=== PATIENT | male | born 1965 | race American Indian/Alaskan Native ===

== ENCOUNTER 2017-02-01 08:22 | Observation (INO) | payer MEDICARE, MEDICAID ==
[2017-02-01 08:46] VITALS: BP 140/75; PULSE 88; RESP 21; TEMP 97.8; O2SAT 100
[2017-02-01] MEDS ORDERED: Sodium Chloride 0.9% 1,000 ML IV STA (09:46)
--- NOTE | 2017-02-01 10:25 | ED PDOC ---
HPI: Abdomen Time Seen by Provider: 02/01/17 09:13 Chief Complaint (Nursing): Back Pain Chief Complaint (Provider): Abdominal Pain History Per: Patient History/Exam Limitations: no limitations Current Symptoms Are (Timing): Still Present Additional Complaint(s): 51 y/o presents to the emergency department with a complaint of chronic back pain and abdominal pain. Denies nausea , vomiting , diarrhea and fever. States his pain medications are not working Past Medical History Reviewed: Historical Data, Nursing Documentation, Vital Signs Vital Signs: Last Vital Signs Temp 97.8 F 02/01/17 08:41 Pulse 88 02/01/17 08:41 Resp 21 02/01/17 08:41 BP 140/75 02/01/17 08:41 Pulse Ox 100 02/01/17 16:57 - Medical History PMH: Gastritis, HTN - Surgical History Surgical History: No Surg Hx - Family History Family History: States: Unknown Family Hx - Home Medications Home Medications: Ambulatory Orders Medication Instructions Recorded Famotidine [Pepcid] 20 mg PO BID #20 tab 02/01/17 - Allergies Allergies/Adverse Reactions: Allergies Allergy/AdvReac Type Severity Reaction Status Date / Time shellfish derived Allergy ITCHING Verified 02/01/17 08:54 Review of Systems ROS Statement: Except As Marked, All Systems Reviewed And Found Negative Constitutional: Negative for: Fever Gastrointestinal: Positive for: Abdominal Pain. Negative for: Nausea, Vomiting , Diarrhea Physical Exam - Reviewed Nursing Documentation Reviewed: Yes Vital Signs Reviewed: Yes - Physical Exam Appears: Positive for: Non-toxic, No Acute Distress (Sleeping comfortably) Head Exam: Positive for: ATRAUMATIC, NORMOCEPHALIC Skin: Positive for: Normal Color, Warm, Dry Cardiovascular/Chest: Positive for: Regular Rate, Rhythm Respiratory: Positive for: Normal Breath Sounds Gastrointestinal/Abdominal: Positive for: Bowel Sounds (Normal), Soft, Tenderness (Mild epigastric) Neurologic/Psych: Positive for: Alert, Oriented - Laboratory Results Result Diagrams: 02/01/17 10:00 02/01/17 10:00 - ECG Interpretation Of ECG: NSR @ 84, nonspecific T wave abnormality. O2 Sat by Pulse Oximetry: 100 (RA) Pulse Ox Interpretation: Normal - CT Scan/US RUQ ultrasound Other Rad Studies (CT/US): Radiology Report Reviewed (Unremarkable right upper quadrant ultrasound.) Medical Decision Making Medical Decision Making: Time: 9:13 Initial impression: Abdominal Pain Initial plan: --Electrocardiogram Stat --COMP Metabolic Panel --Lipase Stat --ED Urine Dipstick (POC) --EKG-ED (ENDURTX) --CBC w/ differential --Pepcid 20 mg IVP --Sodium Chloride 1,000 ml IV 100 mls/hr --Zofran INJ 4mg IV --Urinalysis Stat --Revaluation Scribe Attestation: Documented by Elen Quijano, acting as a scribe for Chanelle Contreras MD. Provider Scribe Attestation: All medical record entries made by the Scribe were at my direction and personally dictated by me. I have reviewed the chart and agree that the record accurately reflects my personal performance of the history, physical exam, medical decision making, and the department course for this patient. I have also personally directed ED OBSERVATION Time of observation admission: 11:00 Disposition - Clinical Impression Clinical Impression: Chronic back pain, Gastritis - Disposition Disposition: Routine/Home Disposition Time: 13:40 Condition: IMPROVED
[2017-02-01 10:28] LABS: BASO % 0.5 % (0.0-2.0); EOS # 0.1 K/uL (0.0-0.7); EOS % 1.5 % (0.0-4.0); HEMATOCRIT 37.6 % (35.0-51.0); LYMPH # 2.3 K/uL (1.0-4.3); MEAN CELL VOLUME 92.6 fl (80.0-94.0); MEAN CORPUSCULAR HEMOGLOBIN 31.7 pg (27.0-31.0); MEAN CORPUSCULAR HGB CONC 34.2 g/dL (33.0-37.0); MEAN PLATELET VOLUME 8.8 fl (7.2-11.7); MONO # 0.7 K/uL (0.0-0.8); MONO % 9.9 % (0.0-10.0); NEUT # 4.3 K/uL (1.8-7.0); NEUT % 57.1 % (50.0-75.0); NRBC % 0.1 % (0.0-0.0); RED CELL DISTRIBUTION WIDTH 15.3 % (11.5-14.5); WHITE BLOOD COUNT 7.5 K/uL (4.8-10.8)
[2017-02-01 10:40] LABS: ALB/GLOB RATIO 1.2 (1.0-2.1); ALKALINE PHOSPHATASE 83 U/L (38-126); ALT/SGPT 99 U/L (21-72); AST/SGOT 54 U/L (17-59); BILIRUBIN,TOTAL 0.3 mg/dl (0.2-1.3); BLOOD UREA NITROGEN 15 mg/dl (9-20); CALCIUM 9.1 mg/dL (8.4-10.2); CARBON DIOXIDE 27 mmol/L (22-30); CHLORIDE 105 mmol/L (98-107); GFR AFRICAN-AMERICAN > 60; GLUCOSE,RANDOM 103 mg/dL (75-110); LIPASE 229 U/L (23-300); POTASSIUM 3.8 MMOL/L (3.6-5.0); SODIUM 141 mmol/l (132-148); TOTAL PROTEIN 6.5 G/DL (6.3-8.2)
[2017-02-01 13:29] LABS: RBC URINE 1 /hpf (0-3); URINE BACTERIA RARE (<OCC); URINE BILIRUBIN NEGATIVE (NEGATIVE); URINE BLOOD NEGATIVE (NEGATIVE); URINE COLOR YELLOW (YELLOW); URINE GLUCOSE (UA) NEG (Normal); URINE KETONE NEGATIVE (NEGATIVE); URINE LEUKOCYTE ESTERASE NEG Leu/uL (Negative); URINE PROTEIN NEGATIVE (NEGATIVE); URINE UROBILINOGEN 0.2-1.0 mg/dL (0.2-1.0); WBC URINE 3 /hpf (0-5)
--- NOTE | 2017-02-01 14:12 | US ---
HISTORY: Epigastric pain COMPARISON: None. TECHNIQUE: Sonographic evaluation of the right upper quadrant of the abdomen. FINDINGS: LIVER: Measures cm in length. Normal echogenicity of the liver parenchyma. No mass. No intrahepatic bile duct dilatation. GALLBLADDER: Unremarkable. No gallstones. COMMON BILE DUCT: Measures mm. No stones. No dilatation. PANCREAS: Unremarkable as visualized. No mass. No ductal dilatation. RIGHT KIDNEY: Measures cm in length. Normal echogenicity. No calculus, mass, or hydronephrosis. AORTA: No aneurysmal dilatation. IVC: Unremarkable. OTHER FINDINGS: None . IMPRESSION: Unremarkable right upper quadrant ultrasound
--- NOTE | 2017-02-02 10:25 | CARD ---
APPROVED REPORT EKG Measurement Heart [id number] <Conclusion> Normal sinus rhythm Minimal voltage criteria for LVH, may be normal variant Nonspecific T wave abnormality Abnormal ECG
== END 2017-02-01 16:46 | disposition home or self-care (01) ==
LOC: H.ER 08:22 → H.EROBSV 11:00
PROVIDERS: ADMIT Emergency Medicine; ATTEND Emergency Medicine
DX: G89.29 Other chronic pain (principal); K29.70 Gastritis, unspecified, without bleeding; I10 Essential (primary) hypertension; Z91.013 Allergy to seafood
CPT/HCPCS: 76705; 80053; 81003; 83690; 85025; 93005; 96374; 96375; 99282; G0378; J2405; J7040

== ENCOUNTER 2017-02-17 09:14 | Inpatient (IN) | payer MEDICARE, MEDICAID ==
--- NOTE | 2017-02-17 09:50 | ED PDOC ---
HPI: General Adult Time Seen by Provider: 02/17/17 09:41 Chief Complaint (Nursing): Back Pain Chief Complaint (Provider): back pain History Per: Patient History/Exam Limitations: no limitations Additional Complaint(s): 51yo male complaining of worsening back pain. Patient states he was supposed to see a surgeon today for evaluation of back pain (reports hx of herniated discs that needs surgery) however while he was in the shower this morning he slipped and fell, causing his chronic pain pain to become more severe. He reports that he slipped on the water and fell backwards onto his back. He denies head trauma or LOC. Denies extremity pain. He reports that he was told by Dr. Richardson' s office that if he had any worsening of his back pain before surgery he needed to present to ED. Reports that he ambulates at baseline with wheelchair. Denies new weakness, numbness or tingling. Denies bladder or bowel incontinence. PMD: [place] Past Medical History Reviewed: Historical Data, Nursing Documentation, Vital Signs Vital Signs: Last Vital Signs Temp 98.3 F 02/17/17 09:24 Pulse 118 H 02/17/17 09:24 Resp 18 02/17/17 09:24 BP 138/89 02/17/17 09:24 Pulse Ox 96 02/17/17 10:18 - Medical History PMH: Gastritis, HTN - Surgical History Surgical History: No Surg Hx - Family History Family History: States: Unknown Family Hx - Home Medications Home Medications: Ambulatory Orders Medication Instructions Recorded Famotidine [Pepcid] 20 mg PO BID #20 tab 02/01/17 - Allergies Allergies/Adverse Reactions: Allergies Allergy/AdvReac Type Severity Reaction Status Date / Time shellfish derived Allergy ITCHING Verified 02/17/17 09:24 Review of Systems ROS Statement: Except As Marked, All Systems Reviewed And Found Negative Constitutional: Negative for: Fever, Chills, Weakness, Malaise, Weight loss Eyes: Negative for: Pain ENT: Negative for: Ear Pain Cardiovascular: Negative for: Chest Pain, Palpitations, Paroxysmal Noc. Dyspnea , Edema, Light Headedness Respiratory: Negative for: Cough, Shortness of Breath, SOB with Exertion, Wheezing Gastrointestinal: Negative for: Nausea, Vomiting, Abdominal Pain, Diarrhea, Constipation Genitourinary Male: Negative for: Dysuria, Incontinence, Hematuria Musculoskeletal: Positive for: Back Pain. Negative for: Neck Pain, Shoulder Pain, Hand Pain, Leg Pain, Foot Pain Neurological: Negative for: Weakness, Numbness, Incoordination, Change in Speech , Headache Physical Exam - Reviewed Nursing Documentation Reviewed: Yes Vital Signs Reviewed: Yes - Physical Exam Appears: Positive for: Non-toxic, No Acute Distress Head Exam: Positive for: ATRAUMATIC, NORMAL INSPECTION, NORMOCEPHALIC Skin: Positive for: Warm, Dry Eye Exam: Positive for: EOMI, PERRL Neck: Positive for: Painless ROM (no midline tenderness), Supple Cardiovascular/Chest: Positive for: Regular Rate, Rhythm Respiratory: Positive for: Normal Breath Sounds. Negative for: Rales, Rhonchi, Wheezing Gastrointestinal/Abdominal: Positive for: Soft. Negative for: Tenderness, Mass , Distended Back: Positive for: Other (lumbar spine: +paraspinal tenderness. no step off) Extremity: Positive for: Normal ROM (5/5 Strength), Other (lower extremity venous statis changes. non pitting edema. ) Neurologic/Psych: Positive for: Alert - ECG O2 Sat by Pulse Oximetry: 96 (RA) Pulse Ox Interpretation: Normal Medical Decision Making Medical Decision Makin Labs, Morphine ordered. Patient neurologically at baseline. Case discussed with Dr. Donato who accepts patient for uncontrolled pain from his recent trauma and hx herniated discs. Neurosurgery consult ordered. Disposition - Clinical Impression Clinical Impression: Back pain - Disposition Disposition Time: 10:33 Condition: FAIR - Pt Status Changed To: Hospital Disposition Of: Inpatient - Admit Certification Admit to Inpatient:: After my assessment, the patient will require hospitalization for at least two midnights. This is because of the severity of symptoms shown, intensity of services needed, and/or the medical risk in this patient being treated as an outpatient. Additional Comments - Additional Comments Additional Comments: Scribe Attestation Documented by Reza Kearns acting as a scribe for Tuyet Calixto MD. Provider Attestation: All medical record entries made by the Scribe were at my direction and personally dictated by me. I have reviewed the chart and agree that the record accurately reflects my personal performance of the history, physical exam, medical decision making, and the department course for this patient. I have also personally directed, reviewed, and agree with the discharge instructions and disposition.
[2017-02-17 10:44] LABS: BASO # 0.1 K/uL (0.0-0.2); EOS # 0.1 K/uL (0.0-0.7); EOS % 1.4 % (0.0-4.0); HEMATOCRIT 40.1 % (35.0-51.0); LYMPH # 2.8 K/uL (1.0-4.3); LYMPH % 30.1 % (20.0-40.0); MEAN CELL VOLUME 92.8 fl (80.0-94.0); MEAN CORPUSCULAR HEMOGLOBIN 31.8 pg (27.0-31.0); MEAN CORPUSCULAR HGB CONC 34.2 g/dL (33.0-37.0); MEAN PLATELET VOLUME 9.5 fl (7.2-11.7); MONO # 0.7 K/uL (0.0-0.8); MONO % 7.6 % (0.0-10.0); NEUT # 5.5 K/uL (1.8-7.0); NEUT % 59.9 % (50.0-75.0); NRBC % 0.2 % (0.0-0.0); WHITE BLOOD COUNT 9.2 K/uL (4.8-10.8)
[2017-02-17 11:10] LABS: ALB/GLOB RATIO 1.5 (1.0-2.1); ALKALINE PHOSPHATASE 89 U/L (38-126); ALT/SGPT 57 U/L (21-72); AST/SGOT 35 U/L (17-59); BILIRUBIN,TOTAL 0.4 mg/dl (0.2-1.3); BLOOD UREA NITROGEN 19 mg/dl (9-20); CALCIUM 9.4 mg/dL (8.4-10.2); CARBON DIOXIDE 28 mmol/L (22-30); CHLORIDE 99 mmol/L (98-107); GFR AFRICAN-AMERICAN > 60; GLUCOSE,RANDOM 120 mg/dL (75-110); POTASSIUM 3.5 MMOL/L (3.6-5.0); SODIUM 139 mmol/l (132-148); TOTAL PROTEIN 7.3 G/DL (6.3-8.2)
[2017-02-17] MEDS: Pantoprazole 40 mg EC Tab PO SCH (16:03)
--- NOTE | 2017-02-17 16:09 | CP.PCM.CON ---
History of Present Illness - History of Present Illness History of Present Illness: 51 year old male seen at bedside with concerning elongated toenails with pedal mal-odor. PMH of chronic back pain due to herniated discs. Pt was resting in armchair upon arrival. Pt denies pain to his feet. Pt has no other pedal complaints at this time. Pt denies recent f.c.cp.sob.n.v. Past Patient History - Infectious Disease Hx of Infectious Diseases: None - Past Social History Smoking Status: Never Smoked - CARDIAC Hx Cardiac Disorders: Yes (htn) - PULMONARY Hx Respiratory Disorders: No - NEUROLOGICAL Hx Neurological Disorder: No - HEENT Hx HEENT Problems: No - RENAL Hx Chronic Kidney Disease: No - ENDOCRINE/METABOLIC Hx Endocrine Disorders: No - HEMATOLOGICAL/ONCOLOGICAL Hx Blood Disorders: No - INTEGUMENTARY Hx Dermatological Problems: No - MUSCULOSKELETAL/RHEUMATOLOGICAL Hx Musculoskeletal Disorders: Yes (back pain) - GASTROINTESTINAL Hx Gastritis: Yes - GENITOURINARY/GYNECOLOGICAL Hx Genitourinary Disorders: No - PSYCHIATRIC Hx Psychophysiologic Disorder: No - ANESTHESIA Hx Anesthesia: No Meds Allergies/Adverse Reactions: Allergies Allergy/AdvReac Type Severity Reaction Status Date / Time shellfish derived Allergy ITCHING Verified 02/17/17 09:24 - Medications Medications: Current Medications Hydrochlorothiazide (Microzide) 12.5 mg PO DAILY [facility] Last Admin: 02/17/17 16:03 Dose: Not Given Oxycodone/Acetaminophen (Percocet 5/325 Mg Tab) 1 tab PO Q6 PRN PRN Reason: Pain, moderate (4-7) Stop: 02/20/17 13:29 Pantoprazole Sodium (Protonix Ec Tab) 40 mg PO DAILY [facility] Last Admin: 02/17/17 16:03 Dose: Not Given Physical Exam - Constitutional Appears: Well, Non-toxic, In Acute Distress - Extremities Exam Additional comments: Lower extremity focused. VASC: DP and PT pulses are weakly palpable bilaterally secondary to edema. Significant +2 pitting edema noted to feet and lower legs bilaterally. Temperature runs warm to cool, within normal limits. Negative calf tenderness upon compression bilaterally. DERM: Elongated, dark-yellowed, toenails noted with sub-ungual debris to all 10 digits. Inter-digital macerations noted to lateral 3 inter-spaces bilaterally. Annular acral lesion with plantar hyperkeratosis bilaterally. Left keg anterior dermato-sclerosis noted. Neuro: Protective sensation grossly intact. MUSCK: Pedal muscle strength is graded 4/5 in all 4 major pedal muscle groups. No loss of muscle tone bilaterally. Knee and hip flexors and extensors are functional, with noted limitation end ROM upon extension. - Neurological Exam Neurological exam: Alert, Oriented x3 - Psychiatric Exam Psychiatric exam: Normal Affect, Normal Mood Results - Vital Signs Recent Vital Signs: Last Vital Signs Temp 98.8 F 02/17/17 13:50 Pulse 93 H 02/17/17 13:50 Resp 18 02/17/17 13:50 BP 158/92 H 02/17/17 13:50 Pulse Ox 96 02/17/17 13:50 - Labs Result Diagrams: 02/17/17 10:20 02/17/17 10:20 Labs: Laboratory Results - last 24 hr 02/17/17 02/17/17 02/17/17 10:20 10:20 10:20 WBC 9.2 RBC 4.32 L Hgb 13.7 Hct 40.1 MCV 92.8 MCH 31.8 H MCHC 34.2 RDW 15.0 H Plt Count 207 MPV 9.5 Neut % (Auto) 59.9 Lymph % (Auto) 30.1 [place] % (Auto) 7.6 Eos % (Auto) 1.4 Baso % (Auto) 1.0 Neut # 5.5 Lymph # 2.8 [place] # 0.7 Eos # 0.1 Baso # 0.1 PT 10.8 INR 1.04 APTT 25.0 Sodium 139 Potassium 3.5 L Chloride 99 Carbon Dioxide 28 Anion Gap 16 BUN 19 Creatinine 0.9 Est GFR ( Amer) > 60 Est GFR (Non-Af Amer) > 60 Random Glucose 120 H Calcium 9.4 Total Bilirubin 0.4 AST 35 ALT 57 Alkaline Phosphatase 89 Total Protein 7.3 Albumin 4.4 Globulin 3.0 Albumin/Globulin Ratio 1.5 Blood Type Blood Type Confirm Antibody Screen BBK History Checked 02/17/17 02/17/17 10:20 11:15 WBC RBC Hgb Hct MCV MCH MCHC RDW Plt Count MPV Neut % (Auto) Lymph % (Auto) [place] % (Auto) Eos % (Auto) Baso % (Auto) Neut # Lymph # [place] # Eos # Baso # PT INR APTT Sodium Potassium Chloride Carbon Dioxide Anion Gap BUN Creatinine Est GFR ( Amer) Est GFR (Non-Af Amer) Random Glucose Calcium Total Bilirubin AST ALT Alkaline Phosphatase Total Protein Albumin Globulin Albumin/Globulin Ratio Blood Type B POSITIVE Blood Type Confirm B POSITIVE Antibody Screen Negative BBK History Checked No verified bt Assessment & Plan - Assessment and Plan (Free Text) Assessment: 51 year old male w/ onychomycosis, tinea pedis, and venous insufficiency. Plan: Pt evaluated and treated. Discussed with attending Dr. Smith. Chart, labs, and vitals reviewed. Prescribed Clotrimazole 1% cream for use BID to feet and lower legs bilaterally. Aseptic nail debridement performed, without incident, using nail nipper down to hygienic nail length to all 10 nail plates. Pt stable from podiatric standpoint. Pt to follow-up with Dr. Smith on outpatient basis for routine foot care and outpatient treatment of onychomycosis and Tinea pedis. Podiatry signing off. Re-consult as needed. Thank you for allowing podiatry service to partake in the care of this patient. - Date & Time Date: 02/17/17 Time: 16:00
[2017-02-17] MEDS ORDERED: Povidone Iodine Topical 10% Sol ONE (16:28)
[2017-02-17] MEDS: Oxycodone/Acetaminophen 5/325 mg Tab PO PRN (19:22)
[2017-02-17] MEDS ORDERED: Enoxaparin 80 mg Syringe SC STA (21:27)
--- NOTE | 2017-02-17 21:56 | US ---
EXAM: US Duplex Bilateral Lower Extremity Veins CLINICAL HISTORY: 51 years old, male; Pain; Leg, upper; Bilateral; Additional info: R/O dvt TECHNIQUE: Real-time ultrasound scan of the veins of the bilateral lower extremities with color Doppler flow, spectral waveform analysis and compression. EXAM DATE/TIME: 02/17/2017 2:03 PM COMPARISON: There are no prior studies for comparison. FINDINGS: Right deep veins: Common femoral, superficial femoral and popliteal veins were evaluated There is occlusive thrombus in the distal right superficial femoral vein. There is noncompressibility. Is a focal area of thrombus in the midportion of the right superficial femoral with noncompressibility. Common femoral and popliteal veins are patent and compressible Left deep veins: Common femoral, superficial femoral and popliteal veins were evaluated. There is only partial compressibility of the proximal left superficial femoral vein. There is nonocclusive thrombus. There is only partial compressibility of the midportion of the left superficial femoral vein. There is flow on Doppler imaging. Distal left superficial vein and popliteal vein are compressible with expected flow. Left common femoral vein is patent and compressible. IMPRESSION: Bilateral lower extremity deep venous thrombosis, thrombus in mid to distal right superficial femoral vein, thrombus in proximal and mid left superficial femoral vein
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
[2017-02-18] MEDS ORDERED: Benzocaine/Menthol (Cepacol) Lozenge PO PRN (09:46)
[2017-02-18] MEDS: Pantoprazole 40 mg EC Tab PO SCH ×2 (09:49→09:53)
[2017-02-18] MEDS: Enoxaparin 80 mg Syringe SC SCH ×2 (09:49→21:22)
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
--- NOTE | 2017-02-18 12:23 | US ---
PROCEDURE: Duplex ultrasound of the bilateral lower extremity arteries. Working on project identifiable radiologist. Working on the mechanism review 14 ultrasound measurements 18 radiation dose image 80 automatically bounded by the blackwood in the report of the HISTORY: pvd COMPARISON: None available. TECHNIQUE: Grayscale and duplex Doppler evaluation of the bilateral common femoral, superficial femoral, popliteal, posterior tibial and dorsalis pedis arteries was performed.. FINDINGS: RIGHT LOWER EXTREMITY: RIGHT COMMON FEMORAL ARTERY: Widely patent. Maximal flow velocity of 155 cm/s. RIGHT SUPERFICIAL FEMORAL ARTERY: Widely patent. Maximal flow velocity of 121 cm/s. RIGHT POPLITEAL ARTERY:Widely patent. Maximal flow velocity of 90 cm/s. RIGHT POSTERIOR TIBIAL ARTERY: Obscured by overlying bandage. RIGHT DORSALIS PEDIS ARTERY: Obscured by overlying bandage. LEFT LOWER EXTREMITY: LEFT COMMON FEMORAL ARTERY: Widely patent. Maximal flow velocity of 111 cm/s. LEFT SUPERFICIAL FEMORAL ARTERY: Widely patent. Maximal flow velocity of 118 cm/s. LEFT POPLITEAL ARTERY:Widely patent. Maximal flow velocity of 80 cm/s. LEFT POSTERIOR TIBIAL ARTERY: Obscured by overlying bandages. LEFT DORSALIS PEDIS ARTERY: Obscured by overlying bandages. OTHER FINDINGS: None. IMPRESSION: Patent proximal arteries bilaterally. No evidence of focal stenoses or proximal occlusion. Nondiagnostic assessment of calf and foot arteries related to overlying bandages.
[2017-02-18] MEDS ORDERED: Iodixanol 320 MG/ML 100 ML BOTTLE IV ONE (12:31)
[2017-02-18] MEDS ORDERED: Lidocaine 1% Inj (20ml) ONE (12:31)
--- NOTE | 2017-02-18 12:53 | PCM.SURG1 ---
Surgeon's Initial Post Op Note - Surgeon's Notes Surgeon: Rick Hunter MD Regular Senior Care Provider: NONE Type of Anesthesia: Local Pre-Operative Diagnosis: DVT Operative Findings: Inferior venacavagram showed no thrombus. Post-Operative Diagnosis: DVT Operation Performed: Placement of a retrievable filter within the infrarenal IVC. Specimen/Specimens Removed: NONE Estimated Blood Loss: EBL {In ML}: 2 Blood Products Given: N/A Drains Used: No Drains Post-Op Condition: Fair Date of Surgery/Procedure: 02/18/17 Time of Surgery/Procedure: 12:50
[2017-02-18] MEDS: Oxycodone/Acetaminophen 5/325 mg Tab PO PRN (22:23)
[2017-02-19 06:57] LABS: HEMATOCRIT 35.3 % (35.0-51.0); MEAN CELL VOLUME 92.3 fl (80.0-94.0); MEAN CORPUSCULAR HEMOGLOBIN 31.6 pg (27.0-31.0); MEAN CORPUSCULAR HGB CONC 34.2 g/dL (33.0-37.0); RED CELL DISTRIBUTION WIDTH 14.7 % (11.5-14.5); WHITE BLOOD COUNT 7.1 K/uL (4.8-10.8)
--- NOTE | 2017-02-19 06:59 | CP.PCM.PN ---
<Shannan Kolb - Last Filed: 02/19/17 12:30> Subjective - Date & Time of Evaluation Date of Evaluation: 02/19/17 Time of Evaluation: 06:59 - Subjective Subjective: evaluated with attending. s/p laminectomy. no c/o at this time. tolerated procedure. transfer to ICU per NS Objective - Vital Signs/Intake and Output Vital Signs (last 24 hours): Temp Pulse Resp BP Pulse Ox 98.6 F 82 16 126/79 95 02/19/17 05:00 02/19/17 05:00 02/19/17 05:00 02/19/17 05:00 02/19/17 05:00 - Medications Medications: Current Medications Benzocaine/Menthol (Cepacol Sore Throat) 1 karena PO Q3 PRN PRN Reason: Sore Throat Clotrimazole (Lotrimin 1% Cream) 1 applic TOP BID [facility] Last Admin: 02/18/17 17:47 Dose: Not Given Enoxaparin Sodium (Lovenox) 80 mg SC Q12 [facility] PRN Reason: Protocol Last Admin: 02/18/17 21:22 Dose: 80 mg Hydrochlorothiazide (Microzide) 12.5 mg PO DAILY [facility] Last Admin: 02/18/17 09:53 Dose: Not Given Hydromorphone HCl (Dilaudid) 1 mg IVP Q4 PRN PRN Reason: Pain, severe (8-10) Ondansetron HCl (Zofran Inj) 4 mg IVP Q6 PRN PRN Reason: Nausea/Vomiting Last Admin: 02/18/17 15:27 Dose: 4 mg Oxycodone/Acetaminophen (Percocet 5/325 Mg Tab) 1 tab PO Q6 PRN PRN Reason: Pain, moderate (4-7) Stop: 02/20/17 13:29 Last Admin: 02/18/17 22:23 Dose: 1 tab Pantoprazole Sodium (Protonix Ec Tab) 40 mg PO DAILY [facility] Last Admin: 02/18/17 09:53 Dose: Not Given - Labs Labs: 02/17/17 10:20 02/17/17 10:20 PT 10.8 SECONDS (9.6-11.2) 02/17/17 10:20 INR 1.04 (0.92-1.08) 02/17/17 10:20 APTT 25.0 SECONDS (23.3-32.5) 02/17/17 10:20 - Constitutional Appears: Non-toxic, No Acute Distress - Head Exam Head Exam: ATRAUMATIC, NORMAL INSPECTION - Eye Exam Eye Exam: Normal appearance - ENT Exam ENT Exam: Mucous Membranes Moist - Neck Exam Neck Exam: Normal Inspection - Respiratory Exam Respiratory Exam: Clear to Ausculation Bilateral - Cardiovascular Exam Cardiovascular Exam: REGULAR RHYTHM - GI/Abdominal Exam GI & Abdominal Exam: Soft - Extremities Exam Extremities Exam: Normal Inspection - Back Exam Additional comments: ARISA drain sanguinous x1 - Neurological Exam Neurological Exam: Alert - Skin Skin Exam: Dry Additional comments: [place]ana bailey in place Assessment and Plan - Assessment and Plan (Free Text) Assessment: s/p laminectomy C2-C5 POD#0 -NS on board, appreciate input -decadron, will taper -ancef 1g BID -pain management on board, appreciate input -transfer to ICU per NS, boat motor mechanic on board, appreciate input EtOH withdrawal -CIWA -librium, ativan -neuro/seizure/fall precautions -thiamine, folic acid supplements b/l DVT -removable IVC filter placed with IR yesterday -hold lovenox. restart tomorrow per NS -H/O on board -anticoag work up HTN -c/w home med hypothermia -[place] bailey <Chriss Donato - Last Filed: 02/21/17 08:30> Objective - Vital Signs/Intake and Output Vital Signs (last 24 hours): Temp Pulse Resp BP Pulse Ox 98.5 F 65 11 L 149/96 H 98 02/21/17 08:00 02/21/17 08:00 02/21/17 08:00 02/21/17 08:00 02/21/17 08:00 Intake and Output: 02/21/17 02/21/17 06:59 18:59 Intake Total 1090 Output Total 215 5 Balance 875 -5 - Medications Medications: Current Medications Benzocaine/Menthol (Cepacol Sore Throat) 1 karena PO Q3 PRN PRN Reason: Sore Throat Chlordiazepoxide (Librium) 25 mg PO Q4H PRN PRN Reason: Withdrawl Clotrimazole (Lotrimin 1% Cream) 1 applic TOP BID [facility] Last Admin: 02/18/17 17:47 Dose: Not Given Folic Acid (Folic Acid) 1 mg PO DAILY [facility] Hydrochlorothiazide (Microzide) 12.5 mg PO DAILY [facility] Last Admin: 02/18/17 09:53 Dose: Not Given Hydromorphone HCl (Dilaudid 0.2 Mg/Ml Kitchen Mechanic) 0 mg IV PRN PRN; Protocol PRN Reason: Pain, severe (8-10) Lactated Ringer's (Lactated Ringer's) 1,000 mls @ 50 mls/hr IV .Q20H [facility] Last Admin: 02/21/17 00:38 Dose: 50 mls/hr Cefazolin Sodium 1 gm/ Sodium (Chloride) 100 mls @ 100 mls/hr IVPB Q12 [facility] Last Admin: 02/20/17 20:40 Dose: 100 mls/hr Dexamethasone 4 mg/ Sodium (Chloride) 51 mls @ 102 mls/hr IVPB Q6 [facility] Last Admin: 02/21/17 03:01 Dose: 102 mls/hr Lorazepam (Ativan) 1 mg IVP Q4H PRN PRN Reason: Symptoms of alcohol withdrawl Ondansetron HCl (Zofran Inj) 4 mg IVP Q6 PRN PRN Reason: Nausea/Vomiting Last Admin: 02/18/17 15:27 Dose: 4 mg Pantoprazole Sodium (Protonix Ec Tab) 40 mg PO DAILY [facility] Last Admin: 02/18/17 09:53 Dose: Not Given Thiamine HCl (Vitamin B1 Tab) 100 mg PO DAILY [facility] - Labs Labs: 02/20/17 04:00 02/20/17 04:00 PT 10.8 SECONDS (9.6-11.2) 02/17/17 10:20 INR 1.04 (0.92-1.08) 02/17/17 10:20 APTT 25.0 SECONDS (23.3-32.5) 02/17/17 10:20 Assessment and Plan (1) Intractable low back pain Status: Acute (2) Bilateral leg cramps Status: Acute (3) Gastritis Status: Acute (4) Deep vein thrombosis (DVT) Status: Acute (5) Ileus, postoperative Status: Acute (6) Cervical disc disease with myelopathy Status: Acute - Assessment and Plan (Free Text) Plan: I was present during evaluation and discussed with Dr Shannan tolliver plans of care,
[2017-02-19] MEDS ORDERED: Lidocaine 2% w Epi 1:100,000 Inj IJ ONE (07:06)
[2017-02-19] MEDS ORDERED: Bupivacaine HCl 0.25% PF (30 ml) Inj ONE (07:06)
[2017-02-19] MEDS ORDERED: Absorbable Gelatin Sponge Size 12-7 ONE (07:06)
[2017-02-19] MEDS ORDERED: Thrombin Topical 5,000 IU Spray Kit ONE (07:06)
[2017-02-19 07:08] LABS: ALB/GLOB RATIO 1.4 (1.0-2.1); ALKALINE PHOSPHATASE 77 U/L (38-126); ALT/SGPT 40 U/L (21-72); AST/SGOT 26 U/L (17-59); BILIRUBIN,TOTAL 0.5 mg/dl (0.2-1.3); BLOOD UREA NITROGEN 9 mg/dl (9-20); CALCIUM 8.8 mg/dL (8.4-10.2); CARBON DIOXIDE 29 mmol/L (22-30); CHLORIDE 101 mmol/L (98-107); GFR AFRICAN-AMERICAN > 60; GLUCOSE,RANDOM 89 mg/dL (75-110); POTASSIUM 3.5 MMOL/L (3.6-5.0); SODIUM 138 mmol/l (132-148); TOTAL PROTEIN 5.9 G/DL (6.3-8.2)
[2017-02-19] MEDS ORDERED: Midazolam 2 MG/2 ML VIAL ONE (07:16)
[2017-02-19] MEDS ORDERED: Rocuronium 10 mg/ml (5 ml) ONE (07:16)
[2017-02-19] MEDS ORDERED: Succinylcholine 200 mg/10 ml Inj IV ONE (07:16)
[2017-02-19] MEDS ORDERED: Propofol 10 mg/ml Inj (20 ML) ONE (07:16)
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
[2017-02-19] MEDS ORDERED: Bacitracin Ointment 30 GM TUBE ONE (07:37)
[2017-02-19] MEDS ORDERED: Lactated Ringer's 1,000 ML IV ONE ×2 (07:45→08:00)
[2017-02-19] MEDS ORDERED: Dexamethasone 4 mg/1 ml ONE (08:29)
[2017-02-19] MEDS ORDERED: HEMOSTATIC MATRIX 10 ML DIS.NEEDLE TOP ONE (08:34)
[2017-02-19] MEDS ORDERED: HYDROmorphone 0.5 mg/0.5 ml ISec IVP PRN (08:42)
[2017-02-19] MEDS ORDERED: Neostigmine Methylsulfate 3mg/3ml Syringe IV ONE (08:54)
[2017-02-19] MEDS ORDERED: Neostigmine Methylsulfate 2 MG/2 ML ML IV ONE (08:54)
[2017-02-19] MEDS ORDERED: HYDROmorphone 0.5 mg/0.5 ml ISec IVP ONE ×2 (10:10→10:50)
--- NOTE | 2017-02-19 13:31 | VASCULAR ---
PROCEDURE: Date of procedure: 02/18/2017 Procedure: Inferior vena cava filter insertion, CPT 63766 Medications: 8cc 1% lidocaine HISTORY: Bilateral DVT TECHNIQUE: Following informed consent and procedure time-out, the patient is placed supine on the interventional table. Patient right groin was prepped and draped in the usual sterile fashion. Ultrasound showed a compressible and patent right common femoral vein. After skin was anesthetized with 1% lidocaine, the femoral vein was accessed with micropuncture technique. The introducer sheath of an IVC filter was advanced over wire and positioned within the inferior vena cava and an inferior vena cavagram was performed. The inferior vena cava is normal without evidence of thrombus. The inflow of the right and left renal veins were noted. There is no venous anomalies. A retrievable filter was then placed within the infrarenal IVC. Following IVC filter placement, the sheath was removed and pressure was applied to Pt's right groin until hemostasis was achieved. A dressing was applied. IMPRESSION: Placement of retrievable filter within the infrarenal IVC.
--- NOTE | 2017-02-19 14:41 | RAD ---
PROCEDURE: Fluoroscopy up to 1 hr. HISTORY: CERVICAL LAMINECTOMY COMPARISON: None TECHNIQUE: Standard protocol for this study/examination. FINDINGS: Submitted images from the current procedure: 1.0 IMPRESSION: . Total fluoroscopic time (continuous mode) utilized during the procedure: 4.7 seconds.
[2017-02-19] MEDS: Dexamethasone 4 MG in Sodium Chloride 0.9% 50 ML IVPB SCH ×2 (16:05→21:26)
--- NOTE | 2017-02-19 18:59 | OP ---
PROCEDURE DATE: 02/19/2017 PREOPERATIVE DIAGNOSIS: Cervical spondylosis with myelopathy. POSTOPERATIVE DIAGNOSIS: Cervical spondylosis with myelopathy. PROCEDURE: C2-C5 cervical laminectomy, medial facetectomy, decompression. underwriting internship has been used for the procedure. C2-C5 posterolateral fusion SURGEON: Dr. Richardson SCREENER PERFUMER: Daniella Araujo. Daniella Araujo is a certified surgical PA. She helped me perform the surgery from the beginning to the end. DESCRIPTION OF PROCEDURE: The patient was brought to the operating room, administered general endotracheal anesthesia. Head was placed in a 3-pin [place] nailhead setter. The patient was in a prone position. underwriting internship has been clamped to the bed. Care was taken to protect all pressure points. Back of the cervical area thoroughly prepped and draped in standard sterile manner after marking the skin incision for cervical laminectomy. After prepping and draping the area, skin has been incised. Bleeding skins have been controlled with bipolar cafeteria monitor. After using a Bovie cafeteria monitor, paraspinal muscles have been detached from attachment of spinous process from C2-C5. Deep retractors have been applied. Identification of levels has been done with the help of fluoroscopy. By using high-speed drill, the spinous process and lamina of C2-C5 have been drilled to actual thickness. By using a fine Kerrison punch , thinned out segment of lamina, medial part of the facets, ligamentum flavum has been removed decompressing this area completely. After that, the spinous processes that have been removed have been crushed to small pieces. They have been placed on the decorticated areas of C2-C5 performing a posterolateral fusion. Hemostasis best achieved. Paul drain placed in the wound, brought out through separate stab next to skin incision. Muscles and fascia closed with 1-0 Vicryl, subcutaneous with 3-0 Vicryl, skin has been closed with intradermal 3-0 Vicryl stitches. The patient tolerated procedure. After procedure, mobilized to the recovery room in stable and awake condition. Magan Richardson MD cc: [phone] TT: 02/19/2017 18:59:10 sn MTDD
[2017-02-19] MEDS: ceFAZolin 1 GM in Sodium Chloride 0.9% 100 ML IVPB SCH (21:25)
[2017-02-20 05:11] LABS: ALB/GLOB RATIO 1.3 (1.0-2.1); ALKALINE PHOSPHATASE 75 U/L (38-126); ALT/SGPT 41 U/L (21-72); AST/SGOT 30 U/L (17-59); BILIRUBIN,TOTAL 0.3 mg/dl (0.2-1.3); BLOOD UREA NITROGEN 13 mg/dl (9-20); CALCIUM 8.7 mg/dL (8.4-10.2); CARBON DIOXIDE 28 mmol/L (22-30); CHLORIDE 100 mmol/L (98-107); GFR AFRICAN-AMERICAN > 60; GLUCOSE,RANDOM 148 mg/dL (75-110); SODIUM 135 mmol/l (132-148); TOTAL PROTEIN 6.1 G/DL (6.3-8.2)
[2017-02-20 19:46] LABS: HEMATOCRIT 36.4 % (35.0-51.0); MEAN CELL VOLUME 93.4 fl (80.0-94.0); MEAN CORPUSCULAR HEMOGLOBIN 30.8 pg (27.0-31.0); MEAN CORPUSCULAR HGB CONC 32.9 g/dL (33.0-37.0); RED CELL DISTRIBUTION WIDTH 14.6 % (11.5-14.5); WHITE BLOOD COUNT 11.5 K/uL (4.8-10.8)
[2017-02-20] MEDS: ceFAZolin 1 GM in Sodium Chloride 0.9% 100 ML IVPB SCH (20:40)
[2017-02-20] MEDS: Dexamethasone 4 MG in Sodium Chloride 0.9% 50 ML IVPB SCH (22:19)
[2017-02-21] MEDS: Lactated Ringer's 1,000 ML IV SCH ×2 (00:38→21:35)
[2017-02-21] MEDS: Dexamethasone 4 MG in Sodium Chloride 0.9% 50 ML IVPB SCH ×4 (03:01→21:29)
[2017-02-21 08:17] LABS: CARDIOLIPIN AB (IGA) <11 APL (<=11)
--- NOTE | 2017-02-21 08:28 | CP.PCM.PN ---
Subjective - Date & Time of Evaluation Date of Evaluation: 02/20/17 Time of Evaluation: 09:00 - Subjective Subjective: Patient still has a lot of drain Noted to have distended abdomen. Has no fever. Objective - Vital Signs/Intake and Output Vital Signs (last 24 hours): Temp Pulse Resp BP Pulse Ox 98.5 F 65 11 L 149/96 H 98 02/21/17 08:00 02/21/17 08:00 02/21/17 08:00 02/21/17 08:00 02/21/17 08:00 Intake and Output: 02/21/17 02/21/17 06:59 18:59 Intake Total 1090 Output Total 215 5 Balance 875 -5 - Medications Medications: Current Medications Benzocaine/Menthol (Cepacol Sore Throat) 1 karena PO Q3 PRN PRN Reason: Sore Throat Chlordiazepoxide (Librium) 25 mg PO Q4H PRN PRN Reason: Withdrawl Clotrimazole (Lotrimin 1% Cream) 1 applic TOP BID [facility] Last Admin: 02/18/17 17:47 Dose: Not Given Folic Acid (Folic Acid) 1 mg PO DAILY [facility] Hydrochlorothiazide (Microzide) 12.5 mg PO DAILY [facility] Last Admin: 02/18/17 09:53 Dose: Not Given Hydromorphone HCl (Dilaudid 0.2 Mg/Ml Six Pack Packer) 0 mg IV PRN PRN; Protocol PRN Reason: Pain, severe (8-10) Lactated Ringer's (Lactated Ringer's) 1,000 mls @ 50 mls/hr IV .Q20H [facility] Last Admin: 02/21/17 00:38 Dose: 50 mls/hr Cefazolin Sodium 1 gm/ Sodium (Chloride) 100 mls @ 100 mls/hr IVPB Q12 [facility] Last Admin: 02/20/17 20:40 Dose: 100 mls/hr Dexamethasone 4 mg/ Sodium (Chloride) 51 mls @ 102 mls/hr IVPB Q6 [facility] Last Admin: 02/21/17 03:01 Dose: 102 mls/hr Lorazepam (Ativan) 1 mg IVP Q4H PRN PRN Reason: Symptoms of alcohol withdrawl Ondansetron HCl (Zofran Inj) 4 mg IVP Q6 PRN PRN Reason: Nausea/Vomiting Last Admin: 02/18/17 15:27 Dose: 4 mg Pantoprazole Sodium (Protonix Ec Tab) 40 mg PO DAILY [facility] Last Admin: 02/18/17 09:53 Dose: Not Given Thiamine HCl (Vitamin B1 Tab) 100 mg PO DAILY [facility] - Labs Labs: 02/20/17 04:00 02/20/17 04:00 PT 10.8 SECONDS (9.6-11.2) 02/17/17 10:20 INR 1.04 (0.92-1.08) 02/17/17 10:20 APTT 25.0 SECONDS (23.3-32.5) 02/17/17 10:20 - Head Exam Head Exam: NORMAL INSPECTION - Eye Exam Eye Exam: Normal appearance - ENT Exam ENT Exam: Mucous Membranes Moist - Respiratory Exam Respiratory Exam: Clear to Ausculation Bilateral - Cardiovascular Exam Cardiovascular Exam: REGULAR RHYTHM - GI/Abdominal Exam GI & Abdominal Exam: Distended, Hyperactive Bowel Sounds Assessment and Plan (1) Intractable low back pain Status: Acute (2) Bilateral leg cramps Status: Acute (3) Gastritis Status: Acute (4) Deep vein thrombosis (DVT) Status: Acute (5) Ileus, postoperative Status: Acute (6) Cervical disc disease with myelopathy Status: Acute - Assessment and Plan (Free Text) Plan: contmeds enema lactulose flat plate NPO pain meds raul start xarelto in am.
--- NOTE | 2017-02-21 08:33 | CP.PCM.PN ---
Subjective - Date & Time of Evaluation Date of Evaluation: 02/21/17 Time of Evaluation: 08:30 - Subjective Subjective: Patient feels a lot better. He was noted to have ileus yesterday and responded well with enema and lactulose. Feels a lot better. Objective - Vital Signs/Intake and Output Vital Signs (last 24 hours): Temp Pulse Resp BP Pulse Ox 98.5 F 65 11 L 149/96 H 98 02/21/17 08:00 02/21/17 08:00 02/21/17 08:00 02/21/17 08:00 02/21/17 08:00 Intake and Output: 02/21/17 02/21/17 06:59 18:59 Intake Total 1090 Output Total 215 5 Balance 875 -5 - Medications Medications: Current Medications Benzocaine/Menthol (Cepacol Sore Throat) 1 karena PO Q3 PRN PRN Reason: Sore Throat Chlordiazepoxide (Librium) 25 mg PO Q4H PRN PRN Reason: Withdrawl Clotrimazole (Lotrimin 1% Cream) 1 applic TOP BID [facility] Last Admin: 02/18/17 17:47 Dose: Not Given Folic Acid (Folic Acid) 1 mg PO DAILY [facility] Hydrochlorothiazide (Microzide) 12.5 mg PO DAILY [facility] Last Admin: 02/18/17 09:53 Dose: Not Given Hydromorphone HCl (Dilaudid 0.2 Mg/Ml Spanish Lecturer) 0 mg IV PRN PRN; Protocol PRN Reason: Pain, severe (8-10) Lactated Ringer's (Lactated Ringer's) 1,000 mls @ 50 mls/hr IV .Q20H [facility] Last Admin: 02/21/17 00:38 Dose: 50 mls/hr Cefazolin Sodium 1 gm/ Sodium (Chloride) 100 mls @ 100 mls/hr IVPB Q12 [facility] Last Admin: 02/20/17 20:40 Dose: 100 mls/hr Dexamethasone 4 mg/ Sodium (Chloride) 51 mls @ 102 mls/hr IVPB Q6 [facility] Last Admin: 02/21/17 03:01 Dose: 102 mls/hr Lorazepam (Ativan) 1 mg IVP Q4H PRN PRN Reason: Symptoms of alcohol withdrawl Ondansetron HCl (Zofran Inj) 4 mg IVP Q6 PRN PRN Reason: Nausea/Vomiting Last Admin: 02/18/17 15:27 Dose: 4 mg Pantoprazole Sodium (Protonix Ec Tab) 40 mg PO DAILY [facility] Last Admin: 02/18/17 09:53 Dose: Not Given Thiamine HCl (Vitamin B1 Tab) 100 mg PO DAILY [facility] - Labs Labs: 02/20/17 04:00 02/20/17 04:00 PT 10.8 SECONDS (9.6-11.2) 02/17/17 10:20 INR 1.04 (0.92-1.08) 02/17/17 10:20 APTT 25.0 SECONDS (23.3-32.5) 02/17/17 10:20 - Head Exam Head Exam: NORMAL INSPECTION - Eye Exam Eye Exam: Normal appearance - ENT Exam ENT Exam: Mucous Membranes Moist - Respiratory Exam Respiratory Exam: Clear to Ausculation Bilateral - Cardiovascular Exam Cardiovascular Exam: REGULAR RHYTHM - GI/Abdominal Exam GI & Abdominal Exam: Normal Bowel Sounds - Neurological Exam Neurological Exam: Awake, Oriented x3 - Psychiatric Exam Psychiatric exam: Normal Affect Assessment and Plan (1) Intractable low back pain Status: Acute (2) Bilateral leg cramps Status: Acute (3) Gastritis Status: Resolved (4) Deep vein thrombosis (DVT) Status: Acute (5) Ileus, postoperative Status: Acute (6) Cervical disc disease with myelopathy Status: Acute (7) S/P laminectomy Status: Acute - Assessment and Plan (Free Text) Plan: cont meds cont tx may go to reg floor start xarelto 15 mg bid discussed with Dr Vernon start Percocet 10 mg q 6 start PT
--- NOTE | 2017-02-21 08:50 | RAD ---
HISTORY: Rule out obstruction COMPARISON: No prior. FINDINGS: BOWEL: There is a focally dilated loop of bowel in the left lower quadrant of the abdomen, of uncertain significance. This is most likely a small bowel loop. No evidence of generalized small bowel obstruction. No masses or abnormal calcifications. Inferior vena caval filter noted. BONES: Normal. OTHER FINDINGS: None. IMPRESSION: No evidence generalized small bowel obstruction. Focally dilated loop of probable small bowel in the left lower quadrant of the abdomen. Nonspecific finding. This may represent focal adynamic ileus.
[2017-02-21] MEDS: ceFAZolin 1 GM in Sodium Chloride 0.9% 100 ML IVPB SCH ×2 (09:10→21:30)
[2017-02-21] MEDS: Pantoprazole 40 mg EC Tab PO SCH (09:12)
[2017-02-21] MEDS: Oxycodone/Acetaminophen 5/325 mg Tab PO PRN (09:47)
[2017-02-21 12:23] LABS: PARTIAL THROMBOPLASTIN TIME 27.1 SECONDS (23.3-32.5)
[2017-02-22] MEDS: Dexamethasone 4 MG in Sodium Chloride 0.9% 50 ML IVPB SCH ×5 (04:35→21:53)
[2017-02-22] MEDS: Oxycodone/Acetaminophen 5/325 mg Tab PO PRN (05:20)
--- NOTE | 2017-02-22 09:15 | CP.PCM.DIS ---
Provider - Provider Date of Admission: 02/17/17 09:58 Attending physician: Chriss Donato MD Time Spent in preparation of Discharge (in minutes): 30 Diagnosis - Discharge Diagnosis (1) Intractable low back pain Status: Acute (2) Bilateral leg cramps Status: Acute (3) Deep vein thrombosis (DVT) Status: Acute (4) Ileus, postoperative Status: Acute (5) Cervical disc disease with myelopathy Status: Acute (6) S/P laminectomy Status: Acute Hospital Course - Lab Results Lab Results: Micro Results 02/19/17 Unknown Naris MRSA Culture (Admit) - Final MRSA NOT DETECTED Most Recent Lab Values WBC 11.5 K/uL (4.8-10.8) H D 02/20/17 04:00 RBC 3.89 Mil/uL (4.40-5.90) L 02/20/17 04:00 Hgb 12.0 g/dL (12.0-18.0) 02/20/17 04:00 Hct 36.4 % (35.0-51.0) 02/20/17 04:00 MCV 93.4 fl (80.0-94.0) 02/20/17 04:00 MCH 30.8 pg (27.0-31.0) 02/20/17 04:00 MCHC 32.9 g/dL (33.0-37.0) L 02/20/17 04:00 RDW 14.6 % (11.5-14.5) H 02/20/17 04:00 Plt Count 202 K/uL (130-400) 02/20/17 04:00 MPV 9.5 fl (7.2-11.7) 02/17/17 10:20 Neut % (Auto) 59.9 % (50.0-75.0) 02/17/17 10:20 Lymph % (Auto) 30.1 % (20.0-40.0) 02/17/17 10:20 [place] % (Auto) 7.6 % (0.0-10.0) 02/17/17 10:20 Eos % (Auto) 1.4 % (0.0-4.0) 02/17/17 10:20 Baso % (Auto) 1.0 % (0.0-2.0) 02/17/17 10:20 Neut # 5.5 K/uL (1.8-7.0) 02/17/17 10:20 Lymph # 2.8 K/uL (1.0-4.3) 02/17/17 10:20 [place] # 0.7 K/uL (0.0-0.8) 02/17/17 10:20 Eos # 0.1 K/uL (0.0-0.7) 02/17/17 10:20 Baso # 0.1 K/uL (0.0-0.2) 02/17/17 10:20 PT 10.8 SECONDS (9.6-11.2) 02/20/17 04:00 INR 1.04 (0.92-1.08) 02/20/17 04:00 APTT 27.1 SECONDS (23.3-32.5) 02/20/17 04:00 Lupus Anticoagulant see note 02/19/17 12:00 LA PTT Screen 43 sec (<=40) H 02/19/17 12:00 dRVVT Mixing Study 30 sec (<=45) 02/19/17 12:00 dRVVT Mix Interpret Not indicated 02/19/17 12:00 Hexagonal Phase Confirm Negative (Negative) 02/19/17 12:00 Sodium 135 mmol/l (132-148) 02/20/17 04:00 Potassium 4.0 MMOL/L (3.6-5.0) 02/20/17 04:00 Chloride 100 mmol/L (98-107) 02/20/17 04:00 Carbon Dioxide 28 mmol/L (22-30) 02/20/17 04:00 Anion Gap 11 (10-20) 02/20/17 04:00 BUN 13 mg/dl (9-20) 02/20/17 04:00 Creatinine 0.9 mg/dL (0.8-1.5) 02/20/17 04:00 Est GFR ( Amer) > 60 02/20/17 04:00 Est GFR (Non-Af Amer) > 60 02/20/17 04:00 Random Glucose 148 mg/dL (75-110) H 02/20/17 04:00 Calcium 8.7 mg/dL (8.4-10.2) 02/20/17 04:00 Total Bilirubin 0.3 mg/dl (0.2-1.3) 02/20/17 04:00 AST 30 U/L (17-59) 02/20/17 04:00 ALT 41 U/L (21-72) 02/20/17 04:00 Alkaline Phosphatase 75 U/L (38-126) 02/20/17 04:00 Total Protein 6.1 G/DL (6.3-8.2) L 02/20/17 04:00 Albumin 3.5 g/dL (3.5-5.0) 02/20/17 04:00 Globulin 2.6 gm/dL (2.2-3.9) 02/20/17 04:00 Albumin/Globulin Ratio 1.3 (1.0-2.1) 02/20/17 04:00 Anti-Cardiolipin IgG Ab <14 GPL (<=14) 02/19/17 12:00 Anti-Cardiolipin IgA Ab <11 APL (<=11) 02/19/17 12:00 Anti-Cardiolipin IgM Ab 37 MPL (<=12) H 02/19/17 12:00 Blood Type B POSITIVE 02/17/17 10:20 Blood Type Confirm B POSITIVE 02/17/17 11:15 Antibody Screen Negative 02/17/17 10:20 BBK History Checked No verified bt 02/17/17 10:20 - Hospital Course Hospital Course: This is a 51 y/o male with chronic pain had a laminectomy and was transferred to TCU for further subacute rehab. He did well with PT except for perisistent pain in the LS area and chronic constipation. he has a hx of HTN. Discharge Exam - Head Exam Head Exam: NORMAL INSPECTION - Eye Exam Eye Exam: Normal appearance - Respiratory Exam Respiratory Exam: NORMAL BREATHING PATTERN - Cardiovascular Exam Cardiovascular Exam: REGULAR RHYTHM - GI/Abdominal Exam GI & Abdominal Exam: Normal Bowel Sounds - Neurological Exam Neurological exam: CN II-XII Intact, Oriented x3 - Psychiatric Exam Psychiatric exam: Normal Mood Discharge Plan - Follow Up Plan Condition: FAIR Disposition: HOME/ ROUTINE Additional Instructions: advised follow up with PMD and pain mgt. PT home
[2017-02-22] MEDS: ceFAZolin 1 GM in Sodium Chloride 0.9% 100 ML IVPB SCH ×2 (10:15→20:44)
[2017-02-22] MEDS: Pantoprazole 40 mg EC Tab PO SCH (10:21)
--- NOTE | 2017-02-22 11:34 | CP.PCM.PN ---
Subjective - Date & Time of Evaluation Date of Evaluation: 02/22/17 Time of Evaluation: 11:33 - Subjective Subjective: Pt was started on xarelto yesterday and has had no tatum bleeding from the drain. will continue with the same dose Objective - Vital Signs/Intake and Output Vital Signs (last 24 hours): Temp Pulse Resp BP Pulse Ox 98.1 F 88 22 117/69 97 02/22/17 08:35 02/22/17 08:35 02/22/17 08:35 02/22/17 08:35 02/22/17 08:35 Intake and Output: 02/22/17 02/22/17 06:59 18:59 Intake Total 1080 Output Total 805 Balance 275 - Medications Medications: Current Medications Amlodipine Besylate (Norvasc) 5 mg PO DAILY [facility] Last Admin: 02/22/17 10:20 Dose: Not Given Benzocaine/Menthol (Cepacol Sore Throat) 1 karena PO Q3 PRN PRN Reason: Sore Throat Chlordiazepoxide (Librium) 25 mg PO Q4H PRN PRN Reason: Withdrawl Clotrimazole (Lotrimin 1% Cream) 1 applic TOP BID [facility] Last Admin: 02/22/17 10:19 Dose: 1 applic Folic Acid (Folic Acid) 1 mg PO DAILY [facility] Last Admin: 02/22/17 10:18 Dose: 1 mg Hydrochlorothiazide (Microzide) 12.5 mg PO DAILY [facility] Last Admin: 02/22/17 10:19 Dose: Not Given Lactated Ringer's (Lactated Ringer's) 1,000 mls @ 50 mls/hr IV .Q20H [facility] Last Admin: 02/21/17 21:35 Dose: 50 mls/hr Cefazolin Sodium 1 gm/ Sodium (Chloride) 100 mls @ 100 mls/hr IVPB Q12 [facility] Last Admin: 02/22/17 10:15 Dose: 100 mls/hr Dexamethasone 4 mg/ Sodium (Chloride) 51 mls @ 102 mls/hr IVPB Q6 [facility] Last Admin: 02/22/17 10:16 Dose: 102 mls/hr Lactulose (Enulose) 20 gm PO TID [facility] Last Admin: 02/22/17 10:17 Dose: 20 gm Lorazepam (Ativan) 1 mg IVP Q4H PRN PRN Reason: Symptoms of alcohol withdrawl Ondansetron HCl (Zofran Inj) 4 mg IVP Q6 PRN PRN Reason: Nausea/Vomiting Last Admin: 02/21/17 15:17 Dose: 4 mg Oxycodone/Acetaminophen (Percocet 5/325 Mg Tab) 1 tab PO Q4 PRN PRN Reason: Pain, moderate (4-7) Stop: 02/24/17 08:35 Last Admin: 02/22/17 05:20 Dose: 1 tab Pantoprazole Sodium (Protonix Ec Tab) 40 mg PO DAILY [facility] Last Admin: 02/22/17 10:21 Dose: 40 mg Rivaroxaban (Xarelto) 15 mg PO BIDWM [facility] PRN Reason: Protocol Last Admin: 02/22/17 10:21 Dose: 15 mg Thiamine HCl (Vitamin B1 Tab) 100 mg PO DAILY [facility] Last Admin: 02/22/17 10:21 Dose: 100 mg Valsartan (Diovan) 160 mg PO DAILY [facility] Last Admin: 02/22/17 10:17 Dose: Not Given - Labs Labs: 02/20/17 04:00 02/20/17 04:00 PT 10.8 SECONDS (9.6-11.2) 02/20/17 04:00 INR 1.04 (0.92-1.08) 02/20/17 04:00 APTT 27.1 SECONDS (23.3-32.5) 02/20/17 04:00
[2017-02-23] MEDS: Dexamethasone 4 MG in Sodium Chloride 0.9% 50 ML IVPB SCH ×4 (04:40→22:11)
[2017-02-23] MEDS: ceFAZolin 1 GM in Sodium Chloride 0.9% 100 ML IVPB SCH ×3 (08:56→21:02)
--- NOTE | 2017-02-23 09:02 | CP.PCM.PN ---
Subjective - Date & Time of Evaluation Date of Evaluation: 02/22/17 Time of Evaluation: 10:00 - Subjective Subjective: Patient feels a lot better Has minimal pain on the C spine No leg pain start Xarelto today. Objective - Vital Signs/Intake and Output Vital Signs (last 24 hours): Temp Pulse Resp BP Pulse Ox 98.4 F 63 20 135/84 95 02/23/17 08:11 02/23/17 08:11 02/23/17 08:11 02/23/17 08:11 02/23/17 08:11 Intake and Output: 02/23/17 02/23/17 06:59 18:59 Output Total 2 Balance -2 - Medications Medications: Current Medications Amlodipine Besylate (Norvasc) 5 mg PO DAILY [facility] Last Admin: 02/22/17 10:20 Dose: Not Given Benzocaine/Menthol (Cepacol Sore Throat) 1 karena PO Q3 PRN PRN Reason: Sore Throat Chlordiazepoxide (Librium) 25 mg PO Q4H PRN PRN Reason: Withdrawl Clotrimazole (Lotrimin 1% Cream) 1 applic TOP BID [facility] Last Admin: 02/22/17 17:40 Dose: 1 applic Folic Acid (Folic Acid) 1 mg PO DAILY [facility] Last Admin: 02/22/17 10:18 Dose: 1 mg Hydrochlorothiazide (Microzide) 12.5 mg PO DAILY [facility] Last Admin: 02/22/17 10:19 Dose: Not Given Cefazolin Sodium 1 gm/ Sodium (Chloride) 100 mls @ 100 mls/hr IVPB Q12 [facility] Last Admin: 02/23/17 08:57 Dose: 100 mls/hr Dexamethasone 4 mg/ Sodium (Chloride) 51 mls @ 102 mls/hr IVPB Q6 [facility] Last Admin: 02/23/17 04:40 Dose: 102 mls/hr Lactulose (Enulose) 20 gm PO TID [facility] Last Admin: 02/22/17 17:41 Dose: Not Given Lorazepam (Ativan) 1 mg IVP Q4H PRN PRN Reason: Symptoms of alcohol withdrawl Ondansetron HCl (Zofran Inj) 4 mg IVP Q6 PRN PRN Reason: Nausea/Vomiting Last Admin: 02/22/17 20:48 Dose: 4 mg Oxycodone/Acetaminophen (Percocet 5/325 Mg Tab) 1 tab PO Q4 PRN PRN Reason: Pain, moderate (4-7) Stop: 02/24/17 08:35 Last Admin: 02/22/17 05:20 Dose: 1 tab Pantoprazole Sodium (Protonix Ec Tab) 40 mg PO DAILY [facility] Last Admin: 02/22/17 10:21 Dose: 40 mg Rivaroxaban (Xarelto) 15 mg PO BIDWM [facility] PRN Reason: Protocol Last Admin: 02/22/17 17:45 Dose: 15 mg Thiamine HCl (Vitamin B1 Tab) 100 mg PO DAILY [facility] Last Admin: 02/22/17 10:21 Dose: 100 mg Valsartan (Diovan) 160 mg PO DAILY [facility] Last Admin: 02/22/17 10:17 Dose: Not Given - Labs Labs: 02/20/17 04:00 02/20/17 04:00 PT 10.8 SECONDS (9.6-11.2) 02/20/17 04:00 INR 1.04 (0.92-1.08) 02/20/17 04:00 APTT 27.1 SECONDS (23.3-32.5) 02/20/17 04:00 - Head Exam Head Exam: NORMAL INSPECTION - Eye Exam Eye Exam: Normal appearance - ENT Exam ENT Exam: Mucous Membranes Moist - Respiratory Exam Respiratory Exam: Clear to Ausculation Bilateral - Cardiovascular Exam Cardiovascular Exam: REGULAR RHYTHM - GI/Abdominal Exam GI & Abdominal Exam: Normal Bowel Sounds - Neurological Exam Neurological Exam: CN II-XII Intact, Oriented x3 - Psychiatric Exam Psychiatric exam: Normal Mood Assessment and Plan (1) Intractable low back pain Status: Acute (2) Bilateral leg cramps Status: Acute (3) Deep vein thrombosis (DVT) Status: Acute (4) Ileus, postoperative Status: Acute (5) Cervical disc disease with myelopathy Status: Acute (6) S/P laminectomy Status: Acute - Assessment and Plan (Free Text) Plan: Cont meds Keep drain for now.Cont pain meds Xarelto
[2017-02-23] MEDS: Pantoprazole 40 mg EC Tab PO SCH (09:04)
[2017-02-24 00:56] LABS: PLASMINOGEN ACTIV INHIB-1 51 ng/mL (4-43)
[2017-02-24] MEDS: Dexamethasone 4 MG in Sodium Chloride 0.9% 50 ML IVPB SCH (03:57)
--- NOTE | 2017-02-24 08:22 | CP.PCM.PN ---
Subjective - Date & Time of Evaluation Date of Evaluation: 02/23/17 Time of Evaluation: 10:00 - Subjective Subjective: Patient has less pain in the op site Has no chest pain or SOB Afebrile Tolerating xarelto Noted significant decrease in drainage. Objective - Vital Signs/Intake and Output Vital Signs (last 24 hours): Temp Pulse Resp BP Pulse Ox 98 F 61 16 145/93 H 98 02/24/17 08:00 02/24/17 08:00 02/24/17 08:00 02/24/17 08:00 02/24/17 08:00 Intake and Output: 02/24/17 02/24/17 06:59 18:59 Output Total 7 Balance -7 - Medications Medications: Current Medications Amlodipine Besylate (Norvasc) 5 mg PO DAILY [facility] Last Admin: 02/23/17 09:05 Dose: 5 mg Benzocaine/Menthol (Cepacol Sore Throat) 1 karena PO Q3 PRN PRN Reason: Sore Throat Chlordiazepoxide (Librium) 25 mg PO Q4H PRN PRN Reason: Withdrawl Clotrimazole (Lotrimin 1% Cream) 1 applic TOP BID [facility] Last Admin: 02/23/17 16:43 Dose: 1 applic Folic Acid (Folic Acid) 1 mg PO DAILY [facility] Last Admin: 02/23/17 09:03 Dose: 1 mg Hydrochlorothiazide (Microzide) 12.5 mg PO DAILY [facility] Last Admin: 02/23/17 09:07 Dose: 12.5 mg Cefazolin Sodium 1 gm/ Sodium (Chloride) 100 mls @ 100 mls/hr IVPB Q12 [facility] Last Admin: 02/23/17 21:02 Dose: 100 mls/hr Dexamethasone 4 mg/ Sodium (Chloride) 51 mls @ 102 mls/hr IVPB Q6 [facility] Last Admin: 02/24/17 03:57 Dose: 102 mls/hr Lactulose (Enulose) 20 gm PO TID [facility] Last Admin: 02/23/17 16:42 Dose: 20 gm Lorazepam (Ativan) 1 mg IVP Q4H PRN PRN Reason: Symptoms of alcohol withdrawl Ondansetron HCl (Zofran Inj) 4 mg IVP Q6 PRN PRN Reason: Nausea/Vomiting Last Admin: 02/23/17 16:50 Dose: 4 mg Oxycodone/Acetaminophen (Percocet 5/325 Mg Tab) 1 tab PO Q4 PRN PRN Reason: Pain, moderate (4-7) Stop: 02/24/17 08:35 Last Admin: 02/22/17 05:20 Dose: 1 tab Pantoprazole Sodium (Protonix Ec Tab) 40 mg PO DAILY [facility] Last Admin: 02/23/17 09:04 Dose: 40 mg Rivaroxaban (Xarelto) 15 mg PO BIDWM [facility] PRN Reason: Protocol Last Admin: 02/23/17 16:43 Dose: 15 mg Thiamine HCl (Vitamin B1 Tab) 100 mg PO DAILY [facility] Last Admin: 02/23/17 09:04 Dose: 100 mg Valsartan (Diovan) 160 mg PO DAILY [facility] Last Admin: 02/23/17 09:02 Dose: 160 mg - Labs Labs: 02/20/17 04:00 02/20/17 04:00 PT 10.8 SECONDS (9.6-11.2) 02/20/17 04:00 INR 1.04 (0.92-1.08) 02/20/17 04:00 APTT 27.1 SECONDS (23.3-32.5) 02/20/17 04:00 - Head Exam Head Exam: NORMAL INSPECTION - Eye Exam Eye Exam: Normal appearance - ENT Exam ENT Exam: Mucous Membranes Moist - Respiratory Exam Respiratory Exam: Clear to Ausculation Bilateral - Cardiovascular Exam Cardiovascular Exam: REGULAR RHYTHM - GI/Abdominal Exam GI & Abdominal Exam: Normal Bowel Sounds - Neurological Exam Neurological Exam: Awake, Oriented x3 Assessment and Plan (1) Intractable low back pain Status: Acute (2) Bilateral leg cramps Status: Acute (3) Deep vein thrombosis (DVT) Status: Acute (4) Ileus, postoperative Status: Acute (5) Cervical disc disease with myelopathy Status: Acute (6) S/P laminectomy Status: Acute - Assessment and Plan (Free Text) Plan: Cont meds remove drain tomorrow cont xarelto cont tx
--- NOTE | 2017-02-24 08:28 | CP.PCM.DIS ---
Provider - Provider Date of Admission: 02/17/17 09:58 Attending physician: Chriss Donato MD Time Spent in preparation of Discharge (in minutes): 45 Diagnosis - Discharge Diagnosis (1) Intractable low back pain Status: Acute (2) Bilateral leg cramps Status: Acute (3) Deep vein thrombosis (DVT) Status: Acute (4) Ileus, postoperative Status: Acute (5) Cervical disc disease with myelopathy Status: Acute (6) S/P laminectomy Status: Acute Hospital Course - Lab Results Lab Results: Micro Results 02/19/17 Unknown Naris MRSA Culture (Admit) - Final MRSA NOT DETECTED Most Recent Lab Values WBC 11.5 K/uL (4.8-10.8) H D 02/20/17 04:00 RBC 3.89 Mil/uL (4.40-5.90) L 02/20/17 04:00 Hgb 12.0 g/dL (12.0-18.0) 02/20/17 04:00 Hct 36.4 % (35.0-51.0) 02/20/17 04:00 MCV 93.4 fl (80.0-94.0) 02/20/17 04:00 MCH 30.8 pg (27.0-31.0) 02/20/17 04:00 MCHC 32.9 g/dL (33.0-37.0) L 02/20/17 04:00 RDW 14.6 % (11.5-14.5) H 02/20/17 04:00 Plt Count 202 K/uL (130-400) 02/20/17 04:00 MPV 9.5 fl (7.2-11.7) 02/17/17 10:20 Neut % (Auto) 59.9 % (50.0-75.0) 02/17/17 10:20 Lymph % (Auto) 30.1 % (20.0-40.0) 02/17/17 10:20 [place] % (Auto) 7.6 % (0.0-10.0) 02/17/17 10:20 Eos % (Auto) 1.4 % (0.0-4.0) 02/17/17 10:20 Baso % (Auto) 1.0 % (0.0-2.0) 02/17/17 10:20 Neut # 5.5 K/uL (1.8-7.0) 02/17/17 10:20 Lymph # 2.8 K/uL (1.0-4.3) 02/17/17 10:20 [place] # 0.7 K/uL (0.0-0.8) 02/17/17 10:20 Eos # 0.1 K/uL (0.0-0.7) 02/17/17 10:20 Baso # 0.1 K/uL (0.0-0.2) 02/17/17 10:20 PT 10.8 SECONDS (9.6-11.2) 02/20/17 04:00 INR 1.04 (0.92-1.08) 02/20/17 04:00 APTT 27.1 SECONDS (23.3-32.5) 02/20/17 04:00 Plasminogen Inhib-1 Act 51 ng/mL (4-43) H 02/19/17 12:00 Lupus Anticoagulant see note 02/19/17 12:00 LA PTT Screen 43 sec (<=40) H 02/19/17 12:00 dRVVT Mixing Study 30 sec (<=45) 02/19/17 12:00 dRVVT Mix Interpret Not indicated 02/19/17 12:00 Hexagonal Phase Confirm Negative (Negative) 02/19/17 12:00 Sodium 135 mmol/l (132-148) 02/20/17 04:00 Potassium 4.0 MMOL/L (3.6-5.0) 02/20/17 04:00 Chloride 100 mmol/L (98-107) 02/20/17 04:00 Carbon Dioxide 28 mmol/L (22-30) 02/20/17 04:00 Anion Gap 11 (10-20) 02/20/17 04:00 BUN 13 mg/dl (9-20) 02/20/17 04:00 Creatinine 0.9 mg/dL (0.8-1.5) 02/20/17 04:00 Est GFR ( Amer) > 60 02/20/17 04:00 Est GFR (Non-Af Amer) > 60 02/20/17 04:00 Random Glucose 148 mg/dL (75-110) H 02/20/17 04:00 Calcium 8.7 mg/dL (8.4-10.2) 02/20/17 04:00 Total Bilirubin 0.3 mg/dl (0.2-1.3) 02/20/17 04:00 AST 30 U/L (17-59) 02/20/17 04:00 ALT 41 U/L (21-72) 02/20/17 04:00 Alkaline Phosphatase 75 U/L (38-126) 02/20/17 04:00 Total Protein 6.1 G/DL (6.3-8.2) L 02/20/17 04:00 Albumin 3.5 g/dL (3.5-5.0) 02/20/17 04:00 Globulin 2.6 gm/dL (2.2-3.9) 02/20/17 04:00 Albumin/Globulin Ratio 1.3 (1.0-2.1) 02/20/17 04:00 Anti-Cardiolipin IgG Ab <14 GPL (<=14) 02/19/17 12:00 Anti-Cardiolipin IgA Ab <11 APL (<=11) 02/19/17 12:00 Anti-Cardiolipin IgM Ab 37 MPL (<=12) H 02/19/17 12:00 Blood Type B POSITIVE 02/17/17 10:20 Blood Type Confirm B POSITIVE 02/17/17 11:15 Antibody Screen Negative 02/17/17 10:20 BBK History Checked No verified bt 02/17/17 10:20 - Hospital Course Hospital Course: This is a 51 y/o male who was admitted for intractable lower back and C spine. Upon admission to medical floor, he was noted to have a DVT bilateral. Hence a filter was placed before the procedure. He had a C spine laminectomy and post op period was unremarkable except for significant drainage. As soon as the drainage had decreased, he was started on Xarelto. He did very well. He was given pain meds prn. Drain was removed and was sent home in stable condition. Discharge Exam - Head Exam Head Exam: NORMAL INSPECTION - Eye Exam Eye Exam: Normal appearance Pupil Exam: NORMAL ACCOMODATION - Respiratory Exam Respiratory Exam: NORMAL BREATHING PATTERN - Cardiovascular Exam Cardiovascular Exam: REGULAR RHYTHM - GI/Abdominal Exam GI & Abdominal Exam: Normal Bowel Sounds - Neurological Exam Neurological exam: CN II-XII Intact, Oriented x3 - Psychiatric Exam Psychiatric exam: Normal Mood Discharge Plan - Follow Up Plan Condition: FAIR Disposition: HOME/ ROUTINE Additional Instructions: advised follow up with PMD and pain mgt. PT home
[2017-02-24] MEDS: ceFAZolin 1 GM in Sodium Chloride 0.9% 100 ML IVPB SCH ×2 (09:44→10:57)
[2017-02-24] MEDS: Pantoprazole 40 mg EC Tab PO SCH (09:46)
[2017-02-24] MEDS ORDERED: Simethicone 80 mg Chewtab PO PRN (10:20)
--- NOTE | 2017-02-24 11:09 | CP.PCM.PN ---
Subjective - Date & Time of Evaluation Date of Evaluation: 02/24/17 Time of Evaluation: 11:04 - Subjective Subjective: Pt seems to be doing better, in no acute distress. 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 He will need to be on anticoagulants for at least 6 months and all his life if he is going to be immobile. Objective - Vital Signs/Intake and Output Vital Signs (last 24 hours): Temp Pulse Resp BP Pulse Ox 98 F 61 16 143/95 H 98 02/24/17 08:00 02/24/17 08:00 02/24/17 08:00 02/24/17 09:45 02/24/17 08:00 Intake and Output: 02/24/17 02/24/17 06:59 18:59 Output Total 7 Balance -7 - Medications Medications: Current Medications Amlodipine Besylate (Norvasc) 5 mg PO DAILY [facility] Last Admin: 02/24/17 09:45 Dose: 5 mg Benzocaine/Menthol (Cepacol Sore Throat) 1 karena PO Q3 PRN PRN Reason: Sore Throat Chlordiazepoxide (Librium) 25 mg PO Q4H PRN PRN Reason: Withdrawl Clotrimazole (Lotrimin 1% Cream) 1 applic TOP BID [facility] Last Admin: 02/24/17 09:45 Dose: 1 applic Dexamethasone (Decadron) 4 mg PO Q12 [facility] Last Admin: 02/24/17 10:51 Dose: 4 mg Folic Acid (Folic Acid) 1 mg PO DAILY [facility] Last Admin: 02/24/17 09:45 Dose: 1 mg Hydrochlorothiazide (Microzide) 12.5 mg PO DAILY [facility] Last Admin: 02/24/17 09:45 Dose: 12.5 mg Cefazolin Sodium 1 gm/ Sodium (Chloride) 100 mls @ 100 mls/hr IVPB Q12 [facility] Last Admin: 02/24/17 10:57 Dose: Not Given Lactulose (Enulose) 20 gm PO TID [facility] Last Admin: 02/24/17 09:45 Dose: 20 gm Lorazepam (Ativan) 1 mg IVP Q4H PRN PRN Reason: Symptoms of alcohol withdrawl Ondansetron HCl (Zofran Inj) 4 mg IVP Q6 PRN PRN Reason: Nausea/Vomiting Last Admin: 02/23/17 16:50 Dose: 4 mg Pantoprazole Sodium (Protonix Ec Tab) 40 mg PO DAILY [facility] Last Admin: 02/24/17 09:46 Dose: 40 mg Rivaroxaban (Xarelto) 15 mg PO BIDWM [facility] PRN Reason: Protocol Last Admin: 02/24/17 09:44 Dose: 15 mg Simethicone (Mylicon Chew Tab) 80 mg PO TID PRN PRN Reason: Flatulence Thiamine HCl (Vitamin B1 Tab) 100 mg PO DAILY [facility] Last Admin: 02/24/17 09:45 Dose: 100 mg Valsartan (Diovan) 160 mg PO DAILY [facility] Last Admin: 02/24/17 09:45 Dose: 160 mg - Labs Labs: 02/20/17 04:00 02/20/17 04:00 PT 10.8 SECONDS (9.6-11.2) 02/20/17 04:00 INR 1.04 (0.92-1.08) 02/20/17 04:00 APTT 27.1 SECONDS (23.3-32.5) 02/20/17 04:00
[2017-02-24 16:08] VITALS: BP 136/90; PULSE 63; RESP 20; TEMP 99.1; O2SAT 97
== END 2017-02-24 18:31 | DRG 472 ==
LOC: H.ER 09:14 → H.ERHOLD 09:58 → H.MEDSURG1 12:40 → H.TEL 23:21 → H.ICU/CCU 02-19 11:35 → H.MEDSURG1 02-21 18:08
PROVIDERS: ADMIT Family Medicine; ATTEND Family Medicine
PROC: 06H03DZ Insertion of Intraluminal Device into Inferior Vena Cava, Percutaneous Approach (ICD-10-PCS; 2017-02-18)
PROC: 0RG20Z1 (ICD-10-PCS; principal; 2017-02-19 07:45)
DX: M50.00 Cervical disc disorder with myelopathy, unspecified cervical region (principal); M47.12 Other spondylosis with myelopathy, cervical region; I82.413 Acute embolism and thrombosis of femoral vein, bilateral; I10 Essential (primary) hypertension; B35.1 Tinea unguium; M54.5 Low back pain; K91.3 Postprocedural intestinal obstruction; B35.3 Tinea pedis; Y83.8 Other surgical procedures as the cause of abnormal reaction of the patient, or of later complication, without mention of misadventure at the time of the procedure; Z91.013 Allergy to seafood; G89.29 Other chronic pain; K29.70 Gastritis, unspecified, without bleeding; I87.2 Venous insufficiency (chronic) (peripheral); R25.2 Cramp and spasm

== ENCOUNTER 2017-02-24 13:14 | Inpatient (IN) | payer MEDICARE, MEDICAID ==
[2017-02-24] MEDS ORDERED: Benzocaine/Menthol (Cepacol) Lozenge MM PRN (18:10)
[2017-02-24 18:14] VITALS: BMI 31.0
[2017-02-24] MEDS ORDERED: Oxycodone/Acetaminophen 5/325 mg Tab PO PRN (18:15)
[2017-02-25] MEDS: Pantoprazole 40 mg EC Tab PO SCH (06:30)
[2017-02-25] MEDS: Simethicone 80 mg Chewtab PO PRN (08:43)
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
--- NOTE | 2017-02-25 13:26 | PN ---
DATE: 02/25/2017 OVERALL PLAN OF CARE ESTIMATED LENGTH OF STAY: 2-3 weeks. REHABILITATION IMPAIRMENT: Decreased strength, mobility, ambulation, gait training. ETIOLOGICAL DIAGNOSES: Cervical spondylosis with myelopathy, ICD code of 04.23. Rehabilitation prog nosis fair. INTERVENTIONS: Physical therapy, occupational therapy, recreational therapy. GOALS: The patient to be independent in bed mobility, independence of supervision functional positio nal changes, independence of supervision for simple transfers, supervision and contact guard for comp stew transfers, independence of supervision for ambulation with assistive devices, supervision and con tact guard for elevation. Functional outcome is good. No acute barriers noted for discharge. DISCHARGE DISPOSITION: To be discharged home with supportive services. Thank you for allowing me to participate in the care of this patient's overall plan of care. Rakesh Ta MD cc: [phone] TT: 02/25/2017 13:25:31 Confirmation # [id number] Dictation # [id number]
[2017-02-26] MEDS: Pantoprazole 40 mg EC Tab PO SCH (06:33)
[2017-02-26 07:49] LABS: HEMATOCRIT 38.2 % (35.0-51.0); MEAN CELL VOLUME 94.6 fl (80.0-94.0); MEAN CORPUSCULAR HGB CONC 32.7 g/dL (33.0-37.0); RED CELL DISTRIBUTION WIDTH 15.3 % (11.5-14.5); WHITE BLOOD COUNT 16.5 K/uL (4.8-10.8)
[2017-02-26] MEDS: Simethicone 80 mg Chewtab PO PRN (10:09)
[2017-02-26] MEDS: Dextrose 5%/0.45% NS 1,000 ML IV SCH ×2 (10:51→23:13)
--- NOTE | 2017-02-26 12:09 | RAD ---
HISTORY: vomiting, constipation COMPARISON: Comparison made with abdominal radiograph 02/20/2017 FINDINGS: BOWEL: Moderate amount of stool is seen within the colon consistent with constipation. No evidence of acute mechanical bowel obstruction at this time. . Previously noted focally dilated loop of bowel in the left lower quadrant of the abdomen has since resolved BONES: Normal. OTHER FINDINGS: None. IMPRESSION: Findings consistent with constipation. No evidence acute mechanical bowel obstruction. Previously noted focally dilated loop of bowel in the left lower quadrant of the abdomen has since resolved
--- NOTE | 2017-02-26 12:15 | PSY.TMCNF ---
Nursing - Vital Signs Vital Signs (Last 8 hours): Vital Signs 02/26/17 02/26/17 02/26/17 08:27 09:54 10:43 Temperature 98.1 F Pulse Rate 89 57 L Respiratory 18 Rate Blood Pressure 158/94 H 158/94 H 156/106 H O2 Sat by Pulse 98 Oximetry 02/26/17 11:10 Temperature Pulse Rate 70 Respiratory 18 Rate Blood Pressure 135/91 H O2 Sat by Pulse 97 Oximetry Pain: 0 - Medications/Other Issues Comment: To follow as per nutrition protocol - Skin Incision Site: Posterior neck and old drain site Dressing Status: Clean, Dry, Intact Incision: Draining, No Odor Incision Line Treatment: - Posterior neck i/l dry and clean with dermabond along i/l. - old drain site with min ss drainage. Covered with Telfa and Combine Daily. - Bladder Management Bladder Pattern: Normal Voiding Method: Urinal - Bowel Management Bowel Pattern: Constipated - Goals/Time Frame Comments: Pt was seen awake and alert sitting in his wheelchair in his room. Pt agreeable to participate and receive visit. Pt was able to identify his leisure interests such as playing computer games, searching online, playing [employer], watching movies, watching sports, going out in the community, playing [employer], as well as other leisure tasks. Pt participated in [employer] task and was independent with task after setup. Pt's mood was stable-positive during visit. Physical Therapy - Transfers Sit to Stand: Moderate Assistance - Ambulation Level of Assistance: Moderate Assistance Distance (ft.): 15 Assistive Devices: Rolling Walker - Stair Negotiation Stairs: Level of Assistance: Not Tested - Pain Management Techniques: Medication - Insight/Carryover Insight/Carryover: Fair - Patient/Family Education Comment: Discussed plan of care and general safety, requires further education on safety and increasing independence to return home - Assessment/Plan Assessment: Pt presents to IRF with a decrease in independence with ADLs and ADL transfers s/p cervical laminectomy, displaying impaired dynamic sitting balance, impaired standing balance, decreased UE strength, impaired BUE coordination, and decrease endurance - Goals Timeframe: 2 weeks Goals: LTG. pt will complete grooming at MOD I level in sitting. pt will complete feeding at MOD I level. pt will complete UE Dressing at S. pt will complete LE Dressing at MOD A. pt will complete toileting at MOD A with AE. pt will complete ADL transfers at MIN A with DME. pt will complete bathing at MOD A with AE - Provider License Number: [id number] Occupational Therapy - Arousal/Attention/Orientation Level of Consciousness: Awake, Alert Patient Orientation: Person, Place, Time, Appropriate to Age, Appropriate to Situation - ADL/IADL Self Feeding: Verbal Cues, Set-up Help, Minimal Assistance Grooming: Verbal Cues, Set-up Help, Minimal Assistance Bathing-Upper Extremity: Moderate Assistance Bathing-Lower Extremity: Dependent Dressing-Upper Extremity: Maximum Assistance Dressing-Lower Extremity: Dependent Homemaking: Dependent - Sitting Balance Static Sitting: Contact Guard Assist Dynamic Sitting: Minimal Assistance - Transfers Wheelchair to Bed Transfers: Moderate Assistance - Wheelchair Management Level of Assistance: Dependent - Upper Extremity Status Right Upper Extremity Comment: R hand dominant. Impaired digit opposition from 1st digit to 3rd-5th, pt with impaired CMP flexion in all digits and impaired extension of 4th digit at DIP, PIP and CMP Left Upper Extremity Comment: ROM WFL, Impaired digit opposition, gross grasp WFL, impaired 3 jaw check, decreased dexterity b/l hands - Pain Alleviating Techniques: Medication - Insight/Carryover Insight/Carryover: Fair - Patient/Family Education Comment: Discussed plan of care and general safety, requires further education on safety and increasing independence to return home - Assessment/Plan Assessment: Pt presents to IRF with a decrease in independence with ADLs and ADL transfers s/p cervical laminectomy, displaying impaired dynamic sitting balance, impaired standing balance, decreased UE strength, impaired BUE coordination, and decrease endurance - Goals Timeframe: 2 weeks Goals: LTG. pt will complete grooming at MOD I level in sitting. pt will complete feeding at MOD I level. pt will complete UE Dressing at S. pt will complete LE Dressing at MOD A. pt will complete toileting at MOD A with AE. pt will complete ADL transfers at MIN A with DME. pt will complete bathing at MOD A with AE - Provider Therapist: Jacqueline Herr License Number: [id number] Speech Therapy - Plan Assessment: Pt presents to IRF with a decrease in independence with ADLs and ADL transfers s/p cervical laminectomy, displaying impaired dynamic sitting balance, impaired standing balance, decreased UE strength, impaired BUE coordination, and decrease endurance Recreational Therapy - Participation Participation: Participates in Individual and/or Group Sessions - Attendance Attendance: 3-5 times per week - Activities Leisure Activities: Cards and Games - Socialization Level of Socialization: Initiates/interacts freely with care givers and peer - Diversional Time Diversional Time: television, dominoes, games - Assessment Assessment/Plan: Pt presents to IRF with a decrease in independence with ADLs and ADL transfers s/p cervical laminectomy, displaying impaired dynamic sitting balance, impaired standing balance, decreased UE strength, impaired BUE coordination, and decrease endurance - Provider Therapist: Sulema Littlejohn, [employer] #[id number] Nutrition - Current Diet Current Diet/ Supplement/ Feedings: Regular diet - Appetite Percent Meal Consumed: 50-74% - Assessment/Goals/Time Frame Assessment/Goals/Time Frame: To follow as per nutrition protocol - Provider Provider: Margarita Calderon RD Case Management - Discharge Plan Discharge Plan: Home with significant other/family Rehabilitation Plan - Treatment Plan Treatment Plan: Physical Therapy, Occupational Therapy, Dietary, Patient/Family Education - Recommendation Recommendation: Physical Therapy, Occupational Therapy, Dietary, Patient/Family Education - Discharge Plan Discharge to: Home
--- NOTE | 2017-02-26 12:54 | CP.PCM.PN ---
Subjective - Date & Time of Evaluation Date of Evaluation: 02/26/17 Time of Evaluation: 12:00 - Subjective Subjective: patient status post episode of vomiting Objective - Vital Signs/Intake and Output Vital Signs (last 24 hours): Temp Pulse Resp BP Pulse Ox 98.1 F 70 18 135/91 H 97 02/26/17 09:54 02/26/17 11:10 02/26/17 11:10 02/26/17 11:10 02/26/17 11:10 Intake and Output: 02/26/17 02/26/17 06:59 18:59 Intake Total 240 Output Total 600 Balance -360 - Medications Medications: Current Medications Amlodipine Besylate (Norvasc) 5 mg PO DAILY [facility] Last Admin: 02/26/17 08:27 Dose: 5 mg Benzocaine/Menthol (Cepacol Sore Throat) 1 karena MM Q3 PRN PRN Reason: Sore Throat Chlordiazepoxide (Librium) 25 mg PO Q4 PRN PRN Reason: Withdrawal Clotrimazole (Lotrimin 1% Cream) 1 applic TOP BID [facility] Last Admin: 02/26/17 08:26 Dose: 1 applic Dexamethasone (Decadron) 2 mg PO DAILY [facility] Stop: 02/28/17 09:01 Dexamethasone (Decadron) 1 mg PO DAILY [facility] Stop: 03/03/17 09:01 Folic Acid (Folic Acid) 1 mg PO DAILY [facility] Last Admin: 02/26/17 08:26 Dose: 1 mg Hydrochlorothiazide (Microzide) 12.5 mg PO DAILY [facility] Last Admin: 02/26/17 08:27 Dose: 12.5 mg Dextrose/Sodium Chloride (Dextrose 5%/0.45% Ns 1000 Ml) 1,000 mls @ 80 mls/hr IV .[id number] [facility] Stop: 02/27/17 10:39 Last Admin: 02/26/17 10:51 Dose: 80 mls/hr Lactulose (Enulose) 20 gm PO TID [facility] Last Admin: 02/26/17 08:26 Dose: 20 gm Lorazepam (Ativan) 1 mg PO DAILY PRN PRN Reason: WITHDRAWAL SYMPTOMS Ondansetron HCl (Zofran Inj) 4 mg IVP Q4 PRN PRN Reason: Nausea/Vomiting Oxycodone/Acetaminophen (Percocet 5/325 Mg Tab) 1 tab PO BID PRN PRN Reason: PAIN 4-10 Stop: 02/27/17 18:16 Pantoprazole Sodium (Protonix Ec Tab) 40 mg PO ACB [facility] Last Admin: 02/26/17 06:33 Dose: 40 mg Rivaroxaban (Xarelto) 15 mg PO BIDWM [facility] PRN Reason: Protocol Last Admin: 02/26/17 08:28 Dose: 15 mg Senna/Docusate Sodium (Senokot S 50 Mg-8.6 Mg) 2 tab PO HS [facility] Simethicone (Mylicon Chew Tab) 80 mg PO TID PRN PRN Reason: Flatulence Last Admin: 02/26/17 10:09 Dose: 80 mg Thiamine HCl (Vitamin B1 Tab) 100 mg PO DAILY [facility] Last Admin: 02/26/17 08:28 Dose: 100 mg Tramadol HCl (Ultram) 50 mg PO TID PRN PRN Reason: Pain, Mild (1-3) Valsartan (Diovan) 160 mg PO DAILY [facility] Last Admin: 02/26/17 08:25 Dose: 160 mg - Labs Labs: 02/26/17 06:45 - Eye Exam Eye Exam: EOMI Pupil Exam: NORMAL ACCOMODATION - ENT Exam ENT Exam: Mucous Membranes Moist, Normal Exam - Neck Exam Neck Exam: Normal Inspection - Respiratory Exam Respiratory Exam: NORMAL BREATHING PATTERN - Cardiovascular Exam Cardiovascular Exam: REGULAR RHYTHM - GI/Abdominal Exam GI & Abdominal Exam: Soft, Hyperactive Bowel Sounds - Exam External exam: NORMAL EXTERNAL EXAM - Extremities Exam Extremities Exam: Normal Capillary Refill - Back Exam Back Exam: NORMAL INSPECTION - Neurological Exam Neurological Exam: Alert, Awake Neuro motor strength exam: Left Upper Extremity: 3, Right Upper Extremity: 3, Left Lower Extremity: 3, Right Lower Extremity: 3 - Psychiatric Exam Psychiatric exam: Normal Affect, Normal Mood - Skin Skin Exam: Dry, Intact Assessment and Plan (1) Back pain Status: Acute (2) Bilateral leg cramps Status: Acute (3) Cervical disc disease with myelopathy Assessment & Plan: plan for Pt , Ot and rec status post vomiting Xray pending Status: Acute (4) Chronic back pain Status: Acute (5) Deep vein thrombosis (DVT) Status: Acute (6) Ileus, postoperative Status: Acute (7) Intractable low back pain Status: Acute (8) S/P laminectomy Status: Acute
[2017-02-26] MEDS: Docusate-Senna 50 mg-8.6 mg Tab PO SCH (21:13)
[2017-02-27] MEDS: Pantoprazole 40 mg EC Tab PO SCH (06:46)
[2017-02-27] MEDS: PREVACID 30 MG PO SCH (08:15)
[2017-02-27] MEDS: Docusate-Senna 50 mg-8.6 mg Tab PO SCH (21:25)
[2017-02-28] MEDS: PREVACID 30 MG PO SCH (09:00)
--- NOTE | 2017-02-28 11:41 | CP.PCM.PN ---
Subjective - Date & Time of Evaluation Date of Evaluation: 02/28/17 Time of Evaluation: 10:00 - Subjective Subjective: patient is doing well, no acute complaints of neck pain Objective - Vital Signs/Intake and Output Vital Signs (last 24 hours): Temp Pulse Resp BP Pulse Ox 98.2 F 82 20 120/79 98 02/27/17 22:00 02/28/17 09:00 02/27/17 22:00 02/28/17 09:00 02/27/17 22:00 Intake and Output: 02/28/17 02/28/17 06:59 18:59 Intake Total 400 Output Total 600 Balance -200 - Medications Medications: Current Medications Amlodipine Besylate (Norvasc) 5 mg PO DAILY [facility] Last Admin: 02/28/17 09:00 Dose: 5 mg Benzocaine/Menthol (Cepacol Sore Throat) 1 karena MM Q3 PRN PRN Reason: Sore Throat Clotrimazole (Lotrimin 1% Cream) 1 applic TOP BID [facility] Last Admin: 02/28/17 08:59 Dose: 1 applic Dexamethasone (Decadron) 1 mg PO DAILY [facility] Stop: 03/03/17 09:01 Folic Acid (Folic Acid) 1 mg PO DAILY [facility] Last Admin: 02/28/17 08:59 Dose: 1 mg Home Med (Patient's Own Medication) 1 unit PO DAILY [facility] Last Admin: 02/28/17 09:00 Dose: 1 unit Hydrochlorothiazide (Microzide) 12.5 mg PO DAILY [facility] Last Admin: 02/28/17 09:00 Dose: 12.5 mg Lactulose (Enulose) 20 gm PO TID [facility] Last Admin: 02/28/17 08:59 Dose: 20 gm Lorazepam (Ativan) 1 mg PO DAILY PRN PRN Reason: WITHDRAWAL SYMPTOMS Ondansetron HCl (Zofran Inj) 4 mg IVP Q4 PRN PRN Reason: Nausea/Vomiting Rivaroxaban (Xarelto) 15 mg PO BIDWM [facility] PRN Reason: Protocol Last Admin: 02/28/17 09:01 Dose: 15 mg Senna/Docusate Sodium (Senokot S 50 Mg-8.6 Mg) 2 tab PO HS [facility] Last Admin: 02/27/17 21:25 Dose: 2 tab Simethicone (Mylicon Chew Tab) 80 mg PO TID PRN PRN Reason: Flatulence Last Admin: 02/26/17 10:09 Dose: 80 mg Thiamine HCl (Vitamin B1 Tab) 100 mg PO DAILY [facility] Last Admin: 02/28/17 08:58 Dose: 100 mg Tramadol HCl (Ultram) 50 mg PO Q6 PRN PRN Reason: Pain, moderate (4-7) Valsartan (Diovan) 160 mg PO DAILY [facility] Last Admin: 02/28/17 08:59 Dose: 160 mg - Labs Labs: 02/26/17 06:45 - Head Exam Head Exam: ATRAUMATIC, NORMAL INSPECTION, NORMOCEPHALIC - Eye Exam Eye Exam: EOMI, Normal appearance, PERRL Pupil Exam: NORMAL ACCOMODATION - ENT Exam ENT Exam: Mucous Membranes Moist, Normal Exam - Respiratory Exam Respiratory Exam: NORMAL BREATHING PATTERN - Cardiovascular Exam Cardiovascular Exam: REGULAR RHYTHM - GI/Abdominal Exam GI & Abdominal Exam: Normal Bowel Sounds - Rectal Exam Rectal Exam: NORMAL INSPECTION - Exam External exam: NORMAL EXTERNAL EXAM - Extremities Exam Extremities Exam: Normal Capillary Refill - Back Exam Back Exam: NORMAL INSPECTION - Neurological Exam Neurological Exam: Alert, Awake Neuro motor strength exam: Left Upper Extremity: 3, Right Upper Extremity: 3, Left Lower Extremity: 3, Right Lower Extremity: 3 - Psychiatric Exam Psychiatric exam: Normal Affect, Normal Mood - Skin Skin Exam: Dry, Intact Assessment and Plan (1) Back pain Status: Acute (2) Bilateral leg cramps Status: Acute (3) Cervical disc disease with myelopathy Assessment & Plan: neck incisional area healing at present, consider different treatment for the neck area, plan to continue with physical and occupational therapy program Status: Acute (4) Chronic back pain Status: Acute (5) Deep vein thrombosis (DVT) Status: Acute (6) Ileus, postoperative Status: Acute (7) Intractable low back pain Status: Acute (8) S/P laminectomy Status: Acute
[2017-02-28] MEDS: Docusate-Senna 50 mg-8.6 mg Tab PO SCH (21:03)
[2017-03-01] MEDS: PREVACID 30 MG PO SCH (08:11)
--- NOTE | 2017-03-01 11:58 | CP.PCM.PN ---
Subjective - Date & Time of Evaluation Date of Evaluation: 02/26/17 Time of Evaluation: 09:30 - Subjective Subjective: Patient has some nausea and vomiting. Has no fever Had an episode of ileus while he was at the ICU. Objective - Vital Signs/Intake and Output Vital Signs (last 24 hours): Temp Pulse Resp BP Pulse Ox 98.1 F 59 L 18 137/98 H 96 03/01/17 08:09 03/01/17 08:12 03/01/17 08:09 03/01/17 08:12 03/01/17 08:09 - Medications Medications: Current Medications Amlodipine Besylate (Norvasc) 5 mg PO DAILY [facility] Last Admin: 03/01/17 08:12 Dose: 5 mg Benzocaine/Menthol (Cepacol Sore Throat) 1 karena MM Q3 PRN PRN Reason: Sore Throat Clotrimazole (Lotrimin 1% Cream) 1 applic TOP BID [facility] Last Admin: 03/01/17 08:11 Dose: 1 applic Dexamethasone (Decadron) 1 mg PO DAILY [facility] Stop: 03/03/17 09:01 Last Admin: 03/01/17 08:11 Dose: 1 mg Folic Acid (Folic Acid) 1 mg PO DAILY [facility] Last Admin: 03/01/17 08:12 Dose: 1 mg Home Med (Patient's Own Medication) 1 unit PO DAILY [facility] Last Admin: 03/01/17 08:11 Dose: 1 unit Hydrochlorothiazide (Microzide) 12.5 mg PO DAILY [facility] Last Admin: 03/01/17 08:11 Dose: 12.5 mg Lactulose (Enulose) 20 gm PO TID [facility] Last Admin: 03/01/17 08:10 Dose: 20 gm Lorazepam (Ativan) 1 mg PO DAILY PRN PRN Reason: WITHDRAWAL SYMPTOMS Ondansetron HCl (Zofran Inj) 4 mg IVP Q4 PRN PRN Reason: Nausea/Vomiting Rivaroxaban (Xarelto) 15 mg PO BIDWM [facility] PRN Reason: Protocol Last Admin: 03/01/17 08:10 Dose: 15 mg Senna/Docusate Sodium (Senokot S 50 Mg-8.6 Mg) 2 tab PO HS [facility] Last Admin: 02/28/17 21:03 Dose: 2 tab Simethicone (Mylicon Chew Tab) 80 mg PO TID PRN PRN Reason: Flatulence Last Admin: 02/26/17 10:09 Dose: 80 mg Thiamine HCl (Vitamin B1 Tab) 100 mg PO DAILY [facility] Last Admin: 03/01/17 08:11 Dose: 100 mg Tramadol HCl (Ultram) 50 mg PO Q6 PRN PRN Reason: Pain, moderate (4-7) Valsartan (Diovan) 160 mg PO DAILY [facility] Last Admin: 03/01/17 08:10 Dose: 160 mg - Labs Labs: 02/26/17 06:45 - Head Exam Head Exam: NORMAL INSPECTION - Eye Exam Eye Exam: Normal appearance - ENT Exam ENT Exam: Mucous Membranes Moist - Respiratory Exam Respiratory Exam: Clear to Ausculation Bilateral - Cardiovascular Exam Cardiovascular Exam: REGULAR RHYTHM - GI/Abdominal Exam GI & Abdominal Exam: Distended, Normal Bowel Sounds - Neurological Exam Neurological Exam: CN II-XII Intact, Oriented x3 Assessment and Plan (1) Ileus Status: Acute (2) Back pain Status: Acute (3) Cervical disc disease with myelopathy Status: Acute (4) Deep vein thrombosis (DVT) Status: Acute (5) Intractable low back pain Status: Acute (6) S/P laminectomy Status: Acute - Assessment and Plan (Free Text) Plan: Cont meds lactulose Phys therapy cont meds.
--- NOTE | 2017-03-01 11:59 | CP.PCM.PN ---
Subjective - Date & Time of Evaluation Date of Evaluation: 02/27/17 Time of Evaluation: 09:35 - Subjective Subjective: Patient continues to do well. Has no chest pain or SOB. Has no fever Has no chest pain Has good bm with lactulose Objective - Vital Signs/Intake and Output Vital Signs (last 24 hours): Temp Pulse Resp BP Pulse Ox 98.1 F 59 L 18 137/98 H 96 03/01/17 08:09 03/01/17 08:12 03/01/17 08:09 03/01/17 08:12 03/01/17 08:09 - Medications Medications: Current Medications Amlodipine Besylate (Norvasc) 5 mg PO DAILY [facility] Last Admin: 03/01/17 08:12 Dose: 5 mg Benzocaine/Menthol (Cepacol Sore Throat) 1 karena MM Q3 PRN PRN Reason: Sore Throat Clotrimazole (Lotrimin 1% Cream) 1 applic TOP BID [facility] [place] Last Admin: 03/01/17 08:11 Dose: 1 applic Dexamethasone (Decadron) 1 mg PO DAILY [facility] [place] Stop: 03/03/17 09:01 Last Admin: 03/01/17 08:11 Dose: 1 mg Folic Acid (Folic Acid) 1 mg PO DAILY [facility] [place] Last Admin: 03/01/17 08:12 Dose: 1 mg Home Med (Patient's Own Medication) 1 unit PO DAILY [facility] [place] Last Admin: 03/01/17 08:11 Dose: 1 unit Hydrochlorothiazide (Microzide) 12.5 mg PO DAILY [facility] [place] Last Admin: 03/01/17 08:11 Dose: 12.5 mg Lactulose (Enulose) 20 gm PO TID [facility] [place] Last Admin: 03/01/17 08:10 Dose: 20 gm Lorazepam (Ativan) 1 mg PO DAILY PRN PRN Reason: WITHDRAWAL SYMPTOMS Ondansetron HCl (Zofran Inj) 4 mg IVP Q4 PRN PRN Reason: Nausea/Vomiting Rivaroxaban (Xarelto) 15 mg PO BIDWM [facility] [place] PRN Reason: Protocol Last Admin: 03/01/17 08:10 Dose: 15 mg Senna/Docusate Sodium (Senokot S 50 Mg-8.6 Mg) 2 tab PO HS [facility] [place] Last Admin: 02/28/17 21:03 Dose: 2 tab Simethicone (Mylicon Chew Tab) 80 mg PO TID PRN PRN Reason: Flatulence Last Admin: 02/26/17 10:09 Dose: 80 mg Thiamine HCl (Vitamin B1 Tab) 100 mg PO DAILY [facility] [place] Last Admin: 03/01/17 08:11 Dose: 100 mg Tramadol HCl (Ultram) 50 mg PO Q6 PRN PRN Reason: Pain, moderate (4-7) Valsartan (Diovan) 160 mg PO DAILY [facility] [place] Last Admin: 03/01/17 08:10 Dose: 160 mg - Labs Labs: 02/26/17 06:45 - Head Exam Head Exam: NORMAL INSPECTION - Eye Exam Eye Exam: Normal appearance - ENT Exam ENT Exam: Mucous Membranes Moist - Respiratory Exam Respiratory Exam: Clear to Ausculation Bilateral - Cardiovascular Exam Cardiovascular Exam: REGULAR RHYTHM - GI/Abdominal Exam GI & Abdominal Exam: Distended, Normal Bowel Sounds - Neurological Exam Neurological Exam: Awake, Oriented x3 Assessment and Plan - Assessment and Plan (Free Text) Plan: Con tmeds cont tx cont PT Laculose and fleet enema prn
--- NOTE | 2017-03-01 12:00 | CP.PCM.PN ---
Subjective - Date & Time of Evaluation Date of Evaluation: 02/28/17 Time of Evaluation: 10:00 - Subjective Subjective: Patient responded well to Lactulose and feels a lot better now. Able to do a lot of PT. BP is better Has no abd pain Has no chest pain or SOB. Objective - Vital Signs/Intake and Output Vital Signs (last 24 hours): Temp Pulse Resp BP Pulse Ox 98.1 F 59 L 18 137/98 H 96 03/01/17 08:09 03/01/17 08:12 03/01/17 08:09 03/01/17 08:12 03/01/17 08:09 - Medications Medications: Current Medications Amlodipine Besylate (Norvasc) 5 mg PO DAILY [facility] Last Admin: 03/01/17 08:12 Dose: 5 mg Benzocaine/Menthol (Cepacol Sore Throat) 1 karena MM Q3 PRN PRN Reason: Sore Throat Clotrimazole (Lotrimin 1% Cream) 1 applic TOP BID [facility] Last Admin: 03/01/17 08:11 Dose: 1 applic Dexamethasone (Decadron) 1 mg PO DAILY [facility] Stop: 03/03/17 09:01 Last Admin: 03/01/17 08:11 Dose: 1 mg Folic Acid (Folic Acid) 1 mg PO DAILY [facility] Last Admin: 03/01/17 08:12 Dose: 1 mg Home Med (Patient's Own Medication) 1 unit PO DAILY [facility] Last Admin: 03/01/17 08:11 Dose: 1 unit Hydrochlorothiazide (Microzide) 12.5 mg PO DAILY [facility] Last Admin: 03/01/17 08:11 Dose: 12.5 mg Lactulose (Enulose) 20 gm PO TID [facility] Last Admin: 03/01/17 08:10 Dose: 20 gm Lorazepam (Ativan) 1 mg PO DAILY PRN PRN Reason: WITHDRAWAL SYMPTOMS Ondansetron HCl (Zofran Inj) 4 mg IVP Q4 PRN PRN Reason: Nausea/Vomiting Rivaroxaban (Xarelto) 15 mg PO BIDWM [facility] PRN Reason: Protocol Last Admin: 03/01/17 08:10 Dose: 15 mg Senna/Docusate Sodium (Senokot S 50 Mg-8.6 Mg) 2 tab PO HS [facility] Last Admin: 02/28/17 21:03 Dose: 2 tab Simethicone (Mylicon Chew Tab) 80 mg PO TID PRN PRN Reason: Flatulence Last Admin: 02/26/17 10:09 Dose: 80 mg Thiamine HCl (Vitamin B1 Tab) 100 mg PO DAILY [facility] Last Admin: 03/01/17 08:11 Dose: 100 mg Tramadol HCl (Ultram) 50 mg PO Q6 PRN PRN Reason: Pain, moderate (4-7) Valsartan (Diovan) 160 mg PO DAILY [facility] Last Admin: 03/01/17 08:10 Dose: 160 mg - Labs Labs: 02/26/17 06:45 - Head Exam Head Exam: NORMAL INSPECTION - Eye Exam Eye Exam: Normal appearance - ENT Exam ENT Exam: Mucous Membranes Moist - Respiratory Exam Respiratory Exam: Clear to Ausculation Bilateral - Cardiovascular Exam Cardiovascular Exam: REGULAR RHYTHM - GI/Abdominal Exam GI & Abdominal Exam: Normal Bowel Sounds - Neurological Exam Neurological Exam: Awake, Oriented x3 - Psychiatric Exam Psychiatric exam: Normal Mood Assessment and Plan (1) Cervical disc disease with myelopathy Status: Acute (2) Deep vein thrombosis (DVT) Status: Acute (3) Ileus, postoperative Status: Acute (4) S/P laminectomy Status: Acute - Assessment and Plan (Free Text) Plan: cont meds con ttx lactuose prn cont PT
--- NOTE | 2017-03-01 12:01 | CP.PCM.PN ---
Subjective - Date & Time of Evaluation Date of Evaluation: 03/01/17 Time of Evaluation: 12:01 - Subjective Subjective: Patient continues to do well. Has no constipation Doing well with regular lactulose. Objective - Vital Signs/Intake and Output Vital Signs (last 24 hours): Temp Pulse Resp BP Pulse Ox 98.1 F 59 L 18 137/98 H 96 03/01/17 08:09 03/01/17 08:12 03/01/17 08:09 03/01/17 08:12 03/01/17 08:09 - Medications Medications: Current Medications Amlodipine Besylate (Norvasc) 5 mg PO DAILY [facility] Last Admin: 03/01/17 08:12 Dose: 5 mg Benzocaine/Menthol (Cepacol Sore Throat) 1 karena MM Q3 PRN PRN Reason: Sore Throat Clotrimazole (Lotrimin 1% Cream) 1 applic TOP BID [facility] Last Admin: 03/01/17 08:11 Dose: 1 applic Dexamethasone (Decadron) 1 mg PO DAILY [facility] Stop: 03/03/17 09:01 Last Admin: 03/01/17 08:11 Dose: 1 mg Folic Acid (Folic Acid) 1 mg PO DAILY [facility] Last Admin: 03/01/17 08:12 Dose: 1 mg Home Med (Patient's Own Medication) 1 unit PO DAILY [facility] Last Admin: 03/01/17 08:11 Dose: 1 unit Hydrochlorothiazide (Microzide) 12.5 mg PO DAILY [facility] Last Admin: 03/01/17 08:11 Dose: 12.5 mg Lactulose (Enulose) 20 gm PO TID [facility] Last Admin: 03/01/17 08:10 Dose: 20 gm Lorazepam (Ativan) 1 mg PO DAILY PRN PRN Reason: WITHDRAWAL SYMPTOMS Ondansetron HCl (Zofran Inj) 4 mg IVP Q4 PRN PRN Reason: Nausea/Vomiting Rivaroxaban (Xarelto) 15 mg PO BIDWM [facility] PRN Reason: Protocol Last Admin: 03/01/17 08:10 Dose: 15 mg Senna/Docusate Sodium (Senokot S 50 Mg-8.6 Mg) 2 tab PO HS [facility] Last Admin: 02/28/17 21:03 Dose: 2 tab Simethicone (Mylicon Chew Tab) 80 mg PO TID PRN PRN Reason: Flatulence Last Admin: 02/26/17 10:09 Dose: 80 mg Thiamine HCl (Vitamin B1 Tab) 100 mg PO DAILY [facility] Last Admin: 03/01/17 08:11 Dose: 100 mg Tramadol HCl (Ultram) 50 mg PO Q6 PRN PRN Reason: Pain, moderate (4-7) Valsartan (Diovan) 160 mg PO DAILY [facility] Last Admin: 03/01/17 08:10 Dose: 160 mg - Labs Labs: 02/26/17 06:45 - Head Exam Head Exam: NORMAL INSPECTION - Eye Exam Eye Exam: Normal appearance - ENT Exam ENT Exam: Mucous Membranes Moist - Respiratory Exam Respiratory Exam: Clear to Ausculation Bilateral - Cardiovascular Exam Cardiovascular Exam: REGULAR RHYTHM - GI/Abdominal Exam GI & Abdominal Exam: Normal Bowel Sounds - Neurological Exam Neurological Exam: Awake, CN II-XII Intact Assessment and Plan (1) Back pain Status: Acute (2) Cervical disc disease with myelopathy Status: Acute (3) Deep vein thrombosis (DVT) Status: Acute (4) Ileus, postoperative Status: Acute (5) Intractable low back pain Status: Acute - Assessment and Plan (Free Text) Plan: cont meds cont tx cont meds Pain meds lactulose
[2017-03-01] MEDS: Docusate-Senna 50 mg-8.6 mg Tab PO SCH (21:01)
[2017-03-02] MEDS: PREVACID 30 MG PO SCH (08:00)
[2017-03-02] MEDS: Docusate-Senna 50 mg-8.6 mg Tab PO SCH (21:09)
[2017-03-03] MEDS: PREVACID 30 MG PO SCH (08:18)
--- NOTE | 2017-03-03 14:46 | CP.PCM.PN ---
Subjective - Date & Time of Evaluation Date of Evaluation: 03/02/17 Time of Evaluation: 09:30 - Subjective Subjective: Patient remains stable Has no chest pain or SOB Doing wll with regular lactulose and bm has been regular Has no chest pain or SOB. Objective - Vital Signs/Intake and Output Vital Signs (last 24 hours): Temp Pulse Resp BP Pulse Ox 98.2 F 61 20 125/92 H 100 03/03/17 09:07 03/03/17 09:07 03/03/17 09:07 03/03/17 09:07 03/03/17 09:07 - Medications Medications: Current Medications Amlodipine Besylate (Norvasc) 5 mg PO DAILY [facility] Last Admin: 03/03/17 08:17 Dose: 5 mg Benzocaine/Menthol (Cepacol Sore Throat) 1 karena MM Q3 PRN PRN Reason: Sore Throat Clotrimazole (Lotrimin 1% Cream) 1 applic TOP BID [facility] Last Admin: 03/03/17 08:16 Dose: 1 applic Folic Acid (Folic Acid) 1 mg PO DAILY [facility] Last Admin: 03/03/17 08:17 Dose: 1 mg Home Med (Patient's Own Medication) 1 unit PO DAILY [facility] Last Admin: 03/03/17 08:18 Dose: 1 unit Hydrochlorothiazide (Microzide) 12.5 mg PO DAILY [facility] Last Admin: 03/03/17 08:17 Dose: 12.5 mg Lactulose (Enulose) 20 gm PO TID [facility] Last Admin: 03/03/17 13:18 Dose: 20 gm Lorazepam (Ativan) 1 mg PO DAILY PRN PRN Reason: WITHDRAWAL SYMPTOMS Ondansetron HCl (Zofran Inj) 4 mg IVP Q4 PRN PRN Reason: Nausea/Vomiting Rivaroxaban (Xarelto) 15 mg PO BIDWM [facility] PRN Reason: Protocol Last Admin: 03/03/17 08:16 Dose: 15 mg Senna/Docusate Sodium (Senokot S 50 Mg-8.6 Mg) 2 tab PO HS [facility] Last Admin: 03/02/17 21:09 Dose: 2 tab Simethicone (Mylicon Chew Tab) 80 mg PO TID PRN PRN Reason: Flatulence Last Admin: 02/26/17 10:09 Dose: 80 mg Thiamine HCl (Vitamin B1 Tab) 100 mg PO DAILY [facility] Last Admin: 03/03/17 08:17 Dose: 100 mg Tramadol HCl (Ultram) 50 mg PO Q6 PRN PRN Reason: Pain, moderate (4-7) Valsartan (Diovan) 160 mg PO DAILY [facility] Last Admin: 03/03/17 08:17 Dose: 160 mg - Labs Labs: 02/26/17 06:45 - Head Exam Head Exam: NORMAL INSPECTION - Eye Exam Eye Exam: Normal appearance - Respiratory Exam Respiratory Exam: Clear to Ausculation Bilateral - Cardiovascular Exam Cardiovascular Exam: REGULAR RHYTHM - GI/Abdominal Exam GI & Abdominal Exam: Normal Bowel Sounds - Neurological Exam Neurological Exam: Awake, CN II-XII Intact - Psychiatric Exam Psychiatric exam: Normal Mood Assessment and Plan (1) Back pain Status: Acute (2) Cervical disc disease with myelopathy Status: Acute (3) Deep vein thrombosis (DVT) Status: Acute (4) Ileus, postoperative Status: Acute (5) Intractable low back pain Status: Acute - Assessment and Plan (Free Text) Plan: Con tmeds cont tx Cont PT pain meds.
--- NOTE | 2017-03-03 14:48 | CP.PCM.PN ---
Subjective - Date & Time of Evaluation Date of Evaluation: 03/03/17 Time of Evaluation: 14:46 - Subjective Subjective: Patient was seen at the rehab room and has been doing well Has no constipation and moves bm regularly no Has minimal pain on the op site wound is clean. Objective - Vital Signs/Intake and Output Vital Signs (last 24 hours): Temp Pulse Resp BP Pulse Ox 98.2 F 61 20 125/92 H 100 03/03/17 09:07 03/03/17 09:07 03/03/17 09:07 03/03/17 09:07 03/03/17 09:07 - Medications Medications: Current Medications Amlodipine Besylate (Norvasc) 5 mg PO DAILY [facility] Last Admin: 03/03/17 08:17 Dose: 5 mg Benzocaine/Menthol (Cepacol Sore Throat) 1 karena MM Q3 PRN PRN Reason: Sore Throat Clotrimazole (Lotrimin 1% Cream) 1 applic TOP BID [facility] Last Admin: 03/03/17 08:16 Dose: 1 applic Folic Acid (Folic Acid) 1 mg PO DAILY [facility] Last Admin: 03/03/17 08:17 Dose: 1 mg Home Med (Patient's Own Medication) 1 unit PO DAILY [facility] Last Admin: 03/03/17 08:18 Dose: 1 unit Hydrochlorothiazide (Microzide) 12.5 mg PO DAILY [facility] Last Admin: 03/03/17 08:17 Dose: 12.5 mg Lactulose (Enulose) 20 gm PO TID [facility] Last Admin: 03/03/17 13:18 Dose: 20 gm Lorazepam (Ativan) 1 mg PO DAILY PRN PRN Reason: WITHDRAWAL SYMPTOMS Ondansetron HCl (Zofran Inj) 4 mg IVP Q4 PRN PRN Reason: Nausea/Vomiting Rivaroxaban (Xarelto) 15 mg PO BIDWM [facility] PRN Reason: Protocol Last Admin: 03/03/17 08:16 Dose: 15 mg Senna/Docusate Sodium (Senokot S 50 Mg-8.6 Mg) 2 tab PO HS [facility] Last Admin: 03/02/17 21:09 Dose: 2 tab Simethicone (Mylicon Chew Tab) 80 mg PO TID PRN PRN Reason: Flatulence Last Admin: 02/26/17 10:09 Dose: 80 mg Thiamine HCl (Vitamin B1 Tab) 100 mg PO DAILY [facility] Last Admin: 03/03/17 08:17 Dose: 100 mg Tramadol HCl (Ultram) 50 mg PO Q6 PRN PRN Reason: Pain, moderate (4-7) Valsartan (Diovan) 160 mg PO DAILY [facility] Last Admin: 03/03/17 08:17 Dose: 160 mg - Labs Labs: 02/26/17 06:45 - Head Exam Head Exam: NORMAL INSPECTION - Eye Exam Eye Exam: Normal appearance - ENT Exam ENT Exam: Mucous Membranes Moist - Respiratory Exam Respiratory Exam: Clear to Ausculation Bilateral - Cardiovascular Exam Cardiovascular Exam: REGULAR RHYTHM - Neurological Exam Neurological Exam: CN II-XII Intact, Oriented x3 Assessment and Plan (1) Back pain Status: Acute (2) Cervical disc disease with myelopathy Status: Acute (3) Deep vein thrombosis (DVT) Status: Acute (4) Ileus, postoperative Status: Acute (5) Intractable low back pain Status: Acute - Assessment and Plan (Free Text) Plan: cont meds cont tx cont PT pain meds prn
[2017-03-03] MEDS: Docusate-Senna 50 mg-8.6 mg Tab PO SCH (21:15)
[2017-03-04] MEDS: PREVACID 30 MG PO SCH (08:22)
--- NOTE | 2017-03-04 13:57 | CP.PCM.PN ---
Subjective - Date & Time of Evaluation Date of Evaluation: 03/01/17 Time of Evaluation: 13:00 - Subjective Subjective: no acute complaints of neck pain Objective - Vital Signs/Intake and Output Vital Signs (last 24 hours): Temp Pulse Resp BP Pulse Ox 97.5 F L 60 20 132/90 100 03/04/17 08:00 03/04/17 08:23 03/04/17 08:00 03/04/17 08:23 03/04/17 08:00 - Medications Medications: Current Medications Amlodipine Besylate (Norvasc) 5 mg PO DAILY [facility] Last Admin: 03/04/17 08:23 Dose: 5 mg Benzocaine/Menthol (Cepacol Sore Throat) 1 karena MM Q3 PRN PRN Reason: Sore Throat Clotrimazole (Lotrimin 1% Cream) 1 applic TOP BID [facility] Last Admin: 03/04/17 08:24 Dose: 1 applic Folic Acid (Folic Acid) 1 mg PO DAILY [facility] Last Admin: 03/04/17 08:22 Dose: 1 mg Home Med (Patient's Own Medication) 1 unit PO DAILY [facility] Last Admin: 03/04/17 08:22 Dose: 1 unit Hydrochlorothiazide (Microzide) 12.5 mg PO DAILY [facility] Last Admin: 03/04/17 08:22 Dose: 12.5 mg Lactulose (Enulose) 20 gm PO TID [facility] Last Admin: 03/04/17 12:51 Dose: 20 gm Lorazepam (Ativan) 1 mg PO DAILY PRN PRN Reason: WITHDRAWAL SYMPTOMS Mupirocin (Bactroban Ointment) 1 applic TOP 0630,1700 [facility] Ondansetron HCl (Zofran Inj) 4 mg IVP Q4 PRN PRN Reason: Nausea/Vomiting Rivaroxaban (Xarelto) 15 mg PO BIDWM [facility] PRN Reason: Protocol Senna/Docusate Sodium (Senokot S 50 Mg-8.6 Mg) 2 tab PO HS [facility] Last Admin: 03/03/17 21:15 Dose: 2 tab Simethicone (Mylicon Chew Tab) 80 mg PO TID PRN PRN Reason: Flatulence Last Admin: 02/26/17 10:09 Dose: 80 mg Thiamine HCl (Vitamin B1 Tab) 100 mg PO DAILY [facility] Last Admin: 05/30/17 08:24 Dose: 100 mg Tramadol HCl (Ultram) 50 mg PO Q6 PRN PRN Reason: Pain, moderate (4-7) Valsartan (Diovan) 160 mg PO DAILY [facility] Last Admin: 03/04/17 08:22 Dose: 160 mg - Labs Labs: 02/26/17 06:45 - Head Exam Head Exam: ATRAUMATIC, NORMAL INSPECTION, NORMOCEPHALIC - Eye Exam Eye Exam: EOMI, Normal appearance, PERRL Pupil Exam: NORMAL ACCOMODATION - ENT Exam ENT Exam: Mucous Membranes Moist, Normal Exam - Respiratory Exam Respiratory Exam: NORMAL BREATHING PATTERN - Cardiovascular Exam Cardiovascular Exam: REGULAR RHYTHM - GI/Abdominal Exam GI & Abdominal Exam: Normal Bowel Sounds - Rectal Exam Rectal Exam: NORMAL INSPECTION - Exam External exam: NORMAL EXTERNAL EXAM - Extremities Exam Extremities Exam: Normal Capillary Refill - Back Exam Back Exam: NORMAL INSPECTION - Neurological Exam Neurological Exam: Alert, Awake Neuro motor strength exam: Left Upper Extremity: 3, Right Upper Extremity: 3, Left Lower Extremity: 3, Right Lower Extremity: 3 - Psychiatric Exam Psychiatric exam: Normal Affect, Normal Mood Assessment and Plan (1) Back pain Status: Acute (2) Bilateral leg cramps Status: Acute (3) Cervical disc disease with myelopathy Assessment & Plan: monitor, and change dressing and skin, plan for physical and occupational therapy program Status: Acute (4) Chronic back pain Status: Acute (5) Deep vein thrombosis (DVT) Status: Acute (6) Ileus, postoperative Status: Acute (7) Intractable low back pain Status: Acute (8) S/P laminectomy Status: Acute
--- NOTE | 2017-03-04 13:59 | CP.PCM.PN ---
Subjective - Date & Time of Evaluation Date of Evaluation: 03/04/17 Time of Evaluation: 10:00 - Subjective Subjective: no acute complaints of any pain, alert freindly following commands Objective - Vital Signs/Intake and Output Vital Signs (last 24 hours): Temp Pulse Resp BP Pulse Ox 97.5 F L 60 20 132/90 100 03/04/17 08:00 03/04/17 08:23 03/04/17 08:00 03/04/17 08:23 03/04/17 08:00 - Medications Medications: Current Medications Amlodipine Besylate (Norvasc) 5 mg PO DAILY [facility] Last Admin: 03/04/17 08:23 Dose: 5 mg Benzocaine/Menthol (Cepacol Sore Throat) 1 karena MM Q3 PRN PRN Reason: Sore Throat Clotrimazole (Lotrimin 1% Cream) 1 applic TOP BID [facility] Last Admin: 03/04/17 08:24 Dose: 1 applic Folic Acid (Folic Acid) 1 mg PO DAILY [facility] Last Admin: 03/04/17 08:22 Dose: 1 mg Home Med (Patient's Own Medication) 1 unit PO DAILY [facility] Last Admin: 03/04/17 08:22 Dose: 1 unit Hydrochlorothiazide (Microzide) 12.5 mg PO DAILY [facility] Last Admin: 03/04/17 08:22 Dose: 12.5 mg Lactulose (Enulose) 20 gm PO TID [facility] Last Admin: 03/04/17 12:51 Dose: 20 gm Lorazepam (Ativan) 1 mg PO DAILY PRN PRN Reason: WITHDRAWAL SYMPTOMS Mupirocin (Bactroban Ointment) 1 applic TOP 0630,1700 [facility] Ondansetron HCl (Zofran Inj) 4 mg IVP Q4 PRN PRN Reason: Nausea/Vomiting Rivaroxaban (Xarelto) 15 mg PO BIDWM [facility] PRN Reason: Protocol Senna/Docusate Sodium (Senokot S 50 Mg-8.6 Mg) 2 tab PO HS [facility] Last Admin: 03/03/17 21:15 Dose: 2 tab Simethicone (Mylicon Chew Tab) 80 mg PO TID PRN PRN Reason: Flatulence Last Admin: 02/26/17 10:09 Dose: 80 mg Thiamine HCl (Vitamin B1 Tab) 100 mg PO DAILY [facility] Last Admin: 03/04/17 08:24 Dose: 100 mg Tramadol HCl (Ultram) 50 mg PO Q6 PRN PRN Reason: Pain, moderate (4-7) Valsartan (Diovan) 160 mg PO DAILY [facility] Last Admin: 03/04/17 08:22 Dose: 160 mg - Labs Labs: 02/26/17 06:45 - Head Exam Head Exam: ATRAUMATIC, NORMAL INSPECTION, NORMOCEPHALIC - Eye Exam Eye Exam: EOMI, Normal appearance, PERRL Pupil Exam: NORMAL ACCOMODATION - ENT Exam ENT Exam: Mucous Membranes Moist, Normal Exam - Respiratory Exam Respiratory Exam: NORMAL BREATHING PATTERN - Cardiovascular Exam Cardiovascular Exam: REGULAR RHYTHM - GI/Abdominal Exam GI & Abdominal Exam: Normal Bowel Sounds - Rectal Exam Rectal Exam: NORMAL INSPECTION - Exam External exam: NORMAL EXTERNAL EXAM - Extremities Exam Extremities Exam: Normal Capillary Refill - Back Exam Back Exam: NORMAL INSPECTION - Neurological Exam Neurological Exam: Alert, Awake Neuro motor strength exam: Left Upper Extremity: 3, Right Upper Extremity: 3, Left Lower Extremity: 3, Right Lower Extremity: 3 - Psychiatric Exam Psychiatric exam: Normal Affect, Normal Mood - Skin Skin Exam: Intact Assessment and Plan (1) Back pain Status: Acute (2) Bilateral leg cramps Status: Acute (3) Cervical disc disease with myelopathy Assessment & Plan: monitor incsional area of back of neck, range of motion, strenghthening, transfers and gait training for team conference Status: Acute (4) Chronic back pain Status: Acute (5) Deep vein thrombosis (DVT) Status: Acute (6) Ileus, postoperative Status: Acute (7) Intractable low back pain Status: Acute (8) S/P laminectomy Status: Acute
[2017-03-04] MEDS: Docusate-Senna 50 mg-8.6 mg Tab PO SCH (21:13)
[2017-03-05] MEDS: PREVACID 30 MG PO SCH (08:43)
--- NOTE | 2017-03-05 09:34 | CP.PCM.PN ---
Subjective - Date & Time of Evaluation Date of Evaluation: 03/04/17 Time of Evaluation: 10:00 - Subjective Subjective: patient remains stable Noted some clear discharge on the op site Has no fever Has no pain Doing well with PT. Objective - Vital Signs/Intake and Output Vital Signs (last 24 hours): Temp Pulse Resp BP Pulse Ox 98.1 F 59 L 20 121/71 99 03/05/17 08:26 03/05/17 08:50 03/05/17 08:26 03/05/17 08:50 03/05/17 07:14 - Medications Medications: Current Medications Amlodipine Besylate (Norvasc) 5 mg PO DAILY [facility] Last Admin: 03/05/17 08:50 Dose: 5 mg Benzocaine/Menthol (Cepacol Sore Throat) 1 karena MM Q3 PRN PRN Reason: Sore Throat Clotrimazole (Lotrimin 1% Cream) 1 applic TOP BID [facility] Last Admin: 03/05/17 08:44 Dose: 1 applic Folic Acid (Folic Acid) 1 mg PO DAILY [facility] Last Admin: 03/05/17 08:44 Dose: 1 mg Home Med (Patient's Own Medication) 1 unit PO DAILY [facility] Last Admin: 03/05/17 08:43 Dose: 1 unit Hydrochlorothiazide (Microzide) 12.5 mg PO DAILY [facility] Last Admin: 03/05/17 08:44 Dose: 12.5 mg Lactulose (Enulose) 20 gm PO TID [facility] Last Admin: 03/05/17 08:44 Dose: 20 gm Lorazepam (Ativan) 1 mg PO DAILY PRN PRN Reason: WITHDRAWAL SYMPTOMS Mupirocin (Bactroban Ointment) 1 applic TOP 0630,1700 [facility] Last Admin: 03/05/17 06:40 Dose: 1 applic Ondansetron HCl (Zofran Inj) 4 mg IVP Q4 PRN PRN Reason: Nausea/Vomiting Rivaroxaban (Xarelto) 15 mg PO BIDWM [facility] PRN Reason: Protocol Last Admin: 03/05/17 08:45 Dose: 15 mg Senna/Docusate Sodium (Senokot S 50 Mg-8.6 Mg) 2 tab PO HS [facility] Last Admin: 03/04/17 21:13 Dose: 2 tab Simethicone (Mylicon Chew Tab) 80 mg PO TID PRN PRN Reason: Flatulence Last Admin: 02/26/17 10:09 Dose: 80 mg Thiamine HCl (Vitamin B1 Tab) 100 mg PO DAILY [facility] Last Admin: 03/05/17 08:45 Dose: 100 mg Tramadol HCl (Ultram) 50 mg PO Q6 PRN PRN Reason: Pain, moderate (4-7) Valsartan (Diovan) 160 mg PO DAILY [facility] Last Admin: 03/05/17 08:44 Dose: 160 mg - Labs Labs: 02/26/17 06:45 - Head Exam Head Exam: NORMAL INSPECTION - Eye Exam Eye Exam: Normal appearance - Respiratory Exam Respiratory Exam: Clear to Ausculation Bilateral - Cardiovascular Exam Cardiovascular Exam: REGULAR RHYTHM - GI/Abdominal Exam GI & Abdominal Exam: Normal Bowel Sounds - Neurological Exam Neurological Exam: Awake, CN II-XII Intact - Psychiatric Exam Psychiatric exam: Normal Mood - Skin Additional comments: slight discharge clear on the op site and some abrasion on the right alar area. Assessment and Plan (1) Back pain Status: Acute (2) Cervical disc disease with myelopathy Status: Acute (3) Deep vein thrombosis (DVT) Status: Acute (4) Ileus, postoperative Status: Acute (5) Intractable low back pain Status: Acute - Assessment and Plan (Free Text) Plan: cont meds C and S of wound cont tx PT
--- NOTE | 2017-03-05 12:13 | PSY.TMCNF ---
Nursing - Vital Signs Vital Signs (Last 8 hours): Vital Signs 03/05/17 03/05/17 03/05/17 07:14 08:26 08:50 Temperature 98.1 F 98.1 F Pulse Rate 59 L 59 L 59 L Respiratory 20 20 Rate Blood Pressure 121/71 121/71 121/71 O2 Sat by Pulse 99 Oximetry Pain: 0 - Precautions: Precautions: Fall Prevention - Medications/Other Issues Comment: I/L on posterior neck with min drainage, C/S done, result pending - Consults Comment: Dr. Ta - Skin Incision Site: Posterior neck I/L Dressing Status: Changed Incision: Steri-Strips Intact, No Odor Incision Line Treatment: - Posterior neck I/L (with slight serosanguinous drainage) with dermabond: bactroban then dressing. - Toileting Toileting: Minimal Assistance - Bladder Management Bladder Pattern: Normal Voiding Method: Urinal Bladder Management: Supervision Frequency of Accidents: 0 - Bowel Management Bowel Pattern: Constipated Bowel Management: Modified Independent Frequency of Accidents: 0 - Transfers Transfers: Moderate Assistance - ADL's ADL's: Moderate Assistance - Patient/Family Teaching Comments: Care post Laminectomy, safety and spinal precautions - Goals/Time Frame Comments: Per multidisciplinary care plan and goals Physical Therapy - Bed Mobility Bed Mobility: Verbal Cues, Contact Guard - Transfers Sit to Stand: Verbal Cues, Contact Guard - Ambulation Level of Assistance: Verbal Cues, Contact Guard Distance (ft.): 50 Assistive Devices: Rolling Walker - Stair Negotiation Stairs: Level of Assistance: Not Tested - Standing Balance Static Stand: Contact Guard Assist Dynamic Stand: Minimal Assistance - Pain Pain (assessed during therapy session): 0 Management Techniques: Medication, Position Change, Distraction Comment: previously at neck, no complaints of pain during todays session - Insight/Carryover Insight/Carryover: Fair - Patient/Family Education Comment: -safety, therapy schedule, therapy goals, spinal precautions, use of call sr, positioning, transfers, ADL compensatory strategies, adaptive equipment training, pressure relief - Assessment/Plan Assessment: Pt continues to be agreeable to participate in recreation therapy sessions. Pt is oriented to leisure tasks related to improve gross motor function and dexterity with pt's dominant hand, R hand. Pt requires contact guard assist at times and depending on task requires min verbal cues for direction following. Pt is independent with dominoes task. Pt receives daily word finds and completes tasks during his free time. Pt's mood continues to be stable-positive. - Goals Timeframe: 2 weeks Goals: STGs. pt will complete ADL transfers with MIN A utilizing RW (met). updated goal: pt will complete ADL transfers with S utilizing RW. pt will complete toileting with MAX A (met). updated goal: pt will complete toileting with MOD A. pt will complete UE dressing with MOD A (met). LTG. pt will complete bathing at MOD A with AE. pt will complete ADL transfers at MIN A with DME. pt will complete toileting at MOD A with AE. pt will complete LE Dressing at MOD A. pt will complete UE Dressing at S (met). pt will complete feeding at MOD I level. pt will complete grooming at MOD I level in sitting - Provider License Number: [id number] Occupational Therapy - Arousal/Attention/Orientation Patient Orientation: Person, Place, Time, Appropriate to Age, Appropriate to Situation - ADL/IADL Self Feeding: Verbal Cues, Set-up Help Grooming: Supervision, Verbal Cues, Set-up Help Bathing-Upper Extremity: Minimal Assistance Bathing-Lower Extremity: Maximum Assistance Dressing-Upper Extremity: Supervision, Verbal Cues, Set-up Help Dressing-Lower Extremity: Maximum Assistance - Sitting Balance Static Sitting: Independent with upper extremity support Dynamic Sitting: Requires supervision - Transfers Wheelchair to Bed Transfers: Verbal Cues, Set-up Help, Minimal Assistance Toilet Transfers: Verbal Cues, Set-up Help, Contact Guard - Wheelchair Management Level of Assistance: Maximum Assistance Distance (ft.): 15 - Upper Extremity Status Right Upper Extremity Comment: R hand dominant. Impaired digit opposition from 1st digit to 3rd-5th, pt with impaired CMP flexion in all digits and impaired extension of 4th digit at DIP, PIP and CMP Left Upper Extremity Comment: ROM WFL, Impaired digit opposition, gross grasp WFL, impaired 3 jaw check, decreased dexterity b/l hands - Pain Pain (assessed during therapy session): 0 Alleviating Techniques: Medication, Position Change, Distraction Comment: previously at neck, no complaints of pain during todays session - Insight/Carryover Insight/Carryover: Fair - Patient/Family Education Comment: -safety, therapy schedule, therapy goals, spinal precautions, use of call sr, positioning, transfers, ADL compensatory strategies, adaptive equipment training, pressure relief - Assessment/Plan Assessment: Pt continues to be agreeable to participate in recreation therapy sessions. Pt is oriented to leisure tasks related to improve gross motor function and dexterity with pt's dominant hand, R hand. Pt requires contact guard assist at times and depending on task requires min verbal cues for direction following. Pt is independent with dominoes task. Pt receives daily word finds and completes tasks during his free time. Pt's mood continues to be stable-positive. - Goals Timeframe: 2 weeks Goals: STGs. pt will complete ADL transfers with MIN A utilizing RW (met). updated goal: pt will complete ADL transfers with S utilizing RW. pt will complete toileting with MAX A (met). updated goal: pt will complete toileting with MOD A. pt will complete UE dressing with MOD A (met). LTG. pt will complete bathing at MOD A with AE. pt will complete ADL transfers at MIN A with DME. pt will complete toileting at MOD A with AE. pt will complete LE Dressing at MOD A. pt will complete UE Dressing at S (met). pt will complete feeding at MOD I level. pt will complete grooming at MOD I level in sitting - Provider Therapist: Jacqueline Herr Speech Therapy - Plan Assessment: Pt continues to be agreeable to participate in recreation therapy sessions. Pt is oriented to leisure tasks related to improve gross motor function and dexterity with pt's dominant hand, R hand. Pt requires contact guard assist at times and depending on task requires min verbal cues for direction following. Pt is independent with dominoes task. Pt receives daily word finds and completes tasks during his free time. Pt's mood continues to be stable-positive. Recreational Therapy - Participation Participation: Participates in Individual and/or Group Sessions - Attendance Attendance: 3-5 times per week - Activities Leisure Activities: Cards and Games - Socialization Level of Socialization: Initiates/interacts freely with care givers and peer - Diversional Time Diversional Time: television, dominoes, games - Assessment Assessment/Plan: Pt continues to be agreeable to participate in recreation therapy sessions. Pt is oriented to leisure tasks related to improve gross motor function and dexterity with pt's dominant hand, R hand. Pt requires contact guard assist at times and depending on task requires min verbal cues for direction following. Pt is independent with dominoes task. Pt receives daily word finds and completes tasks during his free time. Pt's mood continues to be stable-positive. Problems Currently Limiting Participation: decrease finger dexterity and gross motor function, weakness Goals and Time Frame: Pt will be encouraged to participate in recreation therapy sessions 3-5x week to improve arousal level, fine motor and dexterity level, and improve leisure awareness level. - Provider Therapist: Sulema Littlejohn, BUILDING CONSTRUCTION PROFESSOR #[id number] Nutrition - Current Diet Current Diet/ Supplement/ Feedings: Soft diet - Appetite Percent Meal Consumed: 75-100% - Comments Comments: Care post Laminectomy, safety and spinal precautions - Assessment/Goals/Time Frame Assessment/Goals/Time Frame: I/L on posterior neck with min drainage, C/S done, result pending - Provider Provider: Sade Bolivar MS, RD Case Management - Psychosocial Assessment Support Systems: Patient lives with spouse Anastacia and also has [employer]CTION [employer] Psychological Interventions/Needs: Patient is alert and oriented x3 and able to verbalize needs. Patient is cooperative and motivated for therapy Discharge Concerns: Patient currently requiring mod A for bed mobility, transfers and ambulation Patient/Family Meeting: CM met with patient and rehab team Intervention/Goal/Outcome:: 1. Goal: Intermittent supervision overall. 2. Plan: Home with skilled services. 3. DME needs. 4. f/u appts. 5. caregiver training. 6. continued emotional support. 7. re-assess for increased ASTROCHEMIST hours. 8. re team next week for most appropriate discharge date and plan - Discharge Plan Discharge Plan: Home with services Home Services: [facility] - Provider Provider: AUGUSTO Hoover, [employer] License Number: [id number] Rehabilitation Plan - Treatment Plan Treatment Plan: Physical Therapy, Occupational Therapy, Dietary, Patient/Family Education - Recommendation Recommendation: Physical Therapy, Occupational Therapy, Dietary, Patient/Family Education - Discharge Plan Discharge to: Home (dc for march 17 requesting for 9)
--- NOTE | 2017-03-05 12:31 | CP.PCM.PN ---
Subjective - Date & Time of Evaluation Date of Evaluation: 03/05/17 Time of Evaluation: 08:00 - Subjective Subjective: no acute neck pain, claims he is doing fine Objective - Vital Signs/Intake and Output Vital Signs (last 24 hours): Temp Pulse Resp BP Pulse Ox 98.1 F 59 L 20 121/71 99 03/05/17 08:26 03/05/17 08:50 03/05/17 08:26 03/05/17 08:50 03/05/17 07:14 - Medications Medications: Current Medications Amlodipine Besylate (Norvasc) 5 mg PO DAILY [facility] Last Admin: 03/05/17 08:50 Dose: 5 mg Benzocaine/Menthol (Cepacol Sore Throat) 1 karena MM Q3 PRN PRN Reason: Sore Throat Clotrimazole (Lotrimin 1% Cream) 1 applic TOP BID [facility] Last Admin: 03/05/17 08:44 Dose: 1 applic Folic Acid (Folic Acid) 1 mg PO DAILY [facility] Last Admin: 03/05/17 08:44 Dose: 1 mg Home Med (Patient's Own Medication) 1 unit PO DAILY [facility] Last Admin: 03/05/17 08:43 Dose: 1 unit Hydrochlorothiazide (Microzide) 12.5 mg PO DAILY [facility] Last Admin: 03/05/17 08:44 Dose: 12.5 mg Lactulose (Enulose) 20 gm PO TID [facility] Last Admin: 03/05/17 08:44 Dose: 20 gm Lorazepam (Ativan) 1 mg PO DAILY PRN PRN Reason: WITHDRAWAL SYMPTOMS Mupirocin (Bactroban Ointment) 1 applic TOP 0630,1700 [facility] Last Admin: 03/05/17 06:40 Dose: 1 applic Ondansetron HCl (Zofran Inj) 4 mg IVP Q4 PRN PRN Reason: Nausea/Vomiting Rivaroxaban (Xarelto) 15 mg PO BIDWM [facility] PRN Reason: Protocol Last Admin: 03/05/17 08:45 Dose: 15 mg Senna/Docusate Sodium (Senokot S 50 Mg-8.6 Mg) 2 tab PO HS [facility] Last Admin: 03/04/17 21:13 Dose: 2 tab Simethicone (Mylicon Chew Tab) 80 mg PO TID PRN PRN Reason: Flatulence Last Admin: 02/26/17 10:09 Dose: 80 mg Thiamine HCl (Vitamin B1 Tab) 100 mg PO DAILY [facility] Last Admin: 03/05/17 08:45 Dose: 100 mg Tramadol HCl (Ultram) 50 mg PO Q6 PRN PRN Reason: Pain, moderate (4-7) Valsartan (Diovan) 160 mg PO DAILY [facility] Last Admin: 03/05/17 08:44 Dose: 160 mg - Labs Labs: 02/26/17 06:45 - Head Exam Head Exam: ATRAUMATIC, NORMAL INSPECTION, NORMOCEPHALIC - Eye Exam Eye Exam: EOMI, Normal appearance, PERRL Pupil Exam: NORMAL ACCOMODATION - ENT Exam ENT Exam: Mucous Membranes Moist, Normal Exam - Respiratory Exam Respiratory Exam: NORMAL BREATHING PATTERN - Cardiovascular Exam Cardiovascular Exam: REGULAR RHYTHM - GI/Abdominal Exam GI & Abdominal Exam: Normal Bowel Sounds - Rectal Exam Rectal Exam: NORMAL INSPECTION - Exam External exam: NORMAL EXTERNAL EXAM - Extremities Exam Extremities Exam: Normal Capillary Refill, Normal Inspection - Back Exam Back Exam: NORMAL INSPECTION - Neurological Exam Neurological Exam: Alert, Awake Neuro motor strength exam: Left Upper Extremity: 3, Right Upper Extremity: 3, Left Lower Extremity: 3, Right Lower Extremity: 3 - Psychiatric Exam Psychiatric exam: Normal Affect, Normal Mood - Skin Skin Exam: Normal Color Assessment and Plan (1) Back pain Status: Acute (2) Bilateral leg cramps Status: Acute (3) Cervical disc disease with myelopathy Assessment & Plan: Physical, occupational therapy Ca for march 17 ( patient is agreeable) status post team conference Status: Acute (4) Chronic back pain Status: Acute (5) Deep vein thrombosis (DVT) Status: Acute (6) Ileus, postoperative Status: Acute (7) Intractable low back pain Status: Acute (8) S/P laminectomy Status: Acute
[2017-03-05] MEDS: Docusate-Senna 50 mg-8.6 mg Tab PO SCH (21:07)
[2017-03-06] MEDS: PREVACID 30 MG PO SCH (08:46)
[2017-03-06 11:05] LABS: BASO # 0.1 K/uL (0.0-0.2); EOS # 0.1 K/uL (0.0-0.7); EOS % 1.3 % (0.0-4.0); LYMPH # 3.2 K/uL (1.0-4.3); LYMPH % 30.1 % (20.0-40.0); MEAN CORPUSCULAR HEMOGLOBIN 31.1 pg (27.0-31.0); MEAN CORPUSCULAR HGB CONC 33.1 g/dL (33.0-37.0); MEAN PLATELET VOLUME 8.9 fl (7.2-11.7); MONO # 1.2 K/uL (0.0-0.8); MONO % 10.9 % (0.0-10.0); NEUT % 56.7 % (50.0-75.0); NRBC % 0.1 % (0.0-0.0); RED CELL DISTRIBUTION WIDTH 15.5 % (11.5-14.5); WHITE BLOOD COUNT 10.6 K/uL (4.8-10.8)
[2017-03-06 11:32] LABS: ALB/GLOB RATIO 1.5 (1.0-2.1); ALKALINE PHOSPHATASE 74 U/L (38-126); ALT/SGPT 104 U/L (21-72); AST/SGOT 69 U/L (17-59); BILIRUBIN,TOTAL 0.4 mg/dl (0.2-1.3); BLOOD UREA NITROGEN 17 mg/dl (9-20); CALCIUM 9.4 mg/dL (8.4-10.2); CARBON DIOXIDE 25 mmol/L (22-30); CHLORIDE 101 mmol/L (98-107); GFR AFRICAN-AMERICAN > 60; GLUCOSE,RANDOM 92 mg/dL (75-110); SODIUM 137 mmol/l (132-148); TOTAL PROTEIN 6.8 G/DL (6.3-8.2)
--- NOTE | 2017-03-06 16:48 | CP.PCM.PN ---
<Puma Cho - Last Filed: 03/06/17 16:46> Subjective - Date & Time of Evaluation Date of Evaluation: 03/06/17 Time of Evaluation: 10:46 - Subjective Subjective: Patient seen and examined with attending. Patient participating in PT. Complains of right ankle pain at times, worse with PT. Patient denies fever, chills, abdominal pain, chest pain, sob. No pain of surgical site. Wound culture returned positive for Klebsiella. Objective - Vital Signs/Intake and Output Vital Signs (last 24 hours): Temp Pulse Resp BP Pulse Ox 96.1 F L 77 20 114/75 97 03/06/17 09:05 03/06/17 09:05 03/06/17 09:05 03/06/17 09:05 03/06/17 09:05 - Medications Medications: Current Medications Amlodipine Besylate (Norvasc) 5 mg PO DAILY [facility] Last Admin: 03/06/17 08:45 Dose: 5 mg Clotrimazole (Lotrimin 1% Cream) 1 applic TOP BID [facility] Last Admin: 03/06/17 08:44 Dose: 1 applic Folic Acid (Folic Acid) 1 mg PO DAILY [facility] Last Admin: 03/06/17 08:46 Dose: 1 mg Home Med (Patient's Own Medication) 1 unit PO DAILY [facility] Last Admin: 03/06/17 08:46 Dose: 1 unit Hydrochlorothiazide (Microzide) 12.5 mg PO DAILY [facility] Last Admin: 03/06/17 08:46 Dose: 12.5 mg Ceftriaxone Sodium 1 gm/ (Sodium Chloride) 100 mls @ 100 mls/hr IVPB Q12 [facility] Last Admin: 03/06/17 12:13 Dose: 100 mls/hr Lactulose (Enulose) 20 gm PO TID [facility] Last Admin: 03/06/17 12:24 Dose: Not Given Mupirocin (Bactroban Ointment) 1 applic TOP 0630,1700 [facility] Last Admin: 03/06/17 06:06 Dose: 1 applic Ondansetron HCl (Zofran Inj) 4 mg IVP Q4 PRN PRN Reason: Nausea/Vomiting Rivaroxaban (Xarelto) 15 mg PO BIDWM [facility] PRN Reason: Protocol Last Admin: 03/06/17 08:45 Dose: 15 mg Senna/Docusate Sodium (Senokot S 50 Mg-8.6 Mg) 2 tab PO HS [facility] Last Admin: 03/05/17 21:07 Dose: 2 tab Thiamine HCl (Vitamin B1 Tab) 100 mg PO DAILY [facility] Last Admin: 03/06/17 09:00 Dose: 100 mg Tramadol HCl (Ultram) 50 mg PO Q6 PRN PRN Reason: Pain, moderate (4-7) Last Admin: 03/06/17 05:03 Dose: 50 mg Valsartan (Diovan) 160 mg PO DAILY [facility] Last Admin: 03/06/17 08:46 Dose: 160 mg - Labs Labs: 03/06/17 10:50 03/06/17 10:50 - Constitutional Appears: Well, Non-toxic, No Acute Distress - Head Exam Head Exam: NORMAL INSPECTION - Eye Exam Eye Exam: Normal appearance - Respiratory Exam Respiratory Exam: Clear to Ausculation Bilateral, NORMAL BREATHING PATTERN - Cardiovascular Exam Cardiovascular Exam: REGULAR RHYTHM, +S1, +S2 - GI/Abdominal Exam GI & Abdominal Exam: Soft, Normal Bowel Sounds. absent: Tenderness - Neurological Exam Neurological Exam: Alert, Awake - Psychiatric Exam Psychiatric exam: Normal Affect, Normal Mood Assessment and Plan (1) Klebsiella infection Assessment & Plan: Afebrile, WBC improved today Spoke with Dr. Renteria, ID consult, will see patient Started Rocephin 1gram BID Continue to monitor vitals/wbc Status: Acute (2) Cervical disc disease with myelopathy Assessment & Plan: Continue PT/OT Physical, occupational therapy plans for D/C for march 17 Status: Acute <Chriss Donato - Last Filed: 03/10/17 10:42> Objective - Vital Signs/Intake and Output Vital Signs (last 24 hours): Temp Pulse Resp BP Pulse Ox 98.6 F 71 20 127/84 100 03/10/17 07:53 03/10/17 08:36 03/10/17 07:53 03/10/17 08:36 03/10/17 07:53 Intake and Output: 03/10/17 03/10/17 06:59 18:59 Intake Total 590 Output Total 700 Balance -110 - Medications Medications: Current Medications Amlodipine Besylate (Norvasc) 5 mg PO DAILY [facility] Last Admin: 03/10/17 08:36 Dose: 5 mg Clotrimazole (Lotrimin 1% Cream) 1 applic TOP BID [facility] Last Admin: 03/10/17 08:37 Dose: 1 applic Folic Acid (Folic Acid) 1 mg PO DAILY [facility] Last Admin: 03/10/17 08:36 Dose: 1 mg Home Med (Patient's Own Medication) 1 unit PO DAILY [facility] Last Admin: 03/10/17 08:35 Dose: 1 unit Hydrochlorothiazide (Microzide) 12.5 mg PO DAILY [facility] Last Admin: 03/10/17 08:36 Dose: 12.5 mg Cefepime HCl 1 gm/ Sodium (Chloride) 100 mls @ 100 mls/hr IVPB Q12 [facility] Last Admin: 03/10/17 08:15 Dose: 100 mls/hr Vancomycin HCl 1 gm/ Sodium (Chloride) 250 mls @ 166.667 mls/hr IVPB Q12@1100, 2300 [facility] Last Admin: 03/09/17 22:28 Dose: 166.667 mls/hr Ibuprofen (Motrin Tab) 600 mg PO Q8 PRN PRN Reason: Pain, moderate (4-7) Last Admin: 03/09/17 08:22 Dose: 600 mg Lactulose (Enulose) 20 gm PO TID [facility] Last Admin: 03/10/17 08:36 Dose: Not Given Mupirocin (Bactroban Ointment) 1 applic TOP 0630,1700 [facility] Last Admin: 03/10/17 06:13 Dose: 1 applic Ondansetron HCl (Zofran Inj) 4 mg IVP Q4 PRN PRN Reason: Nausea/Vomiting Last Admin: 03/09/17 16:20 Dose: 4 mg Rivaroxaban (Xarelto) 15 mg PO BIDWM [facility] PRN Reason: Protocol Last Admin: 03/09/17 08:21 Dose: 15 mg Senna/Docusate Sodium (Senokot S 50 Mg-8.6 Mg) 2 tab PO HS [facility] Last Admin: 03/09/17 21:09 Dose: 2 tab Thiamine HCl (Vitamin B1 Tab) 100 mg PO DAILY [facility] Last Admin: 03/10/17 08:35 Dose: 100 mg Tramadol HCl (Ultram) 50 mg PO Q6 PRN PRN Reason: Pain, severe (8-10) Valsartan (Diovan) 160 mg PO DAILY [facility] Last Admin: 03/10/17 08:36 Dose: 160 mg - Labs Labs: 03/07/17 10:09 03/07/17 10:09 Assessment and Plan (1) Back pain Status: Acute (2) Cervical disc disease with myelopathy Status: Acute (3) Deep vein thrombosis (DVT) Status: Acute (4) Ileus, postoperative Status: Acute (5) Intractable low back pain Status: Acute - Assessment and Plan (Free Text) Plan: I was present during evaluation and discussed with Dr Cho re plans of care. Chriss Donato M.D.
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
[2017-03-06] MEDS: Cefepime 1 GM in Sodium Chloride 0.9% 100 ML IVPB SCH (21:11)
[2017-03-06] MEDS: Docusate-Senna 50 mg-8.6 mg Tab PO SCH (21:13)
[2017-03-07] MEDS: PREVACID 30 MG PO SCH (08:25)
[2017-03-07] MEDS: Cefepime 1 GM in Sodium Chloride 0.9% 100 ML IVPB SCH ×2 (08:26→20:23)
--- NOTE | 2017-03-07 09:40 | CP.PCM.PN ---
<Puma Cho - Last Filed: 03/07/17 09:38> Subjective - Date & Time of Evaluation Date of Evaluation: 03/07/17 Time of Evaluation: 09:38 - Subjective Subjective: Patient seen and examined at bedside with attending. No acute events overnight. Patient was seen by ID yesterday. No fever, chills, abdominal pain, chest pain, or sob. No constipation/diarrhea. Objective - Vital Signs/Intake and Output Vital Signs (last 24 hours): Temp Pulse Resp BP Pulse Ox 98.2 F 74 20 118/76 95 03/07/17 08:24 03/07/17 08:25 03/07/17 08:24 03/07/17 08:25 03/07/17 08:24 - Medications Medications: Current Medications Amlodipine Besylate (Norvasc) 5 mg PO DAILY [facility] Last Admin: 03/07/17 08:25 Dose: 5 mg Clotrimazole (Lotrimin 1% Cream) 1 applic TOP BID [facility] Last Admin: 03/07/17 08:25 Dose: 1 applic Folic Acid (Folic Acid) 1 mg PO DAILY [facility] Last Admin: 03/07/17 08:25 Dose: 1 mg Home Med (Patient's Own Medication) 1 unit PO DAILY [facility] Last Admin: 03/07/17 08:25 Dose: 1 unit Hydrochlorothiazide (Microzide) 12.5 mg PO DAILY [facility] Last Admin: 03/07/17 08:25 Dose: 12.5 mg Cefepime HCl 1 gm/ Sodium (Chloride) 100 mls @ 100 mls/hr IVPB Q12 [facility] Last Admin: 03/07/17 08:26 Dose: 100 mls/hr Vancomycin HCl 1 gm/ Sodium (Chloride) 250 mls @ 166.667 mls/hr IVPB Q12@1000, 2200 [facility] Last Admin: 03/07/17 09:31 Dose: 166.667 mls/hr Lactulose (Enulose) 20 gm PO TID [facility] Last Admin: 03/07/17 08:25 Dose: 20 gm Mupirocin (Bactroban Ointment) 1 applic TOP 0630,1700 [facility] Last Admin: 03/07/17 06:40 Dose: 1 applic Ondansetron HCl (Zofran Inj) 4 mg IVP Q4 PRN PRN Reason: Nausea/Vomiting Rivaroxaban (Xarelto) 15 mg PO BIDWM [facility] PRN Reason: Protocol Last Admin: 03/07/17 08:25 Dose: 15 mg Senna/Docusate Sodium (Senokot S 50 Mg-8.6 Mg) 2 tab PO HS [facility] Last Admin: 03/06/17 21:13 Dose: 2 tab Thiamine HCl (Vitamin B1 Tab) 100 mg PO DAILY [facility] Last Admin: 03/07/17 08:25 Dose: 100 mg Tramadol HCl (Ultram) 50 mg PO Q6 PRN PRN Reason: Pain, moderate (4-7) Last Admin: 03/07/17 06:34 Dose: 50 mg Valsartan (Diovan) 160 mg PO DAILY [facility] Last Admin: 03/07/17 08:25 Dose: 160 mg - Labs Labs: 03/06/17 10:50 03/06/17 10:50 - Constitutional Appears: Well, Non-toxic, No Acute Distress - Head Exam Head Exam: ATRAUMATIC, NORMAL INSPECTION, NORMOCEPHALIC - Neck Exam Additional comments: wound dressing of posterior intact with minimal drainage - Respiratory Exam Respiratory Exam: Clear to Ausculation Bilateral, NORMAL BREATHING PATTERN - Cardiovascular Exam Cardiovascular Exam: REGULAR RHYTHM, +S1, +S2. absent: Murmur - GI/Abdominal Exam GI & Abdominal Exam: Soft, Normal Bowel Sounds. absent: Tenderness - Extremities Exam Extremities Exam: Normal Inspection. absent: Calf Tenderness - Neurological Exam Neurological Exam: Alert, Awake - Psychiatric Exam Psychiatric exam: Normal Affect, Normal Mood - Skin Skin Exam: Dry, Intact, Normal Color, Warm Assessment and Plan (1) Klebsiella infection Assessment & Plan: Afebrile, WBC improved yesterday, todays labs pending Dr. Renteria, ID consult, saw patient last night, d/c'ed Rocephin, started vanco/cefepime Continue to monitor vitals/wbc Status: Acute (2) Cervical disc disease with myelopathy Assessment & Plan: Spoke with Dr. Richardson of case/infection, recommended MRI w/ contrast of cervical neck ordered. Continue PT/OT Physical, occupational therapy plans for D/C for march 17 Status: Acute (3) Heel pain Assessment & Plan: right heel pain, worse with therapy will obtain right heel x-ray to eval for possible heel spur pain control prn Status: Acute <Chriss Donato - Last Filed: 03/10/17 10:44> Objective - Vital Signs/Intake and Output Vital Signs (last 24 hours): Temp Pulse Resp BP Pulse Ox 98.6 F 71 20 127/84 100 03/10/17 07:53 03/10/17 08:36 03/10/17 07:53 03/10/17 08:36 03/10/17 07:53 Intake and Output: 03/10/17 03/10/17 06:59 18:59 Intake Total 590 Output Total 700 Balance -110 - Medications Medications: Current Medications Amlodipine Besylate (Norvasc) 5 mg PO DAILY [facility] Last Admin: 03/10/17 08:36 Dose: 5 mg Clotrimazole (Lotrimin 1% Cream) 1 applic TOP BID [facility] Last Admin: 03/10/17 08:37 Dose: 1 applic Folic Acid (Folic Acid) 1 mg PO DAILY [facility] Last Admin: 03/10/17 08:36 Dose: 1 mg Home Med (Patient's Own Medication) 1 unit PO DAILY [facility] Last Admin: 03/10/17 08:35 Dose: 1 unit Hydrochlorothiazide (Microzide) 12.5 mg PO DAILY [facility] Last Admin: 03/10/17 08:36 Dose: 12.5 mg Cefepime HCl 1 gm/ Sodium (Chloride) 100 mls @ 100 mls/hr IVPB Q12 [facility] Last Admin: 03/10/17 08:15 Dose: 100 mls/hr Vancomycin HCl 1 gm/ Sodium (Chloride) 250 mls @ 166.667 mls/hr IVPB Q12@1100, 2300 [facility] Last Admin: 03/09/17 22:28 Dose: 166.667 mls/hr Ibuprofen (Motrin Tab) 600 mg PO Q8 PRN PRN Reason: Pain, moderate (4-7) Last Admin: 03/09/17 08:22 Dose: 600 mg Lactulose (Enulose) 20 gm PO TID [facility] Last Admin: 03/10/17 08:36 Dose: Not Given Mupirocin (Bactroban Ointment) 1 applic TOP 0630,1700 [facility] Last Admin: 03/10/17 06:13 Dose: 1 applic Ondansetron HCl (Zofran Inj) 4 mg IVP Q4 PRN PRN Reason: Nausea/Vomiting Last Admin: 03/09/17 16:20 Dose: 4 mg Rivaroxaban (Xarelto) 15 mg PO BIDWM [facility] PRN Reason: Protocol Last Admin: 03/09/17 08:21 Dose: 15 mg Senna/Docusate Sodium (Senokot S 50 Mg-8.6 Mg) 2 tab PO HS [facility] Last Admin: 03/09/17 21:09 Dose: 2 tab Thiamine HCl (Vitamin B1 Tab) 100 mg PO DAILY [facility] Last Admin: 03/10/17 08:35 Dose: 100 mg Tramadol HCl (Ultram) 50 mg PO Q6 PRN PRN Reason: Pain, severe (8-10) Valsartan (Diovan) 160 mg PO DAILY [facility] Last Admin: 03/10/17 08:36 Dose: 160 mg - Labs Labs: 03/07/17 10:09 03/07/17 10:09 Assessment and Plan (1) Back pain Status: Acute (2) Cervical disc disease with myelopathy Status: Acute (3) Deep vein thrombosis (DVT) Status: Acute (4) Ileus, postoperative Status: Acute (5) Intractable low back pain Status: Acute - Assessment and Plan (Free Text) Plan: I was present during evaluation and discussed with Dr Cho re plans of care and mgt. chriss Donato M.D.
[2017-03-07 10:31] LABS: HEMATOCRIT 33.8 % (35.0-51.0); MEAN CELL VOLUME 94.7 fl (80.0-94.0); MEAN CORPUSCULAR HEMOGLOBIN 31.2 pg (27.0-31.0); MEAN CORPUSCULAR HGB CONC 32.9 g/dL (33.0-37.0); RED CELL DISTRIBUTION WIDTH 15.7 % (11.5-14.5); WHITE BLOOD COUNT 8.2 K/uL (4.8-10.8)
[2017-03-07 10:36] LABS: ALB/GLOB RATIO 1.5 (1.0-2.1); ALKALINE PHOSPHATASE 66 U/L (38-126); ALT/SGPT 80 U/L (21-72); AST/SGOT 31 U/L (17-59); BILIRUBIN,TOTAL 0.2 mg/dl (0.2-1.3); BLOOD UREA NITROGEN 17 mg/dl (9-20); CALCIUM 8.9 mg/dL (8.4-10.2); CARBON DIOXIDE 27 mmol/L (22-30); CHLORIDE 98 mmol/L (98-107); GFR AFRICAN-AMERICAN > 60; GLUCOSE,RANDOM 80 mg/dL (75-110); POTASSIUM 4.2 MMOL/L (3.6-5.0); SODIUM 135 mmol/l (132-148)
--- NOTE | 2017-03-07 11:20 | CP.PCM.PN ---
Subjective - Date & Time of Evaluation Date of Evaluation: 03/07/17 Time of Evaluation: 09:00 - Subjective Subjective: patient is doing well, no acute complaints of pain Objective - Vital Signs/Intake and Output Vital Signs (last 24 hours): Temp Pulse Resp BP Pulse Ox 98.2 F 74 20 118/76 95 03/07/17 08:24 03/07/17 08:25 03/07/17 08:24 03/07/17 08:25 03/07/17 08:24 - Medications Medications: Current Medications Amlodipine Besylate (Norvasc) 5 mg PO DAILY [facility] Last Admin: 03/07/17 08:25 Dose: 5 mg Clotrimazole (Lotrimin 1% Cream) 1 applic TOP BID [facility] Last Admin: 03/07/17 08:25 Dose: 1 applic Folic Acid (Folic Acid) 1 mg PO DAILY [facility] Last Admin: 03/07/17 08:25 Dose: 1 mg Home Med (Patient's Own Medication) 1 unit PO DAILY [facility] Last Admin: 03/07/17 08:25 Dose: 1 unit Hydrochlorothiazide (Microzide) 12.5 mg PO DAILY [facility] Last Admin: 03/07/17 08:25 Dose: 12.5 mg Cefepime HCl 1 gm/ Sodium (Chloride) 100 mls @ 100 mls/hr IVPB Q12 [facility] Last Admin: 03/07/17 08:26 Dose: 100 mls/hr Vancomycin HCl 1 gm/ Sodium (Chloride) 250 mls @ 166.667 mls/hr IVPB Q12@1000, 2200 [facility] Last Admin: 03/07/17 09:31 Dose: 166.667 mls/hr Lactulose (Enulose) 20 gm PO TID [facility] Last Admin: 03/07/17 08:25 Dose: 20 gm Mupirocin (Bactroban Ointment) 1 applic TOP 0630,1700 [facility] Last Admin: 03/07/17 06:40 Dose: 1 applic Ondansetron HCl (Zofran Inj) 4 mg IVP Q4 PRN PRN Reason: Nausea/Vomiting Rivaroxaban (Xarelto) 15 mg PO BIDWM [facility] PRN Reason: Protocol Last Admin: 03/07/17 08:25 Dose: 15 mg Senna/Docusate Sodium (Senokot S 50 Mg-8.6 Mg) 2 tab PO HS [facility] Last Admin: 03/06/17 21:13 Dose: 2 tab Thiamine HCl (Vitamin B1 Tab) 100 mg PO DAILY [facility] Last Admin: 03/07/17 08:25 Dose: 100 mg Tramadol HCl (Ultram) 50 mg PO Q6 PRN PRN Reason: Pain, moderate (4-7) Last Admin: 03/07/17 06:34 Dose: 50 mg Valsartan (Diovan) 160 mg PO DAILY [facility] Last Admin: 03/07/17 08:25 Dose: 160 mg - Labs Labs: 03/07/17 10:09 03/07/17 10:09 - Head Exam Head Exam: ATRAUMATIC - Eye Exam Eye Exam: Normal appearance, PERRL Pupil Exam: NORMAL ACCOMODATION - ENT Exam ENT Exam: Mucous Membranes Moist, Normal Exam - Neck Exam Neck Exam: Normal Inspection Additional comments: neck incisional area is healing - Respiratory Exam Respiratory Exam: NORMAL BREATHING PATTERN - Cardiovascular Exam Cardiovascular Exam: REGULAR RHYTHM - Exam Exam: NORMAL INSPECTION External exam: NORMAL EXTERNAL EXAM - Extremities Exam Extremities Exam: Normal Capillary Refill - Back Exam Back Exam: NORMAL INSPECTION - Neurological Exam Neurological Exam: Alert, Awake Neuro motor strength exam: Left Upper Extremity: 3, Right Upper Extremity: 3, Left Lower Extremity: 3, Right Lower Extremity: 3 - Psychiatric Exam Psychiatric exam: Normal Affect, Normal Mood Assessment and Plan (1) Back pain Status: Acute (2) Bilateral leg cramps Status: Acute (3) Cervical disc disease with myelopathy Assessment & Plan: plan for physical, occupational and rec [id number] to continuwe with discharge planning Status: Acute (4) Chronic back pain Status: Acute (5) Deep vein thrombosis (DVT) Status: Acute (6) Ileus, postoperative Status: Acute (7) Intractable low back pain Status: Acute (8) S/P laminectomy Status: Acute
--- NOTE | 2017-03-07 14:21 | RAD ---
PROCEDURE: Radiographs of the left calcaneus/hindfoot. HISTORY: left heel pain COMPARISON: None available. TECHNIQUE: Frontal and lateral radiographs of the calcaneus. FINDINGS: No fracture or joint dislocation. No focal lesion. No calcaneal spur. IMPRESSION: Unremarkable radiographs of the left calcaneus /hindfoot.
--- NOTE | 2017-03-07 14:22 | RAD ---
PROCEDURE: Radiographs of the right calcaneus/hindfoot. HISTORY: Heel pain COMPARISON: None available. TECHNIQUE: Frontal and lateral radiographs of the calcaneus. FINDINGS: No fracture or joint dislocation. No focal lesion. No calcaneal spur. Soft tissue swelling about the ankle is generalized. IMPRESSION: Soft tissue swelling without acute articular or osseous abnormality.
[2017-03-07] MEDS: Docusate-Senna 50 mg-8.6 mg Tab PO SCH (21:17)
[2017-03-08] MEDS: Cefepime 1 GM in Sodium Chloride 0.9% 100 ML IVPB SCH ×2 (08:09→20:06)
[2017-03-08] MEDS: PREVACID 30 MG PO SCH (08:13)
[2017-03-08] MEDS ORDERED: Gadodiamide 287 MG/ML VIAL (15ML) IV ONE (11:16)
[2017-03-08] MEDS: Docusate-Senna 50 mg-8.6 mg Tab PO SCH (21:24)
[2017-03-09] MEDS: PREVACID 30 MG PO SCH (08:21)
[2017-03-09] MEDS: Cefepime 1 GM in Sodium Chloride 0.9% 100 ML IVPB SCH ×2 (08:23→20:57)
--- NOTE | 2017-03-09 12:21 | CP.PCM.PN ---
Subjective - Date & Time of Evaluation Date of Evaluation: 03/09/17 Time of Evaluation: 08:00 - Subjective Subjective: MRI noted IV rx in progress cont IV rx for possible IR drainage Objective - Vital Signs/Intake and Output Vital Signs (last 24 hours): Temp Pulse Resp BP Pulse Ox 97.7 F 75 20 144/91 H 98 03/09/17 08:14 03/09/17 08:21 03/09/17 08:14 03/09/17 08:21 03/09/17 08:14 Intake and Output: 03/09/17 03/09/17 06:59 18:59 Intake Total 590 Output Total 550 Balance 40 - Medications Medications: Current Medications Amlodipine Besylate (Norvasc) 5 mg PO DAILY [facility] Last Admin: 03/09/17 08:21 Dose: 5 mg Clotrimazole (Lotrimin 1% Cream) 1 applic TOP BID [facility] Last Admin: 03/09/17 08:21 Dose: 1 applic Folic Acid (Folic Acid) 1 mg PO DAILY [facility] Last Admin: 03/09/17 08:23 Dose: 1 mg Home Med (Patient's Own Medication) 1 unit PO DAILY [facility] Last Admin: 03/09/17 08:21 Dose: 1 unit Hydrochlorothiazide (Microzide) 12.5 mg PO DAILY [facility] Last Admin: 03/09/17 08:21 Dose: 12.5 mg Cefepime HCl 1 gm/ Sodium (Chloride) 100 mls @ 100 mls/hr IVPB Q12 [facility] Last Admin: 03/09/17 08:23 Dose: 100 mls/hr Vancomycin HCl 1 gm/ Sodium (Chloride) 250 mls @ 166.667 mls/hr IVPB Q12@1000, 2200 [facility] Last Admin: 03/09/17 10:28 Dose: 166.667 mls/hr Ibuprofen (Motrin Tab) 600 mg PO Q8 PRN PRN Reason: Pain, moderate (4-7) Last Admin: 03/09/17 08:22 Dose: 600 mg Lactulose (Enulose) 20 gm PO TID [facility] Last Admin: 03/09/17 12:14 Dose: 20 gm Mupirocin (Bactroban Ointment) 1 applic TOP 0630,1700 [facility] Last Admin: 03/09/17 06:29 Dose: Not Given Ondansetron HCl (Zofran Inj) 4 mg IVP Q4 PRN PRN Reason: Nausea/Vomiting Rivaroxaban (Xarelto) 15 mg PO BIDWM [facility] PRN Reason: Protocol Last Admin: 03/09/17 08:21 Dose: 15 mg Senna/Docusate Sodium (Senokot S 50 Mg-8.6 Mg) 2 tab PO HS [facility] Last Admin: 03/08/17 21:24 Dose: 2 tab Thiamine HCl (Vitamin B1 Tab) 100 mg PO DAILY [facility] Last Admin: 03/09/17 08:22 Dose: 100 mg Tramadol HCl (Ultram) 50 mg PO Q6 PRN PRN Reason: Pain, severe (8-10) Valsartan (Diovan) 160 mg PO DAILY [facility] Last Admin: 03/09/17 08:21 Dose: 160 mg - Labs Labs: 03/07/17 10:09 03/07/17 10:09 - Constitutional Appears: Non-toxic, Chronically Ill - Head Exam Head Exam: NORMOCEPHALIC - Eye Exam Eye Exam: PERRL. absent: Scleral icterus - ENT Exam ENT Exam: Mucous Membranes Dry, Normal External Ear Exam - Neck Exam Neck Exam: absent: Lymphadenopathy - Respiratory Exam Respiratory Exam: Decreased Breath Sounds, Clear to Ausculation Bilateral - Cardiovascular Exam Cardiovascular Exam: REGULAR RHYTHM - GI/Abdominal Exam GI & Abdominal Exam: Distended, Soft. absent: Tenderness Assessment and Plan (1) Heel pain Status: Acute (2) Klebsiella infection Status: Acute (3) Bilateral leg cramps Status: Acute (4) Cervical disc disease with myelopathy Status: Acute (5) Chronic back pain Status: Acute (6) Deep vein thrombosis (DVT) Status: Acute
[2017-03-09] MEDS: Docusate-Senna 50 mg-8.6 mg Tab PO SCH (21:09)
[2017-03-10] MEDS: Cefepime 1 GM in Sodium Chloride 0.9% 100 ML IVPB SCH ×2 (08:15→20:49)
[2017-03-10] MEDS: PREVACID 30 MG PO SCH (08:35)
--- NOTE | 2017-03-10 10:50 | CP.PCM.PN ---
Subjective - Date & Time of Evaluation Date of Evaluation: 03/08/17 Time of Evaluation: 10:44 - Subjective Subjective: Noted to have Kleb on C and S of the neck wound, Has no fever Has no chest pain Has no fever. Objective - Vital Signs/Intake and Output Vital Signs (last 24 hours): Temp Pulse Resp BP Pulse Ox 98.6 F 71 20 127/84 100 03/10/17 07:53 03/10/17 08:36 03/10/17 07:53 03/10/17 08:36 03/10/17 07:53 Intake and Output: 03/10/17 03/10/17 06:59 18:59 Intake Total 590 Output Total 700 Balance -110 - Medications Medications: Current Medications Amlodipine Besylate (Norvasc) 5 mg PO DAILY [facility] Last Admin: 03/10/17 08:36 Dose: 5 mg Clotrimazole (Lotrimin 1% Cream) 1 applic TOP BID [facility] Last Admin: 03/10/17 08:37 Dose: 1 applic Folic Acid (Folic Acid) 1 mg PO DAILY [facility] Last Admin: 03/10/17 08:36 Dose: 1 mg Home Med (Patient's Own Medication) 1 unit PO DAILY [facility] Last Admin: 03/10/17 08:35 Dose: 1 unit Hydrochlorothiazide (Microzide) 12.5 mg PO DAILY [facility] Last Admin: 03/10/17 08:36 Dose: 12.5 mg Cefepime HCl 1 gm/ Sodium (Chloride) 100 mls @ 100 mls/hr IVPB Q12 [facility] Last Admin: 03/10/17 08:15 Dose: 100 mls/hr Vancomycin HCl 1 gm/ Sodium (Chloride) 250 mls @ 166.667 mls/hr IVPB Q12@1100, 2300 [facility] Last Admin: 03/09/17 22:28 Dose: 166.667 mls/hr Ibuprofen (Motrin Tab) 600 mg PO Q8 PRN PRN Reason: Pain, moderate (4-7) Last Admin: 03/09/17 08:22 Dose: 600 mg Lactulose (Enulose) 20 gm PO TID [facility] Last Admin: 03/10/17 08:36 Dose: Not Given Mupirocin (Bactroban Ointment) 1 applic TOP 0630,1700 [facility] Last Admin: 03/10/17 06:13 Dose: 1 applic Ondansetron HCl (Zofran Inj) 4 mg IVP Q4 PRN PRN Reason: Nausea/Vomiting Last Admin: 03/09/17 16:20 Dose: 4 mg Rivaroxaban (Xarelto) 15 mg PO BIDWM [facility] PRN Reason: Protocol Last Admin: 03/09/17 08:21 Dose: 15 mg Senna/Docusate Sodium (Senokot S 50 Mg-8.6 Mg) 2 tab PO HS [facility] Last Admin: 03/09/17 21:09 Dose: 2 tab Thiamine HCl (Vitamin B1 Tab) 100 mg PO DAILY [facility] Last Admin: 03/10/17 08:35 Dose: 100 mg Tramadol HCl (Ultram) 50 mg PO Q6 PRN PRN Reason: Pain, severe (8-10) Valsartan (Diovan) 160 mg PO DAILY [facility] Last Admin: 03/10/17 08:36 Dose: 160 mg - Labs Labs: 03/07/17 10:09 03/07/17 10:09 - Head Exam Head Exam: NORMAL INSPECTION - Eye Exam Eye Exam: Normal appearance - ENT Exam ENT Exam: Mucous Membranes Moist - Respiratory Exam Respiratory Exam: Clear to Ausculation Bilateral - GI/Abdominal Exam GI & Abdominal Exam: Normal Bowel Sounds - Extremities Exam Extremities Exam: Tenderness - Neurological Exam Neurological Exam: Awake, Oriented x3 Assessment and Plan (1) Back pain Status: Acute (2) Cervical disc disease with myelopathy Status: Acute (3) Deep vein thrombosis (DVT) Status: Acute (4) Ileus, postoperative Status: Acute (5) Intractable low back pain Status: Acute - Assessment and Plan (Free Text) Plan: cont meds cont tx cont PT I D consult Iv antibiotics.
--- NOTE | 2017-03-10 10:54 | CP.PCM.PN ---
Subjective - Date & Time of Evaluation Date of Evaluation: 03/09/17 Time of Evaluation: 09:30 - Subjective Subjective: Patient remains stable Has no chest pain or SOB Minimal drainage DR Renteria and Dr Rushing were made aware Objective - Vital Signs/Intake and Output Vital Signs (last 24 hours): Temp Pulse Resp BP Pulse Ox 98.6 F 71 20 127/84 100 03/10/17 07:53 03/10/17 08:36 03/10/17 07:53 03/10/17 08:36 03/10/17 07:53 Intake and Output: 03/10/17 03/10/17 06:59 18:59 Intake Total 590 Output Total 700 Balance -110 - Medications Medications: Current Medications Amlodipine Besylate (Norvasc) 5 mg PO DAILY [facility] Last Admin: 03/10/17 08:36 Dose: 5 mg Clotrimazole (Lotrimin 1% Cream) 1 applic TOP BID [facility] Last Admin: 03/10/17 08:37 Dose: 1 applic Folic Acid (Folic Acid) 1 mg PO DAILY [facility] Last Admin: 03/10/17 08:36 Dose: 1 mg Home Med (Patient's Own Medication) 1 unit PO DAILY [facility] Last Admin: 03/10/17 08:35 Dose: 1 unit Hydrochlorothiazide (Microzide) 12.5 mg PO DAILY [facility] Last Admin: 03/10/17 08:36 Dose: 12.5 mg Cefepime HCl 1 gm/ Sodium (Chloride) 100 mls @ 100 mls/hr IVPB Q12 [facility] Last Admin: 03/10/17 08:15 Dose: 100 mls/hr Vancomycin HCl 1 gm/ Sodium (Chloride) 250 mls @ 166.667 mls/hr IVPB Q12@1100, 2300 [facility] Last Admin: 03/09/17 22:28 Dose: 166.667 mls/hr Ibuprofen (Motrin Tab) 600 mg PO Q8 PRN PRN Reason: Pain, moderate (4-7) Last Admin: 03/09/17 08:22 Dose: 600 mg Lactulose (Enulose) 20 gm PO TID [facility] Last Admin: 03/10/17 08:36 Dose: Not Given Mupirocin (Bactroban Ointment) 1 applic TOP 0630,1700 [facility] Last Admin: 03/10/17 06:13 Dose: 1 applic Ondansetron HCl (Zofran Inj) 4 mg IVP Q4 PRN PRN Reason: Nausea/Vomiting Last Admin: 03/09/17 16:20 Dose: 4 mg Rivaroxaban (Xarelto) 15 mg PO BIDWM [facility] PRN Reason: Protocol Last Admin: 03/09/17 08:21 Dose: 15 mg Senna/Docusate Sodium (Senokot S 50 Mg-8.6 Mg) 2 tab PO HS [facility] Last Admin: 03/09/17 21:09 Dose: 2 tab Thiamine HCl (Vitamin B1 Tab) 100 mg PO DAILY [facility] Last Admin: 03/10/17 08:35 Dose: 100 mg Tramadol HCl (Ultram) 50 mg PO Q6 PRN PRN Reason: Pain, severe (8-10) Valsartan (Diovan) 160 mg PO DAILY [facility] Last Admin: 03/10/17 08:36 Dose: 160 mg - Labs Labs: 03/07/17 10:09 03/07/17 10:09 - Head Exam Head Exam: NORMAL INSPECTION - Eye Exam Eye Exam: Normal appearance - ENT Exam ENT Exam: Mucous Membranes Moist - Respiratory Exam Respiratory Exam: Clear to Ausculation Bilateral - Cardiovascular Exam Cardiovascular Exam: REGULAR RHYTHM - GI/Abdominal Exam GI & Abdominal Exam: Normal Bowel Sounds - Neurological Exam Neurological Exam: Awake, Oriented x3 Assessment and Plan (1) Back pain Status: Acute (2) Cervical disc disease with myelopathy Status: Acute (3) Deep vein thrombosis (DVT) Status: Acute (4) Ileus, postoperative Status: Acute (5) Intractable low back pain Status: Acute (6) Wound abscess Status: Acute - Assessment and Plan (Free Text) Plan: cont iv antibiotics schedule for IR drain and wash discussed with Dr rushing.
--- NOTE | 2017-03-10 10:57 | CP.PCM.PN ---
Subjective - Date & Time of Evaluation Date of Evaluation: 03/10/17 Time of Evaluation: 10:56 - Subjective Subjective: patient remains stable has no chest pain or SOB afebrile Objective - Vital Signs/Intake and Output Vital Signs (last 24 hours): Temp Pulse Resp BP Pulse Ox 98.6 F 71 20 127/84 100 03/10/17 07:53 03/10/17 08:36 03/10/17 07:53 03/10/17 08:36 03/10/17 07:53 Intake and Output: 03/10/17 03/10/17 06:59 18:59 Intake Total 590 Output Total 700 Balance -110 - Medications Medications: Current Medications Amlodipine Besylate (Norvasc) 5 mg PO DAILY [facility] Last Admin: 03/10/17 08:36 Dose: 5 mg Clotrimazole (Lotrimin 1% Cream) 1 applic TOP BID [facility] Last Admin: 03/10/17 08:37 Dose: 1 applic Folic Acid (Folic Acid) 1 mg PO DAILY [facility] Last Admin: 03/10/17 08:36 Dose: 1 mg Home Med (Patient's Own Medication) 1 unit PO DAILY [facility] Last Admin: 03/10/17 08:35 Dose: 1 unit Hydrochlorothiazide (Microzide) 12.5 mg PO DAILY [facility] Last Admin: 03/10/17 08:36 Dose: 12.5 mg Cefepime HCl 1 gm/ Sodium (Chloride) 100 mls @ 100 mls/hr IVPB Q12 [facility] Last Admin: 03/10/17 08:15 Dose: 100 mls/hr Vancomycin HCl 1 gm/ Sodium (Chloride) 250 mls @ 166.667 mls/hr IVPB Q12@1100, 2300 [facility] Last Admin: 03/09/17 22:28 Dose: 166.667 mls/hr Ibuprofen (Motrin Tab) 600 mg PO Q8 PRN PRN Reason: Pain, moderate (4-7) Last Admin: 03/09/17 08:22 Dose: 600 mg Lactulose (Enulose) 20 gm PO TID [facility] Last Admin: 03/10/17 08:36 Dose: Not Given Mupirocin (Bactroban Ointment) 1 applic TOP 0630,1700 [facility] Last Admin: 03/10/17 06:13 Dose: 1 applic Ondansetron HCl (Zofran Inj) 4 mg IVP Q4 PRN PRN Reason: Nausea/Vomiting Last Admin: 03/09/17 16:20 Dose: 4 mg Rivaroxaban (Xarelto) 15 mg PO BIDWM [facility] PRN Reason: Protocol Last Admin: 03/09/17 08:21 Dose: 15 mg Senna/Docusate Sodium (Senokot S 50 Mg-8.6 Mg) 2 tab PO HS [facility] Last Admin: 03/09/17 21:09 Dose: 2 tab Thiamine HCl (Vitamin B1 Tab) 100 mg PO DAILY [facility] Last Admin: 03/10/17 08:35 Dose: 100 mg Tramadol HCl (Ultram) 50 mg PO Q6 PRN PRN Reason: Pain, severe (8-10) Valsartan (Diovan) 160 mg PO DAILY [facility] Last Admin: 03/10/17 08:36 Dose: 160 mg - Labs Labs: 03/07/17 10:09 03/07/17 10:09 - Head Exam Head Exam: NORMAL INSPECTION - Eye Exam Eye Exam: Normal appearance - ENT Exam ENT Exam: Mucous Membranes Moist - Respiratory Exam Respiratory Exam: Clear to Ausculation Bilateral - Cardiovascular Exam Cardiovascular Exam: REGULAR RHYTHM - GI/Abdominal Exam GI & Abdominal Exam: Normal Bowel Sounds - Neurological Exam Neurological Exam: CN II-XII Intact, Oriented x3 Assessment and Plan (1) Back pain Status: Acute (2) Cervical disc disease with myelopathy Status: Acute (3) Deep vein thrombosis (DVT) Status: Acute (4) Ileus, postoperative Status: Acute (5) Intractable low back pain Status: Acute (6) Wound abscess Status: Acute - Assessment and Plan (Free Text) Plan: cont meds cont tx Cont PT pain meds for washing drain friday.
--- NOTE | 2017-03-10 11:45 | CP.PCM.PN ---
Subjective - Date & Time of Evaluation Date of Evaluation: 03/10/17 Time of Evaluation: 09:00 - Subjective Subjective: alert awake going for drainage wed Objective - Vital Signs/Intake and Output Vital Signs (last 24 hours): Temp Pulse Resp BP Pulse Ox 98.6 F 71 20 127/84 100 03/10/17 07:53 03/10/17 08:36 03/10/17 07:53 03/10/17 08:36 03/10/17 07:53 Intake and Output: 03/10/17 03/10/17 06:59 18:59 Intake Total 590 Output Total 700 Balance -110 - Medications Medications: Current Medications Amlodipine Besylate (Norvasc) 5 mg PO DAILY [facility] Last Admin: 03/10/17 08:36 Dose: 5 mg Clotrimazole (Lotrimin 1% Cream) 1 applic TOP BID [facility] Last Admin: 03/10/17 08:37 Dose: 1 applic Folic Acid (Folic Acid) 1 mg PO DAILY [facility] Last Admin: 03/10/17 08:36 Dose: 1 mg Home Med (Patient's Own Medication) 1 unit PO DAILY [facility] Last Admin: 03/10/17 08:35 Dose: 1 unit Hydrochlorothiazide (Microzide) 12.5 mg PO DAILY [facility] Last Admin: 03/10/17 08:36 Dose: 12.5 mg Cefepime HCl 1 gm/ Sodium (Chloride) 100 mls @ 100 mls/hr IVPB Q12 [facility] Last Admin: 03/10/17 08:15 Dose: 100 mls/hr Vancomycin HCl 1 gm/ Sodium (Chloride) 250 mls @ 166.667 mls/hr IVPB Q12@1100, 2300 [facility] Last Admin: 03/09/17 22:28 Dose: 166.667 mls/hr Ibuprofen (Motrin Tab) 600 mg PO Q8 PRN PRN Reason: Pain, moderate (4-7) Last Admin: 03/09/17 08:22 Dose: 600 mg Lactulose (Enulose) 20 gm PO TID [facility] Last Admin: 03/10/17 08:36 Dose: Not Given Mupirocin (Bactroban Ointment) 1 applic TOP 0630,1700 [facility] Last Admin: 03/10/17 06:13 Dose: 1 applic Ondansetron HCl (Zofran Inj) 4 mg IVP Q4 PRN PRN Reason: Nausea/Vomiting Last Admin: 03/09/17 16:20 Dose: 4 mg Rivaroxaban (Xarelto) 15 mg PO BIDWM [facility] PRN Reason: Protocol Last Admin: 03/09/17 08:21 Dose: 15 mg Senna/Docusate Sodium (Senokot S 50 Mg-8.6 Mg) 2 tab PO HS [facility] Last Admin: 03/09/17 21:09 Dose: 2 tab Thiamine HCl (Vitamin B1 Tab) 100 mg PO DAILY [facility] Last Admin: 03/10/17 08:35 Dose: 100 mg Tramadol HCl (Ultram) 50 mg PO Q6 PRN PRN Reason: Pain, severe (8-10) Valsartan (Diovan) 160 mg PO DAILY [facility] Last Admin: 03/10/17 08:36 Dose: 160 mg - Labs Labs: 03/07/17 10:09 03/07/17 10:09 Assessment and Plan (1) Heel pain Status: Acute (2) Klebsiella infection Status: Acute (3) Bilateral leg cramps Status: Acute (4) Cervical disc disease with myelopathy Status: Acute (5) Chronic back pain Status: Acute (6) Deep vein thrombosis (DVT) Status: Acute
[2017-03-10] MEDS ORDERED: Lidocaine 1% Inj (20ml) ONE (13:30)
--- NOTE | 2017-03-10 13:56 | PCM.SURG1 ---
Surgeon's Initial Post Op Note - Surgeon's Notes Surgeon: Rick Wilburn MD Engineering Design Manager: None Type of Anesthesia: Local Pre-Operative Diagnosis: Infection requiring prison IV abx. Operative Findings: Patent right basilic vein. Post-Operative Diagnosis: Infection requiring emt intermediate IV abx. Operation Performed: Singlel lumen picc placement right basilic vein, 37 cm. Tip in SVC. Specimen/Specimens Removed: None Estimated Blood Loss: EBL {In ML}: 2 Blood Products Given: N/A Drains Used: No Drains Post-Op Condition: Fair Date of Surgery/Procedure: 03/10/17 Time of Surgery/Procedure: 13:45
--- NOTE | 2017-03-10 15:07 | MRI ---
PROCEDURE: MR CERVICAL SPINE WITH AND WITHOUT CONTRAST HISTORY: wound drainage i/l COMPARISON: None available. TECHNIQUE: Multiecho multiplanar sequences were performed through the cervical spine with and without the use of intravenous contrast. 15 mL of Omniscan was injected intravenously. FINDINGS: Normal lordotic curvature. Craniocervical junction unremarkable. No evidence of acute compression fracture. The patient is status post laminectomy and posterior elements resection extending from C2 to -C5 No marrow signal abnormality. Focal abnormal increased T2 signal seen in the cervical cord at the level of C4 and C5 of uncertain etiology. Postsurgical changes are seen at the posterior neck extending from the level of C1 to the level C5. There is fluid collection at the postoperative bed region measures 9 centimeter in the largest longitudinal diameter and 5.2 centimeter in the largest AP diameter. There is peripheral enhancement around this fluid collection. There are also patchy enhancement in the soft tissue around the fluid collection. There is no clear extension of this fluid collection into the spinal canal. Findings suspicious for abscess formation. C2-3: Small osteophyte disc bulging complex seen without evidence of significant spinal stenosis. C3-4: There is a moderate size osteophyte disc bulging complex no evidence of significant spinal stenosis. The patient is status post laminectomy at this level. C4-5: Moderate to large disc herniation osteophyte complex seen. There is mild to moderate narrowing of the thecal sac at this level. C5-C6: There is a small osteophyte disc bulging complex associated with mild thecal sac narrowing. C6-C7: Moderate size osteophyte disc bulging complex associated with mild thecal sac narrowing. C7-T1: No disc herniation, spinal canal stenosis or neural foraminal narrowing. OTHER FINDINGS: None. IMPRESSION: No prior study available for comparison. Postsurgical changes suggestive of prior laminectomy and posterior elements resection extending from C2 to C5. Large enhancing wall collection at the posterior aspect of the neck extending from the level of C1 to the level of C7 measures 9 centimeter in the longitudinal diameter and 5.2 centimeter in the AP diameter may represents abscess formation. The differential diagnosis includes postsurgical seroma. This fluid collection extending to the posterior margin of the thecal sac. Multilevel moderate to large osteophyte disc bulging complex more prominent at C3-C4 and C5-C6 associated with [id number] thecal sac narrowing. Preliminary report was submitted by [facility] Radiology.
[2017-03-10] MEDS: Docusate-Senna 50 mg-8.6 mg Tab PO SCH (21:00)
[2017-03-11] MEDS: Cefepime 1 GM in Sodium Chloride 0.9% 100 ML IVPB SCH ×2 (08:10→20:33)
[2017-03-11] MEDS: PREVACID 30 MG PO SCH (09:15)
[2017-03-11 09:48] LABS: BASO % 0.5 % (0.0-2.0); EOS # 0.3 K/uL (0.0-0.7); EOS % 3.7 % (0.0-4.0); HEMATOCRIT 33.9 % (35.0-51.0); LYMPH % 42.4 % (20.0-40.0); MEAN CELL VOLUME 93.1 fl (80.0-94.0); MEAN CORPUSCULAR HEMOGLOBIN 30.9 pg (27.0-31.0); MEAN CORPUSCULAR HGB CONC 33.2 g/dL (33.0-37.0); MEAN PLATELET VOLUME 9.3 fl (7.2-11.7); MONO # 0.7 K/uL (0.0-0.8); MONO % 9.4 % (0.0-10.0); NEUT # 3.1 K/uL (1.8-7.0); NRBC % 0.1 % (0.0-0.0); RED CELL DISTRIBUTION WIDTH 15.1 % (11.5-14.5)
[2017-03-11 10:04] LABS: ALB/GLOB RATIO 1.4 (1.0-2.1); ALKALINE PHOSPHATASE 71 U/L (38-126); ALT/SGPT 57 U/L (21-72); AST/SGOT 25 U/L (17-59); BILIRUBIN,TOTAL 0.3 mg/dl (0.2-1.3); BLOOD UREA NITROGEN 10 mg/dl (9-20); CALCIUM 9.2 mg/dL (8.4-10.2); CARBON DIOXIDE 27 mmol/L (22-30); CHLORIDE 104 mmol/L (98-107); GFR AFRICAN-AMERICAN > 60; GLUCOSE,RANDOM 83 mg/dL (75-110); SODIUM 139 mmol/l (132-148); TOTAL PROTEIN 6.3 G/DL (6.3-8.2)
[2017-03-11 11:22] LABS: PARTIAL THROMBOPLASTIN TIME 33.1 Seconds (25.6-37.1)
--- NOTE | 2017-03-11 13:51 | VASCULAR ---
PROCEDURE: Date of procedure: 03/10/2017 Procedure: 1. Placement of a right arm PICC with ultrasound and fluoroscopic guidance, CPT 81299 2. PICC tip confirmation with spot radiograph and is in the superior vena cava Medications: 1 percent lidocaine Total Fluoro time: 16.3 seconds Radiation: 1.7 mGy EBL: 2 cc HISTORY: infection requiring long-term IV antibiotics TECHNIQUE: Following informed consent and procedure time-out, the patient was placed supine on the interventional table and the right arm prepped and draped in the usual sterile fashion. Ultrasound showed a patent and compressible right basilic vein. After the skin was anesthetized with lidocaine, the basilic vein was accessed with micro micropuncture technique using ultrasound guidance. A guidewire was then advanced under fluoroscopic guidance into the superior vena cava. An image documenting ultrasound guidance for vascular access was permanently saved. The length of the single-lumen 4 Fij[place] PICC was trimmed to 37 centimeters and advanced through a peel-away sheath. The PICC was position with tip of PICC confirm a spot radiograph the superior vena cava. The PICC was secured to the patient's skin. The PICC was flushed. A biopatch and sterile dressing was applied. IMPRESSION: Placement of a single-lumen 4 Fijian PICC trimmed to 37 centimeters via right basilic vein. The tip of the PICC is confirmed with spot radiograph and is in the superior vena cava.
--- NOTE | 2017-03-11 16:04 | CP.PCM.PN ---
<Puma Cho - Last Filed: 03/11/17 16:02> Subjective - Date & Time of Evaluation Date of Evaluation: 03/11/17 Time of Evaluation: 10:02 - Subjective Subjective: Patient seen and evaluated with attending. No acute events overnight. Afebrile. No pain at this time. Appears comfortable. Scheduled for washing tomorrow. Objective - Vital Signs/Intake and Output Vital Signs (last 24 hours): Temp Pulse Resp BP Pulse Ox 97.9 F 75 22 128/84 100 03/11/17 08:01 03/11/17 08:32 03/11/17 08:01 03/11/17 08:32 03/11/17 08:01 Intake and Output: 03/11/17 03/11/17 06:59 18:59 Intake Total 650 Output Total 700 Balance -50 - Medications Medications: Current Medications Amlodipine Besylate (Norvasc) 5 mg PO DAILY [facility] Last Admin: 03/11/17 08:32 Dose: 5 mg Clotrimazole (Lotrimin 1% Cream) 1 applic TOP BID [facility] Last Admin: 03/11/17 08:33 Dose: 1 applic Folic Acid (Folic Acid) 1 mg PO DAILY [facility] Last Admin: 03/11/17 08:32 Dose: 1 mg Home Med (Patient's Own Medication) 1 unit PO DAILY [facility] Last Admin: 03/11/17 09:15 Dose: Not Given Hydrochlorothiazide (Microzide) 12.5 mg PO DAILY [facility] Last Admin: 03/11/17 08:32 Dose: 12.5 mg Cefepime HCl 1 gm/ Sodium (Chloride) 100 mls @ 100 mls/hr IVPB Q12 [facility] Last Admin: 03/11/17 08:10 Dose: 100 mls/hr Vancomycin HCl 1 gm/ Sodium (Chloride) 250 mls @ 166.667 mls/hr IVPB Q12@1100, 2300 [facility] Last Admin: 03/11/17 10:55 Dose: 166.667 mls/hr Lactulose (Enulose) 20 gm PO TID [facility] Last Admin: 03/11/17 12:43 Dose: Not Given Mupirocin (Bactroban Ointment) 1 applic TOP 0630,1700 [facility] Last Admin: 03/11/17 06:59 Dose: Not Given Ondansetron HCl (Zofran Inj) 4 mg IVP Q4 PRN PRN Reason: Nausea/Vomiting Last Admin: 03/09/17 16:20 Dose: 4 mg Rivaroxaban (Xarelto) 15 mg PO BIDWM [facility] PRN Reason: Protocol Last Admin: 03/09/17 08:21 Dose: 15 mg Senna/Docusate Sodium (Senokot S 50 Mg-8.6 Mg) 2 tab PO HS [facility] Last Admin: 03/10/17 21:00 Dose: 2 tab Thiamine HCl (Vitamin B1 Tab) 100 mg PO DAILY [facility] Last Admin: 03/11/17 08:32 Dose: 100 mg Tramadol HCl (Ultram) 50 mg PO Q6 PRN PRN Reason: Pain, severe (8-10) Valsartan (Diovan) 160 mg PO DAILY [facility] Last Admin: 03/11/17 08:32 Dose: 160 mg - Labs Labs: 03/11/17 09:46 03/11/17 09:46 PT 11.8 Seconds (9.8-13.1) 03/11/17 10:37 INR 1.0 (0.9-1.2) 03/11/17 10:37 APTT 33.1 Seconds (25.6-37.1) 03/11/17 10:37 - Constitutional Appears: Non-toxic, No Acute Distress - Head Exam Head Exam: ATRAUMATIC, NORMAL INSPECTION, NORMOCEPHALIC - Eye Exam Eye Exam: Normal appearance - Neck Exam Additional comments: wound dressing posterior neck, cdi - Respiratory Exam Respiratory Exam: Clear to Ausculation Bilateral, NORMAL BREATHING PATTERN - Cardiovascular Exam Cardiovascular Exam: REGULAR RHYTHM, +S1, +S2. absent: Murmur - GI/Abdominal Exam GI & Abdominal Exam: Soft, Normal Bowel Sounds. absent: Tenderness - Extremities Exam Extremities Exam: Normal Inspection - Neurological Exam Neurological Exam: Alert, Awake - Psychiatric Exam Psychiatric exam: Normal Affect, Normal Mood - Skin Skin Exam: Dry, Intact, Normal Color, Warm Assessment and Plan (1) Klebsiella infection Status: Acute (2) Cervical disc disease with myelopathy Status: Acute (3) Heel pain Status: Acute (4) Wound abscess Status: Acute - Assessment and Plan (Free Text) Plan: Scheduled for OR tomorrow for washing/drainage of wound abscess Continue IV abx as per ID CBC/CMP/Coags/EKG ordered Patient medically optimized for procedure tomorrow. No NSAIDs/anticoagulants. Plavix discontinued with sufficient time. Follow up after procedure with Dr. Richardson <Chriss Donato - Last Filed: 03/12/17 08:02> Objective - Vital Signs/Intake and Output Vital Signs (last 24 hours): Temp Pulse Resp BP Pulse Ox 97.5 F L 90 20 120/78 98 03/11/17 20:39 03/11/17 20:39 03/11/17 20:39 03/11/17 20:39 03/11/17 20:39 - Medications Medications: Current Medications Amlodipine Besylate (Norvasc) 5 mg PO DAILY [facility] Last Admin: 03/11/17 08:32 Dose: 5 mg Clotrimazole (Lotrimin 1% Cream) 1 applic TOP BID [facility] Last Admin: 03/11/17 17:50 Dose: 1 applic Folic Acid (Folic Acid) 1 mg PO DAILY [facility] Last Admin: 03/11/17 08:32 Dose: 1 mg Home Med (Patient's Own Medication) 1 unit PO DAILY [facility] Last Admin: 03/11/17 09:15 Dose: Not Given Hydrochlorothiazide (Microzide) 12.5 mg PO DAILY [facility] Last Admin: 03/11/17 08:32 Dose: 12.5 mg Cefepime HCl 1 gm/ Sodium (Chloride) 100 mls @ 100 mls/hr IVPB Q12 [facility] Last Admin: 03/11/17 20:33 Dose: 100 mls/hr Vancomycin HCl 1 gm/ Sodium (Chloride) 250 mls @ 166.667 mls/hr IVPB Q12@1100, 2300 [facility] Last Admin: 03/11/17 22:05 Dose: 166.667 mls/hr Lactulose (Enulose) 20 gm PO TID [facility] Last Admin: 03/11/17 17:51 Dose: 20 gm Mupirocin (Bactroban Ointment) 1 applic TOP 0630,1700 [facility] Last Admin: 03/12/17 06:05 Dose: Not Given Ondansetron HCl (Zofran Inj) 4 mg IVP Q4 PRN PRN Reason: Nausea/Vomiting Last Admin: 03/09/17 16:20 Dose: 4 mg Rivaroxaban (Xarelto) 15 mg PO BIDWM [facility] PRN Reason: Protocol Last Admin: 03/09/17 08:21 Dose: 15 mg Senna/Docusate Sodium (Senokot S 50 Mg-8.6 Mg) 2 tab PO HS [facility] Last Admin: 03/11/17 21:40 Dose: 2 tab Thiamine HCl (Vitamin B1 Tab) 100 mg PO DAILY [facility] Last Admin: 03/11/17 08:32 Dose: 100 mg Tramadol HCl (Ultram) 50 mg PO Q6 PRN PRN Reason: Pain, severe (8-10) Valsartan (Diovan) 160 mg PO DAILY [facility] Last Admin: 03/11/17 08:32 Dose: 160 mg - Labs Labs: 03/11/17 09:46 03/11/17 09:46 PT 11.8 Seconds (9.8-13.1) 03/11/17 10:37 INR 1.0 (0.9-1.2) 03/11/17 10:37 APTT 33.1 Seconds (25.6-37.1) 03/11/17 10:37 Assessment and Plan (1) Back pain Status: Acute (2) Cervical disc disease with myelopathy Status: Acute (3) Deep vein thrombosis (DVT) Status: Acute (4) Ileus, postoperative Status: Acute (5) Intractable low back pain Status: Acute (6) Wound abscess Status: Acute - Assessment and Plan (Free Text) Plan: I was present during evaluation and explained to patient re procedure. Discussed with Dr Cho and patient is medically stable for surgery Chriss Donato M.D.
--- NOTE | 2017-03-11 16:08 | CP.PCM.PN ---
Subjective - Date & Time of Evaluation Date of Evaluation: 03/11/17 Time of Evaluation: 13:00 - Subjective Subjective: no acute complaints of neck pain, generalized weakness Objective - Vital Signs/Intake and Output Vital Signs (last 24 hours): Temp Pulse Resp BP Pulse Ox 97.9 F 75 22 128/84 100 03/11/17 08:01 03/11/17 08:32 03/11/17 08:01 03/11/17 08:32 03/11/17 08:01 Intake and Output: 03/11/17 03/11/17 06:59 18:59 Intake Total 650 Output Total 700 Balance -50 - Medications Medications: Current Medications Amlodipine Besylate (Norvasc) 5 mg PO DAILY [facility] Last Admin: 03/11/17 08:32 Dose: 5 mg Clotrimazole (Lotrimin 1% Cream) 1 applic TOP BID [facility] Last Admin: 03/11/17 08:33 Dose: 1 applic Folic Acid (Folic Acid) 1 mg PO DAILY [facility] Last Admin: 03/11/17 08:32 Dose: 1 mg Home Med (Patient's Own Medication) 1 unit PO DAILY [facility] Last Admin: 03/11/17 09:15 Dose: Not Given Hydrochlorothiazide (Microzide) 12.5 mg PO DAILY [facility] Last Admin: 03/11/17 08:32 Dose: 12.5 mg Cefepime HCl 1 gm/ Sodium (Chloride) 100 mls @ 100 mls/hr IVPB Q12 [facility] Last Admin: 03/11/17 08:10 Dose: 100 mls/hr Vancomycin HCl 1 gm/ Sodium (Chloride) 250 mls @ 166.667 mls/hr IVPB Q12@1100, 2300 [facility] Last Admin: 03/11/17 10:55 Dose: 166.667 mls/hr Lactulose (Enulose) 20 gm PO TID [facility] Last Admin: 03/11/17 12:43 Dose: Not Given Mupirocin (Bactroban Ointment) 1 applic TOP 0630,1700 [facility] Last Admin: 03/11/17 06:59 Dose: Not Given Ondansetron HCl (Zofran Inj) 4 mg IVP Q4 PRN PRN Reason: Nausea/Vomiting Last Admin: 03/09/17 16:20 Dose: 4 mg Rivaroxaban (Xarelto) 15 mg PO BIDWM [facility] PRN Reason: Protocol Last Admin: 03/09/17 08:21 Dose: 15 mg Senna/Docusate Sodium (Senokot S 50 Mg-8.6 Mg) 2 tab PO HS [facility] Last Admin: 03/10/17 21:00 Dose: 2 tab Thiamine HCl (Vitamin B1 Tab) 100 mg PO DAILY [facility] Last Admin: 03/11/17 08:32 Dose: 100 mg Tramadol HCl (Ultram) 50 mg PO Q6 PRN PRN Reason: Pain, severe (8-10) Valsartan (Diovan) 160 mg PO DAILY [facility] Last Admin: 03/11/17 08:32 Dose: 160 mg - Labs Labs: 03/11/17 09:46 03/11/17 09:46 PT 11.8 Seconds (9.8-13.1) 03/11/17 10:37 INR 1.0 (0.9-1.2) 03/11/17 10:37 APTT 33.1 Seconds (25.6-37.1) 03/11/17 10:37 - Head Exam Head Exam: ATRAUMATIC, NORMAL INSPECTION, NORMOCEPHALIC - Eye Exam Eye Exam: EOMI, Normal appearance, PERRL Pupil Exam: NORMAL ACCOMODATION - ENT Exam ENT Exam: Mucous Membranes Moist, Normal Exam - Neck Exam Neck Exam: Normal Inspection - Respiratory Exam Respiratory Exam: NORMAL BREATHING PATTERN - Cardiovascular Exam Cardiovascular Exam: REGULAR RHYTHM - GI/Abdominal Exam GI & Abdominal Exam: Soft, Normal Bowel Sounds - Rectal Exam Rectal Exam: NORMAL INSPECTION - Exam External exam: NORMAL EXTERNAL EXAM - Extremities Exam Extremities Exam: Normal Capillary Refill, Normal Inspection - Back Exam Back Exam: NORMAL INSPECTION - Neurological Exam Neurological Exam: Alert, Awake Neuro motor strength exam: Left Upper Extremity: 3, Right Upper Extremity: 3, Left Lower Extremity: 3, Right Lower Extremity: 3 - Psychiatric Exam Psychiatric exam: Normal Affect, Normal Mood - Skin Skin Exam: Dry, Intact Assessment and Plan (1) Back pain Status: Acute (2) Bilateral leg cramps Status: Acute (3) Cervical disc disease with myelopathy Assessment & Plan: plan for range of motion, strenghthening, transfers and gait trianing, monitor skin incisional area still healing Moniotr blood pressure and [facility] as PER pmd Status: Acute (4) Chronic back pain Status: Acute (5) Deep vein thrombosis (DVT) Status: Acute (6) Ileus, postoperative Status: Acute (7) Intractable low back pain Status: Acute (8) S/P laminectomy Status: Acute
--- NOTE | 2017-03-11 16:58 | CARD ---
APPROVED REPORT EKG Measurement Heart [id number] <Conclusion> Normal sinus rhythm Left axis deviation Voltage criteria for left ventricular hypertrophy Nonspecific T wave abnormality Abnormal ECG
[2017-03-11] MEDS: Docusate-Senna 50 mg-8.6 mg Tab PO SCH (21:40)
--- NOTE | 2017-03-12 07:53 | CP.PCM.PN ---
Subjective - Date & Time of Evaluation Date of Evaluation: 03/12/17 Time of Evaluation: 07:00 - Subjective Subjective: pt without c/o,original neckpain radiating to RUE improved since recent cervical decompression,some continued drainage,cultures showing growth of Klebsiella denies pain,paresthesias,fever or chill's Objective - Vital Signs/Intake and Output Vital Signs (last 24 hours): Temp Pulse Resp BP Pulse Ox 97.5 F L 90 20 120/78 98 03/11/17 20:39 03/11/17 20:39 03/11/17 20:39 03/11/17 20:39 03/11/17 20:39 - Medications Medications: Current Medications Amlodipine Besylate (Norvasc) 5 mg PO DAILY [facility] Last Admin: 03/11/17 08:32 Dose: 5 mg Clotrimazole (Lotrimin 1% Cream) 1 applic TOP BID [facility] Last Admin: 03/11/17 17:50 Dose: 1 applic Folic Acid (Folic Acid) 1 mg PO DAILY [facility] Last Admin: 03/11/17 08:32 Dose: 1 mg Home Med (Patient's Own Medication) 1 unit PO DAILY [facility] Last Admin: 03/11/17 09:15 Dose: Not Given Hydrochlorothiazide (Microzide) 12.5 mg PO DAILY [facility] Last Admin: 03/11/17 08:32 Dose: 12.5 mg Cefepime HCl 1 gm/ Sodium (Chloride) 100 mls @ 100 mls/hr IVPB Q12 [facility] Last Admin: 03/11/17 20:33 Dose: 100 mls/hr Vancomycin HCl 1 gm/ Sodium (Chloride) 250 mls @ 166.667 mls/hr IVPB Q12@1100, 2300 [facility] Last Admin: 03/11/17 22:05 Dose: 166.667 mls/hr Lactulose (Enulose) 20 gm PO TID [facility] Last Admin: 03/11/17 17:51 Dose: 20 gm Mupirocin (Bactroban Ointment) 1 applic TOP 0630,1700 [facility] Last Admin: 03/12/17 06:05 Dose: Not Given Ondansetron HCl (Zofran Inj) 4 mg IVP Q4 PRN PRN Reason: Nausea/Vomiting Last Admin: 03/09/17 16:20 Dose: 4 mg Rivaroxaban (Xarelto) 15 mg PO BIDWM [facility] PRN Reason: Protocol Last Admin: 03/09/17 08:21 Dose: 15 mg Senna/Docusate Sodium (Senokot S 50 Mg-8.6 Mg) 2 tab PO HS [facility] Last Admin: 03/11/17 21:40 Dose: 2 tab Thiamine HCl (Vitamin B1 Tab) 100 mg PO DAILY [facility] Last Admin: 03/11/17 08:32 Dose: 100 mg Tramadol HCl (Ultram) 50 mg PO Q6 PRN PRN Reason: Pain, severe (8-10) Valsartan (Diovan) 160 mg PO DAILY [facility] Last Admin: 03/11/17 08:32 Dose: 160 mg - Labs Labs: 03/11/17 09:46 03/11/17 09:46 PT 11.8 Seconds (9.8-13.1) 03/11/17 10:37 INR 1.0 (0.9-1.2) 03/11/17 10:37 APTT 33.1 Seconds (25.6-37.1) 03/11/17 10:37 - Constitutional Appears: Well, Non-toxic, No Acute Distress - Head Exam Head Exam: ATRAUMATIC, NORMAL INSPECTION, NORMOCEPHALIC - Eye Exam Eye Exam: EOMI, Normal appearance, PERRL - ENT Exam ENT Exam: Mucous Membranes Moist - Neck Exam Additional comments: incision intact,no drainage expressed,no erythema or warmth currently,+ incisional tenderness - Respiratory Exam Respiratory Exam: Clear to Ausculation Bilateral - Cardiovascular Exam Cardiovascular Exam: REGULAR RHYTHM, +S1, +S2 - GI/Abdominal Exam GI & Abdominal Exam: Soft - Rectal Exam Rectal Exam: Deferred - Neurological Exam Neurological Exam: Alert, Oriented x3 Additional comments: KASPER x 4 antigravity with good strength,sensation intact - Psychiatric Exam Psychiatric exam: Normal Affect, Normal Mood - Skin Skin Exam: Dry Assessment and Plan - Assessment and Plan (Free Text) Assessment: 51 yo male s/p posterior cervical decompression with wound infection,on abx, neurologically stable Plan: pt to have a washout/I and D in O.R. with Dr. Richardson,cont abx per I.D. for 6-8 weeks.
[2017-03-12] MEDS: Cefepime 1 GM in Sodium Chloride 0.9% 100 ML IVPB SCH ×2 (08:04→20:04)
[2017-03-12] MEDS: PREVACID 30 MG PO SCH (08:17)
--- NOTE | 2017-03-12 12:09 | PSY.TMCNF ---
Nursing - Vital Signs Vital Signs (Last 8 hours): Vital Signs 03/12/17 03/12/17 08:12 08:19 Temperature 98.2 F Pulse Rate 66 66 Respiratory 22 Rate Blood Pressure 117/80 117/80 O2 Sat by Pulse 99 Oximetry Pain: 0 - Precautions: Precautions: Fall Prevention - Medications/Other Issues Comment: Pt at low nutritional risk. no goals. Follow-up due on 03/13/2017 - Consults Comment: Dr. Ta - Skin Incision Site: cervical Dressing Status: Removed Incision: No Drainage Noted Incision Line Treatment: cleanse with NSS, Bactroban ointment - Toileting Toileting: Minimal Assistance - Bladder Management Bladder Pattern: Normal Voiding Method: Toilet, Urinal - Bowel Management Bowel Pattern: Constipated Bowel Management: Modified Independent Frequency of Accidents: 0 - Transfers Transfers: Moderate Assistance - ADL's ADL's: Moderate Assistance - Patient/Family Teaching Comments: Care post Laminectomy, safety and spinal precautions - Goals/Time Frame Comments: Per multidisciplinary care plan and goals Physical Therapy - Bed Mobility Bed Mobility: Contact Guard - Transfers Wheelchair to Mat: Contact Guard Sit to Stand: Verbal Cues, Contact Guard - Ambulation Level of Assistance: Verbal Cues, Contact Guard Distance (ft.): 60 Assistive Devices: Rolling Walker - Stair Negotiation Stairs: Level of Assistance: Not Tested - Standing Balance Static Stand: Contact Guard Assist Dynamic Stand: Unable to assess/perform - Pain Pain (assessed during therapy session): 4 Management Techniques: Medication, Ice Comment: R foot pain - Insight/Carryover Insight/Carryover: Good - Patient/Family Education Comment: Requesting caregiver training - Assessment/Plan Assessment: Pt able to tolerate 90 minute PT session focusing on BLE strengthening exercises, balance and endurance activities, and functonal mobility training. During past week, pts performance with functional mobility declined 2/2 complaints of acute R heel/foot pain (Xrays negative). However, pt reports decreased pain in todays session and was able to perform transfers and gait with CGA and RW. Pt will continue to benefit from skilled PT intervention to address deficits,reduce fall risk, and maximize functional independence. Requesting pts or GLUE COOK come for caregiver training prior to d/c; SW is reporting that is currently refusing caregiver training at this time. - Goals Timeframe: 2 weeks Goals: Bed mobility mod I. SIt < > stand mod I; bed < >chair transfer with supervision. Ambulate 75 ft with RW and supervision - Provider License Number: [id number] Occupational Therapy - Arousal/Attention/Orientation Patient Orientation: Person, Place, Time, Appropriate to Age, Appropriate to Situation - ADL/IADL Self Feeding: Verbal Cues, Set-up Help Grooming: Supervision, Verbal Cues, Set-up Help Bathing-Upper Extremity: Minimal Assistance Bathing-Lower Extremity: Maximum Assistance Dressing-Upper Extremity: Supervision, Verbal Cues, Set-up Help Dressing-Lower Extremity: Maximum Assistance - Sitting Balance Static Sitting: Supervision Dynamic Sitting: Minimal Assistance - Transfers Wheelchair to Bed Transfers: Verbal Cues, Set-up Help, Moderate Assistance Toilet Transfers: Verbal Cues, Moderate Assistance - Wheelchair Management Level of Assistance: Maximum Assistance Distance (ft.): 15 - Upper Extremity Status Right Upper Extremity Comment: R hand dominant. Impaired digit opposition from 1st digit to 3rd-5th, pt with impaired CMP flexion in all digits and impaired extension of 4th digit at DIP, PIP and CMP Left Upper Extremity Comment: ROM WFL, Impaired digit opposition, gross grasp WFL, impaired 3 jaw check, decreased dexterity b/l hands - Pain Pain (assessed during therapy session): 4 Alleviating Techniques: Medication, Ice Comment: R foot pain - Insight/Carryover Insight/Carryover: Good - Patient/Family Education Comment: Requesting caregiver training - Assessment/Plan Assessment: Pt able to tolerate 90 minute PT session focusing on BLE strengthening exercises, balance and endurance activities, and functonal mobility training. During past week, pts performance with functional mobility declined 2/2 complaints of acute R heel/foot pain (Xrays negative). However, pt reports decreased pain in todays session and was able to perform transfers and gait with CGA and RW. Pt will continue to benefit from skilled PT intervention to address deficits,reduce fall risk, and maximize functional independence. Requesting pts or GLUE COOK come for caregiver training prior to d/c; SW is reporting that is currently refusing caregiver training at this time. - Goals Timeframe: 2 weeks Goals: Bed mobility mod I. SIt < > stand mod I; bed < >chair transfer with supervision. Ambulate 75 ft with RW and supervision - Provider Therapist: Jacqueline Herr Speech Ruy - Plan Assessment: Pt able to tolerate 90 minute PT session focusing on BLE strengthening exercises, balance and endurance activities, and functonal mobility training. During past week, pts performance with functional mobility declined 2/2 complaints of acute R heel/foot pain (Xrays negative). However, pt reports decreased pain in todays session and was able to perform transfers and gait with CGA and RW. Pt will continue to benefit from skilled PT intervention to address deficits,reduce fall risk, and maximize functional independence. Requesting pts or GLUE COOK come for caregiver training prior to d/c; SW is reporting that is currently refusing caregiver training at this time. Recreational Therapy - Participation Participation: Participates in Individual and/or Group Sessions - Attendance Attendance: 3-5 times per week - Activities Leisure Activities: Cards and Games - Socialization Level of Socialization: Initiates/interacts freely with care givers and peer - Diversional Time Diversional Time: television, dominoes, games - Assessment Assessment/Plan: Pt able to tolerate 90 minute PT session focusing on BLE strengthening exercises, balance and endurance activities, and functonal mobility training. During past week, pts performance with functional mobility declined 2/2 complaints of acute R heel/foot pain (Xrays negative). However, pt reports decreased pain in todays session and was able to perform transfers and gait with CGA and RW. Pt will continue to benefit from skilled PT intervention to address deficits,reduce fall risk, and maximize functional independence. Requesting pts or GLUE COOK come for caregiver training prior to d/c; SW is reporting that is currently refusing caregiver training at this time. - Provider Therapist: Sulema Littlejohn, [employer] #[id number] Nutrition - Current Diet Current Diet/ Supplement/ Feedings: Regular diet-no pork. NPO past Midnight(03/2017) - Appetite Percent Meal Consumed: 75-100% - Comments Comments: Care post Laminectomy, safety and spinal precautions - Assessment/Goals/Time Frame Assessment/Goals/Time Frame: Pt at low nutritional risk. no goals. Follow-up due on 03/13/2017 - Provider Provider: Margarita Calderon RD Case Management - Psychosocial Assessment Support Systems: Patient lives with spouse Anastacia and also has GLUE COOK M-S Psychological Interventions/Needs: Patient is alert and oriented x3 and able to verbalize needs. Patient is cooperative and motivated for therapy Discharge Concerns: Patient currently requiring mod A for bed mobility, transfers and ambulation Patient/Family Meeting: CM met with patient and rehab team Intervention/Goal/Outcome:: 1. Goal: Intermittent supervision overall. 2. Plan: outpatient PT/OT at [facility] as per patient's request 3. DME to be ordered (RW). 4. f/u appts with Dr. Richardson, Dr. Jolley and Dr. Miner. 5. caregiver training with spouse Anastacia. 6. continued emotional support. 7. patient's spouse called via telephone and spoke to this typewriter assembler adamantly requesting for patient to be discharged on March 14 instead of his tentative discharge date of March 17. CM spoke to patient regarding this and patient requesting to stay in acute rehab until his full LOS of 03/17. CM called spouse and informed her of this and asked for her to please discuss with patient he is in agreement with discharge date of 03/17/2017. CM to continue following for patient needs and support. - Discharge Plan Discharge Plan: Outpatient rehab Comment: [facility] outpatient 3rd floor - Provider Provider: AUGUSTO Hoover, ASSOCIATE EDITOR License Number: [id number] Rehabilitation Plan - Treatment Plan Treatment Plan: Physical Therapy, Occupational Therapy, Dietary, Patient/Family Education - Recommendation Recommendation: Physical Therapy, Occupational Therapy, Dietary, Patient/Family Education - Discharge Plan Discharge to: Home (patinet in [place] for images and washout and new drain.continue antibioitics want family training)
--- NOTE | 2017-03-12 12:11 | CP.PCM.PN ---
<Puma Cho - Last Filed: 03/12/17 12:08> Subjective - Date & Time of Evaluation Date of Evaluation: 03/12/17 Time of Evaluation: 08:30 - Subjective Subjective: Patient seen and evaluated with attending. No acute events overnight. Afebrile. No pain at this time. Appears comfortable. Scheduled for washing this AM with Dr. Richardson. NPO overnight. Objective - Vital Signs/Intake and Output Vital Signs (last 24 hours): Temp Pulse Resp BP Pulse Ox 98.2 F 66 22 117/80 99 03/12/17 08:12 03/12/17 08:19 03/12/17 08:12 03/12/17 08:19 03/12/17 08:12 - Medications Medications: Current Medications Amlodipine Besylate (Norvasc) 5 mg PO DAILY [facility] Last Admin: 03/12/17 08:19 Dose: Not Given Clotrimazole (Lotrimin 1% Cream) 1 applic TOP BID [facility] Last Admin: 03/12/17 08:09 Dose: 1 applic Folic Acid (Folic Acid) 1 mg PO DAILY [facility] Last Admin: 03/12/17 08:12 Dose: Not Given Home Med (Patient's Own Medication) 1 unit PO DAILY [facility] Last Admin: 03/12/17 08:17 Dose: Not Given Hydrochlorothiazide (Microzide) 12.5 mg PO DAILY [facility] Last Admin: 03/12/17 08:12 Dose: Not Given Cefepime HCl 1 gm/ Sodium (Chloride) 100 mls @ 100 mls/hr IVPB Q12 [facility] Last Admin: 03/12/17 08:04 Dose: 100 mls/hr Vancomycin HCl 1 gm/ Sodium (Chloride) 250 mls @ 166.667 mls/hr IVPB Q12@1100, 2300 [facility] Last Admin: 03/11/17 22:05 Dose: 166.667 mls/hr Lactulose (Enulose) 20 gm PO TID [facility] Last Admin: 03/12/17 08:12 Dose: Not Given Mupirocin (Bactroban Ointment) 1 applic TOP 0630,1700 [facility] Last Admin: 03/12/17 06:05 Dose: Not Given Ondansetron HCl (Zofran Inj) 4 mg IVP Q4 PRN PRN Reason: Nausea/Vomiting Last Admin: 03/09/17 16:20 Dose: 4 mg Rivaroxaban (Xarelto) 15 mg PO BIDWM [facility] PRN Reason: Protocol Last Admin: 03/09/17 08:21 Dose: 15 mg Senna/Docusate Sodium (Senokot S 50 Mg-8.6 Mg) 2 tab PO HS [facility] Last Admin: 03/11/17 21:40 Dose: 2 tab Thiamine HCl (Vitamin B1 Tab) 100 mg PO DAILY [facility] Last Admin: 03/12/17 08:17 Dose: Not Given Tramadol HCl (Ultram) 50 mg PO Q6 PRN PRN Reason: Pain, severe (8-10) Valsartan (Diovan) 160 mg PO DAILY [facility] Last Admin: 03/12/17 08:12 Dose: Not Given - Labs Labs: 03/11/17 09:46 03/11/17 09:46 PT 11.8 Seconds (9.8-13.1) 03/11/17 10:37 INR 1.0 (0.9-1.2) 03/11/17 10:37 APTT 33.1 Seconds (25.6-37.1) 03/11/17 10:37 - Constitutional Appears: Well, Non-toxic, No Acute Distress - Head Exam Head Exam: ATRAUMATIC, NORMAL INSPECTION, NORMOCEPHALIC - Eye Exam Eye Exam: Normal appearance - Neck Exam Additional comments: wound dressing posterior neck, cdi, mild ttp maci-incisionally - Respiratory Exam Respiratory Exam: Clear to Ausculation Bilateral, NORMAL BREATHING PATTERN - Cardiovascular Exam Cardiovascular Exam: REGULAR RHYTHM, +S1, +S2. absent: Murmur - GI/Abdominal Exam GI & Abdominal Exam: Soft, Normal Bowel Sounds. absent: Tenderness - Neurological Exam Neurological Exam: Alert, Awake - Psychiatric Exam Psychiatric exam: Normal Affect, Normal Mood - Skin Skin Exam: Dry, Intact, Normal Color, Warm Assessment and Plan (1) Klebsiella infection Status: Acute (2) Cervical disc disease with myelopathy Status: Acute (3) Heel pain Status: Acute (4) Wound abscess Status: Acute - Assessment and Plan (Free Text) Plan: Afebrile, no elevated wbc. Scheduled for OR today for washing/drainage of wound abscess Has maintained NPO status Continue IV abx as per ID (cefepime) Recommendations as per Dr. Richardson and ID appreciated <Donato,Chriss L - Last Filed: 03/17/17 12:16> Objective - Vital Signs/Intake and Output Vital Signs (last 24 hours): Temp Pulse Resp BP Pulse Ox 97.4 F L 73 20 137/87 100 03/17/17 08:09 03/17/17 08:49 03/17/17 08:09 03/17/17 08:49 03/17/17 08:09 Intake and Output: 03/17/17 03/17/17 06:59 18:59 Intake Total 700 Output Total 660 Balance 40 - Medications Medications: Current Medications Al Hydrox/Mg Hydrox/Simethicone (Maalox Plus 30 Ml) 30 ml PO Q4 PRN PRN Reason: Indigestion / Heartburn Last Admin: 03/13/17 20:18 Dose: 30 ml Amlodipine Besylate (Norvasc) 5 mg PO DAILY [facility] Last Admin: 03/17/17 08:49 Dose: 5 mg Clotrimazole (Lotrimin 1% Cream) 1 applic TOP BID [facility] Last Admin: 03/17/17 08:49 Dose: 1 applic Folic Acid (Folic Acid) 1 mg PO DAILY [facility] Last Admin: 03/17/17 08:49 Dose: 1 mg Home Med (Patient's Own Medication) 1 unit PO DAILY [facility] Last Admin: 03/17/17 08:48 Dose: 1 unit Hydrochlorothiazide (Microzide) 12.5 mg PO DAILY [facility] Last Admin: 03/17/17 08:50 Dose: 12.5 mg Vancomycin HCl 1 gm/ Sodium (Chloride) 250 mls @ 166.667 mls/hr IVPB Q12@1100, 2300 [facility] Last Admin: 03/17/17 11:24 Dose: 166.667 mls/hr Cefepime HCl 1 gm/ Sodium (Chloride) 100 mls @ 100 mls/hr IVPB Q12 [facility] Last Admin: 03/17/17 09:41 Dose: 100 mls/hr Lactulose (Enulose) 20 gm PO TID [facility] Last Admin: 03/17/17 08:48 Dose: 20 gm Mupirocin (Bactroban Ointment) 1 applic TOP 0630,1700 [facility] Last Admin: 03/17/17 07:09 Dose: Not Given Ondansetron HCl (Zofran Inj) 4 mg IVP Q4 PRN PRN Reason: Nausea/Vomiting Last Admin: 03/13/17 01:02 Dose: 4 mg Senna/Docusate Sodium (Senokot S 50 Mg-8.6 Mg) 2 tab PO HS [facility] Last Admin: 03/16/17 21:23 Dose: 2 tab Thiamine HCl (Vitamin B1 Tab) 100 mg PO DAILY [facility] Last Admin: 03/17/17 08:49 Dose: 100 mg Tramadol HCl (Ultram) 50 mg PO Q6 PRN PRN Reason: Pain Scale 1-10 Last Admin: 03/16/17 15:50 Dose: 50 mg Valsartan (Diovan) 160 mg PO DAILY [facility] Last Admin: 03/17/17 08:49 Dose: 160 mg - Labs Labs: 03/11/17 09:46 03/11/17 09:46 PT 11.8 Seconds (9.8-13.1) 03/11/17 10:37 INR 1.0 (0.9-1.2) 03/11/17 10:37 APTT 33.1 Seconds (25.6-37.1) 03/11/17 10:37 Assessment and Plan (1) Back pain Status: Acute (2) Cervical disc disease with myelopathy Status: Acute (3) Deep vein thrombosis (DVT) Status: Acute (4) Ileus, postoperative Status: Acute (5) Intractable low back pain Status: Acute (6) Wound abscess Status: Acute - Assessment and Plan (Free Text) Plan: I was present during evaluation and discussed with Dr Cho re plans of care Chriss Donato M.D.
--- NOTE | 2017-03-12 12:35 | CP.PCM.PN ---
Subjective - Date & Time of Evaluation Date of Evaluation: 03/12/17 Time of Evaluation: 10:00 - Subjective Subjective: patinet with generalized weakness Objective - Vital Signs/Intake and Output Vital Signs (last 24 hours): Temp Pulse Resp BP Pulse Ox 98.2 F 66 22 117/80 99 03/12/17 08:12 03/12/17 08:19 03/12/17 08:12 03/12/17 08:19 03/12/17 08:12 - Medications Medications: Current Medications Amlodipine Besylate (Norvasc) 5 mg PO DAILY [facility] Last Admin: 03/12/17 08:19 Dose: Not Given Clotrimazole (Lotrimin 1% Cream) 1 applic TOP BID [facility] Last Admin: 03/12/17 08:09 Dose: 1 applic Folic Acid (Folic Acid) 1 mg PO DAILY [facility] Last Admin: 03/12/17 08:12 Dose: Not Given Home Med (Patient's Own Medication) 1 unit PO DAILY [facility] Last Admin: 03/12/17 08:17 Dose: Not Given Hydrochlorothiazide (Microzide) 12.5 mg PO DAILY [facility] Last Admin: 03/12/17 08:12 Dose: Not Given Cefepime HCl 1 gm/ Sodium (Chloride) 100 mls @ 100 mls/hr IVPB Q12 [facility] Last Admin: 03/12/17 08:04 Dose: 100 mls/hr Vancomycin HCl 1 gm/ Sodium (Chloride) 250 mls @ 166.667 mls/hr IVPB Q12@1100, 2300 [facility] Last Admin: 03/11/17 22:05 Dose: 166.667 mls/hr Lactated Ringer's (Lactated Ringer's) 1,000 mls @ 75 mls/hr IV .[id number] [facility] Stop: 03/13/17 08:00 Lactulose (Enulose) 20 gm PO TID [facility] Last Admin: 03/12/17 08:12 Dose: Not Given Morphine Sulfate (Morphine) 4 mg IVP Q4 PRN PRN Reason: Pain, severe (8-10) Mupirocin (Bactroban Ointment) 1 applic TOP 0630,1700 [facility] Last Admin: 03/12/17 06:05 Dose: Not Given Ondansetron HCl (Zofran Inj) 4 mg IVP Q4 PRN PRN Reason: Nausea/Vomiting Last Admin: 03/09/17 16:20 Dose: 4 mg Rivaroxaban (Xarelto) 15 mg PO BIDWM [facility] PRN Reason: Protocol Last Admin: 03/09/17 08:21 Dose: 15 mg Senna/Docusate Sodium (Senokot S 50 Mg-8.6 Mg) 2 tab PO HS [facility] Last Admin: 03/11/17 21:40 Dose: 2 tab Thiamine HCl (Vitamin B1 Tab) 100 mg PO DAILY [facility] Last Admin: 03/12/17 08:17 Dose: Not Given Tramadol HCl (Ultram) 50 mg PO Q6 PRN PRN Reason: Pain, severe (8-10) Valsartan (Diovan) 160 mg PO DAILY [facility] Last Admin: 03/12/17 08:12 Dose: Not Given - Labs Labs: 03/11/17 09:46 03/11/17 09:46 PT 11.8 Seconds (9.8-13.1) 03/11/17 10:37 INR 1.0 (0.9-1.2) 03/11/17 10:37 APTT 33.1 Seconds (25.6-37.1) 03/11/17 10:37 - Head Exam Head Exam: ATRAUMATIC, NORMAL INSPECTION, NORMOCEPHALIC - Eye Exam Eye Exam: Normal appearance, PERRL Pupil Exam: NORMAL ACCOMODATION - ENT Exam ENT Exam: Mucous Membranes Moist, Normal Exam - Respiratory Exam Respiratory Exam: NORMAL BREATHING PATTERN - Cardiovascular Exam Cardiovascular Exam: REGULAR RHYTHM - GI/Abdominal Exam GI & Abdominal Exam: Normal Bowel Sounds - Rectal Exam Rectal Exam: NORMAL INSPECTION - Exam External exam: NORMAL EXTERNAL EXAM - Extremities Exam Extremities Exam: Normal Capillary Refill, Normal Inspection - Back Exam Back Exam: NORMAL INSPECTION - Neurological Exam Neurological Exam: Alert, Awake Neuro motor strength exam: Left Upper Extremity: 3, Right Upper Extremity: 3, Left Lower Extremity: 3, Right Lower Extremity: 3 - Psychiatric Exam Psychiatric exam: Normal Affect, Normal Mood - Skin Skin Exam: Normal Color Assessment and Plan (1) Back pain Status: Acute (2) Bilateral leg cramps Status: Acute (3) Cervical disc disease with myelopathy Assessment & Plan: patient today went to the OR for further imaging and access eval and drain access. continue with antiboitics as per PMD , may need additional home office representative hours may need todelay Dc will follow up Status: Acute (4) Chronic back pain Status: Acute (5) Deep vein thrombosis (DVT) Status: Acute (6) Ileus, postoperative Status: Acute (7) Intractable low back pain Status: Acute (8) S/P laminectomy Status: Acute
--- NOTE | 2017-03-12 12:44 | CP.PCM.PN ---
Subjective - Date & Time of Evaluation Date of Evaluation: 03/09/17 Time of Evaluation: 13:00 - Subjective Subjective: patient with generalized weakness Objective - Vital Signs/Intake and Output Vital Signs (last 24 hours): Temp Pulse Resp BP Pulse Ox 98.2 F 66 22 117/80 99 03/12/17 08:12 03/12/17 08:19 03/12/17 08:12 03/12/17 08:19 03/12/17 08:12 - Medications Medications: Current Medications Amlodipine Besylate (Norvasc) 5 mg PO DAILY [facility] Last Admin: 03/12/17 08:19 Dose: Not Given Clotrimazole (Lotrimin 1% Cream) 1 applic TOP BID [facility] Last Admin: 03/12/17 08:09 Dose: 1 applic Folic Acid (Folic Acid) 1 mg PO DAILY [facility] Last Admin: 03/12/17 08:12 Dose: Not Given Home Med (Patient's Own Medication) 1 unit PO DAILY [facility] Last Admin: 03/12/17 08:17 Dose: Not Given Hydrochlorothiazide (Microzide) 12.5 mg PO DAILY [facility] Last Admin: 03/12/17 08:12 Dose: Not Given Cefepime HCl 1 gm/ Sodium (Chloride) 100 mls @ 100 mls/hr IVPB Q12 [facility] Last Admin: 03/12/17 08:04 Dose: 100 mls/hr Vancomycin HCl 1 gm/ Sodium (Chloride) 250 mls @ 166.667 mls/hr IVPB Q12@1100, 2300 [facility] Last Admin: 03/11/17 22:05 Dose: 166.667 mls/hr Lactated Ringer's (Lactated Ringer's) 1,000 mls @ 75 mls/hr IV .[id number] [facility] Stop: 03/13/17 08:00 Lactulose (Enulose) 20 gm PO TID [facility] Last Admin: 03/12/17 08:12 Dose: Not Given Morphine Sulfate (Morphine) 4 mg IVP Q4 PRN PRN Reason: Pain, severe (8-10) Mupirocin (Bactroban Ointment) 1 applic TOP 0630,1700 [facility] Last Admin: 03/12/17 06:05 Dose: Not Given Ondansetron HCl (Zofran Inj) 4 mg IVP Q4 PRN PRN Reason: Nausea/Vomiting Last Admin: 03/09/17 16:20 Dose: 4 mg Rivaroxaban (Xarelto) 15 mg PO BIDWM [facility] PRN Reason: Protocol Last Admin: 03/09/17 08:21 Dose: 15 mg Senna/Docusate Sodium (Senokot S 50 Mg-8.6 Mg) 2 tab PO HS [facility] Last Admin: 03/11/17 21:40 Dose: 2 tab Thiamine HCl (Vitamin B1 Tab) 100 mg PO DAILY [facility] Last Admin: 03/12/17 08:17 Dose: Not Given Tramadol HCl (Ultram) 50 mg PO Q6 PRN PRN Reason: Pain, severe (8-10) Valsartan (Diovan) 160 mg PO DAILY [facility] Last Admin: 03/12/17 08:12 Dose: Not Given - Labs Labs: 03/11/17 09:46 03/11/17 09:46 PT 11.8 Seconds (9.8-13.1) 03/11/17 10:37 INR 1.0 (0.9-1.2) 03/11/17 10:37 APTT 33.1 Seconds (25.6-37.1) 03/11/17 10:37 - Head Exam Head Exam: ATRAUMATIC, NORMAL INSPECTION, NORMOCEPHALIC - Eye Exam Eye Exam: EOMI, Normal appearance, PERRL Pupil Exam: NORMAL ACCOMODATION - ENT Exam ENT Exam: Mucous Membranes Moist, Normal Exam - Respiratory Exam Respiratory Exam: NORMAL BREATHING PATTERN - Cardiovascular Exam Cardiovascular Exam: REGULAR RHYTHM - GI/Abdominal Exam GI & Abdominal Exam: Normal Bowel Sounds - Rectal Exam Rectal Exam: NORMAL INSPECTION - Exam External exam: NORMAL EXTERNAL EXAM - Extremities Exam Extremities Exam: Normal Capillary Refill - Back Exam Back Exam: NORMAL INSPECTION - Neurological Exam Neurological Exam: Alert, Awake Neuro motor strength exam: Left Upper Extremity: 3, Right Upper Extremity: 3, Left Lower Extremity: 3, Right Lower Extremity: 3 - Psychiatric Exam Psychiatric exam: Normal Affect, Normal Mood - Skin Skin Exam: Dry, Intact Assessment and Plan (1) Back pain Status: Acute (2) Bilateral leg cramps Status: Acute (3) Cervical disc disease with myelopathy Assessment & Plan: continue anitboitics ar per Dr cruz, medical treatment as per Dr Tapia physical and occupational therapy monitor skin incisonal area Status: Acute (4) Chronic back pain Status: Acute (5) Deep vein thrombosis (DVT) Status: Acute (6) Ileus, postoperative Status: Acute (7) Intractable low back pain Status: Acute (8) S/P laminectomy Status: Acute
[2017-03-12] MEDS: Lactated Ringer's 1,000 ML IV SCH (13:50)
--- NOTE | 2017-03-12 18:38 | CP.PCM.PN ---
Subjective - Date & Time of Evaluation Date of Evaluation: 03/12/17 Time of Evaluation: 09:00 - Subjective Subjective: s/p or + seroma no pus found cont iv rx pending cultures from OR Objective - Vital Signs/Intake and Output Vital Signs (last 24 hours): Temp Pulse Resp BP Pulse Ox 98.1 F 99 H 20 138/93 H 97 03/12/17 15:33 03/12/17 17:00 03/12/17 17:00 03/12/17 17:00 03/12/17 17:00 - Medications Medications: Current Medications Amlodipine Besylate (Norvasc) 5 mg PO DAILY [facility] Last Admin: 03/12/17 08:19 Dose: Not Given Clotrimazole (Lotrimin 1% Cream) 1 applic TOP BID [facility] Last Admin: 03/12/17 17:27 Dose: 1 applic Folic Acid (Folic Acid) 1 mg PO DAILY [facility] Last Admin: 03/12/17 08:12 Dose: Not Given Home Med (Patient's Own Medication) 1 unit PO DAILY [facility] Last Admin: 03/12/17 08:17 Dose: Not Given Hydrochlorothiazide (Microzide) 12.5 mg PO DAILY [facility] Last Admin: 03/12/17 08:12 Dose: Not Given Cefepime HCl 1 gm/ Sodium (Chloride) 100 mls @ 100 mls/hr IVPB Q12 [facility] Last Admin: 03/12/17 08:04 Dose: 100 mls/hr Vancomycin HCl 1 gm/ Sodium (Chloride) 250 mls @ 166.667 mls/hr IVPB Q12@1100, 2300 [facility] Last Admin: 03/12/17 13:38 Dose: 166.667 mls/hr Lactated Ringer's (Lactated Ringer's) 1,000 mls @ 75 mls/hr IV .[id number] [facility] Stop: 03/13/17 08:00 Last Admin: 03/12/17 13:50 Dose: 75 mls/hr Lactulose (Enulose) 20 gm PO TID [facility] Last Admin: 03/12/17 17:27 Dose: Not Given Morphine Sulfate (Morphine) 4 mg IVP Q4 PRN PRN Reason: Pain, severe (8-10) Mupirocin (Bactroban Ointment) 1 applic TOP 0630,1700 [facility] Last Admin: 03/12/17 17:25 Dose: Not Given Ondansetron HCl (Zofran Inj) 4 mg IVP Q4 PRN PRN Reason: Nausea/Vomiting Last Admin: 03/09/17 16:20 Dose: 4 mg Rivaroxaban (Xarelto) 15 mg PO BIDWM [facility] PRN Reason: Protocol Last Admin: 03/09/17 08:21 Dose: 15 mg Senna/Docusate Sodium (Senokot S 50 Mg-8.6 Mg) 2 tab PO HS [facility] Last Admin: 03/11/17 21:40 Dose: 2 tab Thiamine HCl (Vitamin B1 Tab) 100 mg PO DAILY [facility] Last Admin: 03/12/17 08:17 Dose: Not Given Tramadol HCl (Ultram) 50 mg PO Q6 PRN PRN Reason: Pain, severe (8-10) Last Admin: 03/12/17 17:32 Dose: 50 mg Valsartan (Diovan) 160 mg PO DAILY [facility] Last Admin: 03/12/17 08:12 Dose: Not Given - Labs Labs: 03/11/17 09:46 03/11/17 09:46 PT 11.8 Seconds (9.8-13.1) 03/11/17 10:37 INR 1.0 (0.9-1.2) 03/11/17 10:37 APTT 33.1 Seconds (25.6-37.1) 03/11/17 10:37 - Constitutional Appears: Non-toxic, Chronically Ill - Head Exam Head Exam: NORMOCEPHALIC - Eye Exam Eye Exam: PERRL. absent: Scleral icterus - ENT Exam ENT Exam: Mucous Membranes Dry - Neck Exam Neck Exam: absent: Lymphadenopathy - Respiratory Exam Respiratory Exam: Decreased Breath Sounds, Rhonchi - Cardiovascular Exam Cardiovascular Exam: REGULAR RHYTHM, +S1, +S2 - GI/Abdominal Exam GI & Abdominal Exam: Distended, Soft. absent: Tenderness - Rectal Exam Rectal Exam: Deferred Assessment and Plan (1) Heel pain Status: Acute (2) Klebsiella infection Status: Acute (3) Bilateral leg cramps Status: Acute (4) Cervical disc disease with myelopathy Status: Acute (5) Chronic back pain Status: Acute (6) Deep vein thrombosis (DVT) Status: Acute
[2017-03-12] MEDS: Docusate-Senna 50 mg-8.6 mg Tab PO SCH (21:32)
[2017-03-13] MEDS: Lactated Ringer's 1,000 ML IV SCH (01:54)
[2017-03-13] MEDS: Cefepime 1 GM in Sodium Chloride 0.9% 100 ML IVPB SCH ×2 (08:12→20:45)
[2017-03-13] MEDS: PREVACID 30 MG PO SCH (08:49)
--- NOTE | 2017-03-13 13:16 | CP.PCM.PN ---
<Puma Cho - Last Filed: 03/13/17 13:14> Subjective - Date & Time of Evaluation Date of Evaluation: 03/13/17 Time of Evaluation: 10:14 - Subjective Subjective: Patient seen and evaluated with attending. No acute events overnight. Afebrile. Pain controlled with meds. Appears comfortable. Patient had washing with Dr. Richardson yesterday. No complications noted. Tolerating PO well. Objective - Vital Signs/Intake and Output Vital Signs (last 24 hours): Temp Pulse Resp BP Pulse Ox 97.2 F L 89 22 134/91 H 98 03/13/17 08:08 03/13/17 10:59 03/13/17 08:08 03/13/17 08:10 03/13/17 10:59 Intake and Output: 03/13/17 03/13/17 06:59 18:59 Intake Total 1150 Output Total 940 Balance 210 - Medications Medications: Current Medications Amlodipine Besylate (Norvasc) 5 mg PO DAILY [facility] Last Admin: 03/13/17 08:10 Dose: 5 mg Clotrimazole (Lotrimin 1% Cream) 1 applic TOP BID [facility] Last Admin: 03/13/17 08:10 Dose: 1 applic Folic Acid (Folic Acid) 1 mg PO DAILY [facility] Last Admin: 03/13/17 08:10 Dose: 1 mg Home Med (Patient's Own Medication) 1 unit PO DAILY [facility] Last Admin: 03/13/17 08:49 Dose: 1 unit Hydrochlorothiazide (Microzide) 12.5 mg PO DAILY [facility] Last Admin: 03/13/17 08:10 Dose: 12.5 mg Cefepime HCl 1 gm/ Sodium (Chloride) 100 mls @ 100 mls/hr IVPB Q12 [facility] Last Admin: 03/13/17 08:12 Dose: 100 mls/hr Vancomycin HCl 1 gm/ Sodium (Chloride) 250 mls @ 166.667 mls/hr IVPB Q12@1100, 2300 [facility] Last Admin: 03/13/17 11:12 Dose: 166.667 mls/hr Lactulose (Enulose) 20 gm PO TID [facility] Last Admin: 03/13/17 12:13 Dose: Not Given Mupirocin (Bactroban Ointment) 1 applic TOP 0630,1700 [facility] Last Admin: 03/13/17 05:34 Dose: Not Given Ondansetron HCl (Zofran Inj) 4 mg IVP Q4 PRN PRN Reason: Nausea/Vomiting Last Admin: 03/13/17 01:02 Dose: 4 mg Senna/Docusate Sodium (Senokot S 50 Mg-8.6 Mg) 2 tab PO HS [facility] Last Admin: 03/12/17 21:32 Dose: 2 tab Thiamine HCl (Vitamin B1 Tab) 100 mg PO DAILY [facility] Last Admin: 03/13/17 08:11 Dose: 100 mg Tramadol HCl (Ultram) 50 mg PO Q6 PRN PRN Reason: Pain Scale 1-10 Valsartan (Diovan) 160 mg PO DAILY [facility] Last Admin: 03/13/17 08:09 Dose: 160 mg - Labs Labs: 03/11/17 09:46 03/11/17 09:46 PT 11.8 Seconds (9.8-13.1) 03/11/17 10:37 INR 1.0 (0.9-1.2) 03/11/17 10:37 APTT 33.1 Seconds (25.6-37.1) 03/11/17 10:37 - Constitutional Appears: Well, Non-toxic, No Acute Distress - Head Exam Head Exam: ATRAUMATIC, NORMAL INSPECTION, NORMOCEPHALIC - Neck Exam Additional comments: dressing cdi, ivelisse drain noted - Respiratory Exam Respiratory Exam: Clear to Ausculation Bilateral, NORMAL BREATHING PATTERN - Cardiovascular Exam Cardiovascular Exam: REGULAR RHYTHM, +S1, +S2. absent: Murmur - GI/Abdominal Exam GI & Abdominal Exam: Soft, Normal Bowel Sounds. absent: Tenderness - Neurological Exam Neurological Exam: Alert, Awake - Psychiatric Exam Psychiatric exam: Normal Affect, Normal Mood - Skin Skin Exam: Dry, Intact, Normal Color, Warm Assessment and Plan (1) Cervical disc disease with myelopathy Status: Acute (2) Klebsiella infection Status: Acute (3) Wound abscess Status: Acute (4) Heel pain Status: Acute - Assessment and Plan (Free Text) Plan: s/p washing of wound abscess Pain control PRN Monitor IVELISSE drainage Afebrile Continue IV abx as per ID (cefepime) Recommendations as per Dr. Richardson and ID appreciated <Chriss Donato - Last Filed: 03/17/17 12:17> Subjective - Subjective Subjective: I was present during evaluation and discussed with Dr Ferrara re plans of care Chriss Donato M.D. Objective - Vital Signs/Intake and Output Vital Signs (last 24 hours): Temp Pulse Resp BP Pulse Ox 97.4 F L 73 20 137/87 100 03/17/17 08:09 03/17/17 08:49 03/17/17 08:09 03/17/17 08:49 03/17/17 08:09 Intake and Output: 03/17/17 03/17/17 06:59 18:59 Intake Total 700 Output Total 660 Balance 40 - Medications Medications: Current Medications Al Hydrox/Mg Hydrox/Simethicone (Maalox Plus 30 Ml) 30 ml PO Q4 PRN PRN Reason: Indigestion / Heartburn Last Admin: 03/13/17 20:18 Dose: 30 ml Amlodipine Besylate (Norvasc) 5 mg PO DAILY [facility] Last Admin: 03/17/17 08:49 Dose: 5 mg Clotrimazole (Lotrimin 1% Cream) 1 applic TOP BID [facility] Last Admin: 03/17/17 08:49 Dose: 1 applic Folic Acid (Folic Acid) 1 mg PO DAILY [facility] Last Admin: 03/17/17 08:49 Dose: 1 mg Home Med (Patient's Own Medication) 1 unit PO DAILY [facility] Last Admin: 03/17/17 08:48 Dose: 1 unit Hydrochlorothiazide (Microzide) 12.5 mg PO DAILY [facility] Last Admin: 03/17/17 08:50 Dose: 12.5 mg Vancomycin HCl 1 gm/ Sodium (Chloride) 250 mls @ 166.667 mls/hr IVPB Q12@1100, 2300 [facility] Last Admin: 03/17/17 11:24 Dose: 166.667 mls/hr Cefepime HCl 1 gm/ Sodium (Chloride) 100 mls @ 100 mls/hr IVPB Q12 [facility] Last Admin: 03/17/17 09:41 Dose: 100 mls/hr Lactulose (Enulose) 20 gm PO TID [facility] Last Admin: 03/17/17 08:48 Dose: 20 gm Mupirocin (Bactroban Ointment) 1 applic TOP 0630,1700 [facility] Last Admin: 03/17/17 07:09 Dose: Not Given Ondansetron HCl (Zofran Inj) 4 mg IVP Q4 PRN PRN Reason: Nausea/Vomiting Last Admin: 03/13/17 01:02 Dose: 4 mg Senna/Docusate Sodium (Senokot S 50 Mg-8.6 Mg) 2 tab PO HS [facility] Last Admin: 03/16/17 21:23 Dose: 2 tab Thiamine HCl (Vitamin B1 Tab) 100 mg PO DAILY [facility] Last Admin: 03/17/17 08:49 Dose: 100 mg Tramadol HCl (Ultram) 50 mg PO Q6 PRN PRN Reason: Pain Scale 1-10 Last Admin: 03/16/17 15:50 Dose: 50 mg Valsartan (Diovan) 160 mg PO DAILY [facility] Last Admin: 03/17/17 08:49 Dose: 160 mg - Labs Labs: 03/11/17 09:46 03/11/17 09:46 PT 11.8 Seconds (9.8-13.1) 03/11/17 10:37 INR 1.0 (0.9-1.2) 03/11/17 10:37 APTT 33.1 Seconds (25.6-37.1) 03/11/17 10:37 Assessment and Plan (1) Back pain Status: Acute (2) Cervical disc disease with myelopathy Status: Acute (3) Deep vein thrombosis (DVT) Status: Acute (4) Ileus, postoperative Status: Acute (5) Intractable low back pain Status: Acute (6) Wound abscess Status: Acute
[2017-03-13] MEDS: Alum-Mag Hydrox-Simethicone Susp (30 mL) PO PRN ×2 (16:10→20:18)
--- NOTE | 2017-03-13 18:52 | CP.PCM.PN ---
Subjective - Date & Time of Evaluation Date of Evaluation: 03/13/17 Time of Evaluation: 10:00 - Subjective Subjective: await or cultures rx reordered Objective - Vital Signs/Intake and Output Vital Signs (last 24 hours): Temp Pulse Resp BP Pulse Ox 97.2 F L 89 22 134/91 H 98 03/13/17 08:08 03/13/17 10:59 03/13/17 08:08 03/13/17 08:10 03/13/17 10:59 Intake and Output: 03/13/17 03/13/17 06:59 18:59 Intake Total 1150 Output Total 940 Balance 210 - Medications Medications: Current Medications Al Hydrox/Mg Hydrox/Simethicone (Maalox Plus 30 Ml) 30 ml PO Q4 PRN PRN Reason: Indigestion / Heartburn Last Admin: 03/13/17 16:10 Dose: 30 ml Amlodipine Besylate (Norvasc) [address] [facility] Last Admin: 03/13/17 08:10 Dose: 5 mg Clotrimazole (Lotrimin 1% Cream) [address] [facility] Last Admin: 03/13/17 16:13 Dose: 1 applic Folic Acid (Folic Acid) [address] [facility] Last Admin: 03/13/17 08:10 Dose: 1 mg Home Med (Patient's Own Medication) [address] [facility] Last Admin: 03/13/17 08:49 Dose: 1 unit Hydrochlorothiazide (Microzide) 12.[address] [facility] Last Admin: 03/13/17 08:10 Dose: 12.5 mg Cefepime HCl 1 gm/ Sodium (Chloride) 100 mls @ 100 mls/hr IVPB Q12 [facility] Last Admin: 03/13/17 08:12 Dose: 100 mls/hr Vancomycin HCl 1 gm/ Sodium (Chloride) 250 mls @ 166.667 mls/hr IVPB Q12@1100, 2300 [facility] Last Admin: 03/13/17 11:12 Dose: 166.667 mls/hr Lactulose (Enulose) [address] [facility] Last Admin: 03/13/17 16:13 Dose: 20 gm Mupirocin (Bactroban Ointment) 1 applic TOP 0630,1700 [facility] Last Admin: 03/13/17 16:13 Dose: 1 applic Ondansetron HCl (Zofran Inj) 4 mg IVP Q4 PRN PRN Reason: Nausea/Vomiting Last Admin: 03/13/17 01:02 Dose: 4 mg Senna/Docusate Sodium (Senokot S 50 Mg-8.6 Mg) [address] [facility] Last Admin: 03/12/17 21:32 Dose: 2 tab Thiamine HCl (Vitamin B1 Tab) [address] [facility] Last Admin: 03/13/17 08:11 Dose: 100 mg Tramadol HCl (Ultram) 50 mg PO Q6 PRN PRN Reason: Pain Scale 1-10 Valsartan (Diovan) [address] [facility] Last Admin: 03/13/17 08:09 Dose: 160 mg - Labs Labs: 03/11/17 09:46 03/11/17 09:46 PT 11.8 Seconds (9.8-13.1) 03/11/17 10:37 INR 1.0 (0.9-1.2) 03/11/17 10:37 APTT 33.1 Seconds (25.6-37.1) 03/11/17 10:37 Assessment and Plan (1) Heel pain Status: Acute (2) Klebsiella infection Status: Acute (3) Bilateral leg cramps Status: Acute (4) Cervical disc disease with myelopathy Status: Acute (5) Chronic back pain Status: Acute (6) Deep vein thrombosis (DVT) Status: Acute
[2017-03-13] MEDS: Docusate-Senna 50 mg-8.6 mg Tab PO SCH (21:01)
[2017-03-14] MEDS: Cefepime 1 GM in Sodium Chloride 0.9% 100 ML IVPB SCH ×2 (08:34→20:23)
[2017-03-14] MEDS: PREVACID 30 MG PO SCH (08:34)
--- NOTE | 2017-03-14 10:52 | CP.PCM.PN ---
<Puma Cho - Last Filed: 03/14/17 10:50> Subjective - Date & Time of Evaluation Date of Evaluation: 03/14/17 Time of Evaluation: 09:50 - Subjective Subjective: Patient seen and evaluated with attending. No acute events overnight. Afebrile. No chills. Pain controlled with meds. Appears comfortable. Patient had washing with Dr. Richardson 2 days prior. Drain still present. Tolerating PO well. Objective - Vital Signs/Intake and Output Vital Signs (last 24 hours): Temp Pulse Resp BP Pulse Ox 97.9 F 89 89 H 123/90 99 03/14/17 08:17 03/14/17 08:35 03/14/17 08:17 03/14/17 08:35 03/14/17 08:17 Intake and Output: 03/14/17 03/14/17 06:59 18:59 Intake Total 650 Output Total 704 Balance -54 - Medications Medications: Current Medications Al Hydrox/Mg Hydrox/Simethicone (Maalox Plus 30 Ml) 30 ml PO Q4 PRN PRN Reason: Indigestion / Heartburn Last Admin: 03/13/17 20:18 Dose: 30 ml Amlodipine Besylate (Norvasc) 5 mg PO DAILY [facility] Last Admin: 03/14/17 08:35 Dose: 5 mg Clotrimazole (Lotrimin 1% Cream) 1 applic TOP BID [facility] Last Admin: 03/14/17 08:35 Dose: 1 applic Folic Acid (Folic Acid) 1 mg PO DAILY [facility] Last Admin: 03/14/17 08:34 Dose: 1 mg Home Med (Patient's Own Medication) 1 unit PO DAILY [facility] Last Admin: 03/14/17 08:34 Dose: 1 unit Hydrochlorothiazide (Microzide) 12.5 mg PO DAILY [facility] Last Admin: 03/14/17 08:35 Dose: 12.5 mg Cefepime HCl 1 gm/ Sodium (Chloride) 100 mls @ 100 mls/hr IVPB Q12 [facility] Last Admin: 03/14/17 08:34 Dose: 100 mls/hr Vancomycin HCl 1 gm/ Sodium (Chloride) 250 mls @ 166.667 mls/hr IVPB Q12@1100, 2300 [facility] Last Admin: 03/13/17 23:10 Dose: 166.667 mls/hr Lactulose (Enulose) 20 gm PO TID [facility] Last Admin: 03/14/17 08:34 Dose: 20 gm Mupirocin (Bactroban Ointment) 1 applic TOP 0630,1700 [facility] Last Admin: 03/14/17 06:59 Dose: 1 applic Ondansetron HCl (Zofran Inj) 4 mg IVP Q4 PRN PRN Reason: Nausea/Vomiting Last Admin: 03/13/17 01:02 Dose: 4 mg Senna/Docusate Sodium (Senokot S 50 Mg-8.6 Mg) 2 tab PO HS [facility] Last Admin: 03/13/17 21:01 Dose: 2 tab Thiamine HCl (Vitamin B1 Tab) 100 mg PO DAILY [facility] Last Admin: 03/14/17 08:36 Dose: 100 mg Tramadol HCl (Ultram) 50 mg PO Q6 PRN PRN Reason: Pain Scale 1-10 Valsartan (Diovan) 160 mg PO DAILY [facility] Last Admin: 03/14/17 08:35 Dose: 160 mg - Labs Labs: 03/11/17 09:46 03/11/17 09:46 PT 11.8 Seconds (9.8-13.1) 03/11/17 10:37 INR 1.0 (0.9-1.2) 03/11/17 10:37 APTT 33.1 Seconds (25.6-37.1) 03/11/17 10:37 - Constitutional Appears: Well, Non-toxic, No Acute Distress - Head Exam Head Exam: ATRAUMATIC, NORMAL INSPECTION, NORMOCEPHALIC - Eye Exam Eye Exam: Normal appearance - Neck Exam Additional comments: wound dressing cdi, drain present with mod amt of serosangius fluid - Respiratory Exam Respiratory Exam: Clear to Ausculation Bilateral, NORMAL BREATHING PATTERN - Cardiovascular Exam Cardiovascular Exam: REGULAR RHYTHM, +S1, +S2. absent: Murmur - GI/Abdominal Exam GI & Abdominal Exam: Soft, Normal Bowel Sounds. absent: Tenderness - Neurological Exam Neurological Exam: Alert, Awake - Psychiatric Exam Psychiatric exam: Normal Affect, Normal Mood - Skin Skin Exam: Dry, Intact, Normal Color, Warm Assessment and Plan (1) Cervical disc disease with myelopathy Assessment & Plan: c/w PT Dr. Richardson on board, appreciate input Status: Acute (2) Klebsiella infection Assessment & Plan: Afebrile. No chills. ID on board appreciate input Continue IV abx as per ID (cefepime) s/p abscess washing POD #2 Status: Acute (3) Wound abscess Assessment & Plan: s/p washing of wound abscess POD #2 Monitor RAISA drainage Status: Acute <[employer] - Last Filed: 03/17/17 12:18> Subjective - Subjective Subjective: I was present during evaluation and discussed with Dr Alem tolliver plans of care Chriss Donato M.D. Objective - Vital Signs/Intake and Output Vital Signs (last 24 hours): Temp Pulse Resp BP Pulse Ox 97.4 F L 73 20 137/87 100 03/17/17 08:09 03/17/17 08:49 03/17/17 08:09 03/17/17 08:49 03/17/17 08:09 Intake and Output: 03/17/17 03/17/17 06:59 18:59 Intake Total 700 Output Total 660 Balance 40 - Medications Medications: Current Medications Al Hydrox/Mg Hydrox/Simethicone (Maalox Plus 30 Ml) 30 ml PO Q4 PRN PRN Reason: Indigestion / Heartburn Last Admin: 03/13/17 20:18 Dose: 30 ml Amlodipine Besylate (Norvasc) 5 mg PO DAILY [facility] Last Admin: 03/17/17 08:49 Dose: 5 mg Clotrimazole (Lotrimin 1% Cream) 1 applic TOP BID [facility] Last Admin: 03/17/17 08:49 Dose: 1 applic Folic Acid (Folic Acid) 1 mg PO DAILY [facility] Last Admin: 03/17/17 08:49 Dose: 1 mg Home Med (Patient's Own Medication) 1 unit PO DAILY [facility] Last Admin: 03/17/17 08:48 Dose: 1 unit Hydrochlorothiazide (Microzide) 12.5 mg PO DAILY [facility] Last Admin: 03/17/17 08:50 Dose: 12.5 mg Vancomycin HCl 1 gm/ Sodium (Chloride) 250 mls @ 166.667 mls/hr IVPB Q12@1100, 2300 [facility] Last Admin: 03/17/17 11:24 Dose: 166.667 mls/hr Cefepime HCl 1 gm/ Sodium (Chloride) 100 mls @ 100 mls/hr IVPB Q12 [facility] Last Admin: 03/17/17 09:41 Dose: 100 mls/hr Lactulose (Enulose) 20 gm PO TID [facility] Last Admin: 03/17/17 08:48 Dose: 20 gm Mupirocin (Bactroban Ointment) 1 applic TOP 0630,1700 [facility] Last Admin: 03/17/17 07:09 Dose: Not Given Ondansetron HCl (Zofran Inj) 4 mg IVP Q4 PRN PRN Reason: Nausea/Vomiting Last Admin: 03/13/17 01:02 Dose: 4 mg Senna/Docusate Sodium (Senokot S 50 Mg-8.6 Mg) 2 tab PO HS [facility] Last Admin: 03/16/17 21:23 Dose: 2 tab Thiamine HCl (Vitamin B1 Tab) 100 mg PO DAILY [facility] Last Admin: 03/17/17 08:49 Dose: 100 mg Tramadol HCl (Ultram) 50 mg PO Q6 PRN PRN Reason: Pain Scale 1-10 Last Admin: 03/16/17 15:50 Dose: 50 mg Valsartan (Diovan) 160 mg PO DAILY [facility] Last Admin: 03/17/17 08:49 Dose: 160 mg - Labs Labs: 03/11/17 09:46 03/11/17 09:46 PT 11.8 Seconds (9.8-13.1) 03/11/17 10:37 INR 1.0 (0.9-1.2) 03/11/17 10:37 APTT 33.1 Seconds (25.6-37.1) 03/11/17 10:37 Assessment and Plan (1) Back pain Status: Acute (2) Cervical disc disease with myelopathy Status: Acute (3) Deep vein thrombosis (DVT) Status: Acute (4) Ileus, postoperative Status: Acute (5) Intractable low back pain Status: Acute (6) Wound abscess Status: Acute
--- NOTE | 2017-03-14 14:10 | CP.PCM.PN ---
Subjective - Date & Time of Evaluation Date of Evaluation: 03/14/17 Time of Evaluation: 07:00 - Subjective Subjective: afeb on IV rx wound with less drainage switch to po keflex on discharge Objective - Vital Signs/Intake and Output Vital Signs (last 24 hours): Temp Pulse Resp BP Pulse Ox 97.9 F 89 89 H 123/90 99 03/14/17 08:17 03/14/17 08:35 03/14/17 08:17 03/14/17 08:35 03/14/17 08:17 Intake and Output: 03/14/17 03/14/17 06:59 18:59 Intake Total 650 Output Total 704 Balance -54 - Medications Medications: Current Medications Al Hydrox/Mg Hydrox/Simethicone (Maalox Plus 30 Ml) 30 ml PO Q4 PRN PRN Reason: Indigestion / Heartburn Last Admin: 03/13/17 20:18 Dose: 30 ml Amlodipine Besylate (Norvasc) 5 mg PO DAILY [facility] Last Admin: 03/14/17 08:35 Dose: 5 mg Clotrimazole (Lotrimin 1% Cream) 1 applic TOP BID [facility] Last Admin: 03/14/17 08:35 Dose: 1 applic Folic Acid (Folic Acid) 1 mg PO DAILY [facility] Last Admin: 03/14/17 08:34 Dose: 1 mg Home Med (Patient's Own Medication) 1 unit PO DAILY [facility] Last Admin: 03/14/17 08:34 Dose: 1 unit Hydrochlorothiazide (Microzide) 12.5 mg PO DAILY [facility] Last Admin: 03/14/17 08:35 Dose: 12.5 mg Cefepime HCl 1 gm/ Sodium (Chloride) 100 mls @ 100 mls/hr IVPB Q12 [facility] Last Admin: 03/14/17 08:34 Dose: 100 mls/hr Vancomycin HCl 1 gm/ Sodium (Chloride) 250 mls @ 166.667 mls/hr IVPB Q12@1100, 2300 [facility] Lactulose (Enulose) 20 gm PO TID [facility] Last Admin: 03/14/17 12:09 Dose: 20 gm Mupirocin (Bactroban Ointment) 1 applic TOP 0630,1700 [facility] Last Admin: 03/14/17 06:59 Dose: 1 applic Ondansetron HCl (Zofran Inj) 4 mg IVP Q4 PRN PRN Reason: Nausea/Vomiting Last Admin: 03/13/17 01:02 Dose: 4 mg Senna/Docusate Sodium (Senokot S 50 Mg-8.6 Mg) 2 tab PO HS [facility] Last Admin: 03/13/17 21:01 Dose: 2 tab Thiamine HCl (Vitamin B1 Tab) 100 mg PO DAILY [facility] Last Admin: 03/14/17 08:36 Dose: 100 mg Tramadol HCl (Ultram) 50 mg PO Q6 PRN PRN Reason: Pain Scale 1-10 Last Admin: 03/14/17 14:01 Dose: 50 mg Valsartan (Diovan) 160 mg PO DAILY [facility] Last Admin: 03/14/17 08:35 Dose: 160 mg - Labs Labs: 03/11/17 09:46 03/11/17 09:46 PT 11.8 Seconds (9.8-13.1) 03/11/17 10:37 INR 1.0 (0.9-1.2) 03/11/17 10:37 APTT 33.1 Seconds (25.6-37.1) 03/11/17 10:37 - Constitutional Appears: Non-toxic - Head Exam Head Exam: NORMOCEPHALIC - Eye Exam Eye Exam: PERRL. absent: Scleral icterus - ENT Exam ENT Exam: Mucous Membranes Dry - Neck Exam Neck Exam: absent: Lymphadenopathy - Respiratory Exam Respiratory Exam: Decreased Breath Sounds - Cardiovascular Exam Cardiovascular Exam: REGULAR RHYTHM - GI/Abdominal Exam GI & Abdominal Exam: Distended, Soft - Rectal Exam Rectal Exam: Deferred - Exam Exam: NORMAL INSPECTION - Extremities Exam Extremities Exam: absent: Pedal Edema - Back Exam Back Exam: absent: CVA tenderness (L), CVA tenderness (R) - Neurological Exam Neurological Exam: Alert, Awake, Oriented x3 Assessment and Plan (1) Heel pain Status: Acute (2) Klebsiella infection Status: Acute (3) Bilateral leg cramps Status: Acute (4) Cervical disc disease with myelopathy Status: Acute (5) Chronic back pain Status: Acute (6) Deep vein thrombosis (DVT) Status: Acute
[2017-03-14] MEDS: Docusate-Senna 50 mg-8.6 mg Tab PO SCH (21:03)
[2017-03-15] MEDS: PREVACID 30 MG PO SCH (08:12)
[2017-03-15] MEDS: Cefepime 1 GM in Sodium Chloride 0.9% 100 ML IVPB SCH ×2 (08:12→20:55)
[2017-03-15] MEDS: Docusate-Senna 50 mg-8.6 mg Tab PO SCH (21:04)
[2017-03-16 00:02] VITALS: RESP 20
[2017-03-16] MEDS: PREVACID 30 MG PO SCH (08:41)
[2017-03-16] MEDS: Cefepime 1 GM in Sodium Chloride 0.9% 100 ML IVPB SCH ×2 (08:43→20:29)
--- NOTE | 2017-03-16 13:19 | CP.PCM.PN ---
Subjective - Date & Time of Evaluation Date of Evaluation: 03/16/17 Time of Evaluation: 08:00 - Subjective Subjective: WOUND FROM OR SHOWING NO GROWTH CONSIDER PO CIPRO ON DISCHARGE FOR 7 DAYS WITH NEUROSURG FOLLOW UP OUT PT Objective - Vital Signs/Intake and Output Vital Signs (last 24 hours): Temp Pulse Resp BP Pulse Ox 98.1 F 71 20 132/91 H 99 03/16/17 08:03 03/16/17 08:03 03/16/17 08:03 03/16/17 08:41 03/16/17 08:03 Intake and Output: 03/16/17 03/16/17 06:59 18:59 Intake Total 590 Output Total 810 Balance -220 - Medications Medications: Current Medications Al Hydrox/Mg Hydrox/Simethicone (Maalox Plus 30 Ml) 30 ml PO Q4 PRN PRN Reason: Indigestion / Heartburn Last Admin: 03/13/17 20:18 Dose: 30 ml Amlodipine Besylate (Norvasc) 5 mg PO DAILY [facility] Last Admin: 03/16/17 08:41 Dose: 5 mg Clotrimazole (Lotrimin 1% Cream) 1 applic TOP BID [facility] Last Admin: 03/16/17 08:42 Dose: 1 applic Folic Acid (Folic Acid) 1 mg PO DAILY [facility] Last Admin: 03/16/17 08:41 Dose: 1 mg Home Med (Patient's Own Medication) 1 unit PO DAILY [facility] Last Admin: 03/16/17 08:41 Dose: 1 unit Hydrochlorothiazide (Microzide) 12.5 mg PO DAILY [facility] Last Admin: 03/16/17 08:41 Dose: 12.5 mg Vancomycin HCl 1 gm/ Sodium (Chloride) 250 mls @ 166.667 mls/hr IVPB Q12@1100, 2300 [facility] Last Admin: 03/16/17 11:09 Dose: 166.667 mls/hr Cefepime HCl 1 gm/ Sodium (Chloride) 100 mls @ 100 mls/hr IVPB Q12 [facility] Last Admin: 03/16/17 08:43 Dose: 100 mls/hr Lactulose (Enulose) 20 gm PO TID [facility] Last Admin: 03/16/17 13:12 Dose: 20 gm Mupirocin (Bactroban Ointment) 1 applic TOP 0630,1700 [facility] Last Admin: 03/16/17 07:02 Dose: Not Given Ondansetron HCl (Zofran Inj) 4 mg IVP Q4 PRN PRN Reason: Nausea/Vomiting Last Admin: 03/13/17 01:02 Dose: 4 mg Senna/Docusate Sodium (Senokot S 50 Mg-8.6 Mg) 2 tab PO HS [facility] Last Admin: 03/15/17 21:04 Dose: 2 tab Thiamine HCl (Vitamin B1 Tab) 100 mg PO DAILY [facility] Last Admin: 03/16/17 08:41 Dose: 100 mg Tramadol HCl (Ultram) 50 mg PO Q6 PRN PRN Reason: Pain Scale 1-10 Last Admin: 03/15/17 17:50 Dose: 50 mg Valsartan (Diovan) 160 mg PO DAILY [facility] Last Admin: 03/16/17 08:41 Dose: 160 mg - Labs Labs: 03/11/17 09:46 03/11/17 09:46 PT 11.8 Seconds (9.8-13.1) 03/11/17 10:37 INR 1.0 (0.9-1.2) 03/11/17 10:37 APTT 33.1 Seconds (25.6-37.1) 03/11/17 10:37 Assessment and Plan (1) Heel pain Status: Acute (2) Klebsiella infection Status: Acute (3) Bilateral leg cramps Status: Acute (4) Cervical disc disease with myelopathy Status: Acute (5) Chronic back pain Status: Acute (6) Deep vein thrombosis (DVT) Status: Acute
--- NOTE | 2017-03-16 13:56 | CP.PCM.PN ---
Subjective - Date & Time of Evaluation Date of Evaluation: 03/16/17 Time of Evaluation: 13:56 - Subjective Subjective: Patient remains stable Has no chest pain or SOB Doing well with PT Objective - Vital Signs/Intake and Output Vital Signs (last 24 hours): Temp Pulse Resp BP Pulse Ox 98.1 F 71 20 132/91 H 99 03/16/17 08:03 03/16/17 08:03 03/16/17 08:03 03/16/17 08:41 03/16/17 08:03 Intake and Output: 03/16/17 03/16/17 06:59 18:59 Intake Total 590 Output Total 810 Balance -220 - Medications Medications: Current Medications Al Hydrox/Mg Hydrox/Simethicone (Maalox Plus 30 Ml) 30 ml PO Q4 PRN PRN Reason: Indigestion / Heartburn Last Admin: 03/13/17 20:18 Dose: 30 ml Amlodipine Besylate (Norvasc) 5 mg PO DAILY [facility] Last Admin: 03/16/17 08:41 Dose: 5 mg Clotrimazole (Lotrimin 1% Cream) 1 applic TOP BID [facility] Last Admin: 03/16/17 08:42 Dose: 1 applic Folic Acid (Folic Acid) 1 mg PO DAILY [facility] Last Admin: 03/16/17 08:41 Dose: 1 mg Home Med (Patient's Own Medication) 1 unit PO DAILY [facility] Last Admin: 03/16/17 08:41 Dose: 1 unit Hydrochlorothiazide (Microzide) 12.5 mg PO DAILY [facility] Last Admin: 03/16/17 08:41 Dose: 12.5 mg Vancomycin HCl 1 gm/ Sodium (Chloride) 250 mls @ 166.667 mls/hr IVPB Q12@1100, 2300 [facility] Last Admin: 03/16/17 11:09 Dose: 166.667 mls/hr Cefepime HCl 1 gm/ Sodium (Chloride) 100 mls @ 100 mls/hr IVPB Q12 [facility] Last Admin: 03/16/17 08:43 Dose: 100 mls/hr Lactulose (Enulose) 20 gm PO TID [facility] Last Admin: 03/16/17 13:12 Dose: 20 gm Mupirocin (Bactroban Ointment) 1 applic TOP 0630,1700 [facility] Last Admin: 03/16/17 07:02 Dose: Not Given Ondansetron HCl (Zofran Inj) 4 mg IVP Q4 PRN PRN Reason: Nausea/Vomiting Last Admin: 03/13/17 01:02 Dose: 4 mg Senna/Docusate Sodium (Senokot S 50 Mg-8.6 Mg) 2 tab PO HS [facility] Last Admin: 03/15/17 21:04 Dose: 2 tab Thiamine HCl (Vitamin B1 Tab) 100 mg PO DAILY [facility] Last Admin: 03/16/17 08:41 Dose: 100 mg Tramadol HCl (Ultram) 50 mg PO Q6 PRN PRN Reason: Pain Scale 1-10 Last Admin: 03/15/17 17:50 Dose: 50 mg Valsartan (Diovan) 160 mg PO DAILY [facility] Last Admin: 03/16/17 08:41 Dose: 160 mg - Labs Labs: 03/11/17 09:46 03/11/17 09:46 PT 11.8 Seconds (9.8-13.1) 03/11/17 10:37 INR 1.0 (0.9-1.2) 03/11/17 10:37 APTT 33.1 Seconds (25.6-37.1) 03/11/17 10:37 - Head Exam Head Exam: NORMAL INSPECTION - Eye Exam Eye Exam: Normal appearance - ENT Exam ENT Exam: Mucous Membranes Moist - Respiratory Exam Respiratory Exam: Clear to Ausculation Bilateral - Cardiovascular Exam Cardiovascular Exam: REGULAR RHYTHM - GI/Abdominal Exam GI & Abdominal Exam: Normal Bowel Sounds - Neurological Exam Neurological Exam: Awake, Oriented x3 Assessment and Plan (1) Back pain Status: Acute (2) Cervical disc disease with myelopathy Status: Acute (3) Deep vein thrombosis (DVT) Status: Acute (4) Ileus, postoperative Status: Acute (5) Intractable low back pain Status: Acute (6) Wound abscess Status: Acute - Assessment and Plan (Free Text) Plan: cont meds Con ttx Cont PT discharge plans
--- NOTE | 2017-03-16 13:56 | CP.PCM.PN ---
Subjective - Date & Time of Evaluation Date of Evaluation: 03/15/17 Time of Evaluation: 09:30 - Subjective Subjective: Patient remains stable Has no fever Wound is healing well. Objective - Vital Signs/Intake and Output Vital Signs (last 24 hours): Temp Pulse Resp BP Pulse Ox 98.1 F 71 20 132/91 H 99 03/16/17 08:03 03/16/17 08:03 03/16/17 08:03 03/16/17 08:41 03/16/17 08:03 Intake and Output: 03/16/17 03/16/17 06:59 18:59 Intake Total 590 Output Total 810 Balance -220 - Medications Medications: Current Medications Al Hydrox/Mg Hydrox/Simethicone (Maalox Plus 30 Ml) 30 ml PO Q4 PRN PRN Reason: Indigestion / Heartburn Last Admin: 03/13/17 20:18 Dose: 30 ml Amlodipine Besylate (Norvasc) 5 mg PO DAILY [facility] Last Admin: 03/16/17 08:41 Dose: 5 mg Clotrimazole (Lotrimin 1% Cream) 1 applic TOP BID [facility] Last Admin: 03/16/17 08:42 Dose: 1 applic Folic Acid (Folic Acid) 1 mg PO DAILY [facility] Last Admin: 03/16/17 08:41 Dose: 1 mg Home Med (Patient's Own Medication) 1 unit PO DAILY [facility] Last Admin: 03/16/17 08:41 Dose: 1 unit Hydrochlorothiazide (Microzide) 12.5 mg PO DAILY [facility] Last Admin: 03/16/17 08:41 Dose: 12.5 mg Vancomycin HCl 1 gm/ Sodium (Chloride) 250 mls @ 166.667 mls/hr IVPB Q12@1100, 2300 [facility] Last Admin: 03/16/17 11:09 Dose: 166.667 mls/hr Cefepime HCl 1 gm/ Sodium (Chloride) 100 mls @ 100 mls/hr IVPB Q12 [facility] Last Admin: 03/16/17 08:43 Dose: 100 mls/hr Lactulose (Enulose) 20 gm PO TID [facility] Last Admin: 03/16/17 13:12 Dose: 20 gm Mupirocin (Bactroban Ointment) 1 applic TOP 0630,1700 [facility] Last Admin: 03/16/17 07:02 Dose: Not Given Ondansetron HCl (Zofran Inj) 4 mg IVP Q4 PRN PRN Reason: Nausea/Vomiting Last Admin: 03/13/17 01:02 Dose: 4 mg Senna/Docusate Sodium (Senokot S 50 Mg-8.6 Mg) 2 tab PO HS [facility] Last Admin: 03/15/17 21:04 Dose: 2 tab Thiamine HCl (Vitamin B1 Tab) 100 mg PO DAILY [facility] Last Admin: 03/16/17 08:41 Dose: 100 mg Tramadol HCl (Ultram) 50 mg PO Q6 PRN PRN Reason: Pain Scale 1-10 Last Admin: 03/15/17 17:50 Dose: 50 mg Valsartan (Diovan) 160 mg PO DAILY [facility] Last Admin: 03/16/17 08:41 Dose: 160 mg - Labs Labs: 03/11/17 09:46 03/11/17 09:46 PT 11.8 Seconds (9.8-13.1) 03/11/17 10:37 INR 1.0 (0.9-1.2) 03/11/17 10:37 APTT 33.1 Seconds (25.6-37.1) 03/11/17 10:37 - Head Exam Head Exam: NORMAL INSPECTION - Eye Exam Eye Exam: Normal appearance - ENT Exam ENT Exam: Mucous Membranes Moist - Respiratory Exam Respiratory Exam: Clear to Ausculation Bilateral - Cardiovascular Exam Cardiovascular Exam: REGULAR RHYTHM - GI/Abdominal Exam GI & Abdominal Exam: Normal Bowel Sounds - Neurological Exam Neurological Exam: CN II-XII Intact, Oriented x3 - Psychiatric Exam Psychiatric exam: Normal Mood Assessment and Plan (1) Back pain Status: Acute (2) Cervical disc disease with myelopathy Status: Acute (3) Deep vein thrombosis (DVT) Status: Acute (4) Ileus, postoperative Status: Acute (5) Intractable low back pain Status: Acute (6) Wound abscess Status: Acute - Assessment and Plan (Free Text) Plan: Cont meds Cont tx Cont PT
[2017-03-16] MEDS: Docusate-Senna 50 mg-8.6 mg Tab PO SCH (21:23)
[2017-03-17 08:10] VITALS: BP 137/87; PULSE 73; TEMP 97.4; O2SAT 100
[2017-03-17] MEDS: PREVACID 30 MG PO SCH (08:48)
[2017-03-17] MEDS: Cefepime 1 GM in Sodium Chloride 0.9% 100 ML IVPB SCH (09:41)
--- NOTE | 2017-03-17 11:56 | CP.PCM.PN ---
Subjective - Date & Time of Evaluation Date of Evaluation: 03/17/17 Time of Evaluation: 09:00 - Subjective Subjective: pt without c/o,weakness in arms and legs improved since surgery,kristin PO,amb with PT,family refusing visiting nurse which is set up for pt's discharge today, drain removed,mepilex dressing changed,completed IV abx to be d/c with PO Cipro x 7 day's,denies pain,paresthesias,fever or chill's Objective - Vital Signs/Intake and Output Vital Signs (last 24 hours): Temp Pulse Resp BP Pulse Ox 97.4 F L 73 20 137/87 100 03/17/17 08:09 03/17/17 08:49 03/17/17 08:09 03/17/17 08:49 03/17/17 08:09 Intake and Output: 03/17/17 03/17/17 06:59 18:59 Intake Total 700 Output Total 660 Balance 40 - Medications Medications: Current Medications Al Hydrox/Mg Hydrox/Simethicone (Maalox Plus 30 Ml) 30 ml PO Q4 PRN PRN Reason: Indigestion / Heartburn Last Admin: 03/13/17 20:18 Dose: 30 ml Amlodipine Besylate (Norvasc) 5 mg PO DAILY [facility] Last Admin: 03/17/17 08:49 Dose: 5 mg Clotrimazole (Lotrimin 1% Cream) 1 applic TOP BID [facility] Last Admin: 03/17/17 08:49 Dose: 1 applic Folic Acid (Folic Acid) 1 mg PO DAILY [facility] Last Admin: 03/17/17 08:49 Dose: 1 mg Home Med (Patient's Own Medication) 1 unit PO DAILY [facility] Last Admin: 03/17/17 08:48 Dose: 1 unit Hydrochlorothiazide (Microzide) 12.5 mg PO DAILY [facility] Last Admin: 03/17/17 08:50 Dose: 12.5 mg Vancomycin HCl 1 gm/ Sodium (Chloride) 250 mls @ 166.667 mls/hr IVPB Q12@1100, 2300 [facility] Last Admin: 03/17/17 11:24 Dose: 166.667 mls/hr Cefepime HCl 1 gm/ Sodium (Chloride) 100 mls @ 100 mls/hr IVPB Q12 [facility] Last Admin: 03/17/17 09:41 Dose: 100 mls/hr Lactulose (Enulose) 20 gm PO TID [facility] Last Admin: 03/17/17 08:48 Dose: 20 gm Mupirocin (Bactroban Ointment) 1 applic TOP 0630,1700 [facility] Last Admin: 03/17/17 07:09 Dose: Not Given Ondansetron HCl (Zofran Inj) 4 mg IVP Q4 PRN PRN Reason: Nausea/Vomiting Last Admin: 03/13/17 01:02 Dose: 4 mg Senna/Docusate Sodium (Senokot S 50 Mg-8.6 Mg) 2 tab PO HS [facility] Last Admin: 03/16/17 21:23 Dose: 2 tab Thiamine HCl (Vitamin B1 Tab) 100 mg PO DAILY [facility] Last Admin: 03/17/17 08:49 Dose: 100 mg Tramadol HCl (Ultram) 50 mg PO Q6 PRN PRN Reason: Pain Scale 1-10 Last Admin: 03/16/17 15:50 Dose: 50 mg Valsartan (Diovan) 160 mg PO DAILY [facility] Last Admin: 03/17/17 08:49 Dose: 160 mg - Labs Labs: 03/11/17 09:46 03/11/17 09:46 PT 11.8 Seconds (9.8-13.1) 03/11/17 10:37 INR 1.0 (0.9-1.2) 03/11/17 10:37 APTT 33.1 Seconds (25.6-37.1) 03/11/17 10:37 - Constitutional Appears: Well, Non-toxic - Head Exam Head Exam: ATRAUMATIC, NORMAL INSPECTION, NORMOCEPHALIC - Eye Exam Eye Exam: EOMI Pupil Exam: PERRL - ENT Exam ENT Exam: Mucous Membranes Moist - Neck Exam Additional comments: post c spine wound C/D/I,no drainage,RAISA d/c,no erythema or warmth - Respiratory Exam Respiratory Exam: Clear to Ausculation Bilateral - Cardiovascular Exam Cardiovascular Exam: REGULAR RHYTHM, +S1, +S2 - GI/Abdominal Exam GI & Abdominal Exam: Soft - Neurological Exam Neurological Exam: Alert, Oriented x3 Additional comments: MAX x 4 antigravity with good strength,sensation intact - Psychiatric Exam Psychiatric exam: Normal Affect, Normal Mood - Skin Skin Exam: Dry, Intact Assessment and Plan - Assessment and Plan (Free Text) Assessment: 51 yo male s/p Posterior Cervical Decompression C2-5,s/p Incision and Drainage of Post op Seroma,neurologically stable Plan: d/c home today with PO Cipro x 7 day's,outpt PT,f/u with and PMD,will d/ w Dr. Richardson
--- NOTE | 2017-03-17 12:22 | CP.PCM.DIS ---
Provider - Provider Date of Admission: 02/24/17 17:46 Attending physician: Chriss Donato MD Time Spent in preparation of Discharge (in minutes): 30 Diagnosis - Discharge Diagnosis (1) Back pain Status: Acute (2) Cervical disc disease with myelopathy Status: Acute (3) Deep vein thrombosis (DVT) Status: Acute (4) Ileus, postoperative Status: Acute (5) Intractable low back pain Status: Acute (6) Wound abscess Status: Acute Hospital Course - Lab Results Lab Results: Micro Results 03/04/17 09:58 Neck Gram Stain - Final 03/04/17 09:58 Neck Wound Culture - Final Klebsiella Pneumoniae Ssp Pneu Most Recent Lab Values WBC 7.0 K/uL (4.8-10.8) 03/11/17 09:46 RBC 3.64 Mil/uL (4.40-5.90) L 03/11/17 09:46 Hgb 11.3 g/dL (12.0-18.0) L 03/11/17 09:46 Hct 33.9 % (35.0-51.0) L 03/11/17 09:46 MCV 93.1 fl (80.0-94.0) 03/11/17 09:46 MCH 30.9 pg (27.0-31.0) 03/11/17 09:46 MCHC 33.2 g/dL (33.0-37.0) 03/11/17 09:46 RDW 15.1 % (11.5-14.5) H 03/11/17 09:46 Plt Count 204 K/uL (130-400) 03/11/17 09:46 MPV 9.3 fl (7.2-11.7) 03/11/17 09:46 Neut % (Auto) 44.0 % (50.0-75.0) L 03/11/17 09:46 Lymph % (Auto) 42.4 % (20.0-40.0) H 03/11/17 09:46 [place] % (Auto) 9.4 % (0.0-10.0) 03/11/17 09:46 Eos % (Auto) 3.7 % (0.0-4.0) 03/11/17 09:46 Baso % (Auto) 0.5 % (0.0-2.0) 03/11/17 09:46 Neut # 3.1 K/uL (1.8-7.0) 03/11/17 09:46 Lymph # 3.0 K/uL (1.0-4.3) 03/11/17 09:46 [place] # 0.7 K/uL (0.0-0.8) 03/11/17 09:46 Eos # 0.3 K/uL (0.0-0.7) 03/11/17 09:46 Baso # 0.0 K/uL (0.0-0.2) 03/11/17 09:46 PT 11.8 Seconds (9.8-13.1) 03/11/17 10:37 INR 1.0 (0.9-1.2) 03/11/17 10:37 APTT 33.1 Seconds (25.6-37.1) 03/11/17 10:37 Sodium 139 mmol/l (132-148) 03/11/17 09:46 Potassium 4.0 MMOL/L (3.6-5.0) 03/11/17 09:46 Chloride 104 mmol/L (98-107) 03/11/17 09:46 Carbon Dioxide 27 mmol/L (22-30) 03/11/17 09:46 Anion Gap 13 (10-20) 03/11/17 09:46 BUN 10 mg/dl (9-20) 03/11/17 09:46 Creatinine 0.8 mg/dL (0.8-1.5) 03/11/17 09:46 Est GFR ( Amer) > 60 03/11/17 09:46 Est GFR (Non-Af Amer) > 60 03/11/17 09:46 Random Glucose 83 mg/dL (75-110) 03/11/17 09:46 Calcium 9.2 mg/dL (8.4-10.2) 03/11/17 09:46 Total Bilirubin 0.3 mg/dl (0.2-1.3) 03/11/17 09:46 AST 25 U/L (17-59) 03/11/17 09:46 ALT 57 U/L (21-72) 03/11/17 09:46 Alkaline Phosphatase 71 U/L (38-126) 03/11/17 09:46 Total Protein 6.3 G/DL (6.3-8.2) 03/11/17 09:46 Albumin 3.7 g/dL (3.5-5.0) 03/11/17 09:46 Globulin 2.6 gm/dL (2.2-3.9) 03/11/17 09:46 Albumin/Globulin Ratio 1.4 (1.0-2.1) 03/11/17 09:46 Vancomycin Trough 12.3 ug/mL (5.0-10.0) H 03/14/17 06:25 Alcohol, Quantitative < 10 mg/dl (0-10) 02/26/17 06:45 Hepatitis A IgM Ab Negative (NEGATIVE) 03/07/17 06:11 Hep Bs Antigen Negative (NEGATIVE) 03/07/17 06:11 Hep B Core IgM Ab Negative (NEGATIVE) 03/07/17 06:11 Hepatitis C Antibody Negative (NEGATIVE) 03/07/17 06:11 - Hospital Course Hospital Course: This is a 51 y/o male admitted for gait dysfunction. Had a DVT and had C spine laminectomy. Post op period was unremarkable except for constipation. he was noted to have some discharge onthe wound and was postive for Kleb. He was started on phys therapy MRI showed a collection that it was thought was an abscess. He was seen by Dr Richardson and re opened the wound and had washing done, There was no abscess but a seroma was seen. Patient continued the rest of his stay with phsy therapy and did well and was sent home on Cipro and pain meds. Discharge Exam - Head Exam Head Exam: NORMAL INSPECTION - Eye Exam Eye Exam: Normal appearance - Respiratory Exam Respiratory Exam: NORMAL BREATHING PATTERN - Cardiovascular Exam Cardiovascular Exam: REGULAR RHYTHM - GI/Abdominal Exam GI & Abdominal Exam: Normal Bowel Sounds - Neurological Exam Neurological exam: Alert, CN II-XII Intact, Oriented x3 - Psychiatric Exam Psychiatric exam: Normal Mood Discharge Plan - Follow Up Plan Condition: GOOD Disposition: HOME/ ROUTINE Additional Instructions: advised follow up with PMD home care arranged Rx given
--- NOTE | 2017-03-17 12:23 | CP.PCM.PCO ---
Assessment/Plan - Assessment/Plan Assessment (Free Text): Asked by Dr. Donato and RN in 6N to remove picc line. Pt was assisted into bed by RN. Picc line to DARBY d/c'd as per protocol with tip intact. Pressure dressing applied with gauze/tegaderm. No bleeding or discharge noted. Pt tolerated well. RN made aware to monitor for bleeding q 15 mins and pt to remain in bed for minimum 30 mins before getting up. Pt left in bed, with HOB at 30 degrees, stable, nursing aid at bedside.
== END 2017-03-17 13:30 | disposition home health service (06) | DRG 552 ==
PROVIDERS: ADMIT Family Medicine; ATTEND Family Medicine
PROC: F07M6FZ Therapeutic Exercise Treatment of Musculoskeletal System - Whole Body using Assistive, Adaptive, Supportive or Protective Equipment (ICD-10-PCS; 2017-02-25)
PROC: F08Z4FZ Home Management Treatment using Assistive, Adaptive, Supportive or Protective Equipment (ICD-10-PCS; 2017-02-25)
PROC: 02HV33Z Insertion of Infusion Device into Superior Vena Cava, Percutaneous Approach (ICD-10-PCS; principal; 2017-03-11)
PROC: B518ZZA Fluoroscopy of Superior Vena Cava, Guidance (ICD-10-PCS; 2017-03-11)
PROC: B548ZZA Ultrasonography of Superior Vena Cava, Guidance (ICD-10-PCS; 2017-03-11)
DX: M47.12 Other spondylosis with myelopathy, cervical region (principal); I82.403 Acute embolism and thrombosis of unspecified deep veins of lower extremity, bilateral; I10 Essential (primary) hypertension; K91.3 Postprocedural intestinal obstruction; K91.89 Other postprocedural complications and disorders of digestive system; B96.1 Klebsiella pneumoniae [K. pneumoniae] as the cause of diseases classified elsewhere; G89.29 Other chronic pain; Y83.9 Surgical procedure, unspecified as the cause of abnormal reaction of the patient, or of later complication, without mention of misadventure at the time of the procedure; M54.10 Radiculopathy, site unspecified; Z87.891 Personal history of nicotine dependence; K29.70 Gastritis, unspecified, without bleeding; M48.00 Spinal stenosis, site unspecified

== ENCOUNTER → 2017-03-12 | Day surgery (SDC) | payer MEDICARE, MEDICAID ==
[~2017-03-12] MED LIST: HEMOSTATIC MATRIX 10 ML DIS.NEEDLE TOP ONE; HYDROmorphone 0.5 mg/0.5 ml ISec IVP PRN; Lactated Ringer's 1,000 ML IV ONE; Lactated Ringer's 1,000 ML IV SCH; Sodium Chloride 0.9% 500 ML IV ONE
[2017-03-12 10:46] VITALS: BMI 29.9
[2017-03-12 13:30] VITALS: RESP 18
[2017-03-12 13:59] VITALS: BP 118/72; PULSE 68; TEMP 97.4; O2SAT 97
--- NOTE | 2017-03-12 19:28 | OP ---
PROCEDURE DATE: 03/12/2017 PREOPERATIVE DIAGNOSES: Cervical spondylosis, rule out infection. POSTOPERATIVE DIAGNOSES: Cervical spondylosis, postop seroma. SURGEON: Dr. Richardson. ADVERTISING SPACE CLERK: Daniella Araujo. Daniella Araujo is a surgical PA. She helped me perform th e surgery, stayed from the beginning to the end. DESCRIPTION OF PROCEDURE: The patient was brought to the operating room, administered general endotr acheal anesthesia, and placed in a prone position. Head has been placed on a horseshoe support and c are was taken to protect all the pressure points. The back and the cervical area was thoroughly prep ped in standard sterile manner after marking for skin incision over the previous cervical laminectomy skin incision scar. The skin has been incised. As this is done, subcutaneous tissue has been cut. There was a serous collection noted. There was no evidence of any infection noted. All this has been drained; however, since there was a culture that was positive from before the surgery, has been used in order to give advantage to the patient. Once this has been done, a Paul drain p laced in the wound, brought out through separate stab skin incision. Subcutaneous tissue closed with 3-0 Vicryl, skin has been closed using 2-0 silk. The patient tolerated the procedure. After the pr ocedure, was brought to the recovery room in stable condition. Magan Richardson MD cc: [id number] TT: 03/12/2017 19:28:11 anisha
== END | disposition home or self-care (01) ==
LOC: H.OPSURG 10:13
PROVIDERS: ATTEND Neurological Surgery
DX: M47.22 Other spondylosis with radiculopathy, cervical region (principal)
CPT/HCPCS: 11400; J7040; J7120

== ENCOUNTER 2017-03-23 11:17 | Inpatient (IN) | payer MEDICARE, MEDICAID ==
[2017-03-23 11:17] VITALS: BMI 29.9
[2017-03-23] MEDS ORDERED: Sodium Chloride 0.9% 1,000 ML IV STA (12:21)
[2017-03-23] MEDS ORDERED: Vancomycin 1 g Inj ONE (12:48)
[2017-03-23 13:00] LABS: BASO # 0.1 K/uL (0.0-0.2); BASO % 0.9 % (0.0-2.0); EOS # 0.2 K/uL (0.0-0.7); EOS % 1.8 % (0.0-4.0); HEMATOCRIT 30.4 % (35.0-51.0); LYMPH # 2.6 K/uL (1.0-4.3); LYMPH % 26.5 % (20.0-40.0); MEAN CELL VOLUME 91.5 fl (80.0-94.0); MEAN CORPUSCULAR HEMOGLOBIN 30.4 pg (27.0-31.0); MEAN CORPUSCULAR HGB CONC 33.2 g/dL (33.0-37.0); MEAN PLATELET VOLUME 8.7 fl (7.2-11.7); MONO # 1.2 K/uL (0.0-0.8); MONO % 12.6 % (0.0-10.0); NEUT # 5.7 K/uL (1.8-7.0); NEUT % 58.2 % (50.0-75.0); RED CELL DISTRIBUTION WIDTH 15.2 % (11.5-14.5); WHITE BLOOD COUNT 9.9 K/uL (4.8-10.8)
[2017-03-23 13:01] LABS: VENOUS BLOOD GAS PCO2 42 mmHg (40-60)
[2017-03-23 13:10] LABS: ALB/GLOB RATIO 1.5 (1.0-2.1); ALKALINE PHOSPHATASE 85 U/L (38-126); ALT/SGPT 35 U/L (21-72); AST/SGOT 33 U/L (17-59); BILIRUBIN,TOTAL 0.6 mg/dl (0.2-1.3); BLOOD UREA NITROGEN 12 mg/dl (9-20); CALCIUM 9.1 mg/dL (8.4-10.2); CARBON DIOXIDE 25 mmol/L (22-30); CHLORIDE 103 mmol/L (98-107); GFR AFRICAN-AMERICAN > 60; GLUCOSE,RANDOM 98 mg/dL (75-110); SODIUM 139 mmol/l (132-148); TOTAL PROTEIN 7.1 G/DL (6.3-8.2)
[2017-03-23 13:11] LABS: POTASSIUM 3.9 MMOL/L (3.6-5.0)
[2017-03-23 13:18] LABS: PARTIAL THROMBOPLASTIN TIME 30.5 Seconds (25.6-37.1)
[2017-03-23] MEDS ORDERED: Enoxaparin 100 mg Syringe SC STA (16:41)
--- NOTE | 2017-03-23 16:48 | ED PDOC ---
Upper Extremity Pain/Injury Time Seen by Provider: 03/23/17 11:28 Chief Complaint (Nursing): Weakness/Neurological Deficit Chief Complaint (Provider): Upper Extremity Pain History Per: Patient History/Exam Limitations: no limitations Onset/Duration Of Symptoms: Other (x1 week) Current Symptoms Are (Timing): Still Present Quality: "Pain" Additional Complaint(s): 51 year old male presents to ED with complaints of right upper extremity swelling and pain post-PICC line removal x1 week ago and has a past medical history of HTN and DVT. (-) fever, chest pain, or SOB. PCP: [facility] Past Medical History Reviewed: Historical Data, Nursing Documentation, Vital Signs Vital Signs: Last Vital Signs Temp 99.9 F H 03/23/17 11:21 Pulse 114 H 03/23/17 11:21 Resp 20 03/23/17 11:21 BP 132/84 03/23/17 11:21 Pulse Ox 98 03/23/17 11:21 - Medical History PMH: Deep Vein Thrombosis (bilateral), Gastritis, HTN Denies: No Chronic Diseases, HIV, Chronic Kidney Disease - Family History Family History: States: Unknown Family Hx - Social History Alcohol: None (Quit) - Home Medications Home Medications: Ambulatory Orders Medication Instructions Recorded Lansoprazole [Prevacid] 30 mg PO DAILY 03/12/17 Ciprofloxacin [Cipro] 500 mg PO BID #14 tab 03/17/17 Lactulose [Enulose] 30 ml PO DAILY #1 bottle 03/17/17 Rivaroxaban [Xarelto] 15 mg PO BID 21 Days 03/17/17 Rivaroxaban [Xarelto] 20 mg PO DAILY #30 tab 03/17/17 Valsartan [Diovan] 160 mg PO DAILY #30 03/17/17 amLODIPine [Norvasc] 5 mg PO DAILY #30 03/17/17 traMADol [Ultram] 50 mg PO BID PRN #30 tab 03/17/17 - Allergies Allergies/Adverse Reactions: Allergies Allergy/AdvReac Type Severity Reaction Status Date / Time shellfish derived Allergy Intermediate ITCHING Verified 02/24/17 18:07 Review of Systems ROS Statement: Except As Marked, All Systems Reviewed And Found Negative Constitutional: Negative for: Fever Cardiovascular: Negative for: Chest Pain Respiratory: Negative for: Shortness of Breath Musculoskeletal: Positive for: Arm Pain (right upper extremity pain and swelling ) Physical Exam - Reviewed Nursing Documentation Reviewed: Yes Vital Signs Reviewed: Yes - Physical Exam Appears: Positive for: Non-toxic, No Acute Distress Skin: Positive for: Normal Color, Warm, Dry Eye Exam: Positive for: Normal appearance, EOMI, PERRL Cardiovascular/Chest: Positive for: Regular Rate, Rhythm. Negative for: Murmur Respiratory: Positive for: Respiratory Distress. Negative for: Normal Breath Sounds Pulses-Radial (L): 2+ Pulses-Radial (R): 2+ Gastrointestinal/Abdominal: Positive for: Normal Exam Back: Positive for: Normal Inspection Extremity: Positive for: Swelling (Right upper extremity edema), Other ( Erythema from right shoulder down distally, no fluctuance). Negative for: Normal ROM (Decreased ROM to right elbow secondary to pain) Neurologic/Psych: Positive for: Alert, Oriented, Other (mucle strength 5/5 for right upper extremity). Negative for: Motor/Sensory Deficits (sensations intact ) - Laboratory Results Result Diagrams: 03/23/17 12:45 03/23/17 12:45 - ECG O2 Sat by Pulse Oximetry: 98 (RA) Pulse Ox Interpretation: Normal - Physician Consult Information Time Consulting Physican Contacted: 16:45 Physician Contacted: Rick Hunter Outcome Of Conversation: Agrees with Lovenox, will consult on patient. Medical Decision Making Medical Decision Makin Initial impression: R/O DVT Initial plan: * VBG Shock Panel * Lbs * PTT/PT * Acetaminophen 650mg PO * NS IV * Vancomycin IV IVPB * BCx * US DUPLEX UPPER EXTRM VEIN RT * Re-eval 16:[address] Donato, states patient dx with BLE DVT with filter placement, Xarelto discontinued secondary to seroma s/p back surgery. * Radiology Consut * Lovenox 85mg SC * Admit to hospital Patient is being admitted to TELE under Dr. Donato. US FINDINGS: Right internal jugular vein is patent and compressible. There is thrombus seen within the right subclavian, axillary, brachial and basilic veins which are all noncompressible. There is also thrombus within the proximal aspect of the cephalic vein also non compressible however the distal cephalic ulnar and radial veins are patent and fully compressible. IMPRESSION: Impression: There is thrombus within the right subclavian, axillary, brachial, basilic and proximal cephalic veins . Note that these findings were discussed with at approximately 4:55 p.m. with written down and read back verification. 1705 * EKG * CXR Scribe Attestation: Documented by Areli Landeros acting as a scribe for Chanelle Contreras MD. Scribe Attestation: All medical record entries made by the Scribe were at my direction and personally dictated by me. I have reviewed the chart and agree that the record accurately reflects my personal performance of the history, physical exam, medical decision making, and the department course for this patient. I have also personally directed, reviewed, and agree with the discharge instructions and disposition. Disposition - Clinical Impression Clinical Impression: Deep vein thrombosis (DVT) of right upper extremity - Patient ED Disposition Is Patient to be Admitted: Yes - Disposition Disposition Time: 16:44 Condition: STABLE - Pt Status Changed To: Hospital Disposition Of: Inpatient - Admit Certification Admit to Inpatient:: After my assessment, the patient will require hospitalization for at least two midnights. This is because of the severity of symptoms shown, intensity of services needed, and/or the medical risk in this patient being treated as an outpatient. - POA Present On Arrival: Deep Vein Thrombosis / PE
--- NOTE | 2017-03-23 16:55 | US ---
PROCEDURE: Right upper extremity venous Doppler dated 03/23/2017. HISTORY: PICC line removed COMPARISON: No prior TECHNIQUE: Sonographic evaluation of the deep veins right upper extremity including the right internal jugular vein. FINDINGS: Right internal jugular vein is patent and compressible. There is thrombus seen within the right subclavian, axillary, brachial and basilic veins which are all noncompressible. There is also thrombus within the proximal aspect of the cephalic vein also non compressible however the distal cephalic ulnar and radial veins are patent and fully compressible. IMPRESSION: Impression: There is thrombus within the right subclavian, axillary, brachial, basilic and proximal cephalic veins . Note that these findings were discussed with at approximately 4:55 p.m. with written down and read back verification.
[2017-03-24] MEDS ORDERED: Enoxaparin 80 mg Syringe SC SCH (09:00)
[2017-03-24] MEDS: Enoxaparin 80 mg Syringe SC SCH ×3 (10:37→18:21)
[2017-03-24] MEDS: Pantoprazole 40 mg EC Tab PO SCH ×3 (10:39→13:12)
--- NOTE | 2017-03-24 11:08 | CP.PCM.HP ---
History of Present Illness - History of Present Illness History of Present Illness: This is a 51 y/o male admitted for increasing pain on the right upper extremity and noted to have extensive subclavian DVT. He was just recently discharged from acute rehab after cervical laminectomy. Prior to laminectomy he was noted to have bilateral leg DVT and was placed a filter. he was started on Xarelto but developed seroma in the laminectomy site hence seroma was drained and xarelto was held and advised to be started in 2 weeks but developed the DVT hence readmitted. During his recent hospitalization he had problems with constipation and pain. Present on Admission - Present on Admission Any Indicators Present on Admission: No History of DVT/PE: No History of Uncontrolled Diabetes: No Urinary Catheter: No Decubitus Ulcer Present: No Review of Systems - Musculoskeletal Musculoskeletal: Neck Pain Additional comments: pain right upper ext Past Patient History - Infectious Disease Hx of Infectious Diseases: None - Tetanus Immunizations Tetanus Immunization: Unknown - Past Medical History & Family History Past Medical History?: Yes - Past Social History Smoking Status: Heavy Smoker > 10 Cigarettes Daily - CARDIAC Hx Hypertension: Yes - PULMONARY Hx Respiratory Disorders: No - NEUROLOGICAL Hx Neurological Disorder: No - HEENT Hx HEENT Problems: No - RENAL Hx Chronic Kidney Disease: No - ENDOCRINE/METABOLIC Hx Endocrine Disorders: No - HEMATOLOGICAL/ONCOLOGICAL Hx AIDS: No Hx Human Immunodeficiency Virus (HIV): No - INTEGUMENTARY Hx Dermatological Problems: No - MUSCULOSKELETAL/RHEUMATOLOGICAL Hx Musculoskeletal Disorders: Yes Hx Back Pain: Yes Hx Falls: Yes - GASTROINTESTINAL Hx Gastritis: Yes - GENITOURINARY/GYNECOLOGICAL Hx Genitourinary Disorders: No - PSYCHIATRIC Hx Psychophysiologic Disorder: No Hx Substance Use: No - SURGICAL HISTORY Hx Surgeries: Yes Hx Musculoskeletal Surgery: Yes - ANESTHESIA Hx Anesthesia: Yes Hx Anesthesia Reactions: No Hx Malignant Hyperthermia: No Has any member of the family had a problem w/ anesthesia?: No Meds Allergies/Adverse Reactions: Allergies Allergy/AdvReac Type Severity Reaction Status Date / Time shellfish derived Allergy Intermediate ITCHING Verified 02/24/17 18:07 Physical Exam - Head Exam Head Exam: NORMAL INSPECTION - Eye Exam Eye Exam: Normal appearance - Respiratory Exam Respiratory Exam: Clear to Auscultation Bilateral - Cardiovascular Exam Cardiovascular Exam: REGULAR RHYTHM - GI/Abdominal Exam GI & Abdominal Exam: Normal Bowel Sounds - Extremities Exam Additional comments: tenderness right upper ext - Neurological Exam Neurological exam: CN II-XII Intact, Oriented x3 Results - Vital Signs Recent Vital Signs: Last Vital Signs Temp 101.0 F H 03/24/17 10:46 Pulse 100 H 03/24/17 07:57 Resp 20 03/24/17 07:57 BP 133/92 H 03/24/17 07:57 Pulse Ox 97 03/24/17 07:57 - Labs Result Diagrams: 03/23/17 12:45 03/23/17 12:45 Assessment & Plan (1) History of cervical spinal surgery Status: Acute (2) Constipation Status: Acute (3) Deep vein thrombosis (DVT) of right upper extremity Status: Acute (4) Back pain Status: Acute (5) Hypertension Status: Acute - Assessment and Plan (Free Text) Plan: con meds cont tx IR for thrombectomy start xarelto post procedure lovenox 85 mg bid
[2017-03-24] MEDS: Cefepime 1 GM in Sodium Chloride 0.9% 100 ML IVPB SCH ×2 (12:45→21:45)
--- NOTE | 2017-03-24 13:10 | PQF GENQUE ---
This form is a permanent part of the medical record 03/24/17 , AFTER WORKUP please clarify the relationship, if any, between the right upper extremity deep venous thrombosis AND the recent insertion ( 03/10/17) of a Right PICC line Are the conditions: Due to or associated with each other Unrelated to each other Unable to determine Unknown Recent admission for cervical laminectomy.Prior to the laminectomy he was noted to have bilateral leg DVT and a filter was placed and started on Xarelto. Xarelto then held because he developed a seroma at the laminectomy site . RUE extremity Doppler: There is thrombus within the right subclavian, axillary, brachial, basilic and proximal cephalic veins. Clarification of your documentation is requested to better reflect the severity of illness and intensity of treatment of your patient. PHYSICIAN'S RESPONSE Based on your medical judgment of the clinical indicators outlined above please clarify the following: [] Practitioner response [] If unable to determine, please check the box, sign and date. Present On Admission (POA) Indicator: [] Present at the time of admission [] Not present at the time of admission [] Clinically Undetermined In responding to this query, please exercise your independent professional judgment. The fact that a question is asked does not imply that any particular answer is desired or expected. Thank you for your clarification on this documentation. If you have any questions please call:ext [phone] Medical Records Dept * Thank you, Hannah Garibay RN [facility]
--- NOTE | 2017-03-24 17:22 | CP.PCM.CON ---
History of Present Illness - History of Present Illness History of Present Illness: I was asked to see patient by Dr. Donato. Patient is a 51 year old male with PMH HTN DVT who presents with right upper extremity pain. The patient was found to have a subclavian DVT. The patient was found to have bilateral lower extremity DVT after laminectomy, and the patient was started on Xarelto. Xarelto had to be d/terry due to bleeding. The patient now presents with subclavian DVT. Review of Systems - Constitutional Constitutional: absent: As Per HPI, Anorexia, Chills, Daytime Sleepiness, Excessive Sweating, Fatigue, Fever, Frequent Falls, Headache, Increased Appetite , Lethargy, Malaise, Night Sweats, Snoring, Sleep Apnea, Weight Gain, Weight Loss, Weakness, Other - EENT Eyes: absent: As Per HPI, Blind Spots, Blurred Vision, Change in Vision, Decreased Night Vision, Diplopia, Discharge, Dry Eye, Exophthalmos, Floaters, Irritation, Itchy Eyes, Loss of Peripheral Vision, Pain, Photophobia, Requires Corrective Lenses, Sees Flashes, Spots in Vision, Tunnel Vision, Other Visual Disturbances, Loss of Vision, Other Ears: absent: As Per HPI, Decreased Hearing, Ear Discharge, Ear Pain, Tinnitus, Abnormal Hearing, Disequilibrium, Dizziness, Other Nose/Mouth/Throat: absent: As Per HPI, Epistaxis, Nasal Congestion, Nasal Discharge, Nasal Obstruction, Nasal Trauma, Nose Pain, Post Nasal Drip, Sinus Pain, Sinus Pressure, Bleeding Gums, Change in Voice, Dental Pain, Dry Mouth, Dysphagia, Halitosis, Hoarsness, Lip Swelling, Mouth Lesions, Mouth Pain, Odynophagia, Sore Throat, Throat Swelling, Tongue Swelling, Facial Pain, Neck Pain, Neck Mass, Other - Cardiovascular Cardiovascular: absent: As Per HPI, Acrocyanosis, Chest Pain, Chest Pain at Rest , Chest Pain with Activity, Claudication, Diaphoresis, Dyspnea, Dyspnea on Exertion, Edema, Irregular Heart Rhythm, Pain Radiating to Arm/Neck/Jaw, Leg Edema, Leg Ulcers, Lightheadedness, Orthopnea, Palpitations, Paroxysmal Nocturnal Dyspnea, Pedal Edema, Radiating Pain, Rapid Heart Rate, Slow Heart Rate, Syncope, Other - Respiratory Respiratory: absent: As Per HPI, Cough, Dyspnea, Hemoptysis, Dyspnea on Exertion , Wheezing, Snoring, Stridor, Pain on Inspiration, Chest Congestion, Excessive Mucous Production, Change in Mucous Color, Pain with Coughing, Other - Gastrointestinal Gastrointestinal: absent: As Per HPI, Abdominal Pain, Belching, Bloating, Change in Bowel Habits, Change in Stool Character, Coffee Ground Emesis, Constipation, Cramping, Diarrhea, Dyspepsia, Dysphagia, Early Satiety, Excessive Flatus, Fecal Incontinence, Heartburn, Hematemesis, Hematochezia, Loose Stools, Melena, Nausea, Odynophagia, Temesmus, Vomiting, Other - Genitourinary Genitourinary: absent: As Per HPI, Change in Urinary Stream, Difficulty Urinating, Dysuria, Flank Pain, Hematuria, Pyuria, Nocturia, Urinary Incontinence, Urinary Frequency, Urinary Hesitance, Urinary Urgency, Voiding Freq/Small Amts, Freq UTI, Hx Renal/Bladder Calculi, Hx /Renal Surgery, Bladder Distension, Other - Musculoskeletal Musculoskeletal: Joint Swelling, Radiating Pain into Limb - Integumentary Integumentary: absent: As Per HPI, Acne, Alopecia, Bleeding Lesions, Change in Hair, Change in Nails, Change in Pigmentation, Changing Lesions, Dry Skin, Erythema, Furuncle, Hirsutism, Lesions, New Lesions, Non-Healing Lesions, Photosensitivity, Pruritus, Rash, Skin Pain, Skin Ulcer, Sores, Striae, Swelling , Unusual Bruising, Wounds, Jaundice, Other - Neurological Neurological: absent: As Per HPI, Abnormal Gait, Abnormal Hearing, Abnormal Movements, Abnormal Speech, Behavioral Changes, Burning Sensations, Confusion, Convulsions, Disequilibrium, Dizziness, Numbness, Focal Weakness, Frequent Falls , Headaches, Lack of Coordination, Loss of Vision, Memory Loss, Paresthesias, Radicular Pain, Restless Legs, Sensory Deficit, Syncope, Tingling, Tremor, Vertigo, Weakness, Other Visual Disturbances, Other - Psychiatric Psychiatric: absent: As Per HPI, Abnormal Sleep Pattern, Anhedonia, Anxiety, Auditory Hallucinations, Behavioral Changes, Change in Appetite, Change in Libido, Confusion, Depression, Difficulty Concentrating, Hallucinations, Homicidal Ideation, Hopelessness, Irritability, Memory Loss, Mood Swings, Panic Attacks, Paranoia, Suicidal Ideation, Visual Hallucinations, Tactile Hallucinations, Other - Endocrine Endocrine: absent: As Per HPI, Change in Body Appearance, Change in Libido, Cold Intolorance, Deepening of Voice, Excessive Sweating, Fatigue, Flushing, Heat Intolorance, Increase in Ring/Shoe/Hat Size, Palpitations, Polydipsia, Polyphagia, Polyuria, Other - Hematologic/Lymphatic Hematologic: absent: As Per HPI, Easy Bleeding, Easy Bruising, Lymphadenopathy, Other Past Patient History - Infectious Disease Hx of Infectious Diseases: None - Tetanus Immunizations Tetanus Immunization: Unknown - Past Medical History & Family History Past Medical History?: Yes - Past Social History Smoking Status: Heavy Smoker > 10 Cigarettes Daily - CARDIAC Hx Hypertension: Yes - PULMONARY Hx Respiratory Disorders: No - NEUROLOGICAL Hx Neurological Disorder: No - HEENT Hx HEENT Problems: No - RENAL Hx Chronic Kidney Disease: No - ENDOCRINE/METABOLIC Hx Endocrine Disorders: No - HEMATOLOGICAL/ONCOLOGICAL Hx AIDS: No Hx Human Immunodeficiency Virus (HIV): No - INTEGUMENTARY Hx Dermatological Problems: No - MUSCULOSKELETAL/RHEUMATOLOGICAL Hx Musculoskeletal Disorders: Yes Hx Back Pain: Yes Hx Falls: Yes - GASTROINTESTINAL Hx Gastritis: Yes - GENITOURINARY/GYNECOLOGICAL Hx Genitourinary Disorders: No - PSYCHIATRIC Hx Psychophysiologic Disorder: No Hx Substance Use: No - SURGICAL HISTORY Hx Surgeries: Yes Hx Musculoskeletal Surgery: Yes - ANESTHESIA Hx Anesthesia: Yes Hx Anesthesia Reactions: No Hx Malignant Hyperthermia: No Has any member of the family had a problem w/ anesthesia?: No Meds Allergies/Adverse Reactions: Allergies Allergy/AdvReac Type Severity Reaction Status Date / Time shellfish derived Allergy Intermediate ITCHING Verified 02/24/17 18:07 - Medications Medications: Current Medications Acetaminophen (Tylenol 325mg Tab) 650 mg PO Q4 PRN PRN Reason: Fever 100.0 or greater Last Admin: 03/24/17 10:46 Dose: 650 mg Amlodipine Besylate (Norvasc) 5 mg PO DAILY [facility] Last Admin: 03/24/17 10:38 Dose: Not Given Enoxaparin Sodium (Lovenox) 80 mg SC BID [facility] PRN Reason: Protocol Last Admin: 03/24/17 11:00 Dose: 80 mg Cefepime HCl 1 gm/ Sodium (Chloride) 100 mls @ 100 mls/hr IVPB Q12 [facility] Last Admin: 03/24/17 12:45 Dose: 100 mls/hr Vancomycin HCl 1 gm/ Sodium (Chloride) 250 mls @ 166.667 mls/hr IVPB DAILY [facility] Last Admin: 03/24/17 12:55 Dose: 166.667 mls/hr Lactulose (Enulose) 20 gm PO DAILY [facility] Last Admin: 03/24/17 10:37 Dose: Not Given Pantoprazole Sodium (Protonix Ec Tab) 40 mg PO DAILY [facility] Last Admin: 03/24/17 13:12 Dose: 40 mg Tramadol HCl (Ultram) 50 mg PO BID PRN PRN Reason: Pain Scale 1-10 Valsartan (Diovan) 160 mg PO DAILY [facility] Last Admin: 03/24/17 10:37 Dose: Not Given Physical Exam - Constitutional Appears: Non-toxic - Head Exam Head Exam: NORMAL INSPECTION - Eye Exam Eye Exam: Normal appearance - ENT Exam ENT Exam: Mucous Membranes Moist - Neck Exam Neck exam: Positive for: Full Rom - Respiratory Exam Respiratory Exam: Decreased Breath Sounds - Cardiovascular Exam Cardiovascular Exam: REGULAR RHYTHM - GI/Abdominal Exam GI & Abdominal Exam: Normal Bowel Sounds - Rectal Exam Rectal Exam: Deferred - Extremities Exam Extremities exam: Positive for: pedal edema Additional comments: RUE swelling - Back Exam Back exam: NORMAL INSPECTION - Neurological Exam Neurological exam: Alert, Oriented x3 - Psychiatric Exam Psychiatric exam: Normal Affect Results - Vital Signs Recent Vital Signs: Last Vital Signs Temp 99.5 F 03/24/17 15:45 Pulse 103 H 03/24/17 15:45 Resp 20 03/24/17 15:45 BP 132/77 03/24/17 15:45 Pulse Ox 96 03/24/17 15:45 - Labs Result Diagrams: 03/25/17 10:30 03/23/17 12:45 - EKG Data EKG Interpreted by: Myself EKG shows normal: Sinus rhythm Assessment & Plan (1) Deep vein thrombosis (DVT) of right upper extremity Assessment and Plan: recommend anticoagulation. consider IR for thrombectomy. Status: Acute
--- NOTE | 2017-03-24 17:48 | RAD ---
Chest, one view Indication: Right upper extremity DVT Comparison: None available Findings: Examination limited by habitus. Heart size appears top normal. Retrocardiac opacity possibly large hiatal hernia. No focal consolidation, significant pleural effusion, or definite pneumothorax evident. Please note that chest x-ray has limited sensitivity for the detection of pulmonary masses. Degenerative changes of the spine. Impression: Retrocardiac opacity suspected to reflect large hiatal hernia. Correlate clinically and suggest PA and lateral radiographs if indicated.
[2017-03-25] MEDS: Pantoprazole 40 mg EC Tab PO SCH (08:28)
[2017-03-25] MEDS: Enoxaparin 80 mg Syringe SC SCH ×2 (08:31→18:33)
[2017-03-25] MEDS: Cefepime 1 GM in Sodium Chloride 0.9% 100 ML IVPB SCH ×2 (08:32→21:56)
--- NOTE | 2017-03-25 10:16 | CP.PCM.CON ---
History of Present Illness - History of Present Illness History of Present Illness: 51 year old male presents to ED with complaints of right upper extremity swelling and pain post-PICC line removal x1 week ago and has a past medical history of HTN and DVT. + recent cervical laminectomy for severe myelopathy with quadraparesis found to have dvt right arm recent admission for ? wound infection- sent to OR and found to have seroma sent home on po cipro (+) fever, no chest pain, or SOB. - Medical History PMH: Deep Vein Thrombosis (bilateral), Gastritis, HTN, cervical and lumbar radiculopathy, quadraparesis , s/p laminectomy Denies: No Chronic Diseases, HIV, Chronic Kidney Disease Review of Systems - Constitutional Constitutional: As Per HPI, Chills, Fever - EENT Eyes: absent: As Per HPI, Blind Spots, Blurred Vision, Change in Vision, Decreased Night Vision, Diplopia, Discharge, Dry Eye, Exophthalmos, Floaters, Irritation, Itchy Eyes, Loss of Peripheral Vision, Pain, Photophobia, Requires Corrective Lenses, Sees Flashes, Spots in Vision, Tunnel Vision, Other Visual Disturbances, Loss of Vision, Other Ears: absent: As Per HPI, Decreased Hearing, Ear Discharge, Ear Pain, Tinnitus, Abnormal Hearing, Disequilibrium, Dizziness, Other Nose/Mouth/Throat: absent: As Per HPI, Epistaxis, Nasal Congestion, Nasal Discharge, Nasal Obstruction, Nasal Trauma, Nose Pain, Post Nasal Drip, Sinus Pain, Sinus Pressure, Bleeding Gums, Change in Voice, Dental Pain, Dry Mouth, Dysphagia, Halitosis, Hoarsness, Lip Swelling, Mouth Lesions, Mouth Pain, Odynophagia, Sore Throat, Throat Swelling, Tongue Swelling, Facial Pain, Neck Pain, Neck Mass, Other - Cardiovascular Cardiovascular: As Per HPI - Respiratory Respiratory: As Per HPI. absent: Cough, Dyspnea - Gastrointestinal Gastrointestinal: absent: As Per HPI, Abdominal Pain, Belching, Bloating, Change in Bowel Habits, Change in Stool Character, Coffee Ground Emesis, Constipation, Cramping, Diarrhea, Dyspepsia, Dysphagia, Early Satiety, Excessive Flatus, Fecal Incontinence, Heartburn, Hematemesis, Hematochezia, Loose Stools, Melena, Nausea, Odynophagia, Temesmus, Vomiting, Other - Genitourinary Genitourinary: absent: As Per HPI, Change in Urinary Stream, Difficulty Urinating, Dysuria, Flank Pain, Hematuria, Pyuria, Nocturia, Urinary Incontinence, Urinary Frequency, Urinary Hesitance, Urinary Urgency, Voiding Freq/Small Amts, Freq UTI, Hx Renal/Bladder Calculi, Hx /Renal Surgery, Bladder Distension, Other - Musculoskeletal Musculoskeletal: As Per HPI, Muscle Weakness, Myalgias, Neck Pain, Numbness, Radiating Pain into Limb, Stiffness, Tingling - Integumentary Integumentary: As Per HPI, Skin Pain, Wounds - Neurological Neurological: As Per HPI, Abnormal Gait - Psychiatric Psychiatric: absent: As Per HPI, Abnormal Sleep Pattern, Anhedonia, Anxiety, Auditory Hallucinations, Behavioral Changes, Change in Appetite, Change in Libido, Confusion, Depression, Difficulty Concentrating, Hallucinations, Homicidal Ideation, Hopelessness, Irritability, Memory Loss, Mood Swings, Panic Attacks, Paranoia, Suicidal Ideation, Visual Hallucinations, Tactile Hallucinations, Other - Endocrine Endocrine: absent: As Per HPI, Change in Body Appearance, Change in Libido, Cold Intolorance, Deepening of Voice, Excessive Sweating, Fatigue, Flushing, Heat Intolorance, Increase in Ring/Shoe/Hat Size, Palpitations, Polydipsia, Polyphagia, Polyuria, Other - Hematologic/Lymphatic Hematologic: absent: As Per HPI, Easy Bleeding, Easy Bruising, Lymphadenopathy, Other Past Patient History - Infectious Disease Hx of Infectious Diseases: None - Tetanus Immunizations Tetanus Immunization: Unknown - Past Medical History & Family History Past Medical History?: Yes - Past Social History Smoking Status: Heavy Smoker > 10 Cigarettes Daily - CARDIAC Hx Hypertension: Yes - PULMONARY Hx Respiratory Disorders: No - NEUROLOGICAL Hx Neurological Disorder: No - HEENT Hx HEENT Problems: No - RENAL Hx Chronic Kidney Disease: No - ENDOCRINE/METABOLIC Hx Endocrine Disorders: No - HEMATOLOGICAL/ONCOLOGICAL Hx AIDS: No Hx Human Immunodeficiency Virus (HIV): No - INTEGUMENTARY Hx Dermatological Problems: No - MUSCULOSKELETAL/RHEUMATOLOGICAL Hx Musculoskeletal Disorders: Yes Hx Back Pain: Yes Hx Falls: Yes - GASTROINTESTINAL Hx Gastritis: Yes - GENITOURINARY/GYNECOLOGICAL Hx Genitourinary Disorders: No - PSYCHIATRIC Hx Psychophysiologic Disorder: No Hx Substance Use: No - SURGICAL HISTORY Hx Surgeries: Yes Hx Musculoskeletal Surgery: Yes - ANESTHESIA Hx Anesthesia: Yes Hx Anesthesia Reactions: No Hx Malignant Hyperthermia: No Has any member of the family had a problem w/ anesthesia?: No Meds Allergies/Adverse Reactions: Allergies Allergy/AdvReac Type Severity Reaction Status Date / Time shellfish derived Allergy Intermediate ITCHING Verified 02/24/17 18:07 - Medications Medications: Current Medications Acetaminophen (Tylenol 325mg Tab) 650 mg PO Q4 PRN PRN Reason: Fever 100.0 or greater Last Admin: 03/25/17 01:36 Dose: 650 mg Amlodipine Besylate (Norvasc) 5 mg PO DAILY [facility] Last Admin: 03/25/17 08:28 Dose: 5 mg Enoxaparin Sodium (Lovenox) 80 mg SC BID@0900,1900 [facility] PRN Reason: Protocol Last Admin: 03/25/17 08:31 Dose: 80 mg Cefepime HCl 1 gm/ Sodium (Chloride) 100 mls @ 100 mls/hr IVPB Q12 [facility] Last Admin: 03/25/17 08:32 Dose: 100 mls/hr Vancomycin HCl 1 gm/ Sodium (Chloride) 250 mls @ 166.667 mls/hr IVPB DAILY [facility] Last Admin: 03/25/17 08:42 Dose: 166.667 mls/hr Lactulose (Enulose) 20 gm PO DAILY [facility] Last Admin: 03/25/17 08:29 Dose: 20 gm Pantoprazole Sodium (Protonix Ec Tab) 40 mg PO DAILY [facility] Last Admin: 03/25/17 08:28 Dose: 40 mg Tramadol HCl (Ultram) 50 mg PO BID PRN PRN Reason: Pain Scale 1-10 Last Admin: 03/25/17 00:14 Dose: 50 mg Valsartan (Diovan) 160 mg PO DAILY [facility] Last Admin: 03/25/17 08:29 Dose: 160 mg Physical Exam - Constitutional Appears: Non-toxic, Chronically Ill - Head Exam Head Exam: NORMOCEPHALIC - Eye Exam Eye Exam: PERRL. absent: Scleral icterus - ENT Exam ENT Exam: Mucous Membranes Dry, Normal External Ear Exam - Neck Exam Neck exam: Negative for: Lymphadenopathy, Thyromegaly - Respiratory Exam Respiratory Exam: Decreased Breath Sounds, Clear to Auscultation Bilateral - Cardiovascular Exam Cardiovascular Exam: REGULAR RHYTHM, +S1, +S2 - GI/Abdominal Exam GI & Abdominal Exam: Diminished Bowel Sounds, Soft. absent: Tenderness - Rectal Exam Rectal Exam: Deferred - Exam Exam: NORMAL INSPECTION - Extremities Exam Extremities exam: Positive for: pedal pulses present. Negative for: calf tenderness, pedal edema, tenderness - Back Exam Back exam: absent: CVA tenderness (L), CVA tenderness (R), paraspinal tenderness - Neurological Exam Neurological exam: Abnormal Gait, Alert, CN II-XII Intact, Motor Sensory Deficit , Oriented x3 Additional comments: weakness both lower extrem - Psychiatric Exam Psychiatric exam: Normal Mood - Skin Skin Exam: Dry Results - Vital Signs Recent Vital Signs: Last Vital Signs Temp 98.1 F 03/25/17 07:54 Pulse 79 03/25/17 08:28 Resp 20 03/25/17 07:54 BP 120/85 03/25/17 08:28 Pulse Ox 97 03/25/17 07:54 - Labs Result Diagrams: 03/23/17 12:45 03/23/17 12:45 Labs: Laboratory Results - last 24 hr 03/24/17 12:44 Procalcitonin < 0.05 L Assessment & Plan (1) Deep vein thrombosis (DVT) of right upper extremity Status: Acute (2) History of cervical spinal surgery Status: Acute (3) Hypertension Status: Acute (4) Back pain Status: Acute (5) Cervical disc disease with myelopathy Status: Acute (6) Chronic back pain Status: Acute (7) Deep vein thrombosis (DVT) Status: Acute (8) S/P laminectomy Status: Acute - Assessment and Plan (Free Text) Plan: fever possibly secondary to dvt right arm r/o septic thrombophlebitis await cultures may need echo/sean if fever persists restarted antibiotics cervical spine wound healing well- if fever persists may need further imaging
[2017-03-25 10:59] LABS: HEMATOCRIT 31.9 % (35.0-51.0); MEAN CELL VOLUME 91.7 fl (80.0-94.0); MEAN CORPUSCULAR HEMOGLOBIN 29.9 pg (27.0-31.0); MEAN CORPUSCULAR HGB CONC 32.6 g/dL (33.0-37.0); RED CELL DISTRIBUTION WIDTH 15.1 % (11.5-14.5); WHITE BLOOD COUNT 10.1 K/uL (4.8-10.8)
--- NOTE | 2017-03-25 11:15 | CP.PCM.CON ---
History of Present Illness - History of Present Illness History of Present Illness: This is a 51 yrs old male who was admitted for swelling and pain in the right arm. Pt has a h/o bilateral lower extremity DVT and was started on xarelto.. He also had a IVC filter placed. He had cervical spinal stenosis for which he had a surgical procedure during which the anticoagulant was stopped. When it was restarted, he had a serosanguinous seroma and it needed to be drained. The pt was in rehab at the time and the surgeon had asked that the anticoagulant be held . He melba comes in with a thrombosis in his right arm. During his last admission here I had done a work up for hypercoagulable state, and it was positive for the MTHFR gene and anticardiolipin antibody. He has now been placed on lovenox, but will convert to xarelto when he goes home. Past Patient History - Infectious Disease Hx of Infectious Diseases: None - Tetanus Immunizations Tetanus Immunization: Unknown - Past Medical History & Family History Past Medical History?: Yes - Past Social History Smoking Status: Heavy Smoker > 10 Cigarettes Daily - CARDIAC Hx Hypertension: Yes - PULMONARY Hx Respiratory Disorders: No - NEUROLOGICAL Hx Neurological Disorder: No - HEENT Hx HEENT Problems: No - RENAL Hx Chronic Kidney Disease: No - ENDOCRINE/METABOLIC Hx Endocrine Disorders: No - HEMATOLOGICAL/ONCOLOGICAL Hx AIDS: No Hx Human Immunodeficiency Virus (HIV): No - INTEGUMENTARY Hx Dermatological Problems: No - MUSCULOSKELETAL/RHEUMATOLOGICAL Hx Musculoskeletal Disorders: Yes Hx Back Pain: Yes Hx Falls: Yes - GASTROINTESTINAL Hx Gastritis: Yes - GENITOURINARY/GYNECOLOGICAL Hx Genitourinary Disorders: No - PSYCHIATRIC Hx Psychophysiologic Disorder: No Hx Substance Use: No - SURGICAL HISTORY Hx Surgeries: Yes Hx Musculoskeletal Surgery: Yes - ANESTHESIA Hx Anesthesia: Yes Hx Anesthesia Reactions: No Hx Malignant Hyperthermia: No Has any member of the family had a problem w/ anesthesia?: No Meds Allergies/Adverse Reactions: Allergies Allergy/AdvReac Type Severity Reaction Status Date / Time shellfish derived Allergy Intermediate ITCHING Verified 02/24/17 18:07 - Medications Medications: Current Medications Acetaminophen (Tylenol 325mg Tab) 650 mg PO Q4 PRN PRN Reason: Fever 100.0 or greater Last Admin: 03/25/17 01:36 Dose: 650 mg Amlodipine Besylate (Norvasc) 5 mg PO DAILY [facility] Last Admin: 03/25/17 08:28 Dose: 5 mg Enoxaparin Sodium (Lovenox) 80 mg SC BID@0900,1900 [facility] PRN Reason: Protocol Last Admin: 03/25/17 08:31 Dose: 80 mg Cefepime HCl 1 gm/ Sodium (Chloride) 100 mls @ 100 mls/hr IVPB Q12 [facility] Last Admin: 03/25/17 08:32 Dose: 100 mls/hr Vancomycin HCl 1 gm/ Sodium (Chloride) 250 mls @ 166.667 mls/hr IVPB DAILY [facility] Last Admin: 03/25/17 08:42 Dose: 166.667 mls/hr Lactulose (Enulose) 20 gm PO DAILY [facility] Last Admin: 03/25/17 08:29 Dose: 20 gm Pantoprazole Sodium (Protonix Ec Tab) 40 mg PO DAILY [facility] Last Admin: 03/25/17 08:28 Dose: 40 mg Tramadol HCl (Ultram) 50 mg PO BID PRN PRN Reason: Pain Scale 1-10 Last Admin: 03/25/17 00:14 Dose: 50 mg Valsartan (Diovan) 160 mg PO DAILY [facility] Last Admin: 03/25/17 08:29 Dose: 160 mg Physical Exam - Additional Findings Additional findings: Physical Exam; lert, well oriented in no acute distress neck; supple, no adenopathy Chest; Clear, no rales or rhonchi Heart; RSR, no murmur Abdomen; Soft, no mass, no h/s megaly Right upper extremity edematous and red. Results - Vital Signs Recent Vital Signs: Last Vital Signs Temp 98.1 F 03/25/17 07:54 Pulse 79 03/25/17 08:28 Resp 20 03/25/17 07:54 BP 120/85 03/25/17 08:28 Pulse Ox 97 03/25/17 07:54 - Labs Result Diagrams: 03/25/17 10:30 03/23/17 12:45 Labs: Laboratory Results - last 24 hr 03/24/17 03/25/17 12:44 10:30 WBC 10.1 RBC 3.47 L Hgb 10.4 L Hct 31.9 L MCV 91.7 MCH 29.9 MCHC 32.6 L RDW 15.1 H Plt Count 366 Procalcitonin < 0.05 L Assessment & Plan - Assessment and Plan (Free Text) Assessment: Imprsssion -Thrombus right arm. Hypercoagulable state Plan: Plan; Will wait until his his thrombectomy is done , then start him on xarelto for at least 1 yr if not life.
[2017-03-25] MEDS: LANSOPRAZOLE 30 MG PO SCH (15:02)
[2017-03-25 20:21] LABS: RBC URINE 1 /hpf (0-3); URINE BILIRUBIN NEGATIVE (NEGATIVE); URINE BLOOD NEGATIVE (NEGATIVE); URINE COLOR YELLOW (YELLOW); URINE GLUCOSE (UA) NEG (Normal); URINE KETONE TRACE mg/dL (NEGATIVE); URINE LEUKOCYTE ESTERASE NEG Leu/uL (Negative); URINE PROTEIN NEGATIVE (NEGATIVE); URINE UROBILINOGEN 0.2-1.0 mg/dL (0.2-1.0); WBC URINE 2 /hpf (0-5)
--- NOTE | 2017-03-25 22:21 | CP.PCM.PN ---
Subjective - Date & Time of Evaluation Date of Evaluation: 03/25/17 Time of Evaluation: 19:00 - Subjective Subjective: patient has no chest pain Objective - Vital Signs/Intake and Output Vital Signs (last 24 hours): Temp Pulse Resp BP Pulse Ox 99 F 101 H 18 110/69 95 03/25/17 20:23 03/25/17 20:23 03/25/17 20:23 03/25/17 20:23 03/25/17 20:23 Intake and Output: 03/25/17 03/26/17 18:59 06:59 Intake Total 400 Balance 400 - Medications Medications: Current Medications Acetaminophen (Tylenol 325mg Tab) 650 mg PO Q4 PRN PRN Reason: Fever 100.0 or greater Last Admin: 03/25/17 01:36 Dose: 650 mg Amlodipine Besylate (Norvasc) 5 mg PO DAILY [facility] Last Admin: 03/25/17 08:28 Dose: 5 mg Enoxaparin Sodium (Lovenox) 80 mg SC BID@0900,1900 [facility] PRN Reason: Protocol Last Admin: 03/25/17 18:33 Dose: 80 mg Home Med (Patient's Own Medication) 30 unit PO DAILY [facility] Last Admin: 03/25/17 15:02 Dose: 30 unit Cefepime HCl 1 gm/ Sodium (Chloride) 100 mls @ 100 mls/hr IVPB Q12 [facility] Last Admin: 03/25/17 21:56 Dose: 100 mls/hr Vancomycin HCl 1 gm/ Sodium (Chloride) 250 mls @ 166.667 mls/hr IVPB DAILY [facility] Last Admin: 03/25/17 08:42 Dose: 166.667 mls/hr Lactulose (Enulose) 20 gm PO DAILY [facility] Last Admin: 03/25/17 08:29 Dose: 20 gm Ondansetron HCl (Zofran Inj) 4 mg IVP Q6 PRN PRN Reason: Nausea/Vomiting Tramadol HCl (Ultram) 50 mg PO BID PRN PRN Reason: Pain Scale 1-10 Last Admin: 03/25/17 21:53 Dose: 50 mg Valsartan (Diovan) 160 mg PO DAILY [facility] Last Admin: 03/25/17 08:29 Dose: 160 mg - Labs Labs: 03/25/17 10:30 PT 13.5 Seconds (9.8-13.1) H 03/23/17 12:45 INR 1.2 (0.9-1.2) 03/23/17 12:45 APTT 30.5 Seconds (25.6-37.1) 03/23/17 12:45 - Constitutional Appears: Non-toxic - Head Exam Head Exam: NORMAL INSPECTION - Eye Exam Eye Exam: Normal appearance - ENT Exam ENT Exam: Mucous Membranes Moist - Respiratory Exam Respiratory Exam: Decreased Breath Sounds - Cardiovascular Exam Cardiovascular Exam: REGULAR RHYTHM - GI/Abdominal Exam GI & Abdominal Exam: Normal Bowel Sounds - Rectal Exam Rectal Exam: Deferred - Extremities Exam Extremities Exam: Pedal Edema - Back Exam Back Exam: NORMAL INSPECTION - Neurological Exam Neurological Exam: Alert - Psychiatric Exam Psychiatric exam: Normal Affect - Skin Skin Exam: Normal Color Assessment and Plan (1) Deep vein thrombosis (DVT) of right upper extremity Assessment & Plan: anticoagulation will continue. IR for thrombectomy Status: Acute
[2017-03-26] MEDS: LANSOPRAZOLE 30 MG PO SCH (08:27)
[2017-03-26] MEDS: Enoxaparin 80 mg Syringe SC SCH ×2 (08:28→18:02)
[2017-03-26] MEDS: Cefepime 1 GM in Sodium Chloride 0.9% 100 ML IVPB SCH ×2 (08:30→20:50)
--- NOTE | 2017-03-26 13:23 | CP.PCM.PN ---
Subjective - Date & Time of Evaluation Date of Evaluation: 03/26/17 Time of Evaluation: 11:00 - Subjective Subjective: afebrile blood c/s thus far negative has right upper extrem dvt would ask neurosurg to re-eval while in house there is no drainage and wound healing Objective - Vital Signs/Intake and Output Vital Signs (last 24 hours): Temp Pulse Resp BP Pulse Ox 98.2 F 86 18 112/74 98 03/26/17 12:12 03/26/17 12:12 03/26/17 12:12 03/26/17 12:12 03/26/17 12:12 Intake and Output: 03/26/17 03/26/17 06:59 18:59 Intake Total 400 Output Total 350 Balance 50 - Medications Medications: Current Medications Acetaminophen (Tylenol 325mg Tab) 650 mg PO Q4 PRN PRN Reason: Fever 100.0 or greater Last Admin: 03/25/17 01:36 Dose: 650 mg Amlodipine Besylate (Norvasc) 5 mg PO DAILY [facility] Last Admin: 03/26/17 08:28 Dose: 5 mg Enoxaparin Sodium (Lovenox) 80 mg SC BID@0900,1900 [facility] PRN Reason: Protocol Last Admin: 03/26/17 08:28 Dose: 80 mg Home Med (Patient's Own Medication) 30 unit PO DAILY [facility] Last Admin: 03/26/17 08:27 Dose: 30 unit Cefepime HCl 1 gm/ Sodium (Chloride) 100 mls @ 100 mls/hr IVPB Q12 [facility] Last Admin: 03/26/17 08:30 Dose: 100 mls/hr Vancomycin HCl 1 gm/ Sodium (Chloride) 250 mls @ 166.667 mls/hr IVPB DAILY [facility] Last Admin: 03/26/17 08:47 Dose: 166.667 mls/hr Lactulose (Enulose) 20 gm PO DAILY [facility] Last Admin: 03/26/17 08:28 Dose: 20 gm Ondansetron HCl (Zofran Inj) 4 mg IVP Q6 PRN PRN Reason: Nausea/Vomiting Tramadol HCl (Ultram) 50 mg PO BID PRN PRN Reason: Pain Scale 1-10 Last Admin: 03/25/17 21:53 Dose: 50 mg Valsartan (Diovan) 160 mg PO DAILY [facility] Last Admin: 03/26/17 08:27 Dose: 160 mg - Labs Labs: 03/25/17 10:30 PT 13.5 Seconds (9.8-13.1) H 03/23/17 12:45 INR 1.2 (0.9-1.2) 03/23/17 12:45 APTT 30.5 Seconds (25.6-37.1) 03/23/17 12:45 - Constitutional Appears: Non-toxic, Chronically Ill - Head Exam Head Exam: NORMOCEPHALIC - Eye Exam Eye Exam: PERRL. absent: Scleral icterus - ENT Exam ENT Exam: Mucous Membranes Dry - Neck Exam Neck Exam: absent: Lymphadenopathy - Respiratory Exam Respiratory Exam: Decreased Breath Sounds - Cardiovascular Exam Cardiovascular Exam: REGULAR RHYTHM, +S1, +S2 - GI/Abdominal Exam GI & Abdominal Exam: Distended, Soft Assessment and Plan (1) Deep vein thrombosis (DVT) of right upper extremity Status: Acute (2) History of cervical spinal surgery Status: Acute (3) Hypertension Status: Acute (4) Back pain Status: Acute (5) Cervical disc disease with myelopathy Status: Acute (6) Chronic back pain Status: Acute (7) Deep vein thrombosis (DVT) Status: Acute (8) S/P laminectomy Status: Acute - Assessment and Plan (Free Text) Assessment: hypercoaguable state recurrent dvt fever r/o sepsis s/p cervical laminectomy myelopathy/ quadraparesis
--- NOTE | 2017-03-26 13:26 | CP.PCM.PN ---
Subjective - Date & Time of Evaluation Date of Evaluation: 03/26/17 Time of Evaluation: 13:19 - Subjective Subjective: Pt is scheduled for a thrombectomy tomorrow, and will be on the lovenox until then . He can then go back on the xarelto. Objective - Vital Signs/Intake and Output Vital Signs (last 24 hours): Temp Pulse Resp BP Pulse Ox 98.2 F 86 18 112/74 98 03/26/17 12:12 03/26/17 12:12 03/26/17 12:12 03/26/17 12:12 03/26/17 12:12 Intake and Output: 03/26/17 03/26/17 06:59 18:59 Intake Total 400 Output Total 350 Balance 50 - Medications Medications: Current Medications Acetaminophen (Tylenol 325mg Tab) 650 mg PO Q4 PRN PRN Reason: Fever 100.0 or greater Last Admin: 03/25/17 01:36 Dose: 650 mg Amlodipine Besylate (Norvasc) 5 mg PO DAILY [facility] Last Admin: 03/26/17 08:28 Dose: 5 mg Enoxaparin Sodium (Lovenox) 80 mg SC BID@0900,1900 [facility] PRN Reason: Protocol Last Admin: 03/26/17 08:28 Dose: 80 mg Home Med (Patient's Own Medication) 30 unit PO DAILY [facility] Last Admin: 03/26/17 08:27 Dose: 30 unit Cefepime HCl 1 gm/ Sodium (Chloride) 100 mls @ 100 mls/hr IVPB Q12 [facility] Last Admin: 03/26/17 08:30 Dose: 100 mls/hr Vancomycin HCl 1 gm/ Sodium (Chloride) 250 mls @ 166.667 mls/hr IVPB DAILY [facility] Last Admin: 03/26/17 08:47 Dose: 166.667 mls/hr Lactulose (Enulose) 20 gm PO DAILY [facility] Last Admin: 03/26/17 08:28 Dose: 20 gm Ondansetron HCl (Zofran Inj) 4 mg IVP Q6 PRN PRN Reason: Nausea/Vomiting Tramadol HCl (Ultram) 50 mg PO BID PRN PRN Reason: Pain Scale 1-10 Last Admin: 03/25/17 21:53 Dose: 50 mg Valsartan (Diovan) 160 mg PO DAILY [facility] Last Admin: 03/26/17 08:27 Dose: 160 mg - Labs Labs: 03/25/17 10:30 PT 13.5 Seconds (9.8-13.1) H 03/23/17 12:45 INR 1.2 (0.9-1.2) 03/23/17 12:45 APTT 30.5 Seconds (25.6-37.1) 03/23/17 12:45
--- NOTE | 2017-03-26 18:05 | CP.PCM.PN ---
Subjective - Date & Time of Evaluation Date of Evaluation: 03/26/17 Time of Evaluation: 18:00 - Subjective Subjective: patient has less pain of the lower extremity. Objective - Vital Signs/Intake and Output Vital Signs (last 24 hours): Temp Pulse Resp BP Pulse Ox 99.1 F 90 20 123/85 96 03/26/17 15:41 03/26/17 15:41 03/26/17 15:41 03/26/17 15:41 03/26/17 15:41 Intake and Output: 03/26/17 03/26/17 06:59 18:59 Intake Total 400 Output Total 350 Balance 50 - Medications Medications: Current Medications Acetaminophen (Tylenol 325mg Tab) 650 mg PO Q4 PRN PRN Reason: Fever 100.0 or greater Last Admin: 03/25/17 01:36 Dose: 650 mg Amlodipine Besylate (Norvasc) 5 mg PO DAILY [facility] Last Admin: 03/26/17 08:28 Dose: 5 mg Enoxaparin Sodium (Lovenox) 80 mg SC BID@0900,1900 [facility] PRN Reason: Protocol Last Admin: 03/26/17 18:02 Dose: 80 mg Home Med (Patient's Own Medication) 30 unit PO DAILY [facility] Last Admin: 03/26/17 08:27 Dose: 30 unit Cefepime HCl 1 gm/ Sodium (Chloride) 100 mls @ 100 mls/hr IVPB Q12 [facility] Last Admin: 03/26/17 08:30 Dose: 100 mls/hr Vancomycin HCl 1 gm/ Sodium (Chloride) 250 mls @ 166.667 mls/hr IVPB DAILY [facility] Last Admin: 03/26/17 08:47 Dose: 166.667 mls/hr Lactulose (Enulose) 20 gm PO DAILY [facility] Last Admin: 03/26/17 08:28 Dose: 20 gm Ondansetron HCl (Zofran Inj) 4 mg IVP Q6 PRN PRN Reason: Nausea/Vomiting Tramadol HCl (Ultram) 50 mg PO BID PRN PRN Reason: Pain Scale 1-10 Last Admin: 03/25/17 21:53 Dose: 50 mg Valsartan (Diovan) 160 mg PO DAILY [facility] Last Admin: 03/26/17 08:27 Dose: 160 mg - Labs Labs: 03/25/17 10:30 PT 13.5 Seconds (9.8-13.1) H 03/23/17 12:45 INR 1.2 (0.9-1.2) 03/23/17 12:45 APTT 30.5 Seconds (25.6-37.1) 03/23/17 12:45 - Constitutional Appears: Non-toxic - Head Exam Head Exam: NORMAL INSPECTION - Eye Exam Eye Exam: Normal appearance - ENT Exam ENT Exam: Mucous Membranes Moist - Neck Exam Neck Exam: Full ROM - Respiratory Exam Respiratory Exam: Decreased Breath Sounds - Cardiovascular Exam Cardiovascular Exam: REGULAR RHYTHM - GI/Abdominal Exam GI & Abdominal Exam: Normal Bowel Sounds - Rectal Exam Rectal Exam: Deferred - Extremities Exam Extremities Exam: Pedal Edema - Back Exam Back Exam: paraspinal tenderness - Neurological Exam Neurological Exam: Alert - Psychiatric Exam Psychiatric exam: Normal Affect - Skin Skin Exam: Normal Color Assessment and Plan (1) Deep vein thrombosis (DVT) of right upper extremity Assessment & Plan: for thrombectomy tomorrow. Stable from cardiovascular standpoint. Status: Acute
[2017-03-27] MEDS: Enoxaparin 80 mg Syringe SC SCH (09:04)
[2017-03-27] MEDS: LANSOPRAZOLE 30 MG PO SCH (09:05)
[2017-03-27] MEDS: Cefepime 1 GM in Sodium Chloride 0.9% 100 ML IVPB SCH (09:07)
--- NOTE | 2017-03-27 09:09 | CP.PCM.PN ---
Subjective - Date & Time of Evaluation Date of Evaluation: 03/27/17 Time of Evaluation: 09:06 - Subjective Subjective: Pt was supposed to go for thrombectomy, but because there was decent blood flow in the right arm, a compression stocking was advised.. We will change him from lovenox to xarelto 15 mg bid. Objective - Vital Signs/Intake and Output Vital Signs (last 24 hours): Temp Pulse Resp BP Pulse Ox 98.6 F 85 20 127/84 100 03/27/17 08:00 03/27/17 09:05 03/27/17 08:00 03/27/17 09:05 03/27/17 08:00 Intake and Output: 03/27/17 03/27/17 06:59 18:59 Intake Total 400 Output Total 400 Balance 0 - Medications Medications: Current Medications Acetaminophen (Tylenol 325mg Tab) 650 mg PO Q4 PRN PRN Reason: Fever 100.0 or greater Last Admin: 03/25/17 01:36 Dose: 650 mg Amlodipine Besylate (Norvasc) 5 mg PO DAILY [facility] Last Admin: 03/27/17 09:05 Dose: 5 mg Enoxaparin Sodium (Lovenox) 80 mg SC BID@0900,1900 [facility] PRN Reason: Protocol Last Admin: 03/27/17 09:04 Dose: 80 mg Home Med (Patient's Own Medication) 30 unit PO DAILY [facility] Last Admin: 03/27/17 09:05 Dose: 30 unit Cefepime HCl 1 gm/ Sodium (Chloride) 100 mls @ 100 mls/hr IVPB Q12 [facility] Last Admin: 03/26/17 20:50 Dose: 100 mls/hr Vancomycin HCl 1 gm/ Sodium (Chloride) 250 mls @ 166.667 mls/hr IVPB DAILY [facility] Last Admin: 03/26/17 08:47 Dose: 166.667 mls/hr Lactulose (Enulose) 20 gm PO DAILY [facility] Last Admin: 03/27/17 09:04 Dose: 20 gm Ondansetron HCl (Zofran Inj) 4 mg IVP Q6 PRN PRN Reason: Nausea/Vomiting Tramadol HCl (Ultram) 50 mg PO BID PRN PRN Reason: Pain Scale 1-10 Last Admin: 03/25/17 21:53 Dose: 50 mg Valsartan (Diovan) 160 mg PO DAILY [facility] Last Admin: 03/27/17 09:04 Dose: 160 mg - Labs Labs: 03/25/17 10:30 PT 13.5 Seconds (9.8-13.1) H 03/23/17 12:45 INR 1.2 (0.9-1.2) 03/23/17 12:45 APTT 30.5 Seconds (25.6-37.1) 03/23/17 12:45
--- NOTE | 2017-03-27 15:37 | CP.PCM.PN ---
Subjective - Date & Time of Evaluation Date of Evaluation: 03/27/17 Time of Evaluation: 09:00 - Subjective Subjective: switched to xarelto all cultures thus far negative wound is well healed May need GIA because of physical debility possible d/c on po rx for follow up with NS and cardiology Objective - Vital Signs/Intake and Output Vital Signs (last 24 hours): Temp Pulse Resp BP Pulse Ox 98.9 F 92 H 16 112/72 96 03/27/17 12:34 03/27/17 12:34 03/27/17 12:34 03/27/17 12:34 03/27/17 12:34 Intake and Output: 03/27/17 03/27/17 06:59 18:59 Intake Total 400 Output Total 400 Balance 0 - Medications Medications: Current Medications Acetaminophen (Tylenol 325mg Tab) 650 mg PO Q4 PRN PRN Reason: Fever 100.0 or greater Last Admin: 03/25/17 01:36 Dose: 650 mg Amlodipine Besylate (Norvasc) 5 mg PO DAILY [facility] Last Admin: 03/27/17 09:05 Dose: 5 mg Home Med (Patient's Own Medication) 30 unit PO DAILY [facility] Last Admin: 03/27/17 09:05 Dose: 30 unit Cefepime HCl 1 gm/ Sodium (Chloride) 100 mls @ 100 mls/hr IVPB Q12 [facility] Last Admin: 03/27/17 09:07 Dose: 100 mls/hr Vancomycin HCl 1 gm/ Sodium (Chloride) 250 mls @ 166.667 mls/hr IVPB DAILY [facility] Last Admin: 03/27/17 09:08 Dose: 166.667 mls/hr Lactulose (Enulose) 20 gm PO DAILY [facility] Last Admin: 03/27/17 09:04 Dose: 20 gm Ondansetron HCl (Zofran Inj) 4 mg IVP Q6 PRN PRN Reason: Nausea/Vomiting Rivaroxaban (Xarelto) 15 mg PO BIDWM [facility] PRN Reason: Protocol Tramadol HCl (Ultram) 50 mg PO BID PRN PRN Reason: Pain Scale 1-10 Last Admin: 03/27/17 10:06 Dose: 50 mg Valsartan (Diovan) 160 mg PO DAILY [facility] Last Admin: 03/27/17 09:04 Dose: 160 mg - Labs Labs: 03/25/17 10:30 PT 13.5 Seconds (9.8-13.1) H 03/23/17 12:45 INR 1.2 (0.9-1.2) 03/23/17 12:45 APTT 30.5 Seconds (25.6-37.1) 03/23/17 12:45 - Constitutional Appears: Non-toxic, Chronically Ill - Head Exam Head Exam: NORMOCEPHALIC - Eye Exam Eye Exam: PERRL. absent: Scleral icterus - ENT Exam ENT Exam: Mucous Membranes Dry, Normal External Ear Exam - Neck Exam Neck Exam: absent: Lymphadenopathy - Respiratory Exam Respiratory Exam: Decreased Breath Sounds - Cardiovascular Exam Cardiovascular Exam: REGULAR RHYTHM - GI/Abdominal Exam GI & Abdominal Exam: Distended, Soft. absent: Tenderness - Rectal Exam Rectal Exam: Deferred - Extremities Exam Extremities Exam: absent: Pedal Edema Additional comments: right arm swelling + - Back Exam Back Exam: absent: CVA tenderness (L), CVA tenderness (R) - Neurological Exam Neurological Exam: Alert, Awake, Oriented x3 - Psychiatric Exam Psychiatric exam: Depressed - Skin Skin Exam: Dry Assessment and Plan (1) Deep vein thrombosis (DVT) of right upper extremity Status: Acute (2) History of cervical spinal surgery Status: Acute (3) Hypertension Status: Acute (4) Back pain Status: Acute (5) Cervical disc disease with myelopathy Status: Acute (6) Chronic back pain Status: Acute (7) Deep vein thrombosis (DVT) Status: Acute (8) S/P laminectomy Status: Acute
[2017-03-27 15:53] VITALS: BP 118/76; PULSE 85; RESP 18; TEMP 98.4; O2SAT 97
--- NOTE | 2017-03-27 16:30 | CP.PCM.DIS ---
Provider - Provider Date of Admission: 03/23/17 16:44 Attending physician: Chriss Donato MD Time Spent in preparation of Discharge (in minutes): 45 Diagnosis - Discharge Diagnosis (1) Deep vein thrombosis (DVT) of right upper extremity Status: Acute Comment: Edema somewhat improved and patient with known MTHFR-/Cardiolipin Ab+ Hospital Course - Lab Results Lab Results: Most Recent Lab Values WBC 10.1 K/uL (4.8-10.8) 03/25/17 10:30 RBC 3.47 Mil/uL (4.40-5.90) L 03/25/17 10:30 Hgb 10.4 g/dL (12.0-18.0) L 03/25/17 10:30 Hct 31.9 % (35.0-51.0) L 03/25/17 10:30 MCV 91.7 fl (80.0-94.0) 03/25/17 10:30 MCH 29.9 pg (27.0-31.0) 03/25/17 10:30 MCHC 32.6 g/dL (33.0-37.0) L 03/25/17 10:30 RDW 15.1 % (11.5-14.5) H 03/25/17 10:30 Plt Count 366 K/uL (130-400) 03/25/17 10:30 MPV 8.7 fl (7.2-11.7) 03/23/17 12:45 Neut % (Auto) 58.2 % (50.0-75.0) 03/23/17 12:45 Lymph % (Auto) 26.5 % (20.0-40.0) 03/23/17 12:45 [place] % (Auto) 12.6 % (0.0-10.0) H 03/23/17 12:45 Eos % (Auto) 1.8 % (0.0-4.0) 03/23/17 12:45 Baso % (Auto) 0.9 % (0.0-2.0) 03/23/17 12:45 Neut # 5.7 K/uL (1.8-7.0) 03/23/17 12:45 Lymph # 2.6 K/uL (1.0-4.3) 03/23/17 12:45 [place] # 1.2 K/uL (0.0-0.8) H 03/23/17 12:45 Eos # 0.2 K/uL (0.0-0.7) 03/23/17 12:45 Baso # 0.1 K/uL (0.0-0.2) 03/23/17 12:45 PT 13.5 Seconds (9.8-13.1) H 03/23/17 12:45 INR 1.2 (0.9-1.2) 03/23/17 12:45 APTT 30.5 Seconds (25.6-37.1) 03/23/17 12:45 pO2 34 mm/Hg (30-55) 03/23/17 12:56 VBG pH 7.40 (7.32-7.43) 03/23/17 12:56 VBG pCO2 42 mmHg (40-60) 03/23/17 12:56 VBG HCO3 24.8 mmol/L 03/23/17 12:56 VBG Total CO2 27.3 mmol/L (22-28) 03/23/17 12:56 VBG O2 Sat (Calc) 74.3 % (40-65) H 03/23/17 12:56 VBG Base Excess 1.0 mmol/L (0.0-2.0) 03/23/17 12:56 VBG Potassium 3.4 mmol/L (3.6-5.2) L 03/23/17 12:56 Sodium 138.0 mmol/L (132-148) 03/23/17 12:56 Chloride 104.0 mmol/L (98-107) 03/23/17 12:56 Glucose 95 mg/dL (75-110) 03/23/17 12:56 Lactate 1.0 mmol/L (0.7-2.1) 03/23/17 12:56 FiO2 21.0 % 03/23/17 12:56 Sodium 139 mmol/l (132-148) 03/23/17 12:45 Potassium 3.9 MMOL/L (3.6-5.0) 03/23/17 12:45 Chloride 103 mmol/L (98-107) 03/23/17 12:45 Carbon Dioxide 25 mmol/L (22-30) 03/23/17 12:45 Anion Gap 15 (10-20) 03/23/17 12:45 BUN 12 mg/dl (9-20) 03/23/17 12:45 Creatinine 0.7 mg/dL (0.8-1.5) L 03/23/17 12:45 Est GFR ( Amer) > 60 03/23/17 12:45 Est GFR (Non-Af Amer) > 60 03/23/17 12:45 Random Glucose 98 mg/dL (75-110) 03/23/17 12:45 Calcium 9.1 mg/dL (8.4-10.2) 03/23/17 12:45 Total Bilirubin 0.6 mg/dl (0.2-1.3) 03/23/17 12:45 AST 33 U/L (17-59) 03/23/17 12:45 ALT 35 U/L (21-72) 03/23/17 12:45 Alkaline Phosphatase 85 U/L (38-126) 03/23/17 12:45 Total Protein 7.1 G/DL (6.3-8.2) 03/23/17 12:45 Albumin 4.2 g/dL (3.5-5.0) 03/23/17 12:45 Globulin 2.9 gm/dL (2.2-3.9) 03/23/17 12:45 Albumin/Globulin Ratio 1.5 (1.0-2.1) 03/23/17 12:45 Procalcitonin < 0.05 NG/ML (0.19-0.49) L 03/24/17 12:44 Venous Blood Potassium 3.4 mmol/L (3.6-5.2) L 03/23/17 12:56 Urine Color Yellow (YELLOW) 03/25/17 20:14 Urine Clarity Slighty-cloudy (Clear) 03/25/17 20:14 Urine pH 5.0 (5.0-8.0) 03/25/17 20:14 Ur Specific [place] 1.028 (1.003-1.030) 03/25/17 20:14 Urine Protein Negative mg/dL (NEGATIVE) 03/25/17 20:14 Urine Glucose (UA) Neg mg/dL (Normal) 03/25/17 20:14 Urine Ketones Trace mg/dL (NEGATIVE) 03/25/17 20:14 Urine Blood Negative (NEGATIVE) 03/25/17 20:14 Urine Nitrate Negative (NEGATIVE) 03/25/17 20:14 Urine Bilirubin Negative (NEGATIVE) 03/25/17 20:14 Urine Urobilinogen 0.2-1.0 mg/dL (0.2-1.0) 03/25/17 20:14 Ur Leukocyte Esterase Neg [place]/uL (Negative) 03/25/17 20:14 Urine RBC (Auto) 1 /hpf (0-3) 03/25/17 20:14 Urine Microscopic WBC 2 /hpf (0-5) 03/25/17 20:14 Ur Squamous Epith Cells < 1 /hpf (0-5) 03/25/17 20:14 Vancomycin Trough < 5.0 ug/mL (5.0-10.0) L 03/26/17 06:30 - Hospital Course Hospital Course: Patient seen and examined at bedside this morning with attending. Today: He denies SOB, chest pain, and reports that his arm feels "less tight". 51M admitted for edematous RUE and found to have extensive DVT. He was appropropriately started on therapeutic Lovenox and then transitioned on Xarelto. RUE has improved and and he is safe for transfer to TCU for continued physical rehabilitation. IR Consult: thrombectomy not indicated at this time, RUE compression sleeve, repeat ultrasound in 1 month ID Consult: re-starting antibiotics Heme/Onc: MTHFR-/cardiolipin Ab+, Xarelto Endovascular: anticoagulation Discharge Exam - Head Exam Head Exam: ATRAUMATIC, NORMOCEPHALIC - Eye Exam Eye Exam: EOMI - ENT Exam ENT Exam: Mucous Membranes Moist - Respiratory Exam Respiratory Exam: Clear to PA & Lateral, NORMAL BREATHING PATTERN. absent: Rales - Cardiovascular Exam Cardiovascular Exam: REGULAR RHYTHM. absent: JVD - GI/Abdominal Exam GI & Abdominal Exam: Normal Bowel Sounds, Soft. absent: Tenderness - Extremities Exam Extremities exam: pedal edema Additional comments: RUE: improved swelling (less tense), cap refill < 3s, palp radial - Neurological Exam Neurological exam: Alert, Oriented x3 - Psychiatric Exam Psychiatric exam: Normal Affect, Normal Mood - Skin Skin Exam: Normal Color, Warm Discharge Plan - Discharge Medications Prescriptions: Cefepime 1gm in NS 100ml [Maxipime 1gm] 1 gm IVPB Q12 #14 bag Vancomycin 1 GM [Vancomycin 1GM in Normal Saline Addvantage] 1 gm IVPB DAILY #7 bag - Follow Up Plan Condition: STABLE Disposition: TRANSF TO SNF Patient education suggested?: Yes Instructions: Blood Thinners (DC) Referrals: Chriss Donato MD [Staff Provider] -
== END 2017-03-27 17:00 | DRG 300 ==
LOC: H.ER 11:17 → H.ERHOLD 16:44 → H.TEL 18:21
PROVIDERS: ADMIT Family Medicine; ATTEND Family Medicine
DX: I82.B11 Acute embolism and thrombosis of right subclavian vein (principal); I82.611 Acute embolism and thrombosis of superficial veins of right upper extremity; I82.621 Acute embolism and thrombosis of deep veins of right upper extremity; D68.59 Other primary thrombophilia; G95.9 Disease of spinal cord, unspecified; G89.29 Other chronic pain; I10 Essential (primary) hypertension; K59.00 Constipation, unspecified; M48.02 Spinal stenosis, cervical region; Z79.01 Long term (current) use of anticoagulants; Z86.718 Personal history of other venous thrombosis and embolism; Z87.891 Personal history of nicotine dependence; K29.70 Gastritis, unspecified, without bleeding; M54.16 Radiculopathy, lumbar region; M54.9 Dorsalgia, unspecified; R50.9 Fever, unspecified; R53.1 Weakness

== ENCOUNTER 2017-03-27 16:06 | Inpatient (IN) | payer OTHER, MEDICAID ==
[2017-03-27 17:05] VITALS: BMI 29.8
[2017-03-27 20:30] VITALS: RESP 20
[2017-03-27] MEDS ORDERED: Patient's Own Med (Cefepime 1gm In Ns 100ml [Maxipime 1gm] 1 GM) IVPB SCH (21:00)
[2017-03-27] MEDS: Cefepime 1 GM in Sodium Chloride 0.9% 100 ML IVPB SCH (22:37)
[2017-03-28] MEDS ORDERED: Patient's Own Med (Vancomycin 1 Gm [Vancomycin 1gm In Normal Saline Addvantage] 1 GM) IVPB SCH (09:00)
[2017-03-28] MEDS: Cefepime 1 GM in Sodium Chloride 0.9% 100 ML IVPB SCH ×2 (09:10→17:47)
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
[2017-03-28] MEDS ORDERED: Pantoprazole 40 mg EC Tab PO SCH (11:37)
[2017-03-29] MEDS: Cefepime 1 GM in Sodium Chloride 0.9% 100 ML IVPB SCH ×2 (05:49→16:42)
[2017-03-29] MEDS: LANSOPRAZOLE PO SCH (09:27)
[2017-03-29 11:29] LABS: HEMOGLOBIN 9.9 g/dL (12.0-18.0); MEAN CELL VOLUME 89.4 fl (80.0-94.0); MEAN CORPUSCULAR HEMOGLOBIN 29.2 pg (27.0-31.0); MEAN CORPUSCULAR HGB CONC 32.6 g/dL (33.0-37.0); RBC 3.38 Mil/uL (4.40-5.90); RED CELL DISTRIBUTION WIDTH 15.6 % (11.5-14.5); WHITE BLOOD COUNT 8.2 K/uL (4.8-10.8)
[2017-03-29 20:29] LABS: HEMOGLOBIN 9.6 g/dL (12.0-18.0); MEAN CELL VOLUME 89.4 fl (80.0-94.0); MEAN CORPUSCULAR HEMOGLOBIN 29.8 pg (27.0-31.0); MEAN CORPUSCULAR HGB CONC 33.4 g/dL (33.0-37.0); RBC 3.21 Mil/uL (4.40-5.90); RED CELL DISTRIBUTION WIDTH 15.7 % (11.5-14.5); WHITE BLOOD COUNT 9.5 K/uL (4.8-10.8)
[2017-03-30] MEDS: Cefepime 1 GM in Sodium Chloride 0.9% 100 ML IVPB SCH ×2 (04:04→18:00)
[2017-03-30] MEDS: LANSOPRAZOLE PO SCH (08:06)
[2017-03-31] MEDS: Cefepime 1 GM in Sodium Chloride 0.9% 100 ML IVPB SCH ×2 (06:08→17:16)
[2017-03-31] MEDS: LANSOPRAZOLE PO SCH (08:29)
--- NOTE | 2017-03-31 09:53 | CP.PCM.PN ---
Subjective - Date & Time of Evaluation Date of Evaluation: 03/29/17 Time of Evaluation: 12:10 - Subjective Subjective: Patient had an episode of coffee ground vomitus. Denies any abdominal pain or fever. Has no chest pain or SOB. On xarelto. Objective - Vital Signs/Intake and Output Vital Signs (last 24 hours): Temp Pulse Resp BP Pulse Ox 98.1 F 70 20 139/76 99 03/31/17 08:32 03/31/17 08:32 03/31/17 08:32 03/31/17 08:32 03/31/17 08:32 - Medications Medications: Current Medications Acetaminophen (Tylenol 325mg Tab) 650 mg PO Q4 PRN PRN Reason: Pain, Mild (1-3) Amlodipine Besylate (Norvasc) 5 mg PO DAILY [facility] Last Admin: 03/31/17 08:29 Dose: 5 mg Enoxaparin Sodium (Lovenox) 80 mg SC Q12 [facility] PRN Reason: Protocol Home Med (Patient's Own Medication) 1 unit PO DAILY [facility] Last Admin: 03/31/17 08:29 Dose: 1 unit Vancomycin HCl 1 gm/ Sodium (Chloride) 250 mls @ 125 mls/hr IVPB DAILY@1700 [facility] Last Admin: 03/30/17 18:01 Dose: 125 mls/hr Cefepime HCl 1 gm/ Sodium (Chloride) 100 mls @ 100 mls/hr IVPB Q12@0500,1700 [facility] Last Admin: 03/31/17 06:08 Dose: 100 mls/hr Lactulose (Enulose) 20 gm PO DAILY [facility] Last Admin: 03/31/17 08:29 Dose: 20 gm Ondansetron HCl (Zofran Inj) 4 mg IVP Q6 PRN PRN Reason: Nausea/Vomiting Last Admin: 03/29/17 12:21 Dose: 4 mg Pantoprazole Sodium (Protonix Inj) 40 mg IVP Q12 [facility] Last Admin: 03/31/17 08:29 Dose: 40 mg Tramadol HCl (Ultram) 50 mg PO BID PRN PRN Reason: Pain, moderate (4-7) Last Admin: 03/30/17 18:06 Dose: 50 mg Valsartan (Diovan) 160 mg PO DAILY [facility] Last Admin: 03/31/17 08:29 Dose: 160 mg - Labs Labs: 03/29/17 20:15 - Head Exam Head Exam: NORMAL INSPECTION - Eye Exam Eye Exam: Normal appearance - ENT Exam ENT Exam: Mucous Membranes Moist - Respiratory Exam Respiratory Exam: Clear to Ausculation Bilateral - Cardiovascular Exam Cardiovascular Exam: REGULAR RHYTHM - GI/Abdominal Exam GI & Abdominal Exam: Normal Bowel Sounds - Neurological Exam Neurological Exam: CN II-XII Intact, Oriented x3 Assessment and Plan (1) Deep vein thrombosis (DVT) of right upper extremity Status: Acute (2) DVT of lower extremity, bilateral Status: Acute (3) Constipation Status: Acute (4) Hypertension Status: Acute - Assessment and Plan (Free Text) Plan: cont meds Hold xarelto do serial CBC protonix 40 bid GI eval cardiology eval
--- NOTE | 2017-03-31 09:56 | CP.PCM.PN ---
Subjective - Date & Time of Evaluation Date of Evaluation: 03/30/17 Time of Evaluation: 09:54 - Subjective Subjective: Has no episode of GI bleed Has no fever Has no abd pain Tolerates po and meals stool guiac positive Objective - Vital Signs/Intake and Output Vital Signs (last 24 hours): Temp Pulse Resp BP Pulse Ox 98.1 F 70 20 139/76 99 03/31/17 08:32 03/31/17 08:32 03/31/17 08:32 03/31/17 08:32 03/31/17 08:32 - Medications Medications: Current Medications Acetaminophen (Tylenol 325mg Tab) 650 mg PO Q4 PRN PRN Reason: Pain, Mild (1-3) Amlodipine Besylate (Norvasc) 5 mg PO DAILY [facility] Last Admin: 03/31/17 08:29 Dose: 5 mg Enoxaparin Sodium (Lovenox) 80 mg SC Q12 [facility] PRN Reason: Protocol Home Med (Patient's Own Medication) 1 unit PO DAILY [facility] Last Admin: 03/31/17 08:29 Dose: 1 unit Vancomycin HCl 1 gm/ Sodium (Chloride) 250 mls @ 125 mls/hr IVPB DAILY@1700 [facility] Last Admin: 03/30/17 18:01 Dose: 125 mls/hr Cefepime HCl 1 gm/ Sodium (Chloride) 100 mls @ 100 mls/hr IVPB Q12@0500,1700 [facility] Last Admin: 03/31/17 06:08 Dose: 100 mls/hr Lactulose (Enulose) 20 gm PO DAILY [facility] Last Admin: 03/31/17 08:29 Dose: 20 gm Ondansetron HCl (Zofran Inj) 4 mg IVP Q6 PRN PRN Reason: Nausea/Vomiting Last Admin: 03/29/17 12:21 Dose: 4 mg Pantoprazole Sodium (Protonix Inj) 40 mg IVP Q12 [facility] Last Admin: 03/31/17 08:29 Dose: 40 mg Tramadol HCl (Ultram) 50 mg PO BID PRN PRN Reason: Pain, moderate (4-7) Last Admin: 03/30/17 18:06 Dose: 50 mg Valsartan (Diovan) 160 mg PO DAILY [facility] Last Admin: 03/31/17 08:29 Dose: 160 mg - Labs Labs: 03/29/17 20:15 - Head Exam Head Exam: NORMAL INSPECTION - Eye Exam Eye Exam: Normal appearance - ENT Exam ENT Exam: Mucous Membranes Moist - Cardiovascular Exam Cardiovascular Exam: REGULAR RHYTHM - GI/Abdominal Exam GI & Abdominal Exam: Normal Bowel Sounds - Extremities Exam Additional comments: persistent swelling of the right upper ext but has not worsened or increased in size. - Psychiatric Exam Psychiatric exam: Normal Mood - Skin Skin Exam: Dry Assessment and Plan (1) Deep vein thrombosis (DVT) of right upper extremity Status: Acute (2) DVT of lower extremity, bilateral Status: Acute (3) Constipation Status: Acute (4) Hypertension Status: Acute - Assessment and Plan (Free Text) Plan: Con tmeds cont to hold Neil consult with Dr Eneida Vernon follow up GI
--- NOTE | 2017-03-31 10:01 | CP.PCM.PN ---
Subjective - Date & Time of Evaluation Date of Evaluation: 03/31/17 Time of Evaluation: 10:00 - Subjective Subjective: Had no other episode of GI bleed since friday Has no abd pain Has no fever Objective - Vital Signs/Intake and Output Vital Signs (last 24 hours): Temp Pulse Resp BP Pulse Ox 98.1 F 70 20 139/76 99 03/31/17 08:32 03/31/17 08:32 03/31/17 08:32 03/31/17 08:32 03/31/17 08:32 - Medications Medications: Current Medications Acetaminophen (Tylenol 325mg Tab) 650 mg PO Q4 PRN PRN Reason: Pain, Mild (1-3) Amlodipine Besylate (Norvasc) 5 mg PO DAILY [facility] Last Admin: 03/31/17 08:29 Dose: 5 mg Enoxaparin Sodium (Lovenox) 80 mg SC Q12 [facility] PRN Reason: Protocol Home Med (Patient's Own Medication) 1 unit PO DAILY [facility] Last Admin: 03/31/17 08:29 Dose: 1 unit Vancomycin HCl 1 gm/ Sodium (Chloride) 250 mls @ 125 mls/hr IVPB DAILY@1700 [facility] Last Admin: 03/30/17 18:01 Dose: 125 mls/hr Cefepime HCl 1 gm/ Sodium (Chloride) 100 mls @ 100 mls/hr IVPB Q12@0500,1700 [facility] Last Admin: 03/31/17 06:08 Dose: 100 mls/hr Lactulose (Enulose) 20 gm PO DAILY [facility] Last Admin: 03/31/17 08:29 Dose: 20 gm Ondansetron HCl (Zofran Inj) 4 mg IVP Q6 PRN PRN Reason: Nausea/Vomiting Last Admin: 03/29/17 12:21 Dose: 4 mg Pantoprazole Sodium (Protonix Inj) 40 mg IVP Q12 [facility] Last Admin: 03/31/17 08:29 Dose: 40 mg Tramadol HCl (Ultram) 50 mg PO BID PRN PRN Reason: Pain, moderate (4-7) Last Admin: 03/30/17 18:06 Dose: 50 mg Valsartan (Diovan) 160 mg PO DAILY [facility] Last Admin: 03/31/17 08:29 Dose: 160 mg - Labs Labs: 03/29/17 20:15 - Head Exam Head Exam: NORMAL INSPECTION - Eye Exam Eye Exam: Normal appearance - ENT Exam ENT Exam: Mucous Membranes Moist - Respiratory Exam Respiratory Exam: Clear to Ausculation Bilateral - Cardiovascular Exam Cardiovascular Exam: REGULAR RHYTHM - GI/Abdominal Exam GI & Abdominal Exam: Normal Bowel Sounds - Neurological Exam Neurological Exam: Awake, Oriented x3 - Psychiatric Exam Psychiatric exam: Normal Mood Assessment and Plan (1) Deep vein thrombosis (DVT) of right upper extremity Status: Acute (2) Hypercoagulation syndrome Status: Acute (3) DVT of lower extremity, bilateral Status: Acute (4) Constipation Status: Acute (5) Hypertension Status: Acute - Assessment and Plan (Free Text) Plan: Cont meds Cont tx monitor cbc cmp today may have phys therapy without restriction. start Lovenox
[2017-03-31] MEDS: Enoxaparin 80 mg Syringe SC SCH ×2 (10:41→21:09)
--- NOTE | 2017-03-31 11:41 | CP.PCM.PN ---
Subjective - Date & Time of Evaluation Date of Evaluation: 03/31/17 Time of Evaluation: 11:33 - Subjective Subjective: Pt had a upper GI bleed on the weekend and the xarelto had to be stopped. There has not been any mote bleeding since then . It is not known if the pt has a gastric ulcer. I feel we should put him on lovenox while he is in the hospital because it has a short half life and can be reversed if needed. I suggest a GI work up to see if pt has a bleeding ulcer . Objective - Vital Signs/Intake and Output Vital Signs (last 24 hours): Temp Pulse Resp BP Pulse Ox 98.1 F 70 20 139/76 99 03/31/17 08:32 03/31/17 08:32 03/31/17 08:32 03/31/17 08:32 03/31/17 08:32 - Medications Medications: Current Medications Acetaminophen (Tylenol 325mg Tab) 650 mg PO Q4 PRN PRN Reason: Pain, Mild (1-3) Amlodipine Besylate (Norvasc) 5 mg PO DAILY [facility] Last Admin: 03/31/17 08:29 Dose: 5 mg Enoxaparin Sodium (Lovenox) 80 mg SC Q12 [facility] PRN Reason: Protocol Last Admin: 03/31/17 10:41 Dose: 80 mg Home Med (Patient's Own Medication) 1 unit PO DAILY [facility] Last Admin: 03/31/17 08:29 Dose: 1 unit Vancomycin HCl 1 gm/ Sodium (Chloride) 250 mls @ 125 mls/hr IVPB DAILY@1700 [facility] Last Admin: 03/30/17 18:01 Dose: 125 mls/hr Cefepime HCl 1 gm/ Sodium (Chloride) 100 mls @ 100 mls/hr IVPB Q12@0500,1700 [facility] Last Admin: 03/31/17 06:08 Dose: 100 mls/hr Lactulose (Enulose) 20 gm PO DAILY [facility] Last Admin: 03/31/17 08:29 Dose: 20 gm Ondansetron HCl (Zofran Inj) 4 mg IVP Q6 PRN PRN Reason: Nausea/Vomiting Last Admin: 03/29/17 12:21 Dose: 4 mg Pantoprazole Sodium (Protonix Inj) 40 mg IVP Q12 [facility] Last Admin: 03/31/17 08:29 Dose: 40 mg Tramadol HCl (Ultram) 50 mg PO BID PRN PRN Reason: Pain, moderate (4-7) Last Admin: 03/31/17 10:10 Dose: 50 mg Valsartan (Diovan) 160 mg PO DAILY [facility] Last Admin: 03/31/17 08:29 Dose: 160 mg - Labs Labs: 03/29/17 20:15
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
[2017-04-01] MEDS: Cefepime 1 GM in Sodium Chloride 0.9% 100 ML IVPB SCH ×2 (04:53→16:36)
[2017-04-01] MEDS: Enoxaparin 80 mg Syringe SC SCH ×2 (08:19→20:31)
[2017-04-01] MEDS: LANSOPRAZOLE PO SCH (08:22)
--- NOTE | 2017-04-01 08:47 | CP.PCM.PN ---
Subjective - Date & Time of Evaluation Date of Evaluation: 04/01/17 Time of Evaluation: 08:45 - Subjective Subjective: Patient feels a lot better. Has no chest pain or SOB Afebrile Has less tenderness and swelling on the right upper arm. No episode of hematemesis. Objective - Vital Signs/Intake and Output Vital Signs (last 24 hours): Temp Pulse Resp BP Pulse Ox 98.4 F 73 20 130/88 97 04/01/17 08:08 04/01/17 08:21 04/01/17 08:08 04/01/17 08:21 04/01/17 08:08 - Medications Medications: Current Medications Acetaminophen (Tylenol 325mg Tab) 650 mg PO Q4 PRN PRN Reason: Pain, Mild (1-3) Amlodipine Besylate (Norvasc) 5 mg PO DAILY [facility] Last Admin: 04/01/17 08:21 Dose: 5 mg Enoxaparin Sodium (Lovenox) 80 mg SC Q12 [facility] PRN Reason: Protocol Last Admin: 04/01/17 08:19 Dose: 80 mg Home Med (Patient's Own Medication) 1 unit PO DAILY [facility] Last Admin: 04/01/17 08:22 Dose: 1 unit Vancomycin HCl 1 gm/ Sodium (Chloride) 250 mls @ 125 mls/hr IVPB DAILY@1700 [facility] Last Admin: 03/31/17 17:16 Dose: 125 mls/hr Cefepime HCl 1 gm/ Sodium (Chloride) 100 mls @ 100 mls/hr IVPB Q12@0500,1700 [facility] Last Admin: 04/01/17 04:53 Dose: 100 mls/hr Lactulose (Enulose) 20 gm PO DAILY [facility] Last Admin: 04/01/17 08:20 Dose: 20 gm Ondansetron HCl (Zofran Inj) 4 mg IVP Q6 PRN PRN Reason: Nausea/Vomiting Last Admin: 03/29/17 12:21 Dose: 4 mg Pantoprazole Sodium (Protonix Inj) 40 mg IVP Q12 [facility] Last Admin: 04/01/17 08:20 Dose: 40 mg Tramadol HCl (Ultram) 50 mg PO BID PRN PRN Reason: Pain, moderate (4-7) Last Admin: 04/01/17 08:17 Dose: 50 mg Valsartan (Diovan) 160 mg PO DAILY [facility] Last Admin: 04/01/17 08:21 Dose: 160 mg - Labs Labs: 03/29/17 20:15 - Head Exam Head Exam: NORMAL INSPECTION - Eye Exam Eye Exam: Normal appearance - ENT Exam ENT Exam: Mucous Membranes Moist - Respiratory Exam Respiratory Exam: Clear to Ausculation Bilateral - Cardiovascular Exam Cardiovascular Exam: REGULAR RHYTHM - GI/Abdominal Exam GI & Abdominal Exam: Normal Bowel Sounds - Neurological Exam Neurological Exam: CN II-XII Intact, Oriented x3 - Psychiatric Exam Psychiatric exam: Normal Mood Assessment and Plan (1) Deep vein thrombosis (DVT) of right upper extremity Status: Acute (2) Hypercoagulation syndrome Status: Acute (3) DVT of lower extremity, bilateral Status: Acute (4) Constipation Status: Acute (5) Hypertension Status: Acute - Assessment and Plan (Free Text) Plan: Cont Lovenox follow up with GI cont PT con tmeds. Cont Protonix bid
--- NOTE | 2017-04-01 11:44 | CP.PCM.PN ---
Subjective - Date & Time of Evaluation Date of Evaluation: 04/01/17 Time of Evaluation: 11:40 - Subjective Subjective: Pt is afebrile , and the arm swelling is getting lesser on lovenox. Also there is no bleeding from any site. Will continue lovenox until the arm is healed, then may consider liquis. Objective - Vital Signs/Intake and Output Vital Signs (last 24 hours): Temp Pulse Resp BP Pulse Ox 98.4 F 73 20 130/88 97 04/01/17 08:08 04/01/17 08:21 04/01/17 08:08 04/01/17 08:21 04/01/17 08:08 - Medications Medications: Current Medications Acetaminophen (Tylenol 325mg Tab) 650 mg PO Q4 PRN PRN Reason: Pain, Mild (1-3) Amlodipine Besylate (Norvasc) 5 mg PO DAILY [facility] Last Admin: 04/01/17 08:21 Dose: 5 mg Enoxaparin Sodium (Lovenox) 80 mg SC Q12 [facility] PRN Reason: Protocol Last Admin: 04/01/17 08:19 Dose: 80 mg Home Med (Patient's Own Medication) 1 unit PO DAILY [facility] Last Admin: 04/01/17 08:22 Dose: 1 unit Vancomycin HCl 1 gm/ Sodium (Chloride) 250 mls @ 125 mls/hr IVPB DAILY@1700 [facility] Last Admin: 03/31/17 17:16 Dose: 125 mls/hr Cefepime HCl 1 gm/ Sodium (Chloride) 100 mls @ 100 mls/hr IVPB Q12@0500,1700 [facility] Last Admin: 04/01/17 04:53 Dose: 100 mls/hr Lactulose (Enulose) 20 gm PO DAILY [facility] Last Admin: 04/01/17 08:20 Dose: 20 gm Ondansetron HCl (Zofran Inj) 4 mg IVP Q6 PRN PRN Reason: Nausea/Vomiting Last Admin: 03/29/17 12:21 Dose: 4 mg Pantoprazole Sodium (Protonix Inj) 40 mg IVP Q12 [facility] Last Admin: 04/01/17 08:20 Dose: 40 mg Tramadol HCl (Ultram) 50 mg PO BID PRN PRN Reason: Pain, moderate (4-7) Last Admin: 04/01/17 08:17 Dose: 50 mg Valsartan (Diovan) 160 mg PO DAILY [facility] Last Admin: 04/01/17 08:21 Dose: 160 mg - Labs Labs: 03/29/17 20:15
--- NOTE | 2017-04-01 12:40 | RAD ---
HISTORY: R/O ULCER COMPARISON: Comparison made with plain film radiographs of the abdomen and pelvis 02/26/2017 FINDINGS: BOWEL: Normal. No obstruction. No gross free intraperitoneal air seen under the diaphragmatic surfaces however note evaluation for free air is limited due to the lack of erect view BONES: No acute fractures. Mild side bending to the right versus mild dextroscoliosis centered at the thoracolumbar junction. OTHER FINDINGS: In situ IVC filter unchanged IMPRESSION: No evidence of acute mechanical bowel obstruction. No gross free air seen on this limited supine study note that evaluation for free air is limited due to the lack of erect view
[2017-04-02] MEDS: Cefepime 1 GM in Sodium Chloride 0.9% 100 ML IVPB SCH ×2 (04:24→17:17)
[2017-04-02] MEDS: Enoxaparin 80 mg Syringe SC SCH ×2 (09:20→20:17)
[2017-04-02] MEDS: LANSOPRAZOLE PO SCH (09:20)
[2017-04-02] MEDS: Pantoprazole 40 mg EC Tab PO SCH ×2 (09:51→17:23)
--- NOTE | 2017-04-02 10:21 | CP.PCM.PN ---
Subjective - Date & Time of Evaluation Date of Evaluation: 04/02/17 Time of Evaluation: 10:19 - Subjective Subjective: Patient continues to do well. Has no episode of upper GI bleed. Has no fever. Objective - Vital Signs/Intake and Output Vital Signs (last 24 hours): Temp Pulse Resp BP Pulse Ox 97.5 F L 94 H 20 124/74 98 04/02/17 08:10 04/02/17 09:20 04/02/17 08:10 04/02/17 09:20 04/02/17 08:10 - Medications Medications: Current Medications Acetaminophen (Tylenol 325mg Tab) 650 mg PO Q4 PRN PRN Reason: Pain, Mild (1-3) Last Admin: 04/01/17 20:30 Dose: 650 mg Amlodipine Besylate (Norvasc) 5 mg PO DAILY [facility] Last Admin: 04/02/17 09:20 Dose: 5 mg Enoxaparin Sodium (Lovenox) 80 mg SC Q12 [facility] PRN Reason: Protocol Last Admin: 04/02/17 09:20 Dose: 80 mg Home Med (Patient's Own Medication) 1 unit PO DAILY [facility] Last Admin: 04/02/17 09:20 Dose: 1 unit Vancomycin HCl 1 gm/ Sodium (Chloride) 250 mls @ 125 mls/hr IVPB DAILY@1700 [facility] Last Admin: 04/01/17 17:32 Dose: 125 mls/hr Cefepime HCl 1 gm/ Sodium (Chloride) 100 mls @ 100 mls/hr IVPB Q12@0500,1700 [facility] Last Admin: 04/02/17 04:24 Dose: 100 mls/hr Lactulose (Enulose) 20 gm PO DAILY [facility] Last Admin: 04/02/17 09:20 Dose: 20 gm Ondansetron HCl (Zofran Inj) 4 mg IVP Q6 PRN PRN Reason: Nausea/Vomiting Last Admin: 03/29/17 12:21 Dose: 4 mg Pantoprazole Sodium (Protonix Ec Tab) 40 mg PO BID [facility] Last Admin: 04/02/17 09:51 Dose: 40 mg Tramadol HCl (Ultram) 50 mg PO BID PRN PRN Reason: Pain, moderate (4-7) Last Admin: 04/01/17 08:17 Dose: 50 mg Valsartan (Diovan) 160 mg PO DAILY [facility] Last Admin: 04/02/17 09:19 Dose: 160 mg - Labs Labs: 03/29/17 20:15 - Head Exam Head Exam: NORMAL INSPECTION - Eye Exam Eye Exam: Normal appearance - ENT Exam ENT Exam: Mucous Membranes Moist - Cardiovascular Exam Cardiovascular Exam: REGULAR RHYTHM - GI/Abdominal Exam GI & Abdominal Exam: Normal Bowel Sounds - Neurological Exam Neurological Exam: Awake, Oriented x3 - Psychiatric Exam Psychiatric exam: Normal Mood Assessment and Plan (1) Deep vein thrombosis (DVT) of right upper extremity Status: Acute (2) Hypercoagulation syndrome Status: Acute (3) DVT of lower extremity, bilateral Status: Acute (4) Constipation Status: Acute (5) Hypertension Status: Acute - Assessment and Plan (Free Text) Plan: Cont meds Cont PT Cont tx pain meds. Phys therapy stool softener
--- NOTE | 2017-04-02 22:26 | CP.PCM.DIS ---
Provider - Provider Date of Admission: 02/24/17 17:04 Attending physician: Chriss Donato MD Time Spent in preparation of Discharge (in minutes): 15 (Dc for03/17) Hospital Course - Lab Results Lab Results: Most Recent Lab Values WBC 9.5 K/uL (4.8-10.8) 03/29/17 20:15 RBC 3.21 Mil/uL (4.40-5.90) L 03/29/17 20:15 Hgb 9.6 g/dL (12.0-18.0) L 03/29/17 20:15 Hct 28.7 % (35.0-51.0) L 03/29/17 20:15 MCV 89.4 fl (80.0-94.0) 03/29/17 20:15 MCH 29.8 pg (27.0-31.0) 03/29/17 20:15 MCHC 33.4 g/dL (33.0-37.0) 03/29/17 20:15 RDW 15.7 % (11.5-14.5) H 03/29/17 20:15 Plt Count 501 K/uL (130-400) H 03/29/17 20:15 Stool Occult Blood Positive (NEGATIVE) H 03/30/17 11:40 - Hospital Course Hospital Course: patient admitted on 02/24 Dc to 03/17 patient received Physical and occupational and rec therapy Follow up with PMD in 1 to 2 weeks Discharge Exam - Head Exam Head Exam: NORMAL INSPECTION Discharge Plan - Follow Up Plan Condition: GOOD Disposition: HOME/ ROUTINE
[2017-04-03] MEDS: Enoxaparin 80 mg Syringe SC SCH (08:30)
[2017-04-03] MEDS: Pantoprazole 40 mg EC Tab PO SCH ×2 (08:30→17:21)
--- NOTE | 2017-04-03 08:41 | CP.PCM.PN ---
Subjective - Date & Time of Evaluation Date of Evaluation: 04/03/17 Time of Evaluation: 08:39 - Subjective Subjective: Pt's right arm is looking much better. No c/o pain. He is on lovenox which he is tolerating well. No gi bleeding seen in the last 4 days. He is to have an endoscopy done tomorrow. Objective - Vital Signs/Intake and Output Vital Signs (last 24 hours): Temp Pulse Resp BP Pulse Ox 97.9 F 68 20 110/70 100 04/03/17 08:04 04/03/17 08:04 04/03/17 08:04 04/03/17 08:04 04/03/17 08:04 - Medications Medications: Current Medications Acetaminophen (Tylenol 325mg Tab) 650 mg PO Q4 PRN PRN Reason: Pain, Mild (1-3) Last Admin: 04/01/17 20:30 Dose: 650 mg Amlodipine Besylate (Norvasc) 5 mg PO DAILY [facility] Last Admin: 04/02/17 09:20 Dose: 5 mg Enoxaparin Sodium (Lovenox) 80 mg SC Q12 [facility] PRN Reason: Protocol Last Admin: 04/03/17 08:30 Dose: 80 mg Vancomycin HCl 1 gm/ Sodium (Chloride) 250 mls @ 125 mls/hr IVPB DAILY@1700 [facility] Last Admin: 04/02/17 19:23 Dose: Not Given Lactulose (Enulose) 20 gm PO DAILY [facility] Last Admin: 04/03/17 08:30 Dose: 20 gm Ondansetron HCl (Zofran Inj) 4 mg IVP Q6 PRN PRN Reason: Nausea/Vomiting Last Admin: 03/29/17 12:21 Dose: 4 mg Pantoprazole Sodium (Protonix Ec Tab) 40 mg PO BID [facility] Last Admin: 04/03/17 08:30 Dose: 40 mg Tramadol HCl (Ultram) 50 mg PO BID PRN PRN Reason: Pain, moderate (4-7) Last Admin: 04/01/17 08:17 Dose: 50 mg Valsartan (Diovan) 160 mg PO DAILY [facility] Last Admin: 04/03/17 08:30 Dose: 160 mg - Labs Labs: 03/29/17 20:15
[2017-04-03] MEDS ORDERED: Enoxaparin 80 mg Syringe SC SCH (21:00)
[2017-04-04] MEDS: Pantoprazole 40 mg EC Tab PO SCH ×2 (08:24→17:44)
--- NOTE | 2017-04-04 10:04 | CP.PCM.PN ---
Subjective - Date & Time of Evaluation Date of Evaluation: 04/04/17 Time of Evaluation: 10:02 - Subjective Subjective: Pt's arm looks better; He is on lovenox now.. He is going to a endoscopy now to see if there is an ulcer in the gastric area. . If negative, can switch him to eliquis. Objective - Vital Signs/Intake and Output Vital Signs (last 24 hours): Temp Pulse Resp BP Pulse Ox 97.9 F 63 20 124/84 99 04/04/17 08:23 04/04/17 08:23 04/04/17 08:23 04/04/17 08:23 04/04/17 08:23 - Medications Medications: Current Medications Acetaminophen (Tylenol 325mg Tab) 650 mg PO Q4 PRN PRN Reason: Pain, Mild (1-3) Last Admin: 04/01/17 20:30 Dose: 650 mg Amlodipine Besylate (Norvasc) 5 mg PO DAILY [facility] Last Admin: 04/04/17 08:23 Dose: 5 mg Lactulose (Enulose) 20 gm PO DAILY [facility] Last Admin: 04/03/17 08:30 Dose: 20 gm Ondansetron HCl (Zofran Inj) 4 mg IVP Q6 PRN PRN Reason: Nausea/Vomiting Last Admin: 03/29/17 12:21 Dose: 4 mg Pantoprazole Sodium (Protonix Ec Tab) 40 mg PO BID [facility] Last Admin: 04/04/17 08:24 Dose: Not Given Tramadol HCl (Ultram) 50 mg PO BID PRN PRN Reason: Pain, moderate (4-7) Last Admin: 04/03/17 23:24 Dose: 50 mg Valsartan (Diovan) 160 mg PO DAILY [facility] Last Admin: 04/04/17 08:22 Dose: 160 mg - Labs Labs: 03/29/17 20:15
[2017-04-04] MEDS: Enoxaparin 80 mg Syringe SC SCH (20:54)
[2017-04-05] MEDS: Pantoprazole 40 mg EC Tab PO SCH (08:49)
[2017-04-05] MEDS: Enoxaparin 80 mg Syringe SC SCH ×2 (08:50→22:01)
[2017-04-05] MEDS ORDERED: Pantoprazole 40 mg EC Tab PO ONE (09:00)
[2017-04-06] MEDS: Pantoprazole 40 mg EC Tab PO SCH ×2 (09:06→16:58)
[2017-04-06] MEDS: Enoxaparin 80 mg Syringe SC SCH (09:06)
[2017-04-07 06:21] LABS: MEAN CELL VOLUME 88.6 fl (80.0-94.0); MEAN CORPUSCULAR HEMOGLOBIN 28.8 pg (27.0-31.0); MEAN CORPUSCULAR HGB CONC 32.5 g/dL (33.0-37.0); RBC 3.46 Mil/uL (4.40-5.90); RED CELL DISTRIBUTION WIDTH 15.4 % (11.5-14.5); WHITE BLOOD COUNT 6.5 K/uL (4.8-10.8)
[2017-04-07] MEDS: Enoxaparin 80 mg Syringe SC SCH (08:59)
[2017-04-07] MEDS: Pantoprazole 40 mg EC Tab PO SCH (09:00)
--- NOTE | 2017-04-07 13:54 | CP.PCM.PN ---
Subjective - Date & Time of Evaluation Date of Evaluation: 04/03/17 Time of Evaluation: 09:30 - Subjective Subjective: Patient is doing well. Has no chest pain or SOB. Objective - Vital Signs/Intake and Output Vital Signs (last 24 hours): Temp Pulse Resp BP Pulse Ox 98.1 F 66 20 127/82 100 04/07/17 10:00 04/07/17 10:00 04/07/17 10:00 04/07/17 10:00 04/07/17 10:00 - Medications Medications: Current Medications Acetaminophen (Tylenol 325mg Tab) 650 mg PO Q4 PRN PRN Reason: Pain, Mild (1-3) Last Admin: 04/07/17 06:30 Dose: 650 mg Amlodipine Besylate (Norvasc) 5 mg PO DAILY [facility] Last Admin: 04/07/17 09:00 Dose: 5 mg Enoxaparin Sodium (Lovenox) 80 mg SC Q12 [facility] PRN Reason: Protocol Last Admin: 04/07/17 08:59 Dose: Not Given Lactulose (Enulose) 20 gm PO DAILY [facility] Last Admin: 04/07/17 09:00 Dose: 20 gm Ondansetron HCl (Zofran Inj) 4 mg IVP Q6 PRN PRN Reason: Nausea/Vomiting Last Admin: 04/06/17 20:46 Dose: 4 mg Pantoprazole Sodium (Protonix Ec Tab) 40 mg PO BID [facility] Last Admin: 04/07/17 09:00 Dose: 40 mg Valsartan (Diovan) 160 mg PO DAILY [facility] Last Admin: 04/07/17 09:00 Dose: 160 mg - Labs Labs: 04/07/17 06:00 Assessment and Plan (1) Deep vein thrombosis (DVT) of right upper extremity Status: Acute (2) Hypercoagulation syndrome Status: Acute (3) DVT of lower extremity, bilateral Status: Acute (4) Constipation Status: Acute (5) Hypertension Status: Acute
--- NOTE | 2017-04-07 13:55 | CP.PCM.PN ---
Subjective - Date & Time of Evaluation Date of Evaluation: 04/04/17 Time of Evaluation: 10:54 - Subjective Subjective: Patient remained stable Has no episode of GI bleed. Objective - Vital Signs/Intake and Output Vital Signs (last 24 hours): Temp Pulse Resp BP Pulse Ox 98.1 F 66 20 127/82 100 04/07/17 10:00 04/07/17 10:00 04/07/17 10:00 04/07/17 10:00 04/07/17 10:00 - Medications Medications: Current Medications Acetaminophen (Tylenol 325mg Tab) 650 mg PO Q4 PRN PRN Reason: Pain, Mild (1-3) Last Admin: 04/07/17 06:30 Dose: 650 mg Amlodipine Besylate (Norvasc) 5 mg PO DAILY [facility] Last Admin: 04/07/17 09:00 Dose: 5 mg Enoxaparin Sodium (Lovenox) 80 mg SC Q12 [facility] PRN Reason: Protocol Last Admin: 04/07/17 08:59 Dose: Not Given Lactulose (Enulose) 20 gm PO DAILY [facility] Last Admin: 04/07/17 09:00 Dose: 20 gm Ondansetron HCl (Zofran Inj) 4 mg IVP Q6 PRN PRN Reason: Nausea/Vomiting Last Admin: 04/06/17 20:46 Dose: 4 mg Pantoprazole Sodium (Protonix Ec Tab) 40 mg PO BID [facility] Last Admin: 04/07/17 09:00 Dose: 40 mg Valsartan (Diovan) 160 mg PO DAILY [facility] Last Admin: 04/07/17 09:00 Dose: 160 mg - Labs Labs: 04/07/17 06:00 Assessment and Plan (1) Deep vein thrombosis (DVT) of right upper extremity Status: Acute (2) Hypercoagulation syndrome Status: Acute (3) DVT of lower extremity, bilateral Status: Acute (4) Constipation Status: Acute (5) Hypertension Status: Acute
--- NOTE | 2017-04-07 13:56 | CP.PCM.PN ---
Subjective - Date & Time of Evaluation Date of Evaluation: 04/05/17 Time of Evaluation: 10:00 - Subjective Subjective: Patient remains well Has no vomiting Tolerates food. Doing well with PT Objective - Vital Signs/Intake and Output Vital Signs (last 24 hours): Temp Pulse Resp BP Pulse Ox 98.1 F 66 20 127/82 100 04/07/17 10:00 04/07/17 10:00 04/07/17 10:00 04/07/17 10:00 04/07/17 10:00 - Medications Medications: Current Medications Acetaminophen (Tylenol 325mg Tab) 650 mg PO Q4 PRN PRN Reason: Pain, Mild (1-3) Last Admin: 04/07/17 06:30 Dose: 650 mg Amlodipine Besylate (Norvasc) 5 mg PO DAILY [facility] Last Admin: 04/07/17 09:00 Dose: 5 mg Enoxaparin Sodium (Lovenox) 80 mg SC Q12 SUSAN PRN Reason: Protocol Last Admin: 04/07/17 08:59 Dose: Not Given Lactulose (Enulose) 20 gm PO DAILY [facility] Last Admin: 04/07/17 09:00 Dose: 20 gm Ondansetron HCl (Zofran Inj) 4 mg IVP Q6 PRN PRN Reason: Nausea/Vomiting Last Admin: 04/06/17 20:46 Dose: 4 mg Pantoprazole Sodium (Protonix Ec Tab) 40 mg PO BID [facility] Last Admin: 04/07/17 09:00 Dose: 40 mg Valsartan (Diovan) 160 mg PO DAILY [facility] Last Admin: 04/07/17 09:00 Dose: 160 mg - Labs Labs: 04/07/17 06:00 Assessment and Plan (1) Deep vein thrombosis (DVT) of right upper extremity Status: Acute (2) Hypercoagulation syndrome Status: Acute (3) DVT of lower extremity, bilateral Status: Acute (4) Constipation Status: Acute (5) Hypertension Status: Acute
--- NOTE | 2017-04-07 13:57 | CP.PCM.PN ---
Subjective - Date & Time of Evaluation Date of Evaluation: 04/06/17 Time of Evaluation: 10:00 - Subjective Subjective: Patient remains stable Has no chest pain or SOB. Objective - Vital Signs/Intake and Output Vital Signs (last 24 hours): Temp Pulse Resp BP Pulse Ox 98.1 F 66 20 127/82 100 04/07/17 10:00 04/07/17 10:00 04/07/17 10:00 04/07/17 10:00 04/07/17 10:00 - Medications Medications: Current Medications Acetaminophen (Tylenol 325mg Tab) 650 mg PO Q4 PRN PRN Reason: Pain, Mild (1-3) Last Admin: 04/07/17 06:30 Dose: 650 mg Amlodipine Besylate (Norvasc) 5 mg PO DAILY [facility] Last Admin: 04/07/17 09:00 Dose: 5 mg Enoxaparin Sodium (Lovenox) 80 mg SC Q12 SUSAN PRN Reason: Protocol Last Admin: 04/07/17 08:59 Dose: Not Given Lactulose (Enulose) 20 gm PO DAILY [facility] Last Admin: 04/07/17 09:00 Dose: 20 gm Ondansetron HCl (Zofran Inj) 4 mg IVP Q6 PRN PRN Reason: Nausea/Vomiting Last Admin: 04/06/17 20:46 Dose: 4 mg Pantoprazole Sodium (Protonix Ec Tab) 40 mg PO BID [facility] Last Admin: 04/07/17 09:00 Dose: 40 mg Valsartan (Diovan) 160 mg PO DAILY [facility] Last Admin: 04/07/17 09:00 Dose: 160 mg - Labs Labs: 04/07/17 06:00 Assessment and Plan (1) Deep vein thrombosis (DVT) of right upper extremity Status: Acute (2) Hypercoagulation syndrome Status: Acute (3) DVT of lower extremity, bilateral Status: Acute (4) Constipation Status: Acute (5) Hypertension Status: Acute
--- NOTE | 2017-04-07 13:59 | CP.PCM.DIS ---
Provider - Provider Date of Admission: 03/27/17 17:04 Attending physician: Chriss Donato MD Diagnosis - Discharge Diagnosis (1) Deep vein thrombosis (DVT) of right upper extremity Status: Acute (2) Hypercoagulation syndrome Status: Acute (3) DVT of lower extremity, bilateral Status: Acute (4) Constipation Status: Acute (5) Hypertension Status: Acute Hospital Course - Lab Results Lab Results: Most Recent Lab Values WBC 6.5 K/uL (4.8-10.8) 04/07/17 06:00 RBC 3.46 Mil/uL (4.40-5.90) L 04/07/17 06:00 Hgb 10.0 g/dL (12.0-18.0) L 04/07/17 06:00 Hct 30.7 % (35.0-51.0) L 04/07/17 06:00 MCV 88.6 fl (80.0-94.0) 04/07/17 06:00 MCH 28.8 pg (27.0-31.0) 04/07/17 06:00 MCHC 32.5 g/dL (33.0-37.0) L 04/07/17 06:00 RDW 15.4 % (11.5-14.5) H 04/07/17 06:00 Plt Count 381 K/uL (130-400) D 04/07/17 06:00 Stool Occult Blood Positive (NEGATIVE) H 03/30/17 11:40 - Hospital Course Hospital Course: Patient was admitted for phys therapy. He had an upper extremity DVT and was so debilitated with it. He was started on Xarelto tretament and started on phys therapy. At the rehab he had an episode of hematemesis. Endoscopy revealed gastritis only and no bleedin ulcer. Discharge Exam - Head Exam Head Exam: NORMAL INSPECTION Discharge Plan - Follow Up Plan Condition: GOOD Disposition: HOME/ ROUTINE
--- NOTE | 2017-04-07 15:22 | CP.PCM.PN ---
Subjective - Date & Time of Evaluation Date of Evaluation: 04/07/17 Time of Evaluation: 15:20 - Subjective Subjective: no new complaints Objective - Vital Signs/Intake and Output Vital Signs (last 24 hours): Temp Pulse Resp BP Pulse Ox 98.1 F 66 20 127/82 100 04/07/17 10:00 04/07/17 10:00 04/07/17 10:00 04/07/17 10:00 04/07/17 10:00 - Medications Medications: Current Medications Acetaminophen (Tylenol 325mg Tab) 650 mg PO Q4 PRN PRN Reason: Pain, Mild (1-3) Last Admin: 04/07/17 06:30 Dose: 650 mg Amlodipine Besylate (Norvasc) 5 mg PO DAILY [facility] Last Admin: 04/07/17 09:00 Dose: 5 mg Lactulose (Enulose) 20 gm PO DAILY [facility] Last Admin: 04/07/17 09:00 Dose: 20 gm Ondansetron HCl (Zofran Inj) 4 mg IVP Q6 PRN PRN Reason: Nausea/Vomiting Last Admin: 04/06/17 20:46 Dose: 4 mg Pantoprazole Sodium (Protonix Ec Tab) 40 mg PO BID [facility] Last Admin: 04/07/17 09:00 Dose: 40 mg Valsartan (Diovan) 160 mg PO DAILY [facility] Last Admin: 04/07/17 09:00 Dose: 160 mg - Labs Labs: 04/07/17 06:00 - GI/Abdominal Exam GI & Abdominal Exam: Soft, Normal Bowel Sounds Assessment and Plan - Assessment and Plan (Free Text) Assessment: 51 yo male with coffee grounds emesis likely secondary to hiatal hernia ppi q12 hgb stable
[2017-04-07 16:15] VITALS: BP 107/73; PULSE 90; TEMP 99.1; O2SAT 95
--- NOTE | 2017-04-29 13:01 | CON ---
Dr. Peter Licea [facility]: [facility] Reason for consultation: Anemia Referring doctor is Dr. Donato Patient is a pleasant 51 year old male asked to be seen for guaiac positive stool. Anemia on blood thinner. History of hypercoagulatable workup. Developed bilateral extremity DVT. ____ called to evaluate the episode of ____, patient is a ____ but denies any ____ complaints; no nausea, no vomiting, no heartburn, no reflux, no weight loss, no melena, no hematochezia, or hematemesis. Otherwise currently lying in bed comfortable. No apprent distress. ____ history as above. Medications have been reviewed. ROS also has been reviewed are negative ____ positive in the HPI. Vitals: ____. This is a pleasant ____ no apparent distress. Head is normocephalic, atraumatic eyes, ____ bilaterally. No ____ or icterus. Neck is supple with normal range of motion. No adenopathy. ____ lungs coarse ____ bilaterally. Heart is S1 S2 regular rate and rhythm ____. Abdomen is soft, nontender, bowel sounds are present. No ____ deferred. Examination is ____ bilaterally ____ are intact. Neuro A&Ox3. All labs and relevant radiology have been reviewed. Labs include WBC 9.5, hemoglobin 9.6, hematocrit 28.7, platelet count is 501. Assesment: This is a 51 year old male with ____ and drop in hemoglobin on blood thinners. Plan: Will proceed with endoscopy once cleared by services. At this point will initiate Lovenox get a KUB. MD IVETTE Juarez
== END 2017-04-07 20:40 | DRG 300 ==
LOC: H.TCU 17:04
PROVIDERS: ADMIT Family Medicine; ATTEND Family Medicine
PROC: F07L0FZ Range of Motion and Joint Mobility Treatment of Musculoskeletal System - Lower Back / Lower Extremity using Assistive, Adaptive, Supportive or Protective Equipment (ICD-10-PCS; principal; 2017-03-27)
PROC: F08Z4FZ Home Management Treatment using Assistive, Adaptive, Supportive or Protective Equipment (ICD-10-PCS; 2017-03-27)
PROC: F07Z9FZ Gait Training/Functional Ambulation Treatment using Assistive, Adaptive, Supportive or Protective Equipment (ICD-10-PCS; 2017-03-27)
PROC: F07L6FZ Therapeutic Exercise Treatment of Musculoskeletal System - Lower Back / Lower Extremity using Assistive, Adaptive, Supportive or Protective Equipment (ICD-10-PCS; 2017-03-27)
PROC: F07L7ZZ Manual Therapy Techniques Treatment of Musculoskeletal System - Lower Back / Lower Extremity (ICD-10-PCS; 2017-03-27)
PROC: F07K6FZ Therapeutic Exercise Treatment of Musculoskeletal System - Upper Back / Upper Extremity using Assistive, Adaptive, Supportive or Protective Equipment (ICD-10-PCS; 2017-03-27)
DX: I82.621 Acute embolism and thrombosis of deep veins of right upper extremity (principal); K92.0 Hematemesis; D68.59 Other primary thrombophilia; I82.403 Acute embolism and thrombosis of unspecified deep veins of lower extremity, bilateral; I10 Essential (primary) hypertension; Z91.013 Allergy to seafood; E78.00 Pure hypercholesterolemia, unspecified; K59.00 Constipation, unspecified; Z79.01 Long term (current) use of anticoagulants; K44.9 Diaphragmatic hernia without obstruction or gangrene; R53.81 Other malaise; K29.70 Gastritis, unspecified, without bleeding

== ENCOUNTER 2017-04-04 09:10 | Day surgery (SDC) | payer MEDICARE, MEDICAID ==
[2017-04-04] MEDS ORDERED: Lactated Ringer's 500 ML IV ONE (09:44)
[2017-04-04] MEDS ORDERED: Propofol 10 mg/ml Inj (20 ML) ONE (10:13)
[2017-04-04 10:43] VITALS: TEMP 97.8
[2017-04-04 10:52] VITALS: BP 115/87; PULSE 68; RESP 10; O2SAT 100
== END 2017-04-04 13:00 | disposition home or self-care (01) ==
LOC: H.ENDO 09:10
PROVIDERS: ATTEND Internal Medicine Gastroenterology
DX: K92.2 Gastrointestinal hemorrhage, unspecified (principal); I10 Essential (primary) hypertension; E66.9 Obesity, unspecified; M19.90 Unspecified osteoarthritis, unspecified site; G47.30 Sleep apnea, unspecified; K44.9 Diaphragmatic hernia without obstruction or gangrene; K22.8 Other specified diseases of esophagus; K31.9 Disease of stomach and duodenum, unspecified; D64.9 Anemia, unspecified
CPT/HCPCS: 43239; 88305; J2001; J2704; J7120

== ENCOUNTER 2017-05-17 08:25 | Emergency (ER) | payer MEDICARE, MEDICAID ==
[2017-05-17 08:25] VITALS: BMI 29.8
[2017-05-17 08:30] VITALS: O2SAT 98
[2017-05-17] MEDS ORDERED: Oxycodone/Acetaminophen 5/325 mg Tab PO STA (09:18)
[2017-05-17] MEDS ORDERED: Oxycodone/Acetaminophen 5/325 mg Tab ONE (09:31)
--- NOTE | 2017-05-17 09:44 | ED PDOC ---
HPI: Back Time Seen by Provider: 05/17/17 09:04 Chief Complaint (Nursing): Back Pain Chief Complaint (Provider): Back Pain History Per: Patient History/Exam Limitations: no limitations Onset/Duration Of Symptoms: Hrs (this morning) Current Symptoms Are (Timing): Still Present Additional Complaint(s): Nelson is a 51 y/o male who presents to the ED complaining of neck, upper and lower back pain after sustaining a fall this morning. Patient states he got up to use bathroom, and fell on back and buttocks. Denies any associated head trauma, loss of consciousness, numbness, tingling, or weakness. Pain worsens with movement. PMD: Unknown Past Medical History Reviewed: Historical Data, Nursing Documentation, Vital Signs Vital Signs: Last Vital Signs Temp 97 F L 05/17/17 08:29 Pulse 99 H 05/17/17 08:29 Resp BP 135/91 H 05/17/17 08:29 Pulse Ox 98 05/17/17 08:29 - Medical History PMH: Deep Vein Thrombosis (bilateral), Gastritis, HTN Denies: HIV, Chronic Kidney Disease - Surgical History Other surgeries: Cervical laminectomy 02/06/17 - Family History Family History: States: Unknown Family Hx - Social History Ex-Smoker (has not smoked in the last 12 months): Yes Alcohol: None Drugs: Denies - Home Medications Home Medications: Ambulatory Orders Medication Instructions Recorded Apixaban [Eliquis] 2.5 mg PO BID #30 tablet 04/07/17 Valsartan [Diovan] 160 mg PO DAILY tab 04/07/17 amLODIPine [Norvasc] 5 mg PO DAILY tab 04/07/17 Cyclobenzaprine [Cyclobenzaprine 10 mg PO TID PRN #15 tab 05/17/17 HCl] Cyclobenzaprine [Flexeril] 10 mg PO Q8 05/17/17 Lansoprazole [Prevacid] 30 mg PO DAILY 05/17/17 - Allergies Allergies/Adverse Reactions: Allergies Allergy/AdvReac Type Severity Reaction Status Date / Time shellfish derived Allergy Intermediate ITCHING Verified 04/04/17 09:46 Review of Systems ROS Statement: Except As Marked, All Systems Reviewed And Found Negative Constitutional: Negative for: Other (Trauma) Musculoskeletal: Positive for: Neck Pain, Back Pain (upper and lower) Neurological: Negative for: Weakness, Numbness (or tingling), Other (Loss of consciousness) Physical Exam - Reviewed Nursing Documentation Reviewed: Yes Vital Signs Reviewed: Yes - Physical Exam Appears: Positive for: Non-toxic, No Acute Distress Head Exam: Positive for: ATRAUMATIC, NORMAL INSPECTION, NORMOCEPHALIC Skin: Positive for: Normal Color, Warm, Dry Eye Exam: Positive for: EOMI, Normal appearance, PERRL Neck: Positive for: Normal, Painless ROM, Supple Cardiovascular/Chest: Positive for: Regular Rate, Rhythm. Negative for: Murmur Respiratory: Positive for: Normal Breath Sounds. Negative for: Accessory Muscle Use, Respiratory Distress Gastrointestinal/Abdominal: Positive for: Normal Exam, Soft. Negative for: Tenderness Back: Positive for: Vertebral Tenderness (tenderness on palpation from neck to lower back ) Extremity: Positive for: Capillary Refill (< 2 sec). Negative for: Pedal Edema , Deformity Neurologic/Psych: Positive for: Alert, Oriented - ECG O2 Sat by Pulse Oximetry: 98 (RA) Pulse Ox Interpretation: Normal Medical Decision Making Medical Decision Making: Time: 09:14 Initial Impression: Back Pain s/p Fall Initial Plan: --Percocet 5/325 mg tab PO --X-Ray pelvis 1 view --Pending CT scans of C-spine, Lumbar spine, and Thoracic spine w/o contrast Time: 10:50 CT Cervical Spine w/o contrast: FINDINGS: VERTEBRAE: No fracture. Normal alignment. No destructive bony lesion.S/P posterior element surgery at C3/4 and C4/5. DISCS/SPINAL CANAL/NEURAL FORAMINA: Multilevel severe degenerative disc disease and spondylosis. PARASPINAL SOFT TISSUES: Unremarkable. OTHER FINDINGS: None. IMPRESSION: No acute fracture. Time: 10:57 CT Thoracic Spine w/o contrast FINDINGS: VERTEBRAE: Unremarkable. No fracture. Mild scoliosis.. DISCS/SPINAL CANAL/NEURAL FORAMINA: Within the limits of the CT technique, no disc herniation seen. No central canal or neural foraminal stenosis.. PARASPINAL SOFT TISSUES: Unremarkable. OTHER FINDINGS: Unremarkable. IMPRESSION: No fracture. Time: 11:04 CT Lumbar Spine w/o contrast FINDINGS: VERTEBRAE: Unremarkable. No fracture. Normal alignment. DISCS/SPINAL CANAL/NEURAL FORAMINA: L1-2: Unremarkable. L2-3: Unremarkable. L3-4: Unremarkable. L4-5: Unremarkable. L5-S1: Unremarkable. PARASPINAL SOFT TISSUES: Unremarkable. OTHER FINDINGS: IVC filter. IMPRESSION: Unremarkable CT of Lumbar Spine. Time: 12:11 X-Ray Pelvis: FINDINGS: BONES: Normal. No fracture. JOINTS: Arthritc changes of the right hip. SOFT TISSUE: Normal. OTHER FINDINGS: None . IMPRESSION: No fracture. Time: 12:00 Clinical Impression: Back Pain s/p fall Upon provider reevaluation patient is feeling better, medically stable, and requires no further treatment in the ED at this time. Patient will be discharged with Rx for cyclobenzaprine PRN for pain. Counseling was provided and all questions were answered regarding diagnosis and need for follow up with PMD. There is agreement to discharge plan. Return if symptoms persist or worsen. Scribe Attestation: Documented by Jacqueline Guevara, acting as a scribe for Chanelle Contreras MD Provider Scribe Attestation: All medical record entries made by the Scribe were at my direction and personally dictated by me. I have reviewed the chart and agree that the record accurately reflects my personal performance of the history, physical exam, medical decision making, and the department course for this patient. I have also personally directed, reviewed, and agree with the discharge instructions and disposition. Disposition - Clinical Impression Clinical Impression: Back pain, Fall - Patient ED Disposition Is Patient to be Admitted: No Doctor Will See Patient In The: Office Counseled Patient/Family Regarding: Studies Performed, Diagnosis, Need For Followup - Disposition Referrals: Dorian Jolley MD [Family Provider] - Disposition Time: 12:00 Condition: STABLE Prescriptions: Cyclobenzaprine [Cyclobenzaprine HCl] 10 mg PO TID PRN #15 tab PRN Reason: Pain Instructions: Back Pain (ED) Forms: [employer] (N[place]ian)
--- NOTE | 2017-05-17 10:51 | CT ---
PROCEDURE: CT Cervical Spine without contrast HISTORY: <Fall> COMPARISON: None available. TECHNIQUE: Axial computed tomography images were obtained of the cervical spine without the use of intravenous contrast. Coronal and sagittal reformatted images were created and reviewed. Radiation dose: Total exam DLP = mGy-cm. This CT exam was performed using one or more of the following dose reduction techniques: Automated exposure control, adjustment of the mA and/or kV according to patient size, and/or use of iterative reconstruction technique. FINDINGS: VERTEBRAE: No fracture. Normal alignment. No destructive bony lesion.S/P posterior element surgery at C3/4 and C4/5. DISCS/SPINAL CANAL/NEURAL FORAMINA: Multilevel severe degenerative disc disease and spondylosis. PARASPINAL SOFT TISSUES: Unremarkable. OTHER FINDINGS: None. IMPRESSION: No acute fracture.
--- NOTE | 2017-05-17 10:59 | CT ---
PROCEDURE: CT Thoracic Spine without contrast HISTORY: Fall COMPARISON: None. TECHNIQUE: Axial computed tomography images were obtained of the thoracic spine without intravenous contrast. Coronal and sagittal reformatted images were created and reviewed. Radiation dose: Total exam DLP = 1074 mGy-cm. This CT exam was performed using one or more of the following dose reduction techniques: Automated exposure control, adjustment of the mA and/or kV according to patient size, and/or use of iterative reconstruction technique. FINDINGS: VERTEBRAE: Unremarkable. No fracture. Mild scoliosis.. DISCS/SPINAL CANAL/NEURAL FORAMINA: Within the limits of the CT technique, no disc herniation seen. No central canal or neural foraminal stenosis.. PARASPINAL SOFT TISSUES: Unremarkable. OTHER FINDINGS: Unremarkable. IMPRESSION: No fracture.
--- NOTE | 2017-05-17 11:06 | CT ---
PROCEDURE: CT Lumbar Spine without contrast HISTORY: Fall COMPARISON: None. TECHNIQUE: Axial computed tomography images were obtained of the lumbar spine without the use of intravenous contrast. Coronal and sagittal reformatted images were created and reviewed. Radiation dose: Total exam DLP = 795 mGy-cm. This CT exam was performed using one or more of the following dose reduction techniques: Automated exposure control, adjustment of the mA and/or kV according to patient size, and/or use of iterative reconstruction technique. FINDINGS: VERTEBRAE: Unremarkable. No fracture. Normal alignment. DISCS/SPINAL CANAL/NEURAL FORAMINA: L1-2: Unremarkable. L2-3: Unremarkable. L3-4: Unremarkable. L4-5: Unremarkable. L5-S1: Unremarkable. PARASPINAL SOFT TISSUES: Unremarkable. OTHER FINDINGS: IVC filter. IMPRESSION: Unremarkable CT of Lumbar Spine.
--- NOTE | 2017-05-17 12:13 | RAD ---
HISTORY: Fall COMPARISON: No prior FINDINGS: BONES: Normal. No fracture. JOINTS: Arthritc changes of the right hip. SOFT TISSUE: Normal. OTHER FINDINGS: None . IMPRESSION: No fracture.
[2017-05-17 15:02] VITALS: BP 128/76
[2017-05-17 17:33] VITALS: PULSE 78; RESP 19; TEMP 97.7
== END 2017-05-17 17:15 | disposition home or self-care (01) ==
LOC: H.ER 08:25
DX: M54.9 Dorsalgia, unspecified (principal)

== ENCOUNTER 2017-05-22 09:11 | Emergency (ER) | payer MEDICARE, MEDICAID ==
[2017-05-22 09:12] VITALS: BMI 29.8
[2017-05-22 09:25] VITALS: O2SAT 96
--- NOTE | 2017-05-22 09:49 | ED PDOC ---
HPI: Back Time Seen by Provider: 05/22/17 09:16 Chief Complaint (Nursing): Back Pain Chief Complaint (Provider): Back Pain History Per: Patient History/Exam Limitations: no limitations Onset/Duration Of Symptoms: Mins (prior to arrival) Current Symptoms Are (Timing): Still Present Additional History Per: EMS, Family (Sister) Additional Complaint(s): Nelson is a 51-year-old male who presents to the ED complaining of central and upper back pain associated with right shoulder pain after sustaining a fall this morning. Patient ambulates using a motorized wheelchair and states having a past medical history of venostasis and is s/p back surgery. He reports reaching for his urinal this morning, reached too far, and fell out of bed. Denies any associated chest pain, shortness of breath, leg pain, abdominal pain , numbness, tingling, or head trauma during fall. Per EMS, patient frequently visits hospitals after similar falls, has chronic back pain, and is on Percocet , Prevacid, Amlodipine, and Eloquis. Of note, sister informed nurse that patient has history of DVTs. PMD: Dr. Jolley Past Medical History Reviewed: Historical Data, Nursing Documentation, Vital Signs Vital Signs: Last Vital Signs Temp 98 F 05/22/17 09:23 Pulse 80 05/22/17 09:23 Resp 18 05/22/17 09:23 BP 140/86 05/22/17 09:23 Pulse Ox 96 05/22/17 09:23 - Medical History PMH: Deep Vein Thrombosis (bilateral), Gastritis, HTN Denies: HIV, Chronic Kidney Disease Other PMH: chronic back pain and lower leg weakness - Surgical History Surgical History: Back Surgery - Family History Family History: States: Unknown Family Hx - Living Arrangements Living Arrangements: With Family - Social History Current smoker - smoking cessation education provided: No Alcohol: None Drugs: Denies, Cannabis - Home Medications Home Medications: Ambulatory Orders Medication Instructions Recorded Apixaban [Eliquis] 2.5 mg PO BID #30 tablet 04/07/17 Valsartan [Diovan] 160 mg PO DAILY tab 04/07/17 amLODIPine [Norvasc] 5 mg PO DAILY tab 04/07/17 Cyclobenzaprine [Cyclobenzaprine 10 mg PO TID PRN #15 tab 05/17/17 HCl] Cyclobenzaprine [Flexeril] 10 mg PO Q8 05/17/17 Lansoprazole [Prevacid] 30 mg PO DAILY 05/17/17 - Allergies Allergies/Adverse Reactions: Allergies Allergy/AdvReac Type Severity Reaction Status Date / Time shellfish derived Allergy Intermediate ITCHING Verified 05/22/17 09:22 Review of Systems ROS Statement: Except As Marked, All Systems Reviewed And Found Negative Constitutional: Negative for: Other (Head trauma) Cardiovascular: Negative for: Chest Pain Respiratory: Negative for: Shortness of Breath Gastrointestinal: Negative for: Abdominal Pain Musculoskeletal: Positive for: Shoulder Pain (Right), Back Pain (Upper and central). Negative for: Leg Pain Neurological: Negative for: Numbness, Other (tingling) Physical Exam - Reviewed Nursing Documentation Reviewed: Yes Vital Signs Reviewed: Yes - Physical Exam Appears: Positive for: Non-toxic, No Acute Distress Head Exam: Positive for: ATRAUMATIC, NORMAL INSPECTION, NORMOCEPHALIC Skin: Positive for: Normal Color, Warm, Dry Eye Exam: Positive for: EOMI, Normal appearance, PERRL Neck: Positive for: Normal, Painless ROM, Supple Cardiovascular/Chest: Positive for: Regular Rate, Rhythm. Negative for: Murmur Respiratory: Positive for: Normal Breath Sounds. Negative for: Accessory Muscle Use, Respiratory Distress Gastrointestinal/Abdominal: Positive for: Normal Exam, Soft. Negative for: Tenderness Back: Positive for: Vertebral Tenderness (Tenderness to upper and middle back, all across) Extremity: Positive for: Tenderness (mild tenderness to right shoulder, but full ROM), Other (Patient bound by motorized wheelchair). Negative for: Normal ROM (Legs with limited ROM bilaterally, venostasis - chronic per patient) Neurologic/Psych: Positive for: Alert, Oriented - ECG O2 Sat by Pulse Oximetry: 96 (RA) Pulse Ox Interpretation: Normal - Radiology X-Ray: Interpreted by Me, Viewed By Me X-Ray Interpretation: No Acute Disease - CT Scan/US US Other Rad Studies (CT/US): Read By Radiologist Other Rad Interpretation: no acute - Progress ED Course And Treament: 1150: Stable. AAOx3. Pain free. Tolerated. Fu with pcp. Chronic back pain. Did not hurt head. Medical Decision Making Medical Decision Making: Time: 09:30 Initial Impression: Back Pain s/p fall Initial Plan: --Morphine 4 mg IM --Pending X-Rays Right Shoulder and Dorsal Thoracic Spine Time: 09:55 --Patient with history of DVTs --Pending US Doppler Lower Extremities Scribe Attestation: Documented by Jacqueline Guevara, acting as a scribe for Ariel Shin MD Provider Scribe Attestation: All medical record entries made by the Scribe were at my direction and personally dictated by me. I have reviewed the chart and agree that the record accurately reflects my personal performance of the history, physical exam, medical decision making, and the department course for this patient. I have also personally directed, reviewed, and agree with the discharge instructions and disposition. Disposition - Clinical Impression Clinical Impression: Chronic back pain - Patient ED Disposition Is Patient to be Admitted: No Counseled Patient/Family Regarding: Studies Performed, Diagnosis, Need For Followup - Disposition Referrals: [facility] [Outside] - 05/23/17 Disposition: Routine/Home Disposition Time: 11:51 Condition: STABLE Additional Instructions: Return if not better in 3 days. Instructions: Back Pain (ED)
--- NOTE | 2017-05-22 12:47 | RAD ---
PROCEDURE: Radiographs of the Right Shoulder HISTORY: shoulder pain COMPARISON: No prior. FINDINGS: BONES: Normal. No fracture. JOINTS: Normal. Glenohumeral and acromioclavicular joints preserved. No osteoarthritis. SOFT TISSUES: Normal. OTHER FINDINGS: None. IMPRESSION: No acute findings related to/accounting for the clinical presentation. Concordant results with the preliminary interpretation rendered by the emergency department physician procedure.
--- NOTE | 2017-05-22 13:04 | RAD ---
HISTORY: Posttraumatic pain. COMPARISON: No prior. FINDINGS: BONES: Alignment maintained. No fracture. DISC SPACES: Normal. SOFT TISSUES: Normal. OTHER FINDINGS: None. IMPRESSION: No acute findings related to/accounting for the clinical presentation. Concordant results with the preliminary interpretation rendered by the emergency department physician procedure.
--- NOTE | 2017-05-22 13:07 | US ---
PROCEDURE: Bilateral lower extremity venous duplex Doppler. HISTORY: Deep vein thrombosis suspected. COMPARISON: 02/17/2017. Summary of findings on the comparison examination: Bilateral lower extremity deep venous thrombosis, thrombus in mid to distal right superficial femoral vein, thrombus in proximal and mid left superficial femoral vein TECHNIQUE: Bilateral common femoral, superficial femoral, popliteal and posterior tibial veins were evaluated. Flow was assessed with color Doppler, compressibility, assessment of phasic flow and augmentation response. FINDINGS: COMMON FEMORAL VEIN: Right CFV: Unremarkable. Left CFV: Unremarkable. SUPERFICIAL FEMORAL VEIN: Right SFV: Unremarkable. Left SFV: Unremarkable. POPLITEAL VEIN: Right Popliteal: Unremarkable. Left Popliteal: Unremarkable. POSTERIOR TIBIAL VEIN: Right PTV: Unremarkable. Left PTV: Unremarkable. OTHER FINDINGS: None. IMPRESSION: No evidence of deep venous thrombosis. Resolution of previously identified deep vein thrombosis left lower extremity.
[2017-05-22 16:12] VITALS: BP 138/80; PULSE 76; RESP 16; TEMP 98
== END 2017-05-22 16:13 | disposition home or self-care (01) ==
LOC: H.ER 09:11
DX: M25.511 Pain in right shoulder (principal); M54.9 Dorsalgia, unspecified; W06.XXXA Fall from bed, initial encounter; Y92.003 Bedroom of unspecified non-institutional (private) residence as the place of occurrence of the external cause; G89.29 Other chronic pain; I10 Essential (primary) hypertension; Z79.01 Long term (current) use of anticoagulants; Z86.718 Personal history of other venous thrombosis and embolism
CPT/HCPCS: 72070; 73030; 93970; 96372; 99283; J2270

== ENCOUNTER 2018-03-24 10:34 | Emergency (ER) | payer MEDICARE, MEDICAID ==
[2018-03-24 10:40] VITALS: BMI 29.1
--- NOTE | 2018-03-24 10:52 | ED PDOC ---
Lower Extremity Pain/Injury Time Seen by Provider: 03/24/18 10:41 Chief Complaint (Nursing): Lower Extremity Problem/Injury History Per: Patient Onset/Duration Of Symptoms: Unknown Current Symptoms Are (Timing): Still Present Severity: Moderate Additional Complaint(s): Chronic swelling lower ext bilat, worse over past 2-3 days. Assoc with redness and blistering. Denies fever. Denies chest pain or SOB Past Medical History Vital Signs: Last Vital Signs Temp 98 F 03/24/18 10:38 Pulse 61 03/24/18 10:38 Resp BP 157/107 H 03/24/18 10:38 Pulse Ox 100 03/24/18 10:38 - Medical History PMH: Deep Vein Thrombosis (bilateral), Gastritis, HTN Denies: HIV, Chronic Kidney Disease - Surgical History Surgical History: Back Surgery - Family History Family History: States: Unknown Family Hx - Home Medications Home Medications: Ambulatory Orders Medication Instructions Recorded Apixaban [Eliquis] 2.5 mg PO BID #30 tablet 04/07/17 Valsartan [Diovan] 160 mg PO DAILY tab 04/07/17 amLODIPine [Norvasc] 5 mg PO DAILY tab 04/07/17 Cyclobenzaprine [Cyclobenzaprine 10 mg PO TID PRN #15 tab 05/17/17 HCl] Cyclobenzaprine [Flexeril] 10 mg PO Q8 05/17/17 Lansoprazole [Prevacid] 30 mg PO DAILY 05/17/17 Furosemide [Lasix] 40 mg PO DAILY #4 tablet 03/24/18 Sulfamethoxazole/Trimethoprim 1 tab PO BID #20 tab 03/24/18 [Bactrim DS 800 mg-160 mg] - Allergies Allergies/Adverse Reactions: Allergies Allergy/AdvReac Type Severity Reaction Status Date / Time shellfish derived Allergy Intermediate ITCHING Verified 05/22/17 09:22 Review of Systems ROS Statement: Except As Marked, All Systems Reviewed And Found Negative Musculoskeletal: Positive for: Leg Pain Physical Exam - Reviewed Nursing Documentation Reviewed: Yes Vital Signs Reviewed: Yes - Physical Exam Appears: Positive for: Non-toxic, No Acute Distress Head Exam: Positive for: ATRAUMATIC, NORMAL INSPECTION, NORMOCEPHALIC Skin: Positive for: Normal Color, Warm, DRY Eye Exam: Positive for: EOMI, Normal appearance, PERRL ENT: Positive for: Normal ENT Inspection Neck: Positive for: Normal, Painless ROM Cardiovascular/Chest: Positive for: Regular Rate, Rhythm Respiratory: Positive for: CNT, Normal Breath Sounds Gastrointestinal/Abdominal: Positive for: Normal Exam, Soft Back: Positive for: Normal Inspection Extremity: Positive for: Swelling, Other (Erythema and blistering pretibial area bilat. Tenderness calves bilat.) Neurologic/Psych: Positive for: Alert, Oriented - Laboratory Results Result Diagrams: 03/24/18 13:40 03/24/18 13:40 - ECG O2 Sat by Pulse Oximetry: 100 Disposition - Clinical Impression Clinical Impression: Cellulitis - Patient ED Disposition Is Patient to be Admitted: No Counseled Patient/Family Regarding: Studies Performed, Diagnosis, Need For Followup, Rx Given - Disposition Referrals: [facility] [Outside] Chriss Donato MD [Staff Provider] - Disposition: Routine/Home Disposition Time: 16:07 Condition: FAIR Prescriptions: Furosemide [Lasix] 40 mg PO DAILY #4 tablet Sulfamethoxazole/Trimethoprim [Bactrim DS 800 mg-160 mg] 1 tab PO BID #20 tab Instructions: Cellulitis and Erysipelas (Skin Infections) Forms: [employer] (Bur[place]ian)
[2018-03-24 13:02] LABS: VENOUS BLOOD GAS BASE EXCESS 5.2 mmol/L (0.0-2.0); VENOUS BLOOD GAS PCO2 39 mmHg (40-60); VENOUS BLOOD GAS PO2 57 mm/Hg (30-55); VENOUS BLOOD PH 7.48 (7.32-7.43)
[2018-03-24 14:26] LABS: BASO % 0.4 % (0.0-2.0); EOS # 0.1 K/uL (0.0-0.7); EOS % 0.9 % (0.0-4.0); HEMOGLOBIN 12.2 g/dL (12.0-18.0); LYMPH # 2.1 K/uL (1.0-4.3); LYMPH % 22.9 % (20.0-40.0); MEAN CELL VOLUME 82.8 fl (80.0-94.0); MEAN CORPUSCULAR HEMOGLOBIN 26.2 pg (27.0-31.0); MEAN CORPUSCULAR HGB CONC 31.7 g/dL (33.0-37.0); MEAN PLATELET VOLUME 8.8 fl (7.2-11.7); MONO # 0.7 K/uL (0.0-0.8); MONO % 7.5 % (0.0-10.0); NEUT # 6.4 K/uL (1.8-7.0); NEUT % 68.3 % (50.0-75.0); NRBC % 0.1 % (0.0-0.0); RBC 4.65 Mil/uL (4.40-5.90); RED CELL DISTRIBUTION WIDTH 22.5 % (11.5-14.5); WHITE BLOOD COUNT 9.4 K/uL (4.8-10.8)
[2018-03-24 14:36] LABS: PROTHROMBIN TIME 10.7 Seconds (9.8-13.1)
--- NOTE | 2018-03-24 14:36 | US ---
PROCEDURE: Bilateral lower extremity venous duplex Doppler. HISTORY: h/o DVT COMPARISON: None available. TECHNIQUE: Bilateral common femoral, superficial femoral, popliteal and posterior tibial veins were evaluated. Flow was assessed with color Doppler, compressibility, assessment of phasic flow and augmentation response. FINDINGS: COMMON FEMORAL VEIN: Right CFV: Unremarkable. Left CFV: Unremarkable. SUPERFICIAL FEMORAL VEIN: Right SFV: Unremarkable. Left SFV: Unremarkable. POPLITEAL VEIN: Right Popliteal: Unremarkable. Left Popliteal: Unremarkable. POSTERIOR TIBIAL VEIN: Right PTV: Unremarkable. Left PTV: Unremarkable. OTHER FINDINGS: Examination limited due to difficulty visualizing posterior tibial veins. There is subcutaneous edema noted in both calves. IMPRESSION: No evidence of deep venous thrombosis.
[2018-03-24 14:39] LABS: ALB/GLOB RATIO 1.3 (1.0-2.1); ALT/SGPT 82 U/L (21-72); AST/SGOT 34 U/L (17-59); BLOOD UREA NITROGEN 20 mg/dl (9-20); CALCIUM 8.7 mg/dL (8.4-10.2); GFR AFRICAN-AMERICAN > 60; GFR NON-AFRICAN AMERICAN > 60
[2018-03-24 14:47] LABS: B-TYPE NATRIURETIC PEPTIDE 75.2 pg/ml (0-900)
[2018-03-24] MEDS ORDERED: Tmp-Smz 800 mg-160 mg DS Tab PO STA (15:40)
[2018-03-24] MEDS ORDERED: Tmp-Smz 800 mg-160 mg DS Tab ONE (15:55)
[2018-03-24 23:49] VITALS: RESP 18; TEMP 98.9
[2018-03-25 01:01] VITALS: BP 158/94; PULSE 81; O2SAT 97
--- NOTE | 2018-03-25 09:44 | CARD ---
APPROVED REPORT EKG Measurement Heart [id number] <Conclusion> Normal sinus rhythm Voltage criteria for LVH Nonspecific T wave abnormality Abnormal ECG
== END 2018-03-25 01:01 | disposition home or self-care (01) ==
LOC: H.ER 10:34
DX: L03.119 Cellulitis of unspecified part of limb (principal); I10 Essential (primary) hypertension; Z79.01 Long term (current) use of anticoagulants; Z86.718 Personal history of other venous thrombosis and embolism

== ENCOUNTER 2018-05-31 01:15 | Observation (INO) | payer MEDICARE, MEDICAID ==
[2018-05-31 01:15] VITALS: BMI 29.1
[2018-05-31] MEDS ORDERED: Oxycodone/Acetaminophen 5/325 mg Tab PO ONE (01:56)
--- NOTE | 2018-05-31 02:22 | ED PDOC ---
HPI: Back Chief Complaint (Provider): BACK PAIN History Per: Patient (52 Y/O MALE WHEELCHAIR BOUND HERE FOR EVALUATION OF BACK PAIN AFTER FALL OUT OF WHEELCHAIR WHILE REACHING FOR REMOTE. STATES HIS HEALTHAIDE WAS AT BEDSIDE AND CALLED HIS SISTER AND AMBULANCE. (HOME HEALTH AID WITH HIM INTERMITTENTLY IN EVENINGS 7PM-11:30).) <Diana Loredo B - Last Filed: 05/31/18 06:20> <Michelle Leong - Last Filed: 06/01/18 19:36> Time Seen by Provider: 05/31/18 01:55 Chief Complaint (Nursing): Back Pain Past Medical History Reviewed: Historical Data, Nursing Documentation, Vital Signs Vital Signs: Last Vital Signs Temp 98.3 F 05/31/18 01:21 Pulse 108 H 05/31/18 01:21 Resp 18 05/31/18 01:21 BP 121/82 05/31/18 01:21 Pulse Ox 98 05/31/18 01:21 - Medical History PMH: Deep Vein Thrombosis (bilateral), Gastritis, HTN Denies: HIV, Chronic Kidney Disease - Surgical History Surgical History: Back Surgery - Family History Family History: States: Unknown Family Hx <Diana Loredo - Last Filed: 05/31/18 06:20> Vital Signs: Last Vital Signs Temp 98.8 F 06/01/18 15:45 Pulse 94 H 06/01/18 15:45 Resp 20 06/01/18 15:45 BP 131/85 06/01/18 15:45 Pulse Ox 95 06/01/18 15:45 <Michelle Leong A - Last Filed: 06/01/18 19:36> - Home Medications Home Medications: Ambulatory Orders Medication Instructions Recorded Apixaban [Eliquis] 2.5 mg PO BID #30 tablet 04/07/17 Valsartan [Diovan] 160 mg PO DAILY tab 04/07/17 amLODIPine [Norvasc] 5 mg PO DAILY tab 04/07/17 Cyclobenzaprine [Cyclobenzaprine 10 mg PO TID PRN #15 tab 05/17/17 HCl] Cyclobenzaprine [Flexeril] 10 mg PO Q8 05/17/17 Lansoprazole [Prevacid] 30 mg PO DAILY 05/17/17 Furosemide [Lasix] 40 mg PO DAILY #4 tablet 03/24/18 Sulfamethoxazole/Trimethoprim 1 tab PO BID #20 tab 03/24/18 [Bactrim DS 800 mg-160 mg] Fenofibrate [Tricor] 48 mg PO DAILY 06/01/18 M-Vit,Tx,Iron,Mins/Calc/Folic 1 tab DAILY 06/01/18 [Thera-M Caplet] Omeprazole 40 mg PO DAILY 06/01/18 oxyCODONE [oxyCODONE Immediate 10 mg PO PRN PRN MDD 30 06/01/18 Release Tab] - Allergies Allergies/Adverse Reactions: Allergies Allergy/AdvReac Type Severity Reaction Status Date / Time shellfish derived Allergy Intermediate ITCHING Verified 05/31/18 01:21 Review of Systems ROS Statement: Except As Marked, All Systems Reviewed And Found Negative <Diana Loredo - Last Filed: 05/31/18 06:20> Physical Exam - Reviewed Nursing Documentation Reviewed: Yes Vital Signs Reviewed: Yes - Physical Exam Appears: Positive for: Well, Non-toxic, No Acute Distress Head Exam: Positive for: ATRAUMATIC, NORMAL INSPECTION, NORMOCEPHALIC Skin: Positive for: Normal Color, Warm, DRY Eye Exam: Positive for: EOMI, Normal appearance, PERRL ENT: Positive for: Normal ENT Inspection Neck: Positive for: Normal, Painless ROM Cardiovascular/Chest: Positive for: Regular Rate, Rhythm Respiratory: Positive for: CNT, Normal Breath Sounds Gastrointestinal/Abdominal: Positive for: Normal Exam, Soft Back: Positive for: Normal Inspection, Other (MODERATE PARATHORACIC AND PARALUMBAR TENDERNESS) Extremity: Positive for: Normal ROM Neurologic/Psych: Positive for: Alert, Oriented <Diana Loredo - Last Filed: 05/31/18 06:20> - Laboratory Results Result Diagrams: 05/31/18 04:00 05/31/18 04:00 - ECG O2 Sat by Pulse Oximetry: 98 - Progress ED Course And Treament: DURING INTERVIEW, PATIENT EATING PEPPERONI. PATIENT NOTED BY NURSING STAFF TO BE VOMITING AFTER MOVING POSITIONS. PATIENT ADMITS ALCOHOL USE TODAY. DENIES ANY ABD PAIN/FEVERS/CHILLS. UPON RE-EXAMINATION, PATIENT'S EMESIS NOTED DARKER IN COLOR. PROTONIX 80 MG IV X 1 DOSE ZOFRAN 4 MG IV X DOSE ZOFRAN 4 MG IV X [address] MARTINEZ AFTER RESULTS OF CT LSPINE/CT T SPINE/ CT ABD/PELVIS UPON REVIEW OF RECORDS, PATIENT NOTED TO HAVE H/O DVT IN PAST AND ON ELOQUIS IN 2017. CALL PLACED TO GI FELLOW <Diana Loredo - Last Filed: 05/31/18 06:20> - Laboratory Results Result Diagrams: 06/01/18 05:45 06/01/18 05:45 <Michelle Leong - Last Filed: 06/01/18 19:36> Disposition - Patient ED Disposition Is Patient to be Admitted: Transfer of Care - Disposition Disposition: Transfer of Care Disposition Time: 06:19 Patient Signed Over To: Michelle Leong Handoff Comments: PENDING GI CONSULT/ CT RESULTS/ D/W MICHELLE <Diana Loredo - Last Filed: 05/31/18 06:20> Counseled Patient/Family Regarding: Studies Performed, Diagnosis - Disposition Patient Signed Over To: Vijay Nolen <Michelle Leong - Last Filed: 06/01/18 19:36> - Clinical Impression Clinical Impression: Back injury, Hematemesis, Pancreatitis - Disposition Condition: FAIR
[2018-05-31 04:13] LABS: BASO # 0.1 K/uL (0.0-0.2); BASO % 0.6 % (0.0-2.0); EOS % 0.5 % (0.0-4.0); LYMPH # 3.4 K/uL (1.0-4.3); LYMPH % 36.3 % (20.0-40.0); MEAN CELL VOLUME 88.8 fl (80.0-94.0); MEAN CORPUSCULAR HEMOGLOBIN 29.2 pg (27.0-31.0); MEAN CORPUSCULAR HGB CONC 32.9 g/dL (33.0-37.0); MEAN PLATELET VOLUME 8.7 fl (7.2-11.7); MONO # 0.6 K/uL (0.0-0.8); MONO % 6.7 % (0.0-10.0); NEUT # 5.2 K/uL (1.8-7.0); NEUT % 55.9 % (50.0-75.0); NRBC % 0.1 % (0.0-0.0); RBC 4.8 Mil/uL (4.40-5.90); RED CELL DISTRIBUTION WIDTH 20.2 % (11.5-14.5); WHITE BLOOD COUNT 9.4 K/uL (4.8-10.8)
[2018-05-31 04:22] LABS: BLOOD UREA NITROGEN 19 mg/dl (9-20); CALCIUM 9.3 mg/dL (8.4-10.2); GFR NON-AFRICAN AMERICAN > 60; LIPASE 578 U/L (23-300)
[2018-05-31] MEDS ORDERED: Iohexol 300 100 ML IJ ONE (06:17)
[2018-05-31] MEDS ORDERED: Sodium Chloride 0.9% 50 ML IV ONE (06:18)
[2018-05-31 06:53] LABS: INR 0.9; PARTIAL THROMBOPLASTIN TIME 33.2 Seconds (25.6-37.1); PROTHROMBIN TIME 9.8 Seconds (9.8-13.1)
--- NOTE | 2018-05-31 08:07 | ED PDOC ---
- Laboratory Results Result Diagrams: 05/31/18 04:00 05/31/18 04:00 - ECG O2 Sat by Pulse Oximetry: 98 Disposition - Clinical Impression Clinical Impression: Back injury, Hematemesis, Pancreatitis - POA Present On Arrival: None - Disposition Disposition: Hospitalized as Observation Patient Disposition Time: 08:07 Condition: FAIR
[2018-05-31] MEDS: Lactated Ringer's 1,000 ML IV SCH ×2 (09:25→19:02)
[2018-05-31 09:44] LABS: BARBITURATES, UR NEGATIVE (NEGATIVE); BENZODIAZEPINES, UR NEGATIVE (NEGATIVE); OPIATES, UR NEGATIVE (NEGATIVE); PHENCYCLIDINE, UR NEGATIVE (NEGATIVE)
[2018-05-31 11:00] LABS: BASO # 0.1 K/uL (0.0-0.2); EOS # 0.1 K/uL (0.0-0.7); EOS % 0.6 % (0.0-4.0); HEMOGLOBIN 12.1 g/dL (12.0-18.0); LYMPH # 2.5 K/uL (1.0-4.3); LYMPH % 28.9 % (20.0-40.0); MEAN CELL VOLUME 88.6 fl (80.0-94.0); MEAN CORPUSCULAR HEMOGLOBIN 29.4 pg (27.0-31.0); MEAN CORPUSCULAR HGB CONC 33.1 g/dL (33.0-37.0); MEAN PLATELET VOLUME 8.4 fl (7.2-11.7); MONO # 0.8 K/uL (0.0-0.8); MONO % 9.3 % (0.0-10.0); NEUT # 5.1 K/uL (1.8-7.0); NEUT % 60.2 % (50.0-75.0); RBC 4.12 Mil/uL (4.40-5.90); RED CELL DISTRIBUTION WIDTH 20.2 % (11.5-14.5); WHITE BLOOD COUNT 8.5 K/uL (4.8-10.8)
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
--- NOTE | 2018-05-31 11:51 | CARD ---
APPROVED REPORT Date of service: 05/31/2018 EKG Measurement Heart [id number] <Conclusion> Sinus tachycardia Minimal voltage criteria for LVH, may be normal variant prolonged QT NT wave abnormality abnormal ecg
--- NOTE | 2018-05-31 12:55 | CT ---
Date of service: 05/31/2018 PROCEDURE: CT Thoracic Spine without contrast HISTORY: Rule out fracture COMPARISON: None available. TECHNIQUE: Axial computed tomography images were obtained of the thoracic spine without intravenous contrast. Coronal and sagittal reformatted images were created and reviewed. Radiation dose: Total exam DLP = 1953.74 mGy-cm. This CT exam was performed using one or more of the following dose reduction techniques: Automated exposure control, adjustment of the mA and/or kV according to patient size, and/or use of iterative reconstruction technique. FINDINGS: VERTEBRAE: No acute compression fractures no retropulsed fragments. Vertebral bodies exhibit normal stature. . Minimal dextroscoliosis upper thoracic region. Vertebral bodies otherwise exhibit normal alignment. Facets normally aligned DISCS/SPINAL CANAL/NEURAL FORAMINA: Mild multilevel degenerative spondylosis. . Disc space heights relatively maintained. Small marginal anterolateral osteophyte formation seen at multiple levels. . The overall central bony canal and appears adequate. Exit foramina appear adequate so far as can be seen. Mild to moderate degenerative spondylosis seen involving lower cervical segments. PARASPINAL SOFT TISSUES: Unremarkable. OTHER FINDINGS: Moderate size hiatal hernia with wall thickening of distal esophagus likely due to protrusion gastric mucosa however esophagitis or other intrinsic/invasive wall lesion not excluded. Clinical correlation recommended. Mild passive/dependent type atelectasis both posterior lower lung blackwood. Multiple small of peripheral cystic changes are seen in the lung apices and upper lobes bilaterally right greater than left. No evidence of pneumothorax. No significant pleural effusion IMPRESSION: No acute fractures. .
--- NOTE | 2018-05-31 13:02 | CT ---
Date of service: 05/31/2018 PROCEDURE: CT Lumbar Spine without contrast HISTORY: COMPARISON: Correlation made with concurrent CT scan abdomen and pelvis TECHNIQUE: Axial computed tomography images were obtained of the lumbar spine without the use of intravenous contrast. Coronal and sagittal reformatted images were created and reviewed. Radiation dose: Total exam DLP = 1503.39 mGy-cm. This CT exam was performed using one or more of the following dose reduction techniques: Automated exposure control, adjustment of the mA and/or kV according to patient size, and/or use of iterative reconstruction technique. FINDINGS: VERTEBRAE: No acute compression fractures nor retropulsed fragments. The vertebral bodies exhibit normal stature. Minimal dextroscoliosis centered at the L1-L2 level versus minor side bending of the upper torso to the left versus mild muscle spasm. Vertebral bodies otherwise exhibit normal alignment. Facets normally aligned DISCS/SPINAL CANAL/NEURAL FORAMINA: There is minor multilevel posterior disc space narrowing however the remainder of the mid anterior disc space heights are relatively maintained. No disc herniation. Some very minimal broad-based disc bulging changes seen at the C3-C4 and C4-C5 levels. . No significant facet arthropathy. The overall central bony canal and exit foramina appear adequate. PARASPINAL SOFT TISSUES: Unremarkable. Note made of a small approximately 8.5 mm low-attenuation left adrenal nodule likely representing a small adenoma OTHER FINDINGS: In situ IVC filter. Minor calcified atherosclerotic plaque seen along the abdominal aorta and iliac arteries. Urinary bladder is moderately distended. IMPRESSION: No acute fractures.
--- NOTE | 2018-05-31 14:05 | CT ---
Date of service: 05/31/2018 PROCEDURE: CT abdomen pelvis HISTORY: Abdominal pain and vomiting. COMPARISON: None. TECHNIQUE: Contiguous helical/transaxial sections of the abdomen pelvis performed following intravenous injection of approximately 95 cc Omnipaque 300 contrast material. Additional 2D sagittal and coronal reformats generated. Radiation dose: Total exam DLP = 735.66 mGy-cm. This CT exam was performed using one or more of the following dose reduction techniques: Automated exposure control, adjustment of the mA and/or kV according to patient size, and/or use of iterative reconstruction technique. FINDINGS: LOWER THORAX: Heart is mildly enlarged. No significant pericardial effusion. There is a large hiatal hernia. Bibasilar atelectasis including what may represent atelectasis and or scarring in the left lingular region. No effusion or basilar pneumothorax LIVER: Liver exhibits normal size. Mild fatty hepatic infiltration. No obvious hepatic mass collection or calcification. The the GALLBLADDER AND BILE DUCTS: Unremarkable. PANCREAS: Pancreas is slightly atrophic and fatty replaced. No pancreatic masses collections or calcifications. SPLEEN: Spleen exhibits normal size and attenuation pattern without mass collection or calcification. ADRENALS: No adrenal lesions KIDNEYS AND URETERS: Kidneys demonstrate symmetric nephrograms. No evidence of nephrolithiasis or hydronephrosis. VASCULATURE: Unremarkable. No aortic aneurysm. In situ IVC filter BOWEL: Unremarkable. No obstruction. No gross mural thickening. There are few scattered colonic diverticula however no radiographic evidence of acute diverticulitis. APPENDIX: Normal appearing appendix PERITONEUM: Unremarkable. No free or loculated fluid collections. No evidence of free intraperitoneal air. Fat containing umbilical hernia. LYMPH NODES: Unremarkable. No enlarged lymph nodes. BLADDER: Urinary bladder is moderately distended. No intraluminal urinary bladder calculi. REPRODUCTIVE: Prostate gland measures nearly 5 cm in transverse dimension. BONES: Mild multilevel degenerative spondylosis of the lower thoracic and lumbar spine. . Infiltration changes seen in the subcutaneous tissues overlying the left lower pelvis/hip possibly due to trauma however rule out cellulitis. OTHER FINDINGS: None. IMPRESSION: Large hiatal hernia. Fatty hepatic infiltration. In situ IVC filter.
[2018-05-31 18:42] VITALS: RESP 20
[2018-06-01] VITALS: O2SAT 95
[2018-06-01] MEDS: Lactated Ringer's 1,000 ML IV SCH ×3 (03:01→17:15)
[2018-06-01 06:19] LABS: HEMOGLOBIN 11.7 g/dL (12.0-18.0); MEAN CORPUSCULAR HEMOGLOBIN 29.3 pg (27.0-31.0); RED CELL DISTRIBUTION WIDTH 19.7 % (11.5-14.5)
[2018-06-01 06:37] LABS: ALB/GLOB RATIO 1.3 (1.0-2.1); ALBUMIN 3.2 g/dL (3.5-5.0); ALT/SGPT 46 U/L (21-72); AST/SGOT 32 U/L (17-59); BLOOD UREA NITROGEN 11 mg/dl (9-20); CALCIUM 8.7 mg/dL (8.4-10.2); GFR NON-AFRICAN AMERICAN > 60; LIPASE 137 U/L (23-300)
[2018-06-01] MEDS: Pantoprazole 40 mg EC Tab PO SCH (10:09)
[2018-06-01] MEDS ORDERED: oxyCODONE 10 mg Immediate Release Tab PO PRN (12:28)
[2018-06-02] MEDS: Lactated Ringer's 1,000 ML IV SCH ×2 (07:02→09:08)
[2018-06-02 07:51] VITALS: BP 144/94; PULSE 88; TEMP 98
[2018-06-02] MEDS: Pantoprazole 40 mg EC Tab PO SCH (09:06)
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
--- NOTE | 2018-06-02 09:36 | CP.PCM.PN ---
Subjective - Date & Time of Evaluation Date of Evaluation: 06/01/18 Time of Evaluation: 10:00 - Subjective Subjective: Patient is doing a lot better Has no chest pain or SOB Tolerated clear liquids Has no fever No abd pain. Objective - Vital Signs/Intake and Output Vital Signs (last 24 hours): Temp Pulse Resp BP Pulse Ox 98.0 F 88 20 144/94 H 95 06/02/18 07:50 06/02/18 09:06 06/02/18 07:50 06/02/18 09:06 06/02/18 07:50 - Medications Medications: Current Medications Amlodipine Besylate (Norvasc) 10 mg PO DAILY [facility] Last Admin: 06/02/18 09:06 Dose: 10 mg Fenofibrate (Tricor) 48 mg PO DAILY [facility] Last Admin: 06/02/18 09:06 Dose: 48 mg Furosemide (Lasix) 40 mg PO DAILY [facility] Last Admin: 06/02/18 09:06 Dose: 40 mg Lactated Ringer's (Lactated Ringer's) 1,000 mls @ 125 mls/hr IV .Q8H [facility] Last Admin: 06/02/18 09:08 Dose: Not Given Lactic Acid (Lac-Hydrin 12% Lotion (225 G)) 1 applic TOP BID [facility] Last Admin: 06/02/18 09:07 Dose: 1 applic Oxycodone HCl (Oxycodone Immediate Release Tab) 10 mg PO BID PRN PRN Reason: pain Pantoprazole Sodium (Protonix Ec Tab) 40 mg PO DAILY [facility] Last Admin: 06/02/18 09:06 Dose: 40 mg - Labs Labs: 06/01/18 05:45 06/01/18 05:45 PT 9.8 Seconds (9.8-13.1) 05/31/18 06:10 INR 0.9 05/31/18 06:10 APTT 33.2 Seconds (25.6-37.1) 05/31/18 06:10 - Head Exam Head Exam: NORMAL INSPECTION - Eye Exam Eye Exam: Normal appearance - ENT Exam ENT Exam: Mucous Membranes Moist - Respiratory Exam Respiratory Exam: Clear to Ausculation Bilateral - Cardiovascular Exam Cardiovascular Exam: REGULAR RHYTHM - GI/Abdominal Exam GI & Abdominal Exam: Normal Bowel Sounds - Neurological Exam Neurological Exam: CN II-XII Intact, Oriented x3 - Psychiatric Exam Psychiatric exam: Normal Affect Assessment and Plan (1) Pancreatitis Status: Acute (2) Gastritis Status: Acute (3) Back pain Status: Acute (4) Deep vein thrombosis (DVT) Status: Acute (5) Hypertension Status: Acute (6) Contusion, back Status: Acute - Assessment and Plan (Free Text) Plan: Cont meds advanc diet DC plans
--- NOTE | 2018-06-02 09:36 | CP.PCM.DIS ---
Provider - Provider Date of Admission: 05/31/18 08:04 Attending physician: Chriss Donato MD Diagnosis - Discharge Diagnosis (1) Pancreatitis Status: Acute (2) Gastritis Status: Acute (3) Back pain Status: Acute (4) Deep vein thrombosis (DVT) Status: Acute (5) Hypertension Status: Acute (6) Contusion, back Status: Acute Hospital Course - Lab Results Lab Results: Most Recent Lab Values WBC 8.0 K/uL (4.8-10.8) 06/01/18 05:45 RBC 4.00 Mil/uL (4.40-5.90) L 06/01/18 05:45 Hgb 11.7 g/dL (12.0-18.0) L 06/01/18 05:45 Hct 35.6 % (35.0-51.0) 06/01/18 05:45 MCV 89.0 fl (80.0-94.0) 06/01/18 05:45 MCH 29.3 pg (27.0-31.0) 06/01/18 05:45 MCHC 33.0 g/dL (33.0-37.0) 06/01/18 05:45 RDW 19.7 % (11.5-14.5) H 06/01/18 05:45 Plt Count 215 K/uL (130-400) 06/01/18 05:45 MPV 8.4 fl (7.2-11.7) 05/31/18 10:40 Neut % (Auto) 60.2 % (50.0-75.0) 05/31/18 10:40 Lymph % (Auto) 28.9 % (20.0-40.0) 05/31/18 10:40 [place] % (Auto) 9.3 % (0.0-10.0) 05/31/18 10:40 Eos % (Auto) 0.6 % (0.0-4.0) 05/31/18 10:40 Baso % (Auto) 1.0 % (0.0-2.0) 05/31/18 10:40 Neut # (Auto) 5.1 K/uL (1.8-7.0) 05/31/18 10:40 Lymph # (Auto) 2.5 K/uL (1.0-4.3) 05/31/18 10:40 [place] # (Auto) 0.8 K/uL (0.0-0.8) 05/31/18 10:40 Eos # (Auto) 0.1 K/uL (0.0-0.7) 05/31/18 10:40 Baso # (Auto) 0.1 K/uL (0.0-0.2) 05/31/18 10:40 PT 9.8 Seconds (9.8-13.1) 05/31/18 06:10 INR 0.9 05/31/18 06:10 APTT 33.2 Seconds (25.6-37.1) 05/31/18 06:10 Sodium 137 mmol/l (132-148) 06/01/18 05:45 Potassium 3.7 MMOL/L (3.6-5.0) 06/01/18 05:45 Chloride 100 mmol/L (98-107) 06/01/18 05:45 Carbon Dioxide 33 mmol/L (22-30) H 06/01/18 05:45 Anion Gap 8 (10-20) L 06/01/18 05:45 BUN 11 mg/dl (9-20) 06/01/18 05:45 Creatinine 0.8 mg/dl (0.8-1.5) 06/01/18 05:45 Est GFR ( Amer) > 60 06/01/18 05:45 Est GFR (Non-Af Amer) > 60 06/01/18 05:45 Random Glucose 102 mg/dL (75-110) 06/01/18 05:45 Calcium 8.7 mg/dL (8.4-10.2) 06/01/18 05:45 Total Bilirubin 0.5 mg/dl (0.2-1.3) 06/01/18 05:45 AST 32 U/L (17-59) 06/01/18 05:45 ALT 46 U/L (21-72) 06/01/18 05:45 Alkaline Phosphatase 85 U/L (38-126) 06/01/18 05:45 Troponin I < 0.0120 ng/mL (0.00-0.120) 05/31/18 04:42 Total Protein 5.8 G/DL (6.3-8.2) L 06/01/18 05:45 Albumin 3.2 g/dL (3.5-5.0) L 06/01/18 05:45 Globulin 2.6 gm/dL (2.2-3.9) 06/01/18 05:45 Albumin/Globulin Ratio 1.3 (1.0-2.1) 06/01/18 05:45 Lipase 137 U/L (23-300) 06/01/18 05:45 Urine Opiates Screen Negative (NEGATIVE) 05/31/18 09:00 Urine Methadone Screen Negative (NEGATIVE) 05/31/18 09:00 Ur Barbiturates Screen Negative (NEGATIVE) 05/31/18 09:00 Ur Phencyclidine Scrn Negative (NEGATIVE) 05/31/18 09:00 Ur Amphetamines Screen Negative (NEGATIVE) 05/31/18 09:00 U Benzodiazepines Scrn Negative (NEGATIVE) 05/31/18 09:00 U Oth Cocaine Metabols Negative (NEGATIVE) 05/31/18 09:00 U Cannabinoids Screen Negative (NEGATIVE) 05/31/18 09:00 Alcohol, Quantitative 193 mg/dl (0-10) H 05/31/18 04:42 - Hospital Course Hospital Course: This is a 52 y/o male admitted for pancreatitis. Discharge Exam - Head Exam Head Exam: NORMAL INSPECTION Discharge Plan - Follow Up Plan Condition: FAIR Disposition: HOME/ ROUTINE Instructions: Preventing Falls in the Older Adult, Low Back Pain (DC) Additional Instructions: follow up with primary MD 1 week Referrals: Huma Figueroa MD [Medical Doctor] -
== END 2018-06-02 14:50 | disposition home or self-care (01) ==
LOC: H.ER 01:15 → H.ERHOLD 08:04 → H.MEDSURG1 17:45
PROVIDERS: ADMIT Family Medicine; ATTEND Family Medicine
DX: K85.90 Acute pancreatitis without necrosis or infection, unspecified (principal); Z99.3 Dependence on wheelchair; I10 Essential (primary) hypertension; Z86.718 Personal history of other venous thrombosis and embolism; K29.70 Gastritis, unspecified, without bleeding; Z72.0 Tobacco use; F10.10 Alcohol abuse, uncomplicated; Y90.6 Blood alcohol level of 120-199 mg/100 ml; S30.0XXA Contusion of lower back and pelvis, initial encounter; W05.0XXA Fall from non-moving wheelchair, initial encounter; Z71.41 Alcohol abuse counseling and surveillance of alcoholic; Z71.6 Tobacco abuse counseling; Z91.013 Allergy to seafood; R11.2 Nausea with vomiting, unspecified; Z79.01 Long term (current) use of anticoagulants
CPT/HCPCS: 36415; 72128; 72131; 74177; 80048; 80053; 83690; 84484; 85025; 85027; 85610; 85730; 93005; 96374; 99285; C9113; G0378; G0480; J2405; J7120; Q9967

== ENCOUNTER 2018-07-05 11:39 | Emergency (ER) | payer MEDICARE, MEDICAID ==
[2018-07-05 11:39] VITALS: BMI 29.1
[2018-07-05] MEDS ORDERED: Oxycodone/Acetaminophen 5/325 mg Tab PO STA (12:45)
--- NOTE | 2018-07-05 12:58 | ED PDOC ---
HPI: Trauma/Fall - HPI Time Seen by Provider: 07/05/18 12:18 Chief Complaint (Nursing): Back Pain Chief Complaint (Provider): right hip pain History Per: Patient History/Exam Limitations: no limitations Onset/Duration Of Symptoms: Hrs (this morning) Associated Symptoms: denies: LOC Additional Complaint(s): Nelson Reed is a 52 year old male, with a past medical history of HTN and MS, who was brought to the emergency department by EMS complaining of right sided body pain s/p fall onset this morning. Patient states he tripped and fell coming out of the bathroom. He denies any leg, knee or shoulder pain, no head injuries or LOC. No further medical complaints. PMD: Dorian Jolley Past Medical History Reviewed: Historical Data, Nursing Documentation, Vital Signs - Medical History PMH: Deep Vein Thrombosis (bilateral), Gastritis, HTN, Multiple Sclerosis Denies: HIV, Chronic Kidney Disease - Surgical History Surgical History: Back Surgery - Family History Family History: States: Unknown Family Hx - Social History Current smoker - smoking cessation education provided: Yes (light smoker <10 cigarettes daily) Alcohol: None Drugs: Denies - Home Medications Home Medications: Ambulatory Orders Medication Instructions Recorded Apixaban [Eliquis] 2.5 mg PO BID #30 tablet 04/07/17 amLODIPine [Norvasc] 5 mg PO DAILY tab 04/07/17 Cyclobenzaprine [Flexeril] 10 mg PO Q8 05/17/17 Cyclobenzaprine [Flexeril] 10 mg PO TID PRN #15 tab 05/17/17 Lansoprazole [Prevacid] 30 mg PO DAILY 05/17/17 Furosemide [Lasix] 40 mg PO DAILY #4 tablet 03/24/18 Fenofibrate [Tricor] 48 mg PO DAILY 06/01/18 M-Vit,Tx,Iron,Mins/Calc/Folic 1 tab DAILY 06/01/18 [Thera-M Caplet] Omeprazole 40 mg PO DAILY 06/01/18 oxyCODONE [oxyCODONE Immediate 10 mg PO PRN PRN MDD 30 06/01/18 Release Tab] Ammonium Lactate 12% [Lac-Hydrin 1 applic TOP BID #1 bottle 06/02/18 12% Lotion (225 g)] amLODIPine [Norvasc] 10 mg PO DAILY #30 tab 06/02/18 - Allergies Allergies/Adverse Reactions: Allergies Allergy/AdvReac Type Severity Reaction Status Date / Time shellfish derived Allergy Intermediate ITCHING Verified 05/31/18 01:21 Review of Systems ROS Statement: Except As Marked, All Systems Reviewed And Found Negative Musculoskeletal: Positive for: Other (right hip pain ). Negative for: Shoulder Pain, Leg Pain Physical Exam - Reviewed Nursing Documentation Reviewed: Yes Vital Signs Reviewed: Yes - Physical Exam Appears: Positive for: No Acute Distress Head Exam: Positive for: ATRAUMATIC, NORMOCEPHALIC Skin: Positive for: Normal Color, Warm, Dry Eye Exam: Positive for: Normal appearance Neck: Positive for: Painless ROM Cardiovascular/Chest: Positive for: Regular Rate, Rhythm. Negative for: Chest Non Tender (Right chest wall tenderness), Murmur Respiratory: Positive for: Normal Breath Sounds. Negative for: Respiratory Distress Gastrointestinal/Abdominal: Positive for: Normal Exam, Soft. Negative for: Tenderness, Other (ecchymosis) Back: Positive for: Normal Inspection. Negative for: L CVA Tenderness, R CVA Tenderness, Vertebral Tenderness Extremity: Positive for: Normal ROM, Other (Right lateral hip tenderness). Negative for: Tenderness, Deformity, Swelling Neurologic/Psych: Positive for: Alert, Oriented. Negative for: Motor/Sensory Deficits Medical Decision Making Medical Decision Making: Time: 12:18 Initial Impression: Fall injuries Initial Plan: --Ribs and chest RT [RAD] --Percocet 5/325mg tab 1 tab PO --Hip Min 2V W/ Pelvis RT [RAD] --Reevaluation 14:15 Hip/Pelvis X-Ray FINDINGS: BONES: No acute fracture. JOINTS: Normal. SOFT TISSUES: Normal. OTHER FINDINGS: None. IMPRESSION: No demonstrated fracture or dislocation. 14:16 Ribs w/ Chest X-Ray FINDINGS: RIGHT RIBS: No fracture or focal lesion visualized. LUNGS: Clear. PLEURA: No pneumothorax or pleural fluid. CARDIOVASCULAR: Normal sized heart. No pulmonary vascular congestion. OTHER FINDINGS: Inferior vena cava filter. IMPRESSION: Unremarkable radiographs of the chest and right ribs. No right rib fracture. Scribe Attestation: Documented by Gigi Gutiérrez, acting as a scribe for Aspen Jay PA-C Provider Scribe Attestation: All medical record entries made by the Scribe were at my direction and personally dictated by me. I have reviewed the chart and agree that the record accurately reflects my personal performance of the history, physical exam, medical decision making, and the department course for this patient. I have also personally directed, reviewed, and agree with the discharge instructions and disposition. Disposition - Clinical Impression Clinical Impression: Fall, Contusion - Patient ED Disposition Is Patient to be Admitted: No - Disposition Referrals: Dorian Jolley MD [Primary Care Provider] - Disposition: Routine/Home Disposition Time: 14:35 Condition: STABLE Instructions: Preventing Falls Forms: [facility] (Ukrainian)
[2018-07-05] MEDS ORDERED: Oxycodone/Acetaminophen 5/325 mg Tab ONE (13:08)
--- NOTE | 2018-07-05 14:17 | RAD ---
PROCEDURE: Right Hip Radiographs. HISTORY: right hip COMPARISON: CT scan of the abdomen pelvis dated February 28, 2018. FINDINGS: BONES: No acute fracture. JOINTS: Normal. SOFT TISSUES: Normal. OTHER FINDINGS: None. IMPRESSION: No demonstrated fracture or dislocation.
--- NOTE | 2018-07-05 14:18 | RAD ---
Date of service: 07/05/2018 PROCEDURE: Radiographs of the Chest and Right Ribs. HISTORY: pain s/p fall COMPARISON: Chest radiograph dated 03/23/2017. TECHNIQUE: Frontal radiograph of the chest and multiple oblique radiographs of the right ribs were obtained. FINDINGS: RIGHT RIBS: No fracture or focal lesion visualized. LUNGS: Clear. PLEURA: No pneumothorax or pleural fluid. CARDIOVASCULAR: Normal sized heart. No pulmonary vascular congestion. OTHER FINDINGS: Inferior vena cava filter. IMPRESSION: Unremarkable radiographs of the chest and right ribs. No right rib fracture.
[2018-07-05 14:49] VITALS: PULSE 99; RESP 18
[2018-07-05 18:08] VITALS: BP 114/79; TEMP 98.8; O2SAT 95
== END 2018-07-05 18:08 | disposition home or self-care (01) ==
LOC: SUPCPDRO 11:39 → H.ER 11:39
DX: M54.9 Dorsalgia, unspecified (principal); S70.01XA Contusion of right hip, initial encounter; W19.XXXA Unspecified fall, initial encounter; Y92.89 Other specified places as the place of occurrence of the external cause; G35 Multiple sclerosis; I10 Essential (primary) hypertension; Z79.01 Long term (current) use of anticoagulants; Z86.718 Personal history of other venous thrombosis and embolism

== ENCOUNTER 2018-07-21 07:43 | Emergency (ER) | payer MEDICARE, MEDICAID ==
[2018-07-21 07:43] VITALS: BMI 29.1
--- NOTE | 2018-07-21 07:58 | ED PDOC ---
HPI: Back Time Seen by Provider: 07/21/18 07:46 Chief Complaint (Provider): back pain History Per: Patient History/Exam Limitations: no limitations Onset/Duration Of Symptoms: Days (years) Current Symptoms Are (Timing): Still Present Additional Complaint(s): Pt. with chronic low back pain history here for pain medication for his lower back pain. He ran out of his percocet. No numbness, tingles, incontinence, constipation. Able to walk some, but uses wheel chair due to MS. No weakness. No abd pain, chest pain, dyspnea, fall or injury. This is not a new pain. Same as his usual pain. Past Medical History Reviewed: Nursing Documentation, Vital Signs Vital Signs: Last Vital Signs Temp 99.0 F 07/21/18 07:46 Pulse 98 H 07/21/18 07:46 Resp 19 07/21/18 07:46 BP 140/106 H 07/21/18 07:46 Pulse Ox 98 07/21/18 07:46 - Medical History PMH: Back Problems, Deep Vein Thrombosis (bilateral), Gastritis, HTN, Multiple Sclerosis, Chronic Pain Denies: HIV, Chronic Kidney Disease - Surgical History Surgical History: Back Surgery - Family History Family History: States: Unknown Family Hx - Living Arrangements Living Arrangements: With Family - Home Medications Home Medications: Ambulatory Orders Medication Instructions Recorded Apixaban [Eliquis] 2.5 mg PO BID #30 tablet 04/07/17 amLODIPine [Norvasc] 5 mg PO DAILY tab 04/07/17 Cyclobenzaprine [Flexeril] 10 mg PO Q8 05/17/17 Cyclobenzaprine [Flexeril] 10 mg PO TID PRN #15 tab 05/17/17 Lansoprazole [Prevacid] 30 mg PO DAILY 05/17/17 Furosemide [Lasix] 40 mg PO DAILY #4 tablet 03/24/18 Fenofibrate [Tricor] 48 mg PO DAILY 06/01/18 M-Vit,Tx,Iron,Mins/Calc/Folic 1 tab DAILY 06/01/18 [Thera-M Caplet] Omeprazole 40 mg PO DAILY 06/01/18 oxyCODONE [oxyCODONE Immediate 10 mg PO PRN PRN MDD 30 06/01/18 Release Tab] Ammonium Lactate 12% [Lac-Hydrin 1 applic TOP BID #1 bottle 06/02/18 12% Lotion (225 g)] amLODIPine [Norvasc] 10 mg PO DAILY #30 tab 06/02/18 Diazepam [Valium] 2 mg PO BID PRN #6 tab 07/21/18 Ibuprofen [Motrin] 600 mg PO TID 7 Days tab 07/21/18 Lidocaine 5% [Lidoderm] 1 ea TD DAILY PRN #5 patch 07/21/18 - Allergies Allergies/Adverse Reactions: Allergies Allergy/AdvReac Type Severity Reaction Status Date / Time shellfish derived Allergy Intermediate ITCHING Verified 07/21/18 07:57 orange juice Allergy RASH Verified 07/21/18 07:56 Review of Systems Constitutional: Negative for: Fever, Weakness Cardiovascular: Negative for: Chest Pain, Light Headedness Respiratory: Negative for: Cough, Shortness of Breath Gastrointestinal: Negative for: Nausea, Vomiting, Abdominal Pain, Diarrhea, Constipation Genitourinary Male: Negative for: Dysuria, Frequency, Incontinence, Penile Discharge, Scrotal Pain Musculoskeletal: Positive for: Back Pain. Negative for: Neck Pain, Shoulder Pain, Arm Pain Skin: Negative for: Rash, Lesions Neurological: Negative for: Weakness, Dizziness Physical Exam - Reviewed Nursing Documentation Reviewed: Yes Vital Signs Reviewed: Yes - Physical Exam Appears: Positive for: Non-toxic, No Acute Distress Neck: Positive for: Normal, Painless ROM Cardiovascular/Chest: Positive for: Regular Rate, Rhythm Respiratory: Positive for: CNT, Normal Breath Sounds Gastrointestinal/Abdominal: Positive for: Normal Exam, Soft. Negative for: Tenderness Back: Positive for: Other (mild tender across lower back). Negative for: L CVA Tenderness, R CVA Tenderness Extremity: Positive for: Normal ROM, Pedal Edema (b/l with chronic venous stasis (chronic swelling per pt.)), Other (straight leg positive b/l 45*). Negative for: Tenderness, Calf Tenderness Neurologic/Psych: Positive for: Alert, Oriented, Motor/Sensory Deficits (4/5 strength lower extremities (chronic per pt. due to MS)) - ECG O2 Sat by Pulse Oximetry: 98 Pulse Ox Interpretation: Normal - Progress ED Course And Treament: 805: Stable. Pain controlled. Pt. advised about narcotic policies. Will give lidocain, motrin, and valium rx. Disposition - Clinical Impression Clinical Impression: Chronic back pain - Patient ED Disposition Is Patient to be Admitted: No Counseled Patient/Family Regarding: Diagnosis, Need For Followup, Rx Given - Disposition [facility]errals: [facility] - 07/22/18 Disposition: Routine/Home Disposition Time: 08:07 Condition: STABLE Additional Instructions: Return if not better in 3 days. Prescriptions: Diazepam [Valium] 2 mg PO BID PRN #6 tab PRN Reason: Muscle Spasm Ibuprofen [Motrin] 600 mg PO TID 7 Days tab Lidocaine 5% [Lidoderm] 1 ea TD DAILY PRN #5 patch PRN Reason: Pain, Moderate (4-7) Instructions: Chronic Pain (DC)
[2018-07-21] MEDS ORDERED: Oxycodone/Acetaminophen 5/325 mg Tab PO ONE (08:00)
[2018-07-21] MEDS ORDERED: Lidocaine 5% Patch TD STA (08:00)
[2018-07-21] MEDS ORDERED: Lidocaine 5% Patch TD ONE (08:14)
[2018-07-21] MEDS ORDERED: Oxycodone/Acetaminophen 5/325 mg Tab ONE (08:14)
[2018-07-21 10:21] VITALS: BP 118/90; PULSE 90; RESP 18; TEMP 98.2; O2SAT 97
== END 2018-07-21 10:01 | disposition home or self-care (01) ==
LOC: H.ER 07:43
DX: M54.9 Dorsalgia, unspecified (principal); G89.29 Other chronic pain; G35 Multiple sclerosis; I10 Essential (primary) hypertension; Z79.01 Long term (current) use of anticoagulants; Z86.718 Personal history of other venous thrombosis and embolism
CPT/HCPCS: 96372; 99283; J1885

== ENCOUNTER 2018-10-08 11:31 | Emergency (ER) | payer MEDICARE, MEDICAID ==
[2018-10-08 11:32] VITALS: BMI 31.3
--- NOTE | 2018-10-08 13:04 | ED PDOC ---
HPI: Back Time Seen by Provider: 10/08/18 12:15 Chief Complaint (Nursing): Back Pain Chief Complaint (Provider): Back Pain History Per: Patient History/Exam Limitations: no limitations Additional Complaint(s): 52 y/o homeless male with history of chronic back pain and multiple sclerosis presents to ER for evaluation of lower back pain after he fell from his wheel chair. Patient denies weakness or numbness. he is complaining of lower back pain. no complaints of saddle anasthesia, bowel or bladder incontinence. PMD: Dorian Jolley Past Medical History Reviewed: Historical Data, Nursing Documentation, Vital Signs Vital Signs: Last Vital Signs Temp 98.7 F 10/08/18 12:00 Pulse 97 H 10/08/18 12:00 Resp 19 10/08/18 12:00 BP 129/86 10/08/18 12:00 Pulse Ox 97 10/08/18 12:00 - Medical History PMH: Back Problems, Deep Vein Thrombosis (bilateral), Gastritis, HTN, Multiple Sclerosis, Pancreatitis, Chronic Pain Denies: Diabetes, Hepatitis, HIV, Chronic Kidney Disease, Seizures, Sexually Transmitted Disease - Surgical History Surgical History: Back Surgery - Family History Family History: States: Unknown Family Hx - Social History Current smoker - smoking cessation education provided: Yes Alcohol: Social - Immunization History Hx Tetanus Toxoid Vaccination: No Hx Influenza Vaccination: No Hx Pneumococcal Vaccination: No - Home Medications Home Medications: Ambulatory Orders Medication Instructions Recorded RX: Lansoprazole [Prevacid] 30 mg PO DAILY 05/17/17 RX: Furosemide [Lasix] 40 mg PO DAILY #4 tablet 03/24/18 RX: Fenofibrate [Tricor] 48 mg PO DAILY 06/01/18 RX: M-Vit,Tx,Iron,Mins/Calc/Folic 1 tab DAILY 06/01/18 [Thera-M Caplet] RX: Omeprazole 40 mg PO DAILY 06/01/18 RX: amLODIPine [Norvasc] 10 mg PO DAILY #30 tab 06/02/18 Ibuprofen [Motrin] 600 mg PO TID 7 Days tab 07/21/18 RX: Diazepam [Valium] 2 mg PO BID PRN #6 tab 07/21/18 RX: amLODIPine [Norvasc] 10 mg PO DAILY #30 tab 08/12/18 RX: traZODone [Desyrel] 50 mg PO HS PRN #30 tab 08/12/18 - Allergies Allergies/Adverse Reactions: Allergies Allergy/AdvReac Type Severity Reaction Status Date / Time shellfish derived Allergy Intermediate ITCHING Verified 10/08/18 11:59 orange juice Allergy RASH Verified 10/08/18 11:59 Review of Systems ROS Statement: Except As Marked, All Systems Reviewed And Found Negative Musculoskeletal: Positive for: Back Pain (lower) Neurological: Negative for: Weakness, Numbness Physical Exam - Physical Exam Appears: Positive for: Well, Non-toxic Head Exam: Positive for: ATRAUMATIC, NORMAL INSPECTION, NORMOCEPHALIC Skin: Positive for: Normal Color, Warm, Dry Eye Exam: Positive for: Normal appearance Neck: Positive for: Normal Cardiovascular/Chest: Positive for: Regular Rate, Rhythm Respiratory: Positive for: Normal Breath Sounds Gastrointestinal/Abdominal: Positive for: Normal Exam Extremity: Positive for: Normal ROM, Capillary Refill (less than 2 s). Negative for: Pedal Edema, Deformity, Swelling Neurologic/Psych: Positive for: Alert, Oriented - ECG O2 Sat by Pulse Oximetry: 97 (RA) Pulse Ox Interpretation: Normal Medical Decision Making Medical Decision Making: Time: 1253 Initial Plan: lower back pain no head trauma or other injuries --Tylenol 325 mg PO --LS Spine AP/LAT x-ray 1312 LS Spine AP/LAT x-ray FINDINGS: BONES: Normal alignment. No listhesis. No fracture. DISC SPACES: Unremarkable. OTHER FINDINGS: Modified Hock titanium [place] filter noted. IMPRESSION: Unremarkable radiographs of the lumbar spine. 1404 Patient is sleeping comfortably, in no distress. 1454 X-ray reviewed and shows no significant abnormality. Patient is aware of results and requesting food tray. Patient is stable for discharge. Scribe Attestation: Documented by Mee Bess, acting as a scribe for Mason South MD. Provider Scribe Attestation: All medical record entries made by the Scribe were at my direction and personally dictated by me. I have reviewed the chart and agree that the record accurately reflects my personal performance of the history, physical exam, medical decision making, and the department course for this patient. I have also personally directed, reviewed, and agree with the discharge instructions and disposition. Disposition - Clinical Impression Clinical Impression: Chronic back pain - Patient ED Disposition Is Patient to be Admitted: No Counseled Patient/Family Regarding: Studies Performed, Diagnosis, Need For Followup - Disposition Disposition: Routine/Home Disposition Time: 14:54 Condition: IMPROVED Additional Instructions: follow up with your primary doctor Dr Jacobo in 1-2 days return to the ED with any worsening or concerning symptoms Instructions: Chronic Pain (DC) Forms: [employer] (Swedish)
--- NOTE | 2018-10-08 13:44 | RAD ---
Date of service: 10/08/2018 PROCEDURE: Radiographs of the Lumbar Spine. HISTORY: acute on chronic pain COMPARISON: No prior. FINDINGS: BONES: Normal alignment. No listhesis. No fracture. DISC SPACES: Unremarkable. OTHER FINDINGS: Modified Hock titanium [place] filter noted. IMPRESSION: Unremarkable radiographs of the lumbar spine.
[2018-10-08 17:43] VITALS: BP 141/82; PULSE 91; RESP 19; TEMP 98.5; O2SAT 97
== END 2018-10-08 16:08 | disposition home or self-care (01) ==
LOC: H.ER 11:31
DX: M54.9 Dorsalgia, unspecified (principal)

== ENCOUNTER 2018-11-03 11:22 | Emergency (ER) | payer MEDICARE, MEDICAID ==
[2018-11-03 11:33] VITALS: BMI 34.7
--- NOTE | 2018-11-03 12:55 | ED PDOC ---
HPI: Trauma/Fall - HPI Time Seen by Provider: 11/03/18 11:49 Chief Complaint (Nursing): Back Pain Chief Complaint (Provider): left knee pain and back pain History Per: Patient History/Exam Limitations: no limitations Additional Complaint(s): 53 year old male with PMHx of HTN, chronic back pain and chronic paraplegic presents to the ED for an evaluation of left knee, left hip, tail bone and lower back pain status post fall from him wheelchair. Patient states while standing up, he accidentally fell backwards on the left side. Patient has been paraplegic for many years and has incontinence, cannot walk and is wheelchair bound. Otherwise, he denies fever or chills. PCP: Dorian Jolley Past Medical History Reviewed: Historical Data, Nursing Documentation, Vital Signs Vital Signs: Last Vital Signs Temp 97.6 F 11/03/18 11:30 Pulse 93 H 11/03/18 11:30 Resp 19 11/03/18 11:43 BP 147/106 H 11/03/18 11:30 Pulse Ox 100 11/03/18 11:30 - Medical History PMH: Back Problems, Deep Vein Thrombosis (bilateral), Gastritis, HTN, Multiple Sclerosis, Pancreatitis, Chronic Pain Denies: Diabetes, Hepatitis, HIV, Chronic Kidney Disease, Seizures, Sexually Transmitted Disease - Surgical History Surgical History: Back Surgery - Family History Family History: States: Unknown Family Hx - Social History Current smoker - smoking cessation education provided: Yes Alcohol: Other (few drinks a week) - Immunization History Hx Tetanus Toxoid Vaccination: No Hx Influenza Vaccination: No Hx Pneumococcal Vaccination: No - Home Medications Home Medications: Ambulatory Orders Medication Instructions Recorded RX: Lansoprazole [Prevacid] 30 mg PO DAILY 05/17/17 RX: Furosemide [Lasix] 40 mg PO DAILY #4 tablet 03/24/18 RX: Fenofibrate [Tricor] 48 mg PO DAILY 06/01/18 RX: M-Vit,Tx,Iron,Mins/Calc/Folic 1 tab DAILY 06/01/18 [Thera-M Caplet] RX: Omeprazole 40 mg PO DAILY 06/01/18 RX: amLODIPine [Norvasc] 10 mg PO DAILY #30 tab 06/02/18 Ibuprofen [Motrin] 600 mg PO TID 7 Days tab 07/21/18 RX: Diazepam [Valium] 2 mg PO BID PRN #6 tab 10/16/18 RX: amLODIPine [Norvasc] 10 mg PO DAILY #30 tab 08/12/18 RX: traZODone [Desyrel] 50 mg PO HS PRN #30 tab 08/12/18 RX: Non-Formulary 1 ea XX DAILY #1 ea 11/03/18 - Allergies Allergies/Adverse Reactions: Allergies Allergy/AdvReac Type Severity Reaction Status Date / Time shellfish derived Allergy Intermediate ITCHING Verified 11/03/18 11:35 orange juice Allergy RASH Verified 11/03/18 11:35 Review of Systems ROS Statement: Except As Marked, All Systems Reviewed And Found Negative Constitutional: Negative for: Fever, Chills Musculoskeletal: Positive for: Back Pain (lower), Other (left knee pain) Physical Exam - Reviewed Nursing Documentation Reviewed: Yes Vital Signs Reviewed: Yes - Physical Exam Appears: Positive for: No Acute Distress Head Exam: Positive for: ATRAUMATIC, NORMAL INSPECTION, NORMOCEPHALIC Skin: Positive for: Warm, Dry Eye Exam: Positive for: EOMI Cardiovascular/Chest: Positive for: Regular Rate, Rhythm Back: Positive for: Normal Inspection. Negative for: L CVA Tenderness, R CVA Tenderness Extremity: Positive for: Normal ROM. Negative for: Tenderness, Deformity, Swelling Neurologic/Psych: Positive for: Alert, Oriented (x3) - ECG O2 Sat by Pulse Oximetry: 100 (RA) Pulse Ox Interpretation: Normal Medical Decision Making Medical Decision Making: Time: 1221 Impression: lower back and left knee pain s/p fall r/o fracture or dislocation Plan: --Toradol 30mg --Hip left [hip min 2V w/ pelvis] [RAD] --sacrum &/or coccyx (min 2VW) [RAD] --Reevaluation Time: 1345 --social work referral routine Time: 1406 PROCEDURE: Left Hip X-ray Radiographs. FINDINGS: BONES: Normal. No fracture. JOINTS: Normal. SOFT TISSUES: Normal. OTHER FINDINGS: None. IMPRESSION: No acute findings related to/ accounting for the clinical presentation. Time: 1407 PROCEDURE: Radiographs of the Sacrum and Coccyx FINDINGS: BONES: Sacrum and coccyx unremarkable. No fracture or focal lesion. SACROILIAC JOINTS: Unremarkable. OTHER FINDINGS: None. IMPRESSION: Unremarkable radiographs of the sacrum and coccyx. 1600 Patient seen by [facility] case managrer and referred to home health aid evaluation. Scribe Attestation: Documented by Moisés Diaz acting as a scribe for Michelle Leong MD Provider Scribe Attestation: All medical record entries made by the Scribe were at my direction and personally dictated by me. I have reviewed the chart and agree that the record accurately reflects my personal performance of the history, physical exam, medical decision making, and the department course for this patient. I have also personally directed, reviewed, and agree with the discharge instructions and disposition. Disposition - Clinical Impression Clinical Impression: Low back pain, Injury of hip, left - Patient ED Disposition Is Patient to be Admitted: No Doctor Will See Patient In The: Office Counseled Patient/Family Regarding: Studies Performed, Diagnosis, Need For Followup - Disposition Disposition: Routine/Home Disposition Time: 16:01 Condition: GOOD Additional Instructions: MIRIAM MONTANEZ, thank you for letting us take care of you today. Your provider was Michelle Leong MD and you were treated for FALL; BACK PAIN. The emergency medical care you received today was directed at your acute symptoms. If you were prescribed any medication, please fill it and take as directed. It may take several days for your symptoms to resolve. Return to the Emergency Department if your symptoms worsen, do not improve, or if you have any other problems. Please contact your doctor or call one of the physicians/clinics you have been referred to that are listed on the Patient Visit Information form that is included in your discharge packet. Bring any paperwork you were given at discharge with you along with any medications you are taking to your follow up visit. Our treatment cannot replace ongoing medical care by a primary care provider outside of the emergency department. Thank you for allowing the [facility] Social 2 Step team to be part of your care today. If you had an X-Ray or CT scan: A Radiologist will review the ED reading if any change in treatment is needed we will contact you. If you had a blood, urine, or wound culture: It will take several days for the results, if any change in treatment is needed we will contact you. If you had an STI test: It will take 48 hours for the results. Please call after 1 week if you have not heard back. Prescriptions: RX: Non-Formulary 1 ea XX DAILY #1 ea Instructions: Low Back Pain (DC)
--- NOTE | 2018-11-03 14:10 | RAD ---
PROCEDURE: Left Hip X-ray Radiographs. HISTORY: left hip pain fall COMPARISON: None. FINDINGS: BONES: Normal. No fracture. JOINTS: Normal. SOFT TISSUES: Normal. OTHER FINDINGS: None. IMPRESSION: No acute findings related to/ accounting for the clinical presentation.
--- NOTE | 2018-11-03 14:11 | RAD ---
Date of service: 11/03/2018 PROCEDURE: Radiographs of the Sacrum and Coccyx HISTORY: coccyx pain COMPARISON: None available. TECHNIQUE: Frontal and lateral views of the sacrum and coccyx FINDINGS: BONES: Sacrum and coccyx unremarkable. No fracture or focal lesion. SACROILIAC JOINTS: Unremarkable. OTHER FINDINGS: None. IMPRESSION: Unremarkable radiographs of the sacrum and coccyx.
[2018-11-03 17:28] VITALS: BP 120/79; PULSE 69; RESP 18; TEMP 98
[2018-11-04 15:36] VITALS: O2SAT 100
== END 2018-11-03 17:28 | disposition home or self-care (01) ==
LOC: H.ER 11:22
DX: M54.9 Dorsalgia, unspecified (principal); S79.912A Unspecified injury of left hip, initial encounter; W05.0XXA Fall from non-moving wheelchair, initial encounter; Y92.89 Other specified places as the place of occurrence of the external cause; G82.20 Paraplegia, unspecified
CPT/HCPCS: 72220; 73502; 96372; 99283; J1885

== ENCOUNTER 2018-12-11 10:02 | Emergency (ER) | payer MEDICARE, MEDICAID ==
[2018-12-11 10:08] VITALS: RESP 18; TEMP 97.9; BMI 33.0
--- NOTE | 2018-12-11 11:30 | ED PDOC ---
HPI: Psych/Substance Abuse Time Seen by Provider: 12/11/18 10:48 Chief Complaint (Nursing): Back Pain Chief Complaint (Provider): alcohol intoxication ED Caveat: Intoxicated History Per: Patient History/Exam Limitations: intoxication Onset/Duration Of Symptoms: Persistent Current Symptoms Are (Timing): Still Present Modifying Factor(s): Alcohol Additional Complaint(s): 53 year old male with history of frequent falls secondary to paralplegia, alcohol abuse, and chronic back pain, arrives to the emergency department for persistent back pain status post falling out of wheelchair prior to arrival. Patient admits to drinking alcohol today and requesting food to eat. He denies any new weakness or drug use. PCP: none provided Past Medical History Reviewed: Historical Data, Nursing Documentation, Vital Signs Vital Signs: Last Vital Signs Temp 97.9 F 12/11/18 10:07 Pulse 97 H 12/11/18 10:07 Resp 18 12/11/18 10:07 BP 151/110 H 12/11/18 10:07 Pulse Ox 99 12/11/18 10:07 - Medical History PMH: Back Problems, Deep Vein Thrombosis (bilateral), Gastritis, HTN, Multiple Sclerosis, Pancreatitis, Chronic Pain Denies: Diabetes, Hepatitis, HIV, Chronic Kidney Disease, Seizures, Sexually Transmitted Disease - Surgical History Surgical History: Back Surgery - Family History Family History: States: Unknown Family Hx - Social History Alcohol: > 2 Drinks/Day - Immunization History Hx Tetanus Toxoid Vaccination: No Hx Influenza Vaccination: No Hx Pneumococcal Vaccination: No - Home Medications Home Medications: Ambulatory Orders Medication Instructions Recorded Lansoprazole [Prevacid] 30 mg PO DAILY 05/17/17 Furosemide [Lasix] 40 mg PO DAILY #4 tablet 03/24/18 Fenofibrate [Tricor] 48 mg PO DAILY 06/01/18 M-Vit,Tx,Iron,Mins/Calc/Folic 1 tab DAILY 06/01/18 [Thera-M Caplet] Omeprazole 40 mg PO DAILY 06/01/18 amLODIPine [Norvasc] 10 mg PO DAILY #30 tab 06/02/18 Diazepam [Valium] 2 mg PO BID PRN #6 tab 07/21/18 Ibuprofen [Motrin] 600 mg PO TID 7 Days tab 07/21/18 amLODIPine [Norvasc] 10 mg PO DAILY #30 tab 08/12/18 traZODone [Desyrel] 50 mg PO HS PRN #30 tab 08/12/18 Non-Formulary 1 ea XX DAILY #1 ea 11/03/18 - Allergies Allergies/Adverse Reactions: Allergies Allergy/AdvReac Type Severity Reaction Status Date / Time shellfish derived Allergy Intermediate ITCHING Verified 11/03/18 11:35 orange juice Allergy RASH Verified 11/03/18 11:35 Review of Systems ROS Statement: Except As Marked, All Systems Reviewed And Found Negative Musculoskeletal: Positive for: Back Pain, Other (paralplegic) Neurological: Negative for: Weakness (new) Physical Exam - Reviewed Nursing Documentation Reviewed: Yes Vital Signs Reviewed: Yes - Physical Exam Appears: Positive for: No Acute Distress (disheveled/malodorous) Back: Negative for: Other (bony abnormality) Extremity: Positive for: Other (bilateral LE weakness) Neurological/Psych: Positive for: Awake, Alert, Oriented (x3), Mood/Affect (mildly agitated) - ECG O2 Sat by Pulse Oximetry: 99 (RA) Pulse Ox Interpretation: Normal Medical Decision Making Medical Decision Making: Time: 1116 Initial Plan: * Toradol 30mg IM Scribe Attestation: Documented by Ruth Mcgill, acting as a scribe for Sade Rubio MD. Provider Scribe Attestation: All medical record entries made by the Scribe were at my direction and personally dictated by me. I have reviewed the chart and agree that the record accurately reflects my personal performance of the history, physical exam, medical decision making, and the department course for this patient. I have also personally directed, reviewed, and agree with the discharge instructions and disposition. Disposition - Clinical Impression Clinical Impression: Alcohol use disorder, Contusion, back Counseled Patient/Family Regarding: Studies Performed, Diagnosis - Disposition Referrals: [facility] [Outside] - 12/14/18 Disposition: Routine/Home Disposition Time: 12:00 Condition: STABLE Instructions: Alcohol Abuse and Alcoholism (DC), Chronic Pain (DC), Preventing Falls
[2018-12-11 14:52] VITALS: BP 139/100; PULSE 90; O2SAT 98
== END 2018-12-11 17:57 | disposition home or self-care (01) ==
LOC: H.ER 10:02
DX: F10.10 Alcohol abuse, uncomplicated (principal); Y90.9 Presence of alcohol in blood, level not specified; S20.229A Contusion of unspecified back wall of thorax, initial encounter; Z86.718 Personal history of other venous thrombosis and embolism; I10 Essential (primary) hypertension; G89.29 Other chronic pain; R29.6 Repeated falls; G35 Multiple sclerosis
CPT/HCPCS: 96372; 99284; J1885